=== PATIENT | female | born 1970 | race Caucasian/White ===

== ENCOUNTER 2017-03-02 17:28 | Inpatient (IN) | payer OTHER ==
[~2017-03-02] VITALS: Ht 167.6 cm; Wt 42.3 kg
--- NOTE | ~2017-03-02 | PR ---
[place], [place] PROGRESS NOTE NAME: NUBIA ROLLE UNIT #: [id number] ROOM: 507 DOCTOR: ELIZABETH MCDONALD MD BIRTHDATE: [birth year] DOS: 03/04/2017 SUBJECTIVE: The patient refused to use of the BiPAP after ____ yesterday morning, currently not using the BiPAP. The patient has been using oxygen supplementation ____ reduction of symptoms of shortness breath, cough. There was no wheezing. There were no symptoms of chest pain. OBJECTIVE: VITAL SIGNS: Normal temperature, respiratory rate 20, heart rate of 82, blood pressure 118/68. HEENT: Showed no new change. NECK: Supple. CARDIOVASCULAR: S1, S2 audible. LUNGS: The patient was noted without any wheezing or crackles at the present time. The breaths are noted generally diminished bilaterally with partial improvement in the air entry of the lungs. LABORATORY DATA: Cultures of the sputum preliminary showed normal roberto. Gram stain noted moderate white blood cells, few epithelial cells, few gram-positive cocci in pairs. Blood culture from the 15 of this month showed no bacterial growth. The BMP this morning, BUN of 8, creatinine was normal. Other electrolytes noted grossly normal except CO2 of 41. IMPRESSION: 1. The patient will be currently noted with acute exacerbation of chronic obstructive pulmonary disease with acute tracheobronchitis. 2. Kykrp-on-xemjhxt hypercapnic and hypoxic respiratory failure as well. 3. Metabolic alkalosis secondary to chronic hypercarbia. PLAN OF TREATMENT: Continuation of the patient nutrition support, bronchodilators, oxygen supplementation and other treatment as in progress. Further treatment changes will be done on the patient based on the progression of her illness. [place], [place] PROGRESS NOTE NAME: NUBIA ROLLE UNIT #: [id number] ROOM: 507 DOCTOR: ELIZABETH MCDONALD MD BIRTHDATE: [birth year] ELIZABETH VILLASEÑOR MD CM:PNTRANS [id number] ELIZABETH WEST MD 03/05/17 0110 interface
--- NOTE | ~2017-03-02 | PR ---
[place], [place] PROGRESS NOTE NAME: NUBIA ROLLE UNIT #: [id number] ROOM: 507 DOCTOR: CHARLEEN WEST MD,ELIZABETH BIRTHDATE: [birth year] DOS: 03/05/2017 PULMONARY FOLLOWUP SUBJECTIVE: She has been using oxygen supplementation 4 liters nasal cannula, shortness of breath, cough and other symptoms. The patient has been resolving progressively. There were no symptoms of chest pain. The patient refused to use the BiPAP for the past couple of days. OBJECTIVE: VITAL SIGNS: Normal temperature, respiratory rate 20, heart rate 74, blood pressure 150/87. Pulse oxygen saturation on 4 liters nasal cannula 98% saturation. HEENT: Examination shows no acute change. NECK: Supple. CARDIOVASCULAR: S1, S2 audible. LUNGS: The patient was noted without any wheezing or crackles at the present time. Breaths are noted mildly decreased bilaterally. ABDOMEN: Soft, nontender. IMPRESSION: 1. The patient who has been currently noted with resolving acute hypercapnic and hypoxic respiratory failure with improving acute exacerbation of chronic obstructive pulmonary disease, progressively. 2. History of nicotine dependence. PLAN OF TREATMENT: The patient could be discharged home on oral medication such as tapering prednisone and antibiotics and continue other medications. Tobacco cessation was encouraged. Other supportive plan and management as previously in progress. Outpatient followup suggested 2 weeks post-discharge. ELIZABETH VILLASEÑOR MD CM:TOMAS [phone] [id number] ELIZABETH WEST MD 03/05/17 221 interface
--- NOTE | ~2017-03-02 | CON ---
[place], [place] REPORT OF CONSULTATION NAME: NUBIA ROLLE UNIT #: [id number] ROOM: 507 DOCTOR: ELIZABETH MCDONALD MD BIRTHDATE: [birth year] DOS: 03/03/2017 PULMONARY CONSULTATION, EVALUATION AND MANAGEMENT CONSULTATION REQUESTED BY: Hospitalist services. REASON FOR CONSULTATION: Assess the patient for ongoing acute respiratory complaints. HISTORY OF PRESENT ILLNESS: This is a 46-year-old female with history of end-stage COPD and chronic hypercapnic hypoxic respiratory failure, known to me from the past. She presented to the Emergency Room on 03/02/2017. The patient reported symptoms of having increased shortness of breath, which has been occurring for the past 2 to 3 days. The symptoms were noted progressive. The symptoms started as the patient developed cough as well. The coughing has been noted with sputum expectoration, sometimes yellowish in color. The patient came to the hospital Emergency Room and also noticed severe oxygen desaturation. Upon arrival in the Emergency, oxygen in the 70s. The patient does complain of some wheezing and tightness in the chest as well. Denies symptoms of hemoptysis. Denies symptoms of chest trauma. She has been admitted to the hospital currently for further medical management of current acute on chronic hypercapnic hypoxic respiratory failure. This morning the patient has been noted with BiPAP, which has been ordered for the patient from last night. The BiPAP had been used for the patient for the past several hours. REVIEW OF SYSTEMS: CONSTITUTIONAL: Fatigue and tiredness noted without symptoms of fever or chills. EYES: Denies any burning, redness, or tenderness. EARS, NOSE, THROAT: No sore throat, hoarseness, otalgia, postnasal drainage or epistaxis. GASTROINTESTINAL: Denies dysphagia, nausea, vomiting, diarrhea, abdominal pain, hematemesis, melena, or hematochezia. GENITOURINARY: Denies dysuria, suprapubic pain, hematuria. MUSCULOSKELETAL: Denies any acute joint pain, redness, and history of chronic pain medication dependency known for this patient. SKIN: Denies lesions or rashes. CENTRAL NERVOUS SYSTEM: Denies dizziness, headache, diplopia, syncopal episodes. SKIN: No lesions or rashes. Remaining systems were reviewed with the patient, they were noted all negative. PAST MEDICAL HISTORY: 1. Centrilobular emphysema for this patient, which was noted end stage. 2. Chronic hypercapnic hypoxic respiratory failure, use of oxygen 4 liters per minute. 3. History of psoriasis. 4. History of illicit drug use as well. [place], [place] REPORT OF CONSULTATION NAME: NUBIA ROLLE UNIT #: [id number] ROOM: 507 DOCTOR: CHARLEEN WEST MD,ELIZABETH BIRTHDATE: [birth year] SOCIAL HISTORY: The patient is and lives at home. Denies any history of alcohol. Illicit drug use, tobacco use noted for this patient. Pack of cigarettes per day previously, currently stating she smoking 1-3 cigarettes a day. PAST SURGICAL HISTORY: Noted for cholecystectomy. FAMILY HISTORY: Unknown. MEDICATIONS: Current administered medications noted use of: 1. Thiamine. 2. Paxil. 3. Nicotine replacement patches. 4. Potassium chloride. 5. Lovenox. 6. Remeron. 7. Trazodone. 8. Neurontin. 9. Solu-Medrol 60 mEq q.8 hours. 10. DuoNeb. 11. Zithromax and IV Rocephin administration. 12. Use of Suboxone sublingual 4 mg b.i.d. DRUG ALLERGIES: No known drug allergies. PHYSICAL EXAMINATION: GENERAL: A 46-year-old female was noted currently awake and alert without any distress. Height of the patient noted 5 feet 6 inches, weight of 81 pounds, BMI 13. VITAL SIGNS: For the patient showed normal temperature, respiratory rate 18-24, heart rate of 64-94, blood pressure of 104/64, pO2 of 54. Pulse oxygen saturation on 4 L nasal cannula 90% saturation, currently with the BiPAP at 98% saturation. HEENT: Examination shows head was atraumatic. Eyes nonicterus. NECK: Supple. CARDIOVASCULAR: S1, S2 is audible. LUNGS: The patient was noted with general reduction in the breath sounds with expiratory wheezing, no crackles. ABDOMEN: Flat, soft, nontender. EXTREMITIES: Showed chronic loss of muscle mass. There are no deformities. SKIN: Showed no lesions or rashes. CENTRAL NERVOUS SYSTEM: Cranial nerves 2-12 intact. No focal deficits. LABORATORY DATA: Lactic acid yesterday 1.0, which was normal. PT/PTT yesterday normal. CMP yesterday: Glucose 177, CO2 of 42, chloride of 88, remaining CMP was normal. CBC yesterday: WBC count 26.8, hemoglobin 12.2, hematocrit 39.5, platelet count of 116,000. Arterial blood gas: pH of 7.32, pCO2 of 82.9, pO2 of 61 on nasal cannula oxygen. CK-MB, troponin yesterday and this morning all noted normal. Arterial blood gas this morning on 55% oxygen use of the BiPAP; pH of 7.27, pCO2 of 84, pO2 of 174 with a setting of BiPAP at 16/10. PT/PTT [place], [place] REPORT OF CONSULTATION NAME: NUBIA ROLLE UNIT #: [id number] ROOM: 507 DOCTOR: CHARLEEN WEST MD,ELIZABETH BIRTHDATE: [birth year] were noted as normal. CBC this morning: WBC count 17.8, ____ 35.6, platelet count was noted at 93,000. RADIOLOGY REVIEW: Chest x-ray of the patient that was done on 03/02/2017 showed severe emphysema changes noted without any acute pulmonary infiltration visible. CT scan of the chest, which was done yesterday without contrast. In the Emergency Room, the patient was also noted with severe diffuse centrilobular emphysema changes, noted basilar area of infiltration. IMPRESSION: 1. The patient has been currently admitted to the hospital noted with acute on chronic hypercapnic hypoxic respiratory failure as a result of acute bacterial pneumonia. The patient's lower lobe with consideration for community-acquired infection, gram-positive pneumonia would be considered. 2. History of illicit drug use in the past. This patient currently treated with Suboxone because of pain medication dependency. 3. The patient with low BMI as well. 4. Chronic nicotine dependence as well as ____. 5. Metabolic alkalosis of the patient secondary to chronic resting hypercarbia. 6. Thrombocytopenia, most likely related to the current infection process. PLAN OF TREATMENT: Continue the current steroids, bronchodilators, and antibiotics. Continue bronchodilators. Continue use of the BiPAP at current settings most of the time as tolerated. Continue to monitor arterial blood gases. Nutrition support for the patient to be optimized. Further treatment changes to be done for the patient based on progression of the illness. Usual medical management, other therapy, plan of care. DVT prophylaxis. Thank you for allowing me to participate in the care of this patient. ELIZABETH VILLASEÑOR MD CM:CONSTR:REPORT OF CONSULTATION [id number] 03/03/17 1419 interface
[~2017-03-02 17:28] MED LIST: ALBUTEROL0.09 MG/A2 INH; AMOXICILLIN500 MG PO; ANAPROX DS550 MG PO; ATARAX,VISTARIL50 MG PO; B-1100 M1 PO; CARBIDOPA/LEVOD1 TA1 PO; COMBIVENT1 AR2 IH; DUONEB 3 MG/3 ML3 M1 NEB; FLONASE 0.05% 121 EA NAS; FUROSEMIDE20 MG PO; HYDROCORTISONE30 G3 T; HYDROXYZINE PAM50 MG PO; KLOR-CON 1010 ME1 PO; LASIX40 MG PO; LEVAQUIN750 M1 PO; MOTRIN800 MG PO; MULTI VITAMINS1 TAB PO; NEURONTIN400 MG PO; NICODERM C14 MG/241 T; NICODERM C21 MG/242 TD; ONDANSETRON4 MG PO; PAXIL10 MG PO; SINEMET 25-100M1 TAB PO; SUBOXONE 8 MG-1 EACH SL; SYMBICORT1 AE1 INH; TRAZODONE50 MG PO; VENTOLIN H0.09 MG/AC INH; ZITHROMAX Z PA250 MG PO; ZITHROMAX250 MG PO; ZOFRAN 4 MG ED2 TAB PO; ZYRTEC10 MG PO
[2017-03-02 17:34] VITALS: BP 112/60
[2017-03-02] MEDS ORDERED: DULER200 INH (17:35)
[2017-03-02] MEDS ORDERED: MIRTAZAPINE15 M2 PO (17:35)
[2017-03-02 18:08] LABS: HEMATOCRIT 39.5 % (37.0-47.0); HEMOGLOBIN 12.3 g/dl (12.0-16.0); MEAN CELL VOLUME 102.3 fl (81.0-99.0); MEAN CORPUSCULAR HGB 31.9 pg (27.0-31.0); MEAN CORPUSCULAR HGB CONC 31.1 g/dl (33.0-37.0); MEAN PLATELET VOLUME 12.9 fl (9.6-12.3); PLATELET COUNT AUTOMATED 116 10*3/uL (130-400); RED BLOOD COUNT 3.86 10*6/uL (4.10-5.10); RED CELL DISTRI WIDTH 12.7 % (0-14.5); WHITE BLOOD COUNT 26.8 10*3/uL (4.8-10.8)
[2017-03-02 18:10] VITALS: BP 130/89
[2017-03-02 18:16] LABS: INTERNATIONAL NORM RATIO 1.1 (2.0-3.5); PROTHROMBIN TIME 11.5 SECONDS (9.0-12.4)
[2017-03-02 18:24] LABS: ALBUMIN 3.5 gm/dl (3.1-4.5); ALKALINE PHOSPHATASE 84 U/L (45-117); BILIRUBIN, TOTAL 0.3 mg/dl (0.2-1.0); BUN 6 mg/dl (7-24); CHLORIDE 88 mmol/L (98-107); EST GLOM FILT AFRICAN AMERICAN > 60 ml/min; GLUCOSE 177 mg/dL (65-99); MAGNESIUM 1.8 mg/dL (1.5-2.1); POTASSIUM 4.1 mmol/L (3.5-5.1); SGOT/AST 16 IU/L (3-35); SGPT/ALT 16 U/L (12-78); SODIUM 138 mmol/L (136-145); TOTAL PROTEIN 7.7 gm/dL (6.4-8.2)
[2017-03-02 18:30] LABS: CARBON DIOXIDE 42 mmol/L (21-32); TROPONIN I < 0.015 ng/ml (<0.045)
[2017-03-02 18:31] LABS: LYMPHOCYTE # 0.3 10*3/uL (1.3-4.4); MONOCYTE # 1.1 10*3/uL (0.1-1.0); NEUTROPHIL # 25.5 10*3/uL (2.3-7.9); NEUTROPHILS 95 % (47-73); PLATELET SUFFICIENCY LOW (NORMAL); STOMATOCYTE FEW; TOTAL CELLS COUNTED 100 #CELLS
[2017-03-02 19:09] LABS: BILIRUBIN NEGATIVE (NEGATIVE); BLOOD NEGATIVE (NEGATIVE); CLARITY CLEAR (CLEAR); COLOR YELLOW (YELLOW); GLUCOSE NEGATIVE (NEGATIVE); KETONE NEGATIVE (NEGATIVE); LEUKO ESTERASE NEGATIVE (NEGATIVE); NITRITE NEGATIVE (NEGATIVE); PROTEIN NEGATIVE (NEGATIVE); SPECIFIC GRAVITY <= 1.005 (1.005-1.030); UROBILINOGEN 0.2 E.U./dl (0.2-1.0)
[2017-03-02 19:20] LABS: BACTERIA TRACE; EPITHELIAL CELLS 0-2; URINE REFLEX COMMENT NO (NO); WBC 0-2 wbc/hpf (0-5)
[2017-03-02 20:14] VITALS: BP 106/83
[2017-03-02 20:46] LABS: ABG BASE EXCESS 13.1 mmol/L (-2.0-2.0); ABG CO2 CONTENT 44.6 mmol/L (23-27); ABG HCO3 42.1 mmol/l (22-26); ARTERIAL BLOOD GAS PH 7.328 (7.35-7.45)
[2017-03-02] MEDS ORDERED: REMERON15 M2 PO (20:49)
[2017-03-03] VITALS: BP 93/54
[2017-03-03 02:11] LABS: CKMB 2.1 ng/ml (0.5-3.6)
[2017-03-03 05:58] LABS: HEMATOCRIT 35.6 % (37.0-47.0); HEMOGLOBIN 10.5 g/dl (12.0-16.0); MEAN CELL VOLUME 104.1 fl (81.0-99.0); MEAN CORPUSCULAR HGB 30.7 pg (27.0-31.0); MEAN CORPUSCULAR HGB CONC 29.5 g/dl (33.0-37.0); MEAN PLATELET VOLUME 12.3 fl (9.6-12.3); PLATELET COUNT AUTOMATED 93 10*3/uL (130-400); RED BLOOD COUNT 3.42 10*6/uL (4.10-5.10); RED CELL DISTRI WIDTH 12.8 % (0-14.5); WHITE BLOOD COUNT 17.8 10*3/uL (4.8-10.8)
[2017-03-03 06:12] LABS: CKMB 1.9 ng/ml (0.5-3.6)
[2017-03-03 06:15] LABS: ABG BASE EXCESS 8.7 mmol/L (-2.0-2.0); ABG HCO3 38.3 mmol/l (22-26); ABG TEMPERATURE 96.9 F (98.0-99.0); ARTERIAL BLOOD GAS PH 7.273 (7.35-7.45)
[2017-03-03 06:29] LABS: HEMOGLOBIN A1c 5.2 % (4.8-5.6); PROTHROMBIN TIME 11.1 SECONDS (9.0-12.4)
[2017-03-03 06:31] LABS: BUN 8 mg/dl (7-24); CHLORIDE 96 mmol/L (98-107); CHOLESTEROL 116 mg/dL (<200); EST GLOM FILT AFRICAN AMERICAN > 60 ml/min; FREE T4 1.46 ng/dl (0.76-1.46); GLUCOSE 103 mg/dL (65-99); MAGNESIUM 1.8 mg/dL (1.5-2.1); PHOSPHOROUS 2.6 mg/dL (2.5-4.9); POTASSIUM 4.8 mmol/L (3.5-5.1); SODIUM 140 mmol/L (136-145); TRIGLYCERIDES 73 mg/dl (<150); VLDL CHOLESTEROL 15 mg/dL (6-40)
[2017-03-03 06:39] LABS: HDL CHOLESTEROL 44 mg/dl (40-60); LDL CHOLESTEROL 57 mg/dL (9-159); THYROID STIM HORMONE (HS) 0.244 uIU/ml (0.358-4.75)
[2017-03-03 06:44] LABS: CARBON DIOXIDE 41 mmol/L (21-32)
[2017-03-03 07:05] LABS: FOLIC ACID 14.41 ng/mL (>5.38); VITAMIN D, 25-HYDROXY 13.9 ng/mL (30-100)
[2017-03-03 07:18] LABS: LYMPHOCYTE # 0.2 10*3/uL (1.3-4.4); NEUTROPHIL # 17.6 10*3/uL (2.3-7.9); NEUTROPHILS 99 % (47-73); PLATELET SUFFICIENCY LOW (NORMAL); TOTAL CELLS COUNTED 100 #CELLS
[2017-03-03 08:00] VITALS: BP 104/64
[2017-03-03 12:00] VITALS: BP 121/58
[2017-03-03 16:00] VITALS: BP 96/50
[2017-03-03 20:00] VITALS: BP 103/48
[2017-03-04] VITALS: BP 92/52
[2017-03-04 04:00] VITALS: BP 94/52
[2017-03-04 07:20] LABS: HEMATOCRIT 34.5 % (37.0-47.0); HEMOGLOBIN 10.2 g/dl (12.0-16.0); MEAN CELL VOLUME 104.9 fl (81.0-99.0); MEAN CORPUSCULAR HGB CONC 29.6 g/dl (33.0-37.0); MEAN PLATELET VOLUME 12.6 fl (9.6-12.3); PLATELET COUNT AUTOMATED 111 10*3/uL (130-400); RED BLOOD COUNT 3.29 10*6/uL (4.10-5.10); RED CELL DISTRI WIDTH 12.9 % (0-14.5)
[2017-03-04 07:40] LABS: LYMPHOCYTE # 0.8 10*3/uL (1.3-4.4); MONOCYTE # 0.1 10*3/uL (0.1-1.0); NEUTROPHIL # 12.1 10*3/uL (2.3-7.9); NEUTROPHILS 93 % (47-73); PLATELET SUFFICIENCY LOW (NORMAL); STOMATOCYTE FEW; TOTAL CELLS COUNTED 100 #CELLS
[2017-03-04 07:48] LABS: BUN 8 mg/dl (7-24); CARBON DIOXIDE 39 mmol/L (21-32); CHLORIDE 100 mmol/L (98-107); EST GLOM FILT AFRICAN AMERICAN > 60 ml/min; GLUCOSE 120 mg/dL (65-99); POTASSIUM 4.6 mmol/L (3.5-5.1); SODIUM 142 mmol/L (136-145)
[2017-03-04 08:00] VITALS: BP 102/50; BP 88/52
[2017-03-04 12:00] VITALS: BP 110/68
[2017-03-04 16:00] VITALS: BP 101/53
[2017-03-04 20:00] VITALS: BP 112/61
[2017-03-05] VITALS: BP 98/55
[2017-03-05 06:13] LABS: HEMATOCRIT 36.9 % (37.0-47.0); HEMOGLOBIN 10.9 g/dl (12.0-16.0); LYMPH # 0.8 10*3/uL (1.3-4.4); LYMPH % 10.5 % (27.0-41.0); MEAN CELL VOLUME 103.9 fl (81.0-99.0); MEAN CORPUSCULAR HGB 30.7 pg (27.0-31.0); MEAN CORPUSCULAR HGB CONC 29.5 g/dl (33.0-37.0); MEAN PLATELET VOLUME 12.6 fl (9.6-12.3); MONO # 0.2 10*3/uL (0.1-1.0); MONO % 2.7 % (3.0-9.0); NEUT # 6.5 10*3/uL (2.3-7.9); NEUT % 86.3 % (47.0-73.0); PLATELET COUNT AUTOMATED 126 10*3/uL (130-400); RED BLOOD COUNT 3.55 10*6/uL (4.10-5.10); WHITE BLOOD COUNT 7.5 10*3/uL (4.8-10.8)
[2017-03-05 06:43] LABS: BUN 10 mg/dl (7-24); CHLORIDE 96 mmol/L (98-107); EST GLOM FILT AFRICAN AMERICAN > 60 ml/min; GLUCOSE 122 mg/dL (65-99); POTASSIUM 4.6 mmol/L (3.5-5.1); SODIUM 142 mmol/L (136-145)
[2017-03-05 06:46] LABS: CARBON DIOXIDE 42 mmol/L (21-32)
[2017-03-05 08:00] VITALS: BP 150/87
[2017-03-05] MEDS ORDERED: D-1000 185 MG-11 TAB PO (10:42)
[2017-03-05] MEDS ORDERED: SUPRAX400 M2 PO (10:44)
[2017-03-05] MEDS ORDERED: AVPAK AZITHROM250 MG PO (10:44)
[2017-03-05] MEDS ORDERED: PREDNISONE10 MG PO (10:54)
== END 2017-03-05 11:45 | disposition home or self-care (01) | DRG 871 ==
LOC: ED 17:28 → 5E 18:57
PROVIDERS: Hospitalist; Internal Medicine; Internal Medicine Critical Care Medicine; Physician Assistant
PROC: 5A09357 Assistance with Respiratory Ventilation, Less than 24 Consecutive Hours, Continuous Positive Airway Pressure (ICD-10-PCS; principal; 2017-03-03)
DX: A41.9 Sepsis, unspecified organism (principal); J96.22 Acute and chronic respiratory failure with hypercapnia; J96.21 Acute and chronic respiratory failure with hypoxia; J15.6 Pneumonia due to other Gram-negative bacteria; E43 Unspecified severe protein-calorie malnutrition; E87.2 Acidosis; D69.6 Thrombocytopenia, unspecified; J44.0 Chronic obstructive pulmonary disease with (acute) lower respiratory infection; J44.1 Chronic obstructive pulmonary disease with (acute) exacerbation; F19.20 Other psychoactive substance dependence, uncomplicated; Z68.1 Body mass index [BMI] 19.9 or less, adult; R65.20 Severe sepsis without septic shock; R73.9 Hyperglycemia, unspecified; F12.10 Cannabis abuse, uncomplicated; J20.9 Acute bronchitis, unspecified; F17.210 Nicotine dependence, cigarettes, uncomplicated; D75.89 Other specified diseases of blood and blood-forming organs; E55.9 Vitamin D deficiency, unspecified; I50.9 Heart failure, unspecified; Z90.49 Acquired absence of other specified parts of digestive tract; Z98.51 Tubal ligation status; Z82.3 Family history of stroke; Z82.5 Family history of asthma and other chronic lower respiratory diseases; Z99.81 Dependence on supplemental oxygen; Z80.8 Family history of malignant neoplasm of other organs or systems; Z79.51 Long term (current) use of inhaled steroids; Z79.899 Other long term (current) drug therapy

== ENCOUNTER 2017-03-31 22:10 | Emergency (ER) | payer OTHER ==
[~2017-03-31] VITALS: Ht 167.6 cm; Wt 38.1 kg
[~2017-03-31 22:10] MED LIST changes: +AVPAK AZITHROM250 MG PO; +D-1000 185 MG-11 TAB PO; +DULER200 INH; +MIRTAZAPINE15 M2 PO; +PREDNISONE10 MG PO; +REMERON15 M2 PO; +SUPRAX400 M2 PO
[2017-03-31 22:25] VITALS: BP 120/68
[2017-03-31] MEDS ORDERED: SYMBICORT1 AE1 INH (22:42)
[2017-03-31 23:10] LABS: BASO % 0.1 % (0.0-1.0); EOS % 0.3 % (1.0-4.0); HEMATOCRIT 37.6 % (37.0-47.0); HEMOGLOBIN 11.2 g/dl (12.0-16.0); LYMPH # 1.4 10*3/uL (1.3-4.4); LYMPH % 17.3 % (27.0-41.0); MEAN CORPUSCULAR HGB 31.3 pg (27.0-31.0); MEAN CORPUSCULAR HGB CONC 29.8 g/dl (33.0-37.0); MEAN PLATELET VOLUME 11.1 fl (9.6-12.3); MONO # 0.4 10*3/uL (0.1-1.0); MONO % 5.3 % (3.0-9.0); NEUT % 76.6 % (47.0-73.0); PLATELET COUNT AUTOMATED 122 10*3/uL (130-400); RED BLOOD COUNT 3.58 10*6/uL (4.10-5.10); RED CELL DISTRI WIDTH 12.8 % (0-14.5); WHITE BLOOD COUNT 7.9 10*3/uL (4.8-10.8)
[2017-03-31 23:24] LABS: ALBUMIN 3.7 gm/dl (3.1-4.5); ALKALINE PHOSPHATASE 47 U/L (45-117); BILIRUBIN, TOTAL 0.2 mg/dl (0.2-1.0); BUN 10 mg/dl (7-24); CHLORIDE 90 mmol/L (98-107); EST GLOM FILT AFRICAN AMERICAN > 60 ml/min; GLUCOSE 98 mg/dL (65-99); POTASSIUM 3.8 mmol/L (3.5-5.1); SGOT/AST 13 IU/L (3-35); SGPT/ALT 22 U/L (12-78); SODIUM 141 mmol/L (136-145); TOTAL PROTEIN 6.7 gm/dL (6.4-8.2)
[2017-03-31 23:54] LABS: CARBON DIOXIDE 51 mmol/L (21-32)
[2017-04-01] MEDS ORDERED: CIPRO500 MG PO (00:18)
== END 2017-04-01 00:25 | disposition home or self-care (01) ==
LOC: ED 22:10
PROVIDERS: Emergency Medicine
DX: J40 Bronchitis, not specified as acute or chronic (principal); F12.10 Cannabis abuse, uncomplicated; F17.200 Nicotine dependence, unspecified, uncomplicated; Z90.49 Acquired absence of other specified parts of digestive tract; I50.9 Heart failure, unspecified; J44.9 Chronic obstructive pulmonary disease, unspecified; Z99.81 Dependence on supplemental oxygen; Z79.899 Other long term (current) drug therapy

== ENCOUNTER 2017-04-05 10:45 | Inpatient (IN) | payer OTHER ==
[~2017-04-05] VITALS: Ht 167.6 cm; Wt 42.2 kg
--- NOTE | ~2017-04-05 | PR ---
[place], [place] PROGRESS NOTE NAME: NUBIA ROLLE UNIT #: [id number] ROOM: 502 DOCTOR: CHARLEEN WEST MD,ELIZABETH BIRTHDATE: [birth year] DOS: 04/07/2017 PULMONARY FOLLOWUP SUBJECTIVE: She has been noted reduction in symptoms of shortness of breath, has been noted mild to moderate cough. There was no sputum expectoration. Denies any chest pain. Shortness of breath of the patient has been improving. OBJECTIVE: VITAL SIGNS: For the patient which are recorded showed normal temperature, respiratory rate 20, heart rate 87, blood pressure 124/77, pulse oxygen saturation noted on 2 liters nasal cannula 97% saturation. HEENT: No acute change. NECK: Supple. CARDIOVASCULAR: S1, S2 audible. LUNGS: Noted without any wheeze or crackles at the present time. The breaths are noted generally diminished bilaterally. ABDOMEN: Soft, nontender. LABORATORY DATA: CBC today, platelet count 102,000, mild anemia, normal WBC count. BMP noted normal BUN and creatinine, CO2 was noted as 40. IMPRESSION: 1. Resolving acute on chronic hypercapnic hypoxic respiratory failure with acute exacerbation of chronic obstructive pulmonary disease, acute tracheobronchitis. 2. Metabolic alkalosis, resolving as well. PLAN OF TREATMENT: Continuation of the current bronchodilators and other medical management. Use Solu-Medrol 40 mg b.i.d. Possible discharge consideration in the next couple of days. Other supportive plan of management. Usual care. ELIZABETH VILLASEÑOR MD CM:PNTRANS [phone] ELIZABETH WEST MD 04/07/17 165 interface
[2017-04-05 10:45] VITALS: BP 137/95
[~2017-04-05 10:45] MED LIST changes: +CIPRO500 MG PO
[2017-04-05] MEDS ORDERED: TRAZODONE50 MG PO (11:10)
[2017-04-05 11:11] LABS: HEMATOCRIT 42.1 % (37.0-47.0); HEMOGLOBIN 12.1 g/dl (12.0-16.0); MEAN CELL VOLUME 108.8 fl (81.0-99.0); MEAN CORPUSCULAR HGB 31.3 pg (27.0-31.0); MEAN CORPUSCULAR HGB CONC 28.7 g/dl (33.0-37.0); MEAN PLATELET VOLUME 11.4 fl (9.6-12.3); PLATELET COUNT AUTOMATED 114 10*3/uL (130-400); RED BLOOD COUNT 3.87 10*6/uL (4.10-5.10); WHITE BLOOD COUNT 8.7 10*3/uL (4.8-10.8)
[2017-04-05] MEDS ORDERED: THIAMINE HCL100 MG PO (11:11)
[2017-04-05] MEDS ORDERED: Zofran4 MG PO (11:12)
[2017-04-05] MEDS ORDERED: LASIX20 MG PO (11:13)
[2017-04-05 11:27] LABS: ALBUMIN 3.4 gm/dl (3.1-4.5); ALKALINE PHOSPHATASE 51 U/L (45-117); BILIRUBIN, TOTAL 0.2 mg/dl (0.2-1.0); BUN 10 mg/dl (7-24); CHLORIDE 93 mmol/L (98-107); EST GLOM FILT AFRICAN AMERICAN > 60 ml/min; GLUCOSE 90 mg/dL (65-99); MAGNESIUM 2.2 mg/dL (1.5-2.1); POTASSIUM 4.2 mmol/L (3.5-5.1); SGOT/AST 18 IU/L (3-35); SGPT/ALT 20 U/L (12-78); SODIUM 142 mmol/L (136-145); TOTAL PROTEIN 6.8 gm/dL (6.4-8.2)
[2017-04-05 11:28] LABS: TROPONIN I 0.021 ng/ml (<0.045)
[2017-04-05 11:29] LABS: LYMPHOCYTE # 1.8 10*3/uL (1.3-4.4); MONOCYTE # 1.3 10*3/uL (0.1-1.0); NEUTROPHIL # 5.6 10*3/uL (2.3-7.9); NEUTROPHILS 64 % (47-73); STOMATOCYTE FEW; TOTAL CELLS COUNTED 100 #CELLS
[2017-04-05 11:30] LABS: PLATELET SUFFICIENCY LOW (NORMAL)
[2017-04-05 11:55] LABS: C-REACTIVE PROTEIN < 0.29 MG/DL (0-0.3)
[2017-04-05 11:56] LABS: CARBON DIOXIDE 48 mmol/L (21-32)
[2017-04-05 13:00] VITALS: BP 119/77
[2017-04-05] MEDS ORDERED: REMERON15 M2 PO (13:03)
[2017-04-05 16:00] VITALS: BP 113/44
[2017-04-05 20:00] VITALS: BP 104/49
[2017-04-06] VITALS: BP 95/50
[2017-04-06 06:54] LABS: HEMATOCRIT 35.4 % (37.0-47.0); HEMOGLOBIN 10.5 g/dl (12.0-16.0); LYMPH # 0.7 10*3/uL (1.3-4.4); LYMPH % 12.8 % (27.0-41.0); MEAN CORPUSCULAR HGB 31.2 pg (27.0-31.0); MEAN CORPUSCULAR HGB CONC 29.7 g/dl (33.0-37.0); MEAN PLATELET VOLUME 12.1 fl (9.6-12.3); MONO # 0.2 10*3/uL (0.1-1.0); NEUT # 4.4 10*3/uL (2.3-7.9); NEUT % 83.8 % (47.0-73.0); PLATELET COUNT AUTOMATED 107 10*3/uL (130-400); RED BLOOD COUNT 3.37 10*6/uL (4.10-5.10); WHITE BLOOD COUNT 5.3 10*3/uL (4.8-10.8)
[2017-04-06 07:13] LABS: BUN 9 mg/dl (7-24); CHLORIDE 94 mmol/L (98-107); EST GLOM FILT AFRICAN AMERICAN > 60 ml/min; GLUCOSE 121 mg/dL (65-99); MAGNESIUM 2.1 mg/dL (1.5-2.1); PHOSPHOROUS 3.9 mg/dL (2.5-4.9); POTASSIUM 4.5 mmol/L (3.5-5.1); SODIUM 141 mmol/L (136-145)
[2017-04-06 07:15] LABS: CARBON DIOXIDE 42 mmol/L (21-32)
[2017-04-06 07:21] LABS: PROTHROMBIN TIME 10.6 SECONDS (9.0-12.4)
[2017-04-06 08:00] VITALS: BP 88/50; BP 95/50
[2017-04-06 12:00] VITALS: BP 117/57
[2017-04-06 16:00] VITALS: BP 119/64
[2017-04-06 20:00] VITALS: BP 121/59
[2017-04-07] VITALS: BP 94/49
[2017-04-07 05:50] LABS: HEMATOCRIT 33.1 % (37.0-47.0); LYMPH # 0.9 10*3/uL (1.3-4.4); LYMPH % 14.7 % (27.0-41.0); MEAN CELL VOLUME 103.1 fl (81.0-99.0); MEAN CORPUSCULAR HGB 31.2 pg (27.0-31.0); MEAN CORPUSCULAR HGB CONC 30.2 g/dl (33.0-37.0); MEAN PLATELET VOLUME 12.5 fl (9.6-12.3); MONO # 0.2 10*3/uL (0.1-1.0); MONO % 3.6 % (3.0-9.0); NEUT # 4.7 10*3/uL (2.3-7.9); NEUT % 81.5 % (47.0-73.0); PLATELET COUNT AUTOMATED 102 10*3/uL (130-400); RED BLOOD COUNT 3.21 10*6/uL (4.10-5.10); RED CELL DISTRI WIDTH 13.3 % (0-14.5); WHITE BLOOD COUNT 5.8 10*3/uL (4.8-10.8)
[2017-04-07 05:51] LABS: ALKALINE PHOSPHATASE 37 U/L (45-117); BILIRUBIN, TOTAL 0.3 mg/dl (0.2-1.0); BUN 12 mg/dl (7-24); CARBON DIOXIDE 40 mmol/L (21-32); CHLORIDE 100 mmol/L (98-107); EST GLOM FILT AFRICAN AMERICAN > 60 ml/min; GLUCOSE 113 mg/dL (65-99); POTASSIUM 4.3 mmol/L (3.5-5.1); SGOT/AST 10 IU/L (3-35); SGPT/ALT 15 U/L (12-78); SODIUM 143 mmol/L (136-145); TOTAL PROTEIN 5.8 gm/dL (6.4-8.2)
[2017-04-07 05:52] LABS: PREALBUMIN 24 mg/dl (20-40)
[2017-04-07 08:00] VITALS: BP 124/77
[2017-04-07 12:00] VITALS: BP 102/61
[2017-04-07 16:00] VITALS: BP 112/61
[2017-04-07 20:00] VITALS: BP 120/59
[2017-04-08] VITALS: BP 100/47
[2017-04-08 06:46] LABS: EOS % 0.1 % (1.0-4.0); HEMATOCRIT 32.6 % (37.0-47.0); HEMOGLOBIN 9.7 g/dl (12.0-16.0); LYMPH # 1.7 10*3/uL (1.3-4.4); LYMPH % 23.7 % (27.0-41.0); MEAN CELL VOLUME 102.5 fl (81.0-99.0); MEAN CORPUSCULAR HGB 30.5 pg (27.0-31.0); MEAN CORPUSCULAR HGB CONC 29.8 g/dl (33.0-37.0); MEAN PLATELET VOLUME 12.9 fl (9.6-12.3); MONO # 0.5 10*3/uL (0.1-1.0); MONO % 6.2 % (3.0-9.0); NEUT # 5.1 10*3/uL (2.3-7.9); NEUT % 69.6 % (47.0-73.0); PLATELET COUNT AUTOMATED 100 10*3/uL (130-400); RED BLOOD COUNT 3.18 10*6/uL (4.10-5.10); RED CELL DISTRI WIDTH 13.7 % (0-14.5); WHITE BLOOD COUNT 7.3 10*3/uL (4.8-10.8)
[2017-04-08 07:39] LABS: CHLORIDE 96 mmol/L (98-107); POTASSIUM 3.6 mmol/L (3.5-5.1); SODIUM 141 mmol/L (136-145)
[2017-04-08 07:46] LABS: ALKALINE PHOSPHATASE 37 U/L (45-117); BILIRUBIN, TOTAL 0.3 mg/dl (0.2-1.0); BUN 11 mg/dl (7-24); CARBON DIOXIDE 40 mmol/L (21-32); EST GLOM FILT AFRICAN AMERICAN > 60 ml/min; GLUCOSE 114 mg/dL (65-99); SGOT/AST 11 IU/L (3-35); SGPT/ALT 17 U/L (12-78); TOTAL PROTEIN 5.8 gm/dL (6.4-8.2)
[2017-04-08 08:00] VITALS: BP 120/81
[2017-04-08 12:00] VITALS: BP 132/74
[2017-04-08] MEDS ORDERED: LEVAQUIN500 M2 PO (13:50)
[2017-04-08] MEDS ORDERED: PREDNISONE50 MG PO (13:50)
== END 2017-04-08 14:19 | disposition home or self-care (01) | DRG 871 ==
LOC: ED 10:45 → EDHOLD 12:28 → 5E 12:28
PROVIDERS: Hospitalist; Internal Medicine; Internal Medicine Critical Care Medicine; Internal Medicine Nephrology; Student in an Organized Health Care Education/Training Program
DX: A41.9 Sepsis, unspecified organism (principal); J18.9 Pneumonia, unspecified organism; J96.21 Acute and chronic respiratory failure with hypoxia; R64 Cachexia; E87.3 Alkalosis; D69.6 Thrombocytopenia, unspecified; E44.0 Moderate protein-calorie malnutrition; J44.0 Chronic obstructive pulmonary disease with (acute) lower respiratory infection; J96.22 Acute and chronic respiratory failure with hypercapnia; J44.1 Chronic obstructive pulmonary disease with (acute) exacerbation; Z68.1 Body mass index [BMI] 19.9 or less, adult; I50.9 Heart failure, unspecified; D72.821 Monocytosis (symptomatic); D75.89 Other specified diseases of blood and blood-forming organs; L40.9 Psoriasis, unspecified; E83.41 Hypermagnesemia; R65.20 Severe sepsis without septic shock; I49.3 Ventricular premature depolarization; F17.210 Nicotine dependence, cigarettes, uncomplicated; D53.9 Nutritional anemia, unspecified; Z99.81 Dependence on supplemental oxygen; Z71.6 Tobacco abuse counseling; Z98.51 Tubal ligation status; Z90.49 Acquired absence of other specified parts of digestive tract; Z82.3 Family history of stroke; Z83.6 Family history of other diseases of the respiratory system; Z79.899 Other long term (current) drug therapy; F12.10 Cannabis abuse, uncomplicated; E87.8 Other disorders of electrolyte and fluid balance, not elsewhere classified

== ENCOUNTER 2017-04-23 20:56 | Emergency (ER) | payer OTHER ==
[~2017-04-23] VITALS: Ht 167.6 cm; Wt 43.5 kg
[~2017-04-23 20:56] MED LIST changes: +LASIX20 MG PO; +LEVAQUIN500 M2 PO; +PREDNISONE50 MG PO; +THIAMINE HCL100 MG PO; +Zofran4 MG PO
[2017-04-23 21:03] VITALS: BP 118/65
[2017-04-23 21:49] LABS: BASO % 0.2 % (0.0-1.0); EOS # 0.1 10*3/uL (0.0-0.4); EOS % 1.6 % (1.0-4.0); HEMATOCRIT 38.6 % (37.0-47.0); HEMOGLOBIN 11.5 g/dl (12.0-16.0); LYMPH # 2.2 10*3/uL (1.3-4.4); LYMPH % 26.2 % (27.0-41.0); MEAN CELL VOLUME 103.5 fl (81.0-99.0); MEAN CORPUSCULAR HGB 30.8 pg (27.0-31.0); MEAN CORPUSCULAR HGB CONC 29.8 g/dl (33.0-37.0); MEAN PLATELET VOLUME 12.1 fl (9.6-12.3); MONO # 0.7 10*3/uL (0.1-1.0); MONO % 8.3 % (3.0-9.0); NEUT # 5.2 10*3/uL (2.3-7.9); NEUT % 63.5 % (47.0-73.0); PLATELET COUNT AUTOMATED 127 10*3/uL (130-400); RED BLOOD COUNT 3.73 10*6/uL (4.10-5.10); RED CELL DISTRI WIDTH 12.7 % (0-14.5); WHITE BLOOD COUNT 8.2 10*3/uL (4.8-10.8)
[2017-04-23 22:04] LABS: ALBUMIN 3.5 gm/dl (3.1-4.5); ALKALINE PHOSPHATASE 61 U/L (45-117); BILIRUBIN, TOTAL 0.2 mg/dl (0.2-1.0); BUN 9 mg/dl (7-24); CHLORIDE 95 mmol/L (98-107); EST GLOM FILT AFRICAN AMERICAN > 60 ml/min; GLUCOSE 96 mg/dL (65-99); POTASSIUM 4.1 mmol/L (3.5-5.1); SGOT/AST 13 IU/L (3-35); SGPT/ALT 19 U/L (12-78); SODIUM 141 mmol/L (136-145); TOTAL PROTEIN 7.1 gm/dL (6.4-8.2)
[2017-04-23 22:06] LABS: TROPONIN I 0.017 ng/ml (<0.045)
[2017-04-23 22:10] LABS: CARBON DIOXIDE 42 mmol/L (21-32)
[2017-04-23] MEDS ORDERED: PREDNISONE10 M1 PO (22:51)
[2017-04-23] MEDS ORDERED: AUGMENTIN 875875 MG PO (22:51)
== END 2017-04-23 23:22 | disposition home or self-care (01) ==
LOC: ED 20:56
PROVIDERS: Emergency Medicine
DX: J44.1 Chronic obstructive pulmonary disease with (acute) exacerbation (principal); I50.9 Heart failure, unspecified; F12.10 Cannabis abuse, uncomplicated; F17.200 Nicotine dependence, unspecified, uncomplicated; Z79.899 Other long term (current) drug therapy

== ENCOUNTER 2017-05-15 18:34 | Inpatient (IN) | payer OTHER ==
[~2017-05-15] VITALS: Ht 167.6 cm; Wt 41.3 kg
--- NOTE | ~2017-05-15 | CON ---
[place], [place] REPORT OF CONSULTATION NAME: NUBIA ROLLE [facility] #: [id number] UNIT #: [id number] ROOM: 415 DOCTOR: CHARLEEN WEST MDELIZABETH BIRTHDATE: [birth year] DOS: 05/16/2017 CONSULTATION REQUESTED BY: Hospitalist services. REASON FOR CONSULTATION: Assess the patient for ongoing COPD exacerbation. HISTORY OF PRESENT ILLNESS: A 46-year-old female with advanced centrilobular emphysema and history of chronic hypoxic and hypercapnic respiratory failure, who presented to the Emergency Room. The patient has been noted with increase in the respiratory symptoms that started the last few days. The symptoms have been noted progressively worse and not responding to the outpatient treatment. The patient does have symptoms of coughing, which has been noted essentially nonproductive. She was also noted symptoms of increased dyspnea, which are occurring with minimal exertion and rest as well. She denies any symptoms of chest pain or any abdominal pain. The patient has taken the Levaquin and tapering prednisone from office, but noted no improvement in the symptoms. She has been assessed in the Emergency Room. The patient was hospitalized for further medical management. She was denying any symptoms of hemoptysis. REVIEW OF SYSTEMS: CONSTITUTIONAL: Fatigue and tiredness noted without symptoms of fever or chills. EYES: Denies any burning, redness, or tenderness. EARS, NOSE, THROAT: No sore throat, hoarseness, otalgia, postnasal drainage or epistaxis. CARDIOVASCULAR: Denies anginal pain, noted mild edema of the lower extremities. Denies any symptoms of palpitations. GASTROINTESTINAL: Denies dysphagia, nausea, vomiting, diarrhea, abdominal pain, hematemesis, melena, hematochezia. SKIN: Denies lesions or rashes. MUSCULOSKELETAL: Denies symptoms of acute joint pain, redness, or tenderness, history of chronic pain with pain medications dependence. CENTRAL NERVOUS SYSTEM: No dizziness, headache, diplopia, syncopal episodes. The remaining systems were reviewed with the patient, they were noted all negative. PAST MEDICAL HISTORY: 1. Known with history of advanced COPD for this patient, known in the past. 2. History of chronic hypoxic respiratory failure. 3. Chronic hypercapnic respiratory failure. 4. History of psoriasis. 5. Past history of illicit drug use. SOCIAL HISTORY: The patient is and lives at home. Denies history of alcohol or illicit drug use. Tobacco use was known for this patient since teenager; about a pack of cigarettes per day, still smokes less than 1/4 pack of cigarettes per day as per patient. PAST SURGICAL HISTORY: Noted as cholecystectomy. [place], [place] REPORT OF CONSULTATION NAME: NUBIA ROLLE UNIT #: [id number] ROOM: 415 DOCTOR: CHARLEEN WEST MD,ELIZABETH BIRTHDATE: [birth year] FAMILY HISTORY: Not known. HOME MEDICATIONS: The patient, which were listed at time of admission as use of Remeron, thiamine, multivitamin, Paxil, gabapentin, Symbicort HFA inhaler, Spiriva and DuoNeb. She was also getting some other p.r.n. medications. In the hospital, the patient had been receiving broad spectrum intravenous antibiotics; that includes vancomycin, Levaquin and IV Zosyn. She is also getting Solu-Medrol 60 mg every 8 hours. ALLERGIES: The drug allergy history was noted as no known drug allergies. PHYSICAL EXAMINATION: GENERAL: This is a 46-year-old female, height of 5 feet 6 inches, weight of 91 pounds, BMI 14.7 without any distress at this time. VITAL SIGNS: For the patient which has been recorded shows temperature 99.5 degrees Fahrenheit, normal temperature, respiratory rate 18-22, heart rate 96-106, blood pressure 110/70-95/50. Pulse oxygen saturation of the patient recorded on 4 L nasal cannula for this patient 92%. HEENT: Examination shows head was atraumatic. Eyes: No icterus. Neck was supple. CARDIOVASCULAR: S1, S2 audible. LUNGS: Noted with general reduction in breath sounds bilaterally. EXTREMITIES: The patient noted without any edema, clubbing, cyanosis. CENTRAL NERVOUS SYSTEM: Loss of muscle mass in patient which cannot be generalized for this patient, but there were no finding of focal neurologic deficit. Cranial nerves 2-12 intact. MUSCULOSKELETAL: No gross deformity. SKIN: Does not show any acute lesions or rashes at this time. LABORATORY DATA: PT, PTT yesterday noted normal. CBC yesterday, WBC count 15.9, normal hemoglobin and hematocrit and platelet count mildly decreased at 116,000. CMP of the patient yesterday on admission noted normal BUN and creatinine. Carbon dioxide 41, chloride of 93 with normal rest of the LFTs. CMP repeated this morning for the patient shows normal BUN and creatinine, CO2 was 38. Total protein 6.8, albumin 2.8. CBC this morning, WBC count 13.6, hemoglobin 10.4, hematocrit 34.9 with platelet count of 89,000. The chest x-ray of the patient that was done for the patient on the for the patient, reviewed, shows no acute changes with severe advanced COPD changes. CT scan of the chest for the patient was also done for the patient was noted free of any acute pulmonary infiltration with small area of linear atelectasis noted in lower lungs. There were no area of consolidation or pleural fluid or finding of congestive heart failure. IMPRESSION: 1. The patient who has been currently admitted to the hospital, failed outpatient treatment, noted with acute exacerbation of chronic obstructive pulmonary disease, history of chronic hypercapnia and hypoxia. 2. Low BMI for the patient with chronic protein calorie malnutrition status. 3. Chronic hypercarbia for this patient also noted with metabolic alkalosis. [place], [place] REPORT OF CONSULTATION NAME: NUBIA ROLLE UNIT #: [id number] ROOM: [facility] DOCTOR: CHARLEEN WEST MD,ELIZABETH BIRTHDATE: [birth year] 4. Low-grade nicotine abuse was still noted. PLAN OF TREATMENT: The dose of Solu-Medrol will be decreased for the patient from 60 mg to lower dose because of the reduction in respiratory symptoms. She was noted to be very broad spectrum intravenous antibiotic, which will be discontinued and the patient will be started on Rocephin and Zithromax combination. Ordered sputum for Gram stain and culture. Obtain the prealbumin level in the morning. Maximize the nutritional status. Give nicotine replacement patches if necessary in case of any nicotine withdrawal, she has been attempted several times, arterial blood gas in the past admission and not noted successful in getting arterial blood gases. Thanks for allowing me to participate in the care of this patient. ELIZABETH VILLASEÑOR MD CM:CONSTR:REPORT OF CONSULTATION 0944 05/16/17 1540 interface
--- NOTE | ~2017-05-15 | PR ---
[place], [place] PROGRESS NOTE NAME: NUBIA ROLLE UNIT #: [id number] ROOM: 415 DOCTOR: ELIZABETH MCDONALD MD BIRTHDATE: [birth year] DOS: 05/17/2017 PULMONARY PROGRESS NOTE SUBJECTIVE: She has been noted with reduction in symptoms of shortness of breath. Denies symptoms of chest pain. There was mild cough noted without any sputum expectoration. Wheezing was also noted, somewhat decreased. OBJECTIVE: VITAL SIGNS: For the patient, which were recorded show normal temperature, respiration 16, heart rate of 68, blood pressure 102/56. Pulse oxygen saturation of the patient noted on 3 L nasal cannula 94% saturation. HEENT: No acute change. NECK: Supple. CARDIOVASCULAR: S1, S2 audible. LUNGS: Moderately reduced breath sounds with moderate expiratory wheezing. There were no crackles. ABDOMEN: Soft, nontender. EXTREMITIES: Shows no edema. LABORATORY DATA: CBC for the patient this morning, hemoglobin 9.9, hematocrit 32.6, WBC count normal, platelet count of 100,000. BMP this morning noted normal BUN and creatinine. CO2 of 40. IMPRESSION: 1. The patient who has been currently admitted to the hospital, was treated for acute exacerbation of chronic obstructive pulmonary disease, history of chronic hypoxic respiratory failure. 2. Thrombocytopenia, etiology unclear, currently resolving with medical management. 3. History of chronic protein-calorie malnutrition. PLAN OF MANAGEMENT: Continuation of the patient on current plan of therapy as in progress. Prealbumin level was noted at 14. In addition, nutritional supplement as tolerated. Monitoring of the metabolic alkalosis will be continued. Usual care, other supportive therapy, plan of management, care and treatment. [place], [place] PROGRESS NOTE NAME: NUBIA ROLLE UNIT #: [id number] ROOM: 415 DOCTOR: ELIZABETH MCDONALD MD BIRTHDATE: [birth year] ELIZABETH VILLASEÑOR MD CM:PNTRANS [phone] ELIZABETH WEST MD 05/17/17 1501 interface
--- NOTE | ~2017-05-15 | EKG ---
[place], [place] ELECTROCARDIOGRAM REPORT NAME: NUBIA ROLLE UNIT #: [id number] ROOM: [facility] DOCTOR: CHARLEEN WEST MD,ELIZABETH BIRTHDATE: [birth year] DOS: 05/15/2017 Procedure was done on 05/15/2017 at 1927. Normal sinus rhythm was noted with rate of 84 beats per minute. Remaining EKG was essentially noted as normal. ELIZABETH VILLASEÑOR MD CM:EKGRPT:ELECTROCARDIOGRAM REPORT [phone] ELIZABETH WEST MD
--- NOTE | ~2017-05-15 | PR ---
[place], [place] PROGRESS NOTE NAME: NUBIA ROLLE UNIT #: [id number] ROOM: 415 DOCTOR: CHARLEEN WEST MD,ELIZABETH BIRTHDATE: [birth year] DOS: 05/18/2017 SUBJECTIVE: The patient was seen and examined on 05/18/2017. She has been noted to be comfortable at this time with minimal cough with shortness of breath and wheezing was decreasing. There are no symptoms of chest pain or abdominal pain. OBJECTIVE: VITAL SIGNS: Temperature noted as normal, respiratory rate 18, heart rate 72, and blood pressure 120/77. HEENT: No acute change. NECK: Supple. CARDIOVASCULAR: S1, S2 audible. LUNGS: Noted free of any wheezing this morning. There were no crackles. ABDOMEN: Soft, nontender. LABORATORY DATA: CBC: Mild anemia. Platelet count was still noted mildly decreased at 103,000. BMP was noted as normal BUN and creatinine. CO2 was 42. IMPRESSION: 1. The patient who has been currently noted with acute exacerbation of chronic obstructive pulmonary disease, acute tracheobronchitis is responding to treatment. 2. Metabolic alkalosis of the patient was also noted. 3. History of chronic hypoxic and hypercapnic respiratory failure. 4. Anxiety disorder. 5. Nicotine abuse for the patient intermittently. PLAN OF MANAGEMENT: The patient could be discharged home today on tapering dose of prednisone. Diamox low dose; the patient will be started at 250 mg of Diamox daily. Other supportive plan of therapy and care. Usual medical management and other plan of care. ELIZABETH VILLASEÑOR MD CM:PNTRANS 1013 ELIZABETH WEST MD 05/19/17 003 interface
[~2017-05-15 18:34] MED LIST changes: +AUGMENTIN 875875 MG PO; +PREDNISONE10 M1 PO
[2017-05-15 18:38] VITALS: BP 110/74
--- NOTE | 2017-05-15 19:22 | NUR ---
REPORT RECEIVED FROM MARIELLE IBRAHIM RN. PATIENT IS ALERT AND ORIENTED X3, NON-LABORED BREATHING ON 4LNC. PATIENTS LUNGS HAVE POOR AIR EXCHANGE WITH CRACKLES NOTED IN BILATERAL BASES.
[2017-05-15 19:31] LABS: BASO % 0.2 % (0.0-1.0); EOS # 0.1 10*3/uL (0.0-0.4); EOS % 0.6 % (1.0-4.0); HEMATOCRIT 43.2 % (37.0-47.0); HEMOGLOBIN 12.9 g/dl (12.0-16.0); LYMPH # 1.5 10*3/uL (1.3-4.4); LYMPH % 9.3 % (27.0-41.0); MEAN CELL VOLUME 104.1 fl (81.0-99.0); MEAN CORPUSCULAR HGB 31.1 pg (27.0-31.0); MEAN CORPUSCULAR HGB CONC 29.9 g/dl (33.0-37.0); MEAN PLATELET VOLUME 12.9 fl (9.6-12.3); MONO # 0.9 10*3/uL (0.1-1.0); MONO % 5.9 % (3.0-9.0); NEUT # 13.3 10*3/uL (2.3-7.9); NEUT % 83.7 % (47.0-73.0); PLATELET COUNT AUTOMATED 116 10*3/uL (130-400); RED BLOOD COUNT 4.15 10*6/uL (4.10-5.10); RED CELL DISTRI WIDTH 12.5 % (0-14.5); WHITE BLOOD COUNT 15.9 10*3/uL (4.8-10.8)
[2017-05-15 19:40] LABS: ACT PARTIAL THROMBO TIME 27.5 SECONDS (20.8-31.5)
[2017-05-15 19:48] LABS: ALBUMIN 3.7 gm/dl (3.1-4.5); ALKALINE PHOSPHATASE 71 U/L (45-117); BUN 10 mg/dl (7-24); CHLORIDE 93 mmol/L (98-107); CREATININE 0.47 mg/dL (0.55-1.02); POTASSIUM 3.9 mmol/L (3.5-5.1); SGOT/AST 16 IU/L (3-35); SGPT/ALT 16 U/L (12-78); SODIUM 139 mmol/L (136-145)
[2017-05-15 19:54] LABS: TROPONIN I < 0.015 ng/ml (<0.045)
[2017-05-15 20:06] LABS: BILIRUBIN NEGATIVE (NEGATIVE); BLOOD NEGATIVE (NEGATIVE); CLARITY CLEAR (CLEAR); COLOR YELLOW (YELLOW); GLUCOSE NEGATIVE (NEGATIVE); KETONE NEGATIVE (NEGATIVE); LEUKO ESTERASE NEGATIVE (NEGATIVE); NITRITE NEGATIVE (NEGATIVE); SPECIFIC GRAVITY <= 1.005 (1.005-1.030); UROBILINOGEN 0.2 E.U./dl (0.2-1.0)
[2017-05-15 20:14] LABS: BACTERIA TRACE; EPITHELIAL CELLS 20-25
[2017-05-15 20:15] LABS: RBC 0-2 rbc/hpf (0-2); WBC 0-2 wbc/hpf (0-5)
[2017-05-15 21:45] VITALS: BP 124/74
[2017-05-15] MEDS ORDERED: NICODERM CQ1 EAC2 T (21:50)
--- NOTE | 2017-05-15 21:50 | NUR ---
A 46, admitted to , under the services of MARIA ISABEL Mosquera DO with a diagnosis of CELLULITIS, PNEUMONITIS, HYPOXIA, COPD. Chief complaint is SHORTNESS OF BREATH AND BLE EDEMA. Patient arrived via CART from ER. Monitor applied. Initial assessment completed. Vital signs taken and recorded. MARIA ISABEL MOSQUERA DO notified of admission to the unit. Orders received. See assessment for past medical history, medications and allergies. Patient and/or family oriented to unit. [facility] reviewed. Clothing/patient valuable form completed. JEMMA JOHNSON
[2017-05-15] MEDS ORDERED: PROVENTIL HFA6.7 GM INH (21:52)
[2017-05-15] MEDS ORDERED: OXYGEN NAS (21:54)
[2017-05-15] MEDS ORDERED: REMERON15 M2 PO (21:57)
[2017-05-15] MEDS ORDERED: DULERA 200 MCG8.8 GM INH (22:00)
--- NOTE | 2017-05-15 23:18 | NUR ---
PT. GIVEN RESTORIL ORDERED AT 2301.
[2017-05-16] VITALS: BP 95/50
--- NOTE | 2017-05-16 00:56 | NUR ---
PT. SLEEPING, RESTORIL EFFECTIVE.
[2017-05-16 06:19] LABS: MEAN CELL VOLUME 103.9 fl (81.0-99.0); MEAN CORPUSCULAR HGB CONC 29.8 g/dl (33.0-37.0); MEAN PLATELET VOLUME 13.5 fl (9.6-12.3); PLATELET COUNT AUTOMATED 89 10*3/uL (130-400); RED BLOOD COUNT 3.36 10*6/uL (4.10-5.10); RED CELL DISTRI WIDTH 12.5 % (0-14.5); WHITE BLOOD COUNT 13.6 10*3/uL (4.8-10.8)
[2017-05-16 06:25] LABS: ALBUMIN 2.8 gm/dl (3.1-4.5); BUN 9 mg/dl (7-24); CHLORIDE 101 mmol/L (98-107); CREATININE 0.31 mg/dL (0.55-1.02); MAGNESIUM 1.7 mg/dL (1.5-2.1); PHOSPHOROUS 3.4 mg/dL (2.5-4.9); POTASSIUM 4.4 mmol/L (3.5-5.1); SGOT/AST 20 IU/L (3-35); SGPT/ALT 17 U/L (12-78); SODIUM 141 mmol/L (136-145)
[2017-05-16 06:27] LABS: ALKALINE PHOSPHATASE 57 U/L (45-117)
[2017-05-16 06:29] LABS: HEMATOCRIT 34.9 % (37.0-47.0); HEMOGLOBIN 10.4 g/dl (12.0-16.0)
--- NOTE | 2017-05-16 06:31 | NUR ---
DR. VILLASEÑOR NOTIFIED OF CONSULT.
[2017-05-16 07:01] LABS: BASOPHILS 1 % (0-1); PLATELET SUFFICIENCY LOW (NORMAL); TOTAL CELLS COUNTED 100 #CELLS
[2017-05-16 08:00] VITALS: BP 110/72
--- NOTE | 2017-05-16 09:00 | NUR ---
Livestock Rancher in to talk to patient. Patient states lives at home with . There are few steps in the home. Physician: dulce Pharmacy: [facility] Home health services: none Patient's level of ADLs: MINIMAL ASSIST Patient has working utilities: all working DME: home oxygen, protable tanks and nebulizer from [facility], bedside commode Follow-up physician's appointment after d/c: will be made by hospitalist nurse director upon discharge Does patient want to access PORTAL?: no Discharge plan discussed with patient, present, patient states she gets around fine, no ambulation device, has home oxygen that she uses 24 hours a day, patient states that she will be going home upon discharge, she also stated that she would like to have a hospital bed, that she sleeps on the cough due to not being able to breath is she lies flat, will notify hospitalist nurse director for script for hosptial bed, also discussed with her VNA and she was receptive to this, stated she had used this in the past and would like [facility] to see her, will send an order to [facility] for when patient is medically stable for discharge. CONNIE HILTON
--- NOTE | 2017-05-16 10:58 | NUR ---
insurance demos submitted on line, reference number is [id number], corporate fax team will fax clinicals to [phone]
[2017-05-16 16:00] VITALS: BP 99/55
--- NOTE | 2017-05-16 19:52 | NUR ---
PT. RESTING IN BED. HEP LOCK IN RAN ASYMPT. LUNGS HAVE I&E WHEEZES BILAT. ABDOMEN SOFT, NONDISTENDED AND NORMO. NO PERIPHERAL EDEMA NOTED. PSORIASIS NOTED ON BILAT LOWER EXTREMITIES. PT. STATED SOB INCREASING WITH MINIMAL EXERTION. UP TO [facility] AD MIGUEL ANGEL. CURRENTLY ON 3L NC, PER AT HOME. JEMMA JOHNSON RN
[2017-05-16 20:00] VITALS: BP 101/55
--- NOTE | 2017-05-16 21:34 | NUR ---
PT. GIVEN REMERON ORDERED .
[2017-05-17] VITALS: BP 100/57
--- NOTE | 2017-05-17 02:20 | NUR ---
24 HOUR CHART CHECK DONE.
[2017-05-17 05:45] LABS: BUN 13 mg/dl (7-24); CHLORIDE 102 mmol/L (98-107); POTASSIUM 4.4 mmol/L (3.5-5.1); SODIUM 142 mmol/L (136-145)
[2017-05-17 05:49] LABS: PREALBUMIN 14 mg/dl (20-40)
[2017-05-17 06:15] LABS: BASO % 0.1 % (0.0-1.0); HEMATOCRIT 32.6 % (37.0-47.0); HEMOGLOBIN 9.9 g/dl (12.0-16.0); LYMPH # 1.1 10*3/uL (1.3-4.4); LYMPH % 12.1 % (27.0-41.0); MEAN CELL VOLUME 102.8 fl (81.0-99.0); MEAN CORPUSCULAR HGB 31.2 pg (27.0-31.0); MEAN CORPUSCULAR HGB CONC 30.4 g/dl (33.0-37.0); MEAN PLATELET VOLUME 13.7 fl (9.6-12.3); MONO # 0.4 10*3/uL (0.1-1.0); MONO % 4.7 % (3.0-9.0); NEUT # 7.5 10*3/uL (2.3-7.9); NEUT % 82.8 % (47.0-73.0); PLATELET COUNT AUTOMATED 100 10*3/uL (130-400); RED BLOOD COUNT 3.17 10*6/uL (4.10-5.10); RED CELL DISTRI WIDTH 12.8 % (0-14.5)
--- NOTE | 2017-05-17 06:31 | NUR ---
PATIENT SLEPT WELL THROUGHOUT NIGHT. NO COMPLAINTS OF PAIN OR DISCOMFORT VOICED. NO SIGNS OR SYMPTOMS OF DISTRESS NOTED. WILL CONTINUE TO MONITOR. CALL LIGHT IN REACH.
[2017-05-17 08:00] VITALS: BP 102/56
--- NOTE | 2017-05-17 09:12 | NUR ---
case management visits with patient, patient denies any home needs at this time
[2017-05-17 12:00] VITALS: BP 124/57
--- NOTE | 2017-05-17 12:41 | NUR ---
Nutritional Support Services Note: Discussing with pt current po intake. Dx of COPD and Cellulitis. Pt states when she has a hard time breathing her appetite declines. Ht.5'6 Wt.91# BMI 14. Weight on 01/14/16 weight was 75#. Pt has gained 16 pounds in the past year. She does drink the two Boost with meals and well as eating her regular diet. Appetite has been good recently. She drinks Boost at home as well. Discussed with her need for high calorie foods and smaller portions more freguently. Pt is receptive and continues to eat as well as she can. See no other nutrition recommendations at this time. Will continue to follow as needed. Aimee Jaeger
--- NOTE | 2017-05-17 14:20 | NUR ---
case management betty a script for a hospital bed, called [facility], script and patient's information sent to them, they will contact patient's to make arrangements to deliver patient's bed
[2017-05-17 16:00] VITALS: BP 117/65
[2017-05-17 20:00] VITALS: BP 122/52
[2017-05-18] VITALS: BP 95/51
[2017-05-18 05:47] LABS: HEMATOCRIT 33.6 % (37.0-47.0); HEMOGLOBIN 10.2 g/dl (12.0-16.0); LYMPH # 0.8 10*3/uL (1.3-4.4); LYMPH % 12.2 % (27.0-41.0); MEAN CELL VOLUME 102.4 fl (81.0-99.0); MEAN CORPUSCULAR HGB 31.1 pg (27.0-31.0); MEAN CORPUSCULAR HGB CONC 30.4 g/dl (33.0-37.0); MONO # 0.2 10*3/uL (0.1-1.0); MONO % 3.2 % (3.0-9.0); NEUT # 5.8 10*3/uL (2.3-7.9); NEUT % 84.2 % (47.0-73.0); PLATELET COUNT AUTOMATED 103 10*3/uL (130-400); RED BLOOD COUNT 3.28 10*6/uL (4.10-5.10); RED CELL DISTRI WIDTH 12.9 % (0-14.5); WHITE BLOOD COUNT 6.9 10*3/uL (4.8-10.8)
[2017-05-18 05:53] LABS: BUN 12 mg/dl (7-24); CHLORIDE 97 mmol/L (98-107); POTASSIUM 4.4 mmol/L (3.5-5.1); SODIUM 142 mmol/L (136-145)
[2017-05-18 08:00] VITALS: BP 120/77
--- NOTE | 2017-05-18 09:00 | NUR ---
case management visits with patient, present, stated that [facility] called him and will be delivering patient's hospital bed tomorrow. patient will also need a script for her boost supplements, informed hospitalist nurse director, no other needs at this time
[2017-05-18] MEDS ORDERED: HOSPBED DEVI (11:11)
[2017-05-18] MEDS ORDERED: ENSURE HIGH PR237 M1 PO (11:24)
--- NOTE | 2017-05-18 11:39 | NUR ---
MSDIS Discharge instructions reviewed with patient/family. Patient receptive and verbalizes understanding. Follow-up care arranged. Written instructions given to patient/family. CLEOPATRA SALINAS
[2017-05-18] MEDS ORDERED: DOXYCYCLINE100 MG PO (15:14)
[2017-05-18] MEDS ORDERED: PREDNISONE10 MG PO (15:14)
[2017-05-18] MEDS ORDERED: SUPRAX400 M2 PO (15:14)
== END 2017-05-18 11:39 | disposition home health service (06) | DRG 871 ==
LOC: ED 18:34 → EDHOLD 20:21 → 4E 20:21
PROVIDERS: Family Medicine; Internal Medicine Critical Care Medicine; Physician Assistant; Student in an Organized Health Care Education/Training Program; ADMIT Internal Medicine
DX: A41.9 Sepsis, unspecified organism (principal); J18.9 Pneumonia, unspecified organism; J96.21 Acute and chronic respiratory failure with hypoxia; E87.3 Alkalosis; E46 Unspecified protein-calorie malnutrition; D69.6 Thrombocytopenia, unspecified; I50.9 Heart failure, unspecified; J96.22 Acute and chronic respiratory failure with hypercapnia; J44.1 Chronic obstructive pulmonary disease with (acute) exacerbation; J44.0 Chronic obstructive pulmonary disease with (acute) lower respiratory infection; J98.11 Atelectasis; Z68.1 Body mass index [BMI] 19.9 or less, adult; J20.9 Acute bronchitis, unspecified; F12.10 Cannabis abuse, uncomplicated; L40.9 Psoriasis, unspecified; F41.9 Anxiety disorder, unspecified; F17.210 Nicotine dependence, cigarettes, uncomplicated; D53.9 Nutritional anemia, unspecified; Z99.81 Dependence on supplemental oxygen; Z98.51 Tubal ligation status; Z90.49 Acquired absence of other specified parts of digestive tract; Z82.3 Family history of stroke; Z83.6 Family history of other diseases of the respiratory system; Z80.8 Family history of malignant neoplasm of other organs or systems; Z79.899 Other long term (current) drug therapy

== ENCOUNTER → 2017-05-29 | Outpatient (CLI) | payer OTHER ==
[~2017-05-29] MED LIST changes: +DOXYCYCLINE100 MG PO; +DULERA 200 MCG8.8 GM INH; +ENSURE HIGH PR237 M1 PO; +HOSPBED DEVI; +NICODERM CQ1 EAC2 T; +OXYGEN NAS; +PROVENTIL HFA6.7 GM INH
[2017-05-30 09:07] LABS: ALPHA-1-ANTITRYPSIN, SERUM 145 mg/dL (90-200)
== END | disposition home or self-care (01) ==
LOC: LAB 01:47 → RESCLI 01:47
PROVIDERS: Student in an Organized Health Care Education/Training Program
DX: J44.9 Chronic obstructive pulmonary disease, unspecified (principal); D53.9 Nutritional anemia, unspecified

== ENCOUNTER 2017-06-05 23:19 | Inpatient (IN) | payer OTHER ==
[~2017-06-05] VITALS: Ht 167.6 cm; Wt 40.5 kg
--- NOTE | ~2017-06-05 | PR ---
[place], [place] PROGRESS NOTE NAME: NUBIA ROLLE UNIT #: [id number] ROOM: 505 DOCTOR: NICOLE CHO DO BIRTHDATE: [birth year] DOS: 06/08/2017 SUBJECTIVE: The patient was seen and examined this morning with Dr. Villaseñor. The patient denies any nausea, vomiting, lightheadedness, dizziness. Her shortness of breath has improved today and is feeling better. OBJECTIVE: VITAL SIGNS: Temperature 98.8, pulse 82, respiratory rate 22, blood pressure 124/72, pulse ox 97 on 4 liters nasal cannula. HEENT: Shows no changes. NECK: Supple. CARDIOVASCULAR: S1, S2 audible with expiration. LUNGS: Diminished at the bases. EXTREMITIES: Lower extremities show no edema. ABDOMEN: Soft, nontender. SKIN: No changes. LABORATORY DATA: White cell count 10.7, hemoglobin 11, platelet 118. Chemistry: BUN 9, creatinine 0.59. ASSESSMENT: 1. Advanced changes and emphysema secondary to hypercapnic hypoxic respiratory failure. 2. Low body mass. 3. Metabolic alkalosis secondary to hypercarbia. 4. Thrombocytopenia, unclear etiology. 5. History of psoriasis. 6. Solu-Medrol will be decreased to 40 b.i.d. 7. Continue to maintain oxygen above 92%. 8. Continue antibiotics, steroids, bronchodilators. 9. Continue to monitor thrombocytopenia, supportive care. NICOLE CHO DO [place], [place] PROGRESS NOTE NAME: NUBIA ROLLE UNIT #: [id number] ROOM: 505 DOCTOR: NICOLE CHO DO BIRTHDATE: [birth year] ELIZABETH VILLASEÑOR MD CM:PNTRANS [id number] NICOLE CHO DO 06/08/17 1247 interface
--- NOTE | ~2017-06-05 | CON ---
[place], [place] REPORT OF CONSULTATION NAME: NUBIA ROLLE UNIT #: [id number] ROOM: [place] [address] DOCTOR: NICOLE CHO DO BIRTHDATE: [birth year] DOS: 06/06/2017 REASON FOR CONSULTATION: COPD. CHIEF COMPLAINT: Shortness of breath. HISTORY OF PRESENT ILLNESS: This is a 46-year-old female who presents to [facility] on 06/06 with chief complaint of shortness of breath. She has history of COPD and sees Dr. Villaseñor for her COPD and respiratory failure. Her son notes that her oxygen levels dropped to 60% and she was feeling severely fatigued and tired and having hard time breathing and that is when he brought her to the ED. In the ER, she was started on BiPAP. She was noted to be lethargic. HPI is limited due to patient's current status. In the morning, the patient was evaluated by Dr. Villaseñor while she was in the room with BiPAP settings of 18/10 and the decision to transfer her to the ICU was made. PAST MEDICAL HISTORY: 1. CHF. 2. COPD. 3. Microcytic anemia. 4. Psoriasis. PAST SURGICAL HISTORY: 1. Tubal ligation. 2. Cholecystectomy. 3. History of tympanostomy tubes. SOCIAL HISTORY: The patient is and lives at home. The patient denies any history of alcohol or drug use. The patient uses tobacco since she was a teenager about a pack of cigarettes a day, still smokes less than 1/4 pack of cigarettes per day per patient. FAMILY HISTORY: Father with multiple strokes and cancer. Mother with COPD, malnutrition. ALLERGIES: No known allergies. HOME MEDICATIONS: Albuterol 1 puff inhaled q. 4, Suboxone 1 sublingual b.i.d., gabapentin 400 mg t.i.d., DuoNeb 3 mL nebulizer q. 6, lactulose , Remeron 15 mg p.o. at bedtime, Dulera 2 puffs inhaled b.i.d., multivitamin 1 tab p.o. daily, nicotine patch 21 each daily, Zofran 4 mg p.o. q. 8, oxygen 3 liters home oxygen, Paxil 10 mg p.o. every day, potassium chloride 10 mEq p.o. every day, prednisone taper, Thiamine 100 mg p.o. daily. REVIEW OF SYSTEMS: CONSTITUTIONAL: Fatigue and tiredness noted without symptoms of fevers or chills. EYES: Denies any burning, redness, tenderness. ENT: No sore throat, hoarseness, otalgia, postnasal drainage or epistaxis. CARDIOVASCULAR: Denies anginal pain. Mild edema in the lower extremity noted. [place], [place] REPORT OF CONSULTATION NAME: NUBIA ROLLE UNIT #: [id number] ROOM: [place] [address] DOCTOR: NICOLE CHO DO BIRTHDATE: [birth year] Denies any symptoms of palpitation. GASTROINTESTINAL: Denies dysphagia, nausea, vomiting, diarrhea, abdominal pain, hematemesis, melena, hematochezia. SKIN: Denies lesions or rashes. MUSCULOSKELETAL: Denies acute joint pain, redness, tenderness. History of chronic pain. CENTRAL NERVOUS SYSTEM: No dizziness, headache, diplopia, syncopal episodes. RESPIRATORY: Reports shortness of breath. Denies cough, hemoptysis, wheezing, dyspnea on exertion. PHYSICAL EXAMINATION: GENERAL: This is a 46-year-old female, height of 5 feet 6 inches, weight of 91 pounds, BMI of 14.4, noted to be mildly lethargic, on BiPAP. VITAL SIGNS: Temperature 97.6, pulse 67, respiratory rate 12, blood pressure 135/84. HEENT: Head was atraumatic. Eyes, no icterus. NECK: Supple. CARDIOVASCULAR: S1, S2 audible. LUNGS: Noted with general reduction in breath sounds bilaterally. EXTREMITIES: Noted with trace edema, no clubbing, no cyanosis. CENTRAL NERVOUS SYSTEM: Loss of muscle mass , which cannot be generalized for this patient, but there was no focal neurological deficit. The patient seems to be lethargic. MUSCULOSKELETAL: No gross deformity. SKIN: Does not show any changes. LABORATORY DATA: White cell count of 16.9, hemoglobin of 12.7, platelet count 129. Chemistry: Sodium 142, potassium 3.6, chloride 91, carbon dioxide 50, BUN 8, creatinine 0.54, glucose 131. Blood gas, pH of 7.229, pCO2 of 108, pO2 of 195, bicarbonate of 443.8. IMAGING: Chest x-ray done on 06/06/2017 showed no pneumonia. ASSESSMENT AND PLAN: 1. Please refer to Dr. Villaseñor's note for assessment and plan. 2. The patient will be transferred to ICU for further monitoring. 3. Possible intubation if patient fails BiPAP. 4. BiPAP settings 04/09. NICOLE CHO DO [place], [place] REPORT OF CONSULTATION NAME: NUBIA ROLLE UNIT #: [id number] ROOM: [place] [address] DOCTOR: NICOLE CHO DO BIRTHDATE: [birth year] ELIZABETH VILLASEÑOR MD CM:CONSTR:REPORT OF CONSULTATION 1218 06/06/17 1328 interface
--- NOTE | ~2017-06-05 | PR ---
[place], [place] PROGRESS NOTE [id number] UNIT #: [id number] ROOM: 505 DOCTOR: CHARLEEN WEST MD,ELIZABETH BIRTHDATE: [birth year] DOS: 06/07/2017 PULMONARY FOLLOWUP NOTE SUBJECTIVE: The patient was independently seen and examined with [id number] encounter. Physical examination was performed. All the labs were reviewed. Assessment and management of the patient was completed personally for today's visit. Any changes in treatment of the patient were personally made as well. The note done by the medical educator was approved as well. The patient has been continued to be treated in Intensive Care Unit. She has been noted with gradual improvement and wakefulness progressively using the BiPAP starting in the setting of 04/09. The requirement of oxygen is also decreased. She did not require intubation and mechanical ventilation. This morning, she was noted fully awake and alert. Reduction of symptom of shortness breath was noted. She was noted with significant anxiety yesterday, started on Xanax 0.25 mg q.6 hours p.r.n. for overcoming the anxiety. The patient does have a cough without any sputum expectoration or symptoms of chest pain. OBJECTIVE: VITAL SIGNS: Shows normal temperature, respiratory rate of 17 this morning, heart rate 87, blood pressure 111/63. Pulse oxygen saturation on 4 liters nasal cannula was 92% saturation, previously noted with BiPAP 50% is 98% saturation earlier. HEENT: Examination shows chronic changes. NECK: Supple. CARDIOVASCULAR: S1, S2 is audible. LUNGS: Generalized diminished breath sounds still noted in the lungs bilaterally with moderate expiratory wheezing, partially decreased from previous examinations. ABDOMEN: Soft, nontender. LABORATORY DATA: The arterial blood gases which were done yesterday, pH of 7.22, pCO2 of 108, pO2 of 155. The BMP was noted this morning shows glucose 153, BUN and creatinine were normal, carbon dioxide noted 41, chloride of 93. CBC this morning, hemoglobin 11, hematocrit 36.9, platelet count 118,000. IMPRESSION: 1. The patient with acute on chronic severe hypercapnic respiratory failure with chronic protein calorie malnutrition status and low BMI. 2. Metabolic alkalosis remains persistent. 3. Improvement of mental status with improvement in the hypercarbia. Arterial blood gas of the patient has been attempted again, but could not be done because of very difficult ____ inability to obtain the arterial blood gases most of the time with previous attempts. Transfer the patient from the intensive care unit to telemetry floor. Continue use of the BiPAP intermittently during the daytime, continuous use at nighttime. The noninvasive ventilator arrangement has been already being done ____ for outpatient use of noninvasive ventilator. Dose of steroids will be continued starting on Diamox at 250 mg p.o. b.i.d. for this patient as well. Other supportive therapy, plan [place], [place] PROGRESS NOTE NAME: NUBIA ROLLE UNIT #: [id number] ROOM: [facility] DOCTOR: CHARLEEN WEST MD,ELIZABETH BIRTHDATE: [birth year] of management continued as well as in progress. Reduction of the corticosteroid dose will be done slowly. Nutrition status to be improved with nutritional supplements. Continue DVT prophylaxis. Thrombocytopenia of this patient was still noted, etiology unclear, continue to be monitored closely. ELIZABETH VILLASEÑOR MD CM:PNTRANS [id number] ELIZABETH WEST MD 06/08/17 0500 interface
--- NOTE | ~2017-06-05 | PR ---
[place], [place] PROGRESS NOTE NAME: NUBIA ROLLE UNIT #: [id number] ROOM: 506 DOCTOR: NICOLE CHO DO BIRTHDATE: [birth year] DOS: 06/09/2017 SUBJECTIVE: The patient was seen and examined this morning with Dr. Villaseñor. The patient denies any nausea, vomiting, lightheadedness, dizziness. Her shortness of breath has improved today. The patient denies of any complaints. OBJECTIVE: VITAL SIGNS: Temperature normal, pulse 82, respiratory rate 18, blood pressure 124/72, pulse ox 97 on 3.5 liters of nasal cannula. HEENT: Shows no changes. NECK: Supple. CARDIOVASCULAR: S1, S2 audible. LUNGS: Diminished at the bases. No rales, rhonchi or wheezing. EXTREMITIES: Lower extremity did not show any edema. ABDOMEN: Soft, nontender. SKIN: No changes. LABORATORY DATA: White cell count 10.4, hemoglobin 10.7, platelet count 127. Sodium 142, potassium 3.7, BUN 14, creatinine 0.54. ASSESSMENT: 1. Advanced changes in emphysema secondary to hypercapnic hypoxic respiratory failure. 2. Low body mass. 3. Metabolic alkalosis secondary to hypercarbia. 4. Thrombocytopenia, unclear etiology. 5. History of psoriasis. PLAN: 1. Continue Solu-Medrol q. 12 hours. 2. Continue Rocephin and Zithromax. 3. Continue DuoNeb q. 4 hours. 4. Continue to maintain oxygen above 92%. 5. Continue to monitor thrombocytopenia. 6. Supportive care. NICOLE CHO DO [place], [place] PROGRESS NOTE NAME: NUBIA ROLLE UNIT #: [id number] ROOM: 506 DOCTOR: NICOLE CHO DO BIRTHDATE: [birth year] ELIZABETH VILLASEÑOR MD CM:PNTRANS [phone] NICOLE CHO DO 06/12/17 0647 interface
--- NOTE | ~2017-06-05 | PR ---
[place], [place] PROGRESS NOTE NAME: NUBIA ROLLE UNIT #: [id number] ROOM: [place] [address] DOCTOR: NICOLE CHO DO BIRTHDATE: [birth year] DOS: 06/07/2017 SUBJECTIVE: The patient was seen and examined this morning with Dr. Villaseñor. The patient states that her breathing has improved. The patient was on BIPAP all night and currently on 3-1/2 liters of nasal cannula. The patient denies any complaints at this time. OBJECTIVE: VITAL SIGNS: Temperature 98, pulse 87, respiratory rate 17, blood pressure 111/63, and 92% on 4 liters nasal cannula. HEENT: Shows no change. NECK: Supple. CARDIOVASCULAR: S1, S2 audible. LUNGS: Diminished breath sounds at the bases bilaterally. No wheezing or crackles noted. EXTREMITIES: Shows no edema, clubbing or cyanosis. LABORATORY DATA: White cell count 10.7, hemoglobin 11, platelet 118. Carbon dioxide of 41, chloride 93, glucose of 153, BUN 9, creatinine 0.57. IMAGING STUDIES: Chest x-ray done in the Emergency Room shows severe hyperinflation with changes of COPD without any gross visible pulmonary infiltration. IMPRESSION: 1. Advanced changes of emphysema secondary to hypercapnic hypoxic respiratory failure. 2. Low body mass index. 3. Metabolic alkalosis secondary to hypercarbia. 4. Thrombocytopenia, etiology unclear. 5. History of psoriasis. PLAN OF MANAGEMENT: 1. The patient can be transferred to telemetry, downgraded to telemetry unit. 2. Continue to maintain oxygen above 92%. Continue antibiotics, steroids and bronchodilator. 3. Continue to monitor the thrombocytopenia. 4. Supportive care. NICOLE CHO DO [place], [place] PROGRESS NOTE NAME: NUBIA ROLLE UNIT #: [id number] ROOM: [place] [address] DOCTOR: NICOLE CHO DO BIRTHDATE: [birth year] ELIZABETH VILLASEÑOR MD CM:PNTRANS [id number] NICOLE CHO DO 06/07/17 1147 interface
--- NOTE | ~2017-06-05 | PR ---
[place], [place] PROGRESS NOTE NAME: NUBIA ROLLE UNIT #: [id number] ROOM: 506 DOCTOR: CHARLEEN WEST MD,ELIZABETH BIRTHDATE: [birth year] DOS: 06/09/2017 SUBJECTIVE: The patient was independently seen and examined with [id number] encounter. History and physical examination personally confirmed. All the labs for the patient was reviewed. The assessment and management, which was done for the patient as well as the changes in the management were personally made for today's visit. The note done by the medical sonographer, was approved. The patient has shown progressive resolution and improvement in respiratory symptoms; noted without symptoms of acute shortness of breath for the patient at rest. Coughing has been noted minimal. There was no wheezing. PHYSICAL EXAMINATION: VITAL SIGNS: Remained stable. CHEST: Auscultation of chest noted without any wheezing or crackles. Moderate decreased breath sounds noted in the lungs bilaterally. ABDOMEN: Soft, nontender. LABORATORY DATA: BMP this morning was noted as, carbon dioxide was noted as 32, which was normal. CBC was noted with mild anemia, otherwise, platelet count still remains mildly decreased at 127, etiology unclear. PLAN OF TREATMENT: The patient will be discharged home today to be followed up in the office. She already has a Trilogy ventilator for the home use. The patient was brought the ventilator prior to going home. She understood the utilization of that. The ventilator would be used p.r.n. during the day for respiratory distress and continued use at nighttime was advised. Abstinence to tobacco use was advised. Resuming her previous home medication for the long-term management of chronic obstructive pulmonary disease will be continued without any changes. Tapering dose of prednisone and oral antibiotics for the patient will be given prior to discharge. ELIZABETH VILLASEÑOR MD CM:PNTRANS [phone] ELIZABETH WEST MD 06/09/171906 interface
--- NOTE | ~2017-06-05 | EKG ---
[place], [place] ELECTROCARDIOGRAM REPORT NAME: NUBIA ROLLE UNIT #: [id number] ROOM: [place] [address] DOCTOR: CHARLEEN WEST MD,ELIZABETH BIRTHDATE: [birth year] DOS: 06/06/2017 Normal sinus rhythm was noted with heart rate of 88 beats per minute. There were no acute ischemic changes noted. ELIZABETH VILLASEÑOR MD CM:EKGRPT:ELECTROCARDIOGRAM REPORT [id number] ELIZABETH WEST MD
--- NOTE | ~2017-06-05 | PR ---
[place], [place] PROGRESS NOTE NAME: NUBIA ROLLE UNIT #: [id number] ROOM: 505 DOCTOR: CHARLEEN WEST MD,ELIZABETH BIRTHDATE: [birth year] DOS: 06/08/2017 PULMONARY FOLLOWUP SUBJECTIVE: The patient has been noted awake and alert at this time. Transfer to telemetry floor yesterday from the intensive care unit. The patient did use the BiPAP as ordered. The patient has been noted with reduction in shortness of breath. Mild cough was noted. There was no wheezing described. OBJECTIVE: VITAL SIGNS: Normal temperature, respiratory rate 22, heart rate 85, blood pressure was normal. The pulse oxygen saturation on 4 liters nasal cannula 100% saturation. HEENT: No new change. CARDIOVASCULAR: S1, S2 audible. LUNGS: Noted without any wheeze or crackles. ABDOMEN: Soft and nontender. IMPRESSION: The patient with resolving acute on chronic severe hypoxic and hypercapnic hypoxic respiratory failure, exacerbation of chronic obstructive pulmonary disease, advanced emphysema and metabolic alkalosis secondary to chronic hypercarbia. PLAN OF TREATMENT: Obtained BMP for this patient in the morning for this patient to reassess the CO2 level. Continuation of current other treatment, the patient previously. Potential discharge for the patient would be considered for the morning. ELIZABETH VILLASEÑOR MD CM:PNTRANS [phone] ELIZABETH WEST MD 06/08/171927 interface
--- NOTE | ~2017-06-05 | CON ---
[place], [place] REPORT OF CONSULTATION NAME: NUBIA ROLLE UNIT #: [id number] ROOM: [place] [address] DOCTOR: CHARLEEN WEST MD,ELIZABETH BIRTHDATE: [birth year] DOS: 06/06/2017 PULMONARY CONSULTATION, EVALUATION AND MANAGEMENT CONSULTATION REQUESTED BY: Hospitalist services. REASON FOR CONSULTATION: Assessment of COPD exacerbation, change in mental status. The patient was seen today with [id number] encounter. The physical examination and history was confirmed. All the labs were reviewed. Assessment and management changes were personally made for today's visit as well. The note done by the medical assistant was approved as well. HISTORY OF PRESENT ILLNESS: This is a 46-year-old white female who has been admitted to the hospital this morning as the patient has reported increased symptoms of shortness of breath, which has been occurring for the past 24 hours. The symptoms have been noted gradually worsened with decreased consciousness as well. The patient has not been noted symptoms of chest pain. The patient has been noted to have some cough without sputum expectoration described by the . The patient was admitted to the hospital. She has been started on the BiPAP after the arterial blood showed hypercapnic respiratory failure with hypoxia. The review of systems could not be completed since the patient already noted with change in mental status with difficulty to arouse with the BiPAP, which has been given to the patient with settings of /. Oxygen supplementation given to the patient at this time was 65%. PAST MEDICAL HISTORY: 1. Advanced centrilobular emphysema. 2. Chronic hypercapnic respiratory failure. 3. Chronic hypoxic respiratory failure, use of oxygen supplementation 4 liters nasal cannula. 4. History of psoriasis. 5. Chronic low BMI patient. 6. History of past illicit drug use. SOCIAL HISTORY: The patient is and lives at home. Denies history of alcohol use or illicit drug use. Tobacco use noted since teenager. The patient smokes a pack of cigarettes per day, currently still smoking intermittently few cigarettes a day. PAST SURGICAL HISTORY: Noted as cholecystectomy. FAMILY HISTORY: Unknown. MEDICATIONS: Current administered medications were noted as use of IV Solu-Medrol 60 mg t.i.d., Lovenox for DVT prophylaxis, IV Rocephin and Zithromax, lorazepam p.r.n. use and another p.r.n. medication DuoNeb is every 4 hours. DRUG ALLERGIES: Noted as no known drug allergies. [place], [place] REPORT OF CONSULTATION NAME: NUBIA ROLLE UNIT #: [id number] ROOM: [place] [address] DOCTOR: CHARLEEN WEST MD,ELIZABETH BIRTHDATE: [birth year] PHYSICAL EXAMINATION: GENERAL: This is a 46-year-old female noted not arousable by the vocal commands. The patient has been currently using the BiPAP. Height was noted 5 feet 6 inches, weight of 89 kg, BMI 14.4. VITAL SIGNS: For the patient which has been recorded shows the temperature has been noted normal since admission. The respiratory rate recorded as 18-20, heart rate of 108-72, blood pressure 135/84-113/74. The pulse oxygen saturation recorded on 4 liters nasal cannula 93%, currently with the BiPAP at 65% oxygen saturation noted 98-100% saturation. HEENT: Examination shows limited exam; however head was atraumatic. Eyes nonicterus. No obvious facial injuries. NECK: Supple. CARDIOVASCULAR: S1, S2 audible. LUNGS: Shows severe diminished breath sounds noted in the lungs bilaterally with expiratory wheezing without any crackles. ABDOMEN: Flat, soft, nontender. Bowel sounds present. EXTREMITIES: Show no edema, clubbing, cyanosis. CENTRAL NERVOUS SYSTEM: Noted with this decreased consciousness of the patient. Inability to do further assessment because of lack of cooperation and unresponsiveness. SKIN: No lesions or rashes. MUSCULOSKELETAL: Does not show any gross deformities. LABORATORY DATA: CBC this morning on admission, WBC count 16.9, hemoglobin and hematocrit normal. Platelet count 129,000, mildly decreased. BMP on 06/06/2017, BUN normal, creatinine normal, glucose minimally elevated at 131. pCO2 was noted 50, chloride of 91. The PT/PTT was noted as PT/PTT normal. CBC repeated again. WBC count essentially noted as same CBC except platelet count further decreased to 119,000. CMP that was repeated again shows BUN and creatinine was normal, carbon dioxide noted at 42, calcium was 8.3. Arterial blood gas, pH of 7.20, pCO2 of 110, pO2 of 171 on 65% oxygen. The chest x-ray 1 view, which was done in the Emergency Room shows severe hyperinflation with changes of COPD without any acute gross visible pulmonary infiltration. IMPRESSION: 1. Advanced changes of emphysema, which has been known previously with hypercapnic hypoxic respiratory failure in the past, currently admitted to the hospital, noted with acute exacerbation of chronic obstructive pulmonary disease with acute hypercapnic and hypoxic respiratory failure. 2. History of chronic low BMI. 3. Severe metabolic alkalosis secondary to chronic hypercarbia. 4. History of psoriasis was also known. 5. Thrombocytopenia, etiology was unclear at this time. PLAN OF MANAGEMENT: The patient was initially transferred to Intensive Care Unit. She was started on the BiPAP settings changed to 18/12 to help improve the ventilatory status and hypoxemia. Continue current dose of high dose steroids. Continue bronchodilators every 4 hours with repeat arterial blood [place], [place] REPORT OF CONSULTATION NAME: NUBIA ROLLE UNIT #: [id number] ROOM: [place] [address] DOCTOR: CHARLEEN WEST MD,ELIZABETH BIRTHDATE: [birth year] gases on the BiPAP, new settings, which I personally made for the patient at the bedside to reassess improvement in the ventilatory status. DVT prophylaxis to be continued. Thrombocytopenia need to be monitored. If further worsening occurred for this patient, consider discontinuation of Lovenox and alternative means for DVT prophylaxis will be given. The patient has been already noted in the process of assessment for the qualification to be started on home noninvasive ventilator unit. Nutrition support to be optimized. The patient's respiratory status worsened. The patient needs to be intubated and started on mechanical ventilation, current conservative treatment with the BiPAP. The assessment, management and the potential of intubation has been discussed with the patient's . The patient's code status was noted full code and he was completely understanding about ongoing current problems. Thanks for allowing me to participate in the care of this patient. ELIZABETH VILLASEÑOR MD CM:CONSTR:REPORT OF CONSULTATION 1454 06/07/17 0659 interface
[2017-06-05 23:32] VITALS: BP 118/73
--- NOTE | 2017-06-06 00:03 | NUR ---
PATIENT MOVED TO ROOM 2007
[2017-06-06 00:40] LABS: BASO % 0.2 % (0.0-1.0); EOS # 0.2 10*3/uL (0.0-0.4); EOS % 1.1 % (1.0-4.0); HEMATOCRIT 43.6 % (37.0-47.0); HEMOGLOBIN 12.7 g/dl (12.0-16.0); LYMPH # 2.1 10*3/uL (1.3-4.4); LYMPH % 12.6 % (27.0-41.0); MEAN CELL VOLUME 106.1 fl (81.0-99.0); MEAN CORPUSCULAR HGB 30.9 pg (27.0-31.0); MEAN CORPUSCULAR HGB CONC 29.1 g/dl (33.0-37.0); MEAN PLATELET VOLUME 12.4 fl (9.6-12.3); MONO # 0.9 10*3/uL (0.1-1.0); MONO % 5.5 % (3.0-9.0); NEUT # 13.5 10*3/uL (2.3-7.9); NEUT % 80.2 % (47.0-73.0); PLATELET COUNT AUTOMATED 129 10*3/uL (130-400); RED BLOOD COUNT 4.11 10*6/uL (4.10-5.10); RED CELL DISTRI WIDTH 12.8 % (0-14.5); WHITE BLOOD COUNT 16.9 10*3/uL (4.8-10.8)
[2017-06-06 00:52] LABS: BUN 8 mg/dl (7-24); CHLORIDE 91 mmol/L (98-107); CREATININE 0.54 mg/dL (0.55-1.02); POTASSIUM 3.6 mmol/L (3.5-5.1); SODIUM 142 mmol/L (136-145)
[2017-06-06 02:50] VITALS: BP 113/74; BP 133/74
--- NOTE | 2017-06-06 02:50 | NUR ---
A 46, admitted to , under the services of PÉREZ Murray DO with a diagnosis of ACUTE & CHRONIC RESP FAILURE WITH HYPOXIA. Chief complaint is SHORTNESS OF BREATH. Patient arrived via bed from ER. Monitor applied. Initial assessment completed. Vital signs taken and recorded. PÉREZ MURRAY DO notified of admission to the unit. Orders received. See assessment for past medical history, medications and allergies. Patient and/or family oriented to unit. [facility]U visitation policy reviewed. Clothing/patient valuable form completed. KIMBERLY MONTES
--- NOTE | 2017-06-06 03:30 | NUR ---
PATIENT IS VERY LETHAGIC AND ONLY RESPONDING TO TACTILE AND VERBAL STIMULI. DR SANTACRUZ NOTIFIED. ORDERS TO CONTINUE BIPAP RECEIVED.
--- NOTE | 2017-06-06 03:41 | NUR ---
PT PLACED ON BIPAP POST TX
--- NOTE | 2017-06-06 04:52 | NUR ---
PATIENT SLEEPING. BIPAP ON, FLUIDS MAINTAINED PER ORDER. CALL LIGHT IS IN REACH
--- NOTE | 2017-06-06 06:06 | NUR ---
PHYSICIAN WAS NOTIFIED OF DR. VILLASEÑOR CONSULT. RESPONSE OF NOTIFICATION WAS THAT HE WAS AWARE. KIMBERLY MONTES
[2017-06-06 06:22] LABS: HEMOGLOBIN 10.9 g/dl (12.0-16.0); MEAN CELL VOLUME 107.2 fl (81.0-99.0); MEAN CORPUSCULAR HGB 31.3 pg (27.0-31.0); MEAN CORPUSCULAR HGB CONC 29.2 g/dl (33.0-37.0); MEAN PLATELET VOLUME 12.8 fl (9.6-12.3); PLATELET COUNT AUTOMATED 119 10*3/uL (130-400); RED BLOOD COUNT 3.48 10*6/uL (4.10-5.10); RED CELL DISTRI WIDTH 12.9 % (0-14.5); WHITE BLOOD COUNT 16.4 10*3/uL (4.8-10.8)
[2017-06-06 06:31] LABS: HEMATOCRIT 37.3 % (37.0-47.0)
--- NOTE | 2017-06-06 06:36 | NUR ---
PATIENT REMAINS LETHARGIC BUT RESPONDS TO TACTILE AND VERBAL STIMULI. FLUIDS MAINTAINED PER ORDER. NO DISTRESS NOTED AT THIS TIME. BIPAP IN USE. CALL LIGHT IN REACH.
[2017-06-06 06:45] LABS: ACT PARTIAL THROMBO TIME 27.9 SECONDS (20.8-31.5)
[2017-06-06 06:46] LABS: ALBUMIN 3.2 gm/dl (3.1-4.5); BUN 9 mg/dl (7-24); CHLORIDE 97 mmol/L (98-107); CREATININE 0.41 mg/dL (0.55-1.02); PHOSPHOROUS 3.6 mg/dL (2.5-4.9); SGOT/AST 16 IU/L (3-35); SGPT/ALT 18 U/L (12-78); SODIUM 140 mmol/L (136-145); TOTAL PROTEIN 6.5 gm/dL (6.4-8.2)
[2017-06-06 06:50] LABS: BASOPHILS 1 % (0-1); PLATELET SUFFICIENCY LOW (NORMAL); STOMATOCYTE FEW; TOTAL CELLS COUNTED 100 #CELLS
[2017-06-06 06:53] LABS: ALKALINE PHOSPHATASE 62 U/L (45-117); FREE T4 1.33 ng/dl (0.76-1.46); THYROID STIM HORMONE (HS) 0.619 uIU/ml (0.358-4.75)
[2017-06-06 07:10] LABS: POTASSIUM 4.6 mmol/L (3.5-5.1)
[2017-06-06 07:31] LABS: VITAMIN D, 25-HYDROXY 18.4 ng/mL (30-100)
[2017-06-06 08:00] VITALS: BP 128/64
[2017-06-06 08:42] LABS: ABG BASE EXCESS 10.9 mmol/L (-2.0-2.0); ABG HCO3 42.6 mmol/l (22-26); ABG O2 SATURATION 98.9 % (95-97); ARTERIAL BLOOD GAS PH 7.206 (7.35-7.45)
--- NOTE | 2017-06-06 09:00 | NUR ---
[facility] Consultant in to talk to patient. Patient states lives at home with . There are no steps in the home. Physician: nan [facility]: [facility]: [facility] Patient's level of ADLs: MODERATE ASSIST Patient has working utilities: all working DME: home oxygen, portable tanks, nebulizer hcs, bedside commode Follow-up physician's appointment after d/c: will be made by hospitalist nurse director upon discharge Does patient want to access PORTAL?: no Discharge plan patient was on bipap and not feeling well, she lives at home with her , will talk with patient and more at a later time. CONNIE HILTON
--- NOTE | 2017-06-06 10:10 | NUR ---
TRANSF[facility] TO [facility]ER OBSERVATION. REPORT GIVEN TO JOSHUA ZUÑIGA RN.
--- NOTE | 2017-06-06 10:11 | NUR ---
PT ARRIVED IN ICCU. AWAKE, ALERT AND ORIENTED. CONNECTED HER TO THE BIPAP 18/12, BACK UP RATE OF 8, AND FIO2 OF 65%. DR VILLASEÑOR HAD SAID TO LEAVE ON FOR TWO HOURS AND DO REPEAT ABG'S. HEP LOCK INTACT. AT BEDSIDE.
[2017-06-06 10:15] VITALS: BP 135/84
--- NOTE | 2017-06-06 11:26 | NUR ---
Shift chart check completed.24 HR chart check completed.
--- NOTE | 2017-06-06 11:43 | NUR ---
RESPIRATORY HERE AND DID ABG'S. PT DID NOT LIKE THE NEEDLE STICK.
[2017-06-06 11:51] LABS: ABG BASE EXCESS 12.6 mmol/L (-2.0-2.0); ABG HCO3 43.8 mmol/l (22-26); ABG O2 SATURATION 99.1 % (95-97); ARTERIAL BLOOD GAS PH 7.229 (7.35-7.45)
--- NOTE | 2017-06-06 12:21 | NUR ---
PT HAS BEEN UP TO BSC TO VOID. ORAL CARE AND A DRINK OF WATER.
--- NOTE | 2017-06-06 13:04 | NUR ---
DR VILLASEÑOR HAS BEEN NOTIFIED OF REPEAT ABG RESULTS. FAMILY UPDATED ON PLAN FOR BIPAP CONTINUALLY EXCEPT FOR MEALS AND MEDS. DR ALEJANDRO HAS BEEN NOTIFIED THAT PT NEEDS SOMETHING FOR ANXIETY DUE TO THE MASK.
--- NOTE | 2017-06-06 14:23 | NUR ---
ATIVAN 0.5MG IV PRIOR TO BIPAP. SHE ATE ALL OF HER LUNCH.
--- NOTE | 2017-06-06 14:48 | NUR ---
EARLIER ATIVAN EFFECTIVE, WEARING BIPAP AND DOZING AT THIS TIME.
[2017-06-06 16:00] VITALS: BP 115/70
--- NOTE | 2017-06-06 19:37 | NUR ---
PT OFF THE BIPAP LONG ENOUGH TO EAT. PULSE OX 93% ON NC 3L.
[2017-06-06 20:03] VITALS: BP 104/70
[2017-06-06] MEDS ORDERED: BUPRENORPHINE HY8 MG SL (21:35)
--- NOTE | 2017-06-06 22:13 | NUR ---
PT HAD VISITORS FOR SEVERAL HOURS. HS MEDS WERE GIVEN AND PT ASKED WHERE HER SUBOXONE WAS. I INFORMED HER IT WASN'T ORDERED. SHE BECAME VERY ANXIOUS, TACHYPNEIC, SAYING "I WILL GO THROUGH [facility] IF I DON'T HAVE IT." DR SANTACRUZ WAS NOTIFIED. PT WAS GIVEN A XANAX 0.25MG AND OFFERED A NORCO BUT PT SAYS "I'LL LOSE MY SUBOXONE IF I TAKE THAT". PT VERY UPSET "I'VE HAD IT HERE BEFORE". DR SANTACRUZ CALLED AGAIN AND NOTIFIED.
[2017-06-06] MEDS ORDERED: SUBOXONE 8 MG-1 EACH SL (22:23)
--- NOTE | 2017-06-06 23:15 | NUR ---
PT GIVEN SUBOXONE PER ORDER.
[2017-06-06 23:52] VITALS: BP 115/65
--- NOTE | 2017-06-07 00:28 | NUR ---
EARLIER SUBOXONE EFFECTIVE. RESTING IN BED WITH EYES CLOSED. APPEARS TO BE SLEEPING. BIPAP INTACT WITH 50% 02, PULSE OX 98%, HEP LOCK INTACT. NO C/O'S VOICED AT PRESENT. HOB ELEVATED. SIDE RAILS UP X'S 2. CALL LIGHT IN REACH.
[2017-06-07 04:00] VITALS: BP 96/54
--- NOTE | 2017-06-07 04:13 | NUR ---
REMAINS SLEEPING WIHTOUT DISTRESS.
--- NOTE | 2017-06-07 06:09 | NUR ---
0500 BIPAP REMOVED PER REQUEST. 0600 RESTING IN BED WITH HOB ELEVATED. 02 INTACT VIA NC. PULSE OX 94%. NO DISTRESS NOTED. CONDITION GUARDED.
--- NOTE | 2017-06-07 07:33 | NUR ---
24 HR chart check completed.
[2017-06-07 08:00] VITALS: BP 111/63
[2017-06-07 08:20] LABS: HEMATOCRIT 36.9 % (37.0-47.0); MEAN CORPUSCULAR HGB 30.9 pg (27.0-31.0); MEAN CORPUSCULAR HGB CONC 29.8 g/dl (33.0-37.0); MEAN PLATELET VOLUME 13.3 fl (9.6-12.3); PLATELET COUNT AUTOMATED 118 10*3/uL (130-400); RED BLOOD COUNT 3.56 10*6/uL (4.10-5.10); RED CELL DISTRI WIDTH 12.6 % (0-14.5); WHITE BLOOD COUNT 10.7 10*3/uL (4.8-10.8)
[2017-06-07 08:21] LABS: MEAN CELL VOLUME 103.7 fl (81.0-99.0)
[2017-06-07 08:22] LABS: BUN 9 mg/dl (7-24); CHLORIDE 93 mmol/L (98-107); CREATININE 0.59 mg/dL (0.55-1.02); POTASSIUM 4.4 mmol/L (3.5-5.1); SODIUM 140 mmol/L (136-145)
[2017-06-07 08:31] LABS: TOTAL CELLS COUNTED 100 #CELLS
[2017-06-07 08:32] LABS: PLATELET SUFFICIENCY LOW (NORMAL)
--- NOTE | 2017-06-07 09:02 | NUR ---
PT REMAINS VERY SOB WITH ANY ACTIVITY INCLUDING EATING. DESATED TO 76% WHILE GETTING UP TO BEDSIDE COMMODE AND TOOK AWHILE TO RECOVER. SHE IS CURRENTLY EATING BREAKFAST WITH SATS GOING BETWEEN 86% TO 92% ON 4L NC.
--- NOTE | 2017-06-07 12:50 | NUR ---
RECEIVED ON . CONDITION STABLE. O2 IN USE.
--- NOTE | 2017-06-07 12:54 | NUR ---
TRANSFERRED TO [facility] VIA BED WITH ALL BELONGINGS AND FAMILY AT SIDE.
[2017-06-07 16:00] VITALS: BP 114/57
--- NOTE | 2017-06-07 16:11 | NUR ---
PATIENT RESTING. O2 IN USE.
[2017-06-07 20:00] VITALS: BP 105/66
--- NOTE | 2017-06-07 22:06 | NUR ---
Medicated with Xanax po prn for anxiety and help with sleep. Will monitor effectiveness. Call light within reach.
[2017-06-08] VITALS: BP 104/60; BP 140/82
--- NOTE | 2017-06-08 01:14 | NUR ---
24 HR chart check completed.
[2017-06-08 08:00] VITALS: BP 124/72
--- NOTE | 2017-06-08 08:40 | NUR ---
PATIENT RESTING QUIETLY IN BED. NO DISTRESS NOTED. RESPIRATIONS EASY, REGULAR AT REST. 02 IN USE VIA 4LNC. PT DENIES ANY SOB AT REST. WILL CONTINUE TO MONITOR. CALL LIGHT WITHIN REACH.
--- NOTE | 2017-06-08 10:25 | NUR ---
PT GIVEN PO XANAX PER PRN ORDER FOR C/O ANXIETY. WILL MONITOR EFFECTIVENESS. CALL LIGHT WITHIN REACH.
--- NOTE | 2017-06-08 11:23 | NUR ---
XANAX EFFECTIVE PER PT.
[2017-06-08 12:00] VITALS: BP 113/68
[2017-06-08 16:00] VITALS: BP 106/64
[2017-06-08 20:00] VITALS: BP 113/75
--- NOTE | 2017-06-08 20:00 | NUR ---
SITTING UP IN BED WATCHING TV. RESPIRATIONS EASY. LUNGS DIMINISHED. PULSE OX 98% 4L. INFREQUENT COUGH NOTED, PATIENT CLAIMS OCCASIONALLY PRODUCTIVE FOR WHITE. OFFERED AND EDUCATED REGARDING TEDS, DECLINED STATING HER LEGS ARE TOO ITCHY. CALL LIGHT WITHIN REACH. NO VOICED COMPLAINTS
--- NOTE | 2017-06-08 22:21 | NUR ---
REQUESTED AND RECEIVED XANAX PER PRN ORDER TO ASSIST WITH SLEEP. CALL LIGHT WITHIN REACH. WILL MONITOR
[2017-06-09] VITALS: BP 105/57
--- NOTE | 2017-06-09 | NUR ---
EARLIER XANAX EFFECTIVE. SLEEPING. RESPIRATIONS EASY. BI-PAP IN USE, PULSE OX 98%. VSS. CALL LIGHT WITHIN REACH
[2017-06-09] MEDS ORDERED: THERA-M TABLET1 EACH PO (03:27)
--- NOTE | 2017-06-09 06:20 | NUR ---
SLEPT THROUGHOUT NIGHT WITH NO DISTRESS NOTED. RESPIRATIONS EASY. BI-PAP REMOVED AT THIS TIME PER PATIENT REQUEST, O2 APPLIED. CALL LIGHT WITHIN REACH. NO VOICED COMPLAINTS THIS SHIFT
[2017-06-09 06:27] LABS: BASO % 0.1 % (0.0-1.0); EOS % 0.1 % (1.0-4.0); HEMATOCRIT 35.7 % (37.0-47.0); HEMOGLOBIN 10.7 g/dl (12.0-16.0); LYMPH # 1.9 10*3/uL (1.3-4.4); LYMPH % 18.5 % (27.0-41.0); MEAN CELL VOLUME 101.4 fl (81.0-99.0); MEAN CORPUSCULAR HGB 30.4 pg (27.0-31.0); MEAN PLATELET VOLUME 13.3 fl (9.6-12.3); MONO # 0.7 10*3/uL (0.1-1.0); MONO % 6.8 % (3.0-9.0); NEUT # 7.7 10*3/uL (2.3-7.9); NEUT % 74.2 % (47.0-73.0); PLATELET COUNT AUTOMATED 127 10*3/uL (130-400); RED BLOOD COUNT 3.52 10*6/uL (4.10-5.10); RED CELL DISTRI WIDTH 13.2 % (0-14.5); WHITE BLOOD COUNT 10.4 10*3/uL (4.8-10.8)
[2017-06-09 06:48] LABS: ALBUMIN 3.1 gm/dl (3.1-4.5); ALKALINE PHOSPHATASE 49 U/L (45-117); BUN 14 mg/dl (7-24); CHLORIDE 106 mmol/L (98-107); CREATININE 0.54 mg/dL (0.55-1.02); POTASSIUM 3.7 mmol/L (3.5-5.1); SGOT/AST 10 IU/L (3-35); SGPT/ALT 15 U/L (12-78); SODIUM 142 mmol/L (136-145); TOTAL PROTEIN 6.3 gm/dL (6.4-8.2)
[2017-06-09 08:00] VITALS: BP 113/77
--- NOTE | 2017-06-09 11:02 | NUR ---
Discharge instructions reviewed with patient/family. Patient receptive and verbalizes understanding. Follow-up care arranged. Written instructions given to patient/family. SARAH MILLER
== END 2017-06-09 11:02 | disposition home or self-care (01) | DRG 871 ==
LOC: ED 23:19 → ICCU 06-06 01:37 → EDHOLD 06-06 01:37 → 5E 06-06 01:51 → ICCU 06-06 10:03 → 5E 06-07 12:44 → 4E 06-08 22:10 → 5E 06-08 22:18
PROVIDERS: Emergency Medicine Emergency Medical Services; Hospitalist; Internal Medicine; Internal Medicine Critical Care Medicine; ADMIT Internal Medicine
PROC: 5A09457 Assistance with Respiratory Ventilation, 24-96 Consecutive Hours, Continuous Positive Airway Pressure (ICD-10-PCS; principal; 2017-06-06)
DX: A41.9 Sepsis, unspecified organism (principal); J96.21 Acute and chronic respiratory failure with hypoxia; E43 Unspecified severe protein-calorie malnutrition; E87.3 Alkalosis; D69.6 Thrombocytopenia, unspecified; J18.9 Pneumonia, unspecified organism; J96.22 Acute and chronic respiratory failure with hypercapnia; J44.1 Chronic obstructive pulmonary disease with (acute) exacerbation; N39.0 Urinary tract infection, site not specified; Z68.1 Body mass index [BMI] 19.9 or less, adult; I50.9 Heart failure, unspecified; F12.10 Cannabis abuse, uncomplicated; L40.9 Psoriasis, unspecified; Z99.81 Dependence on supplemental oxygen; Z72.0 Tobacco use; Z79.899 Other long term (current) drug therapy; Z98.51 Tubal ligation status; Z90.49 Acquired absence of other specified parts of digestive tract; Z82.3 Family history of stroke; Z83.6 Family history of other diseases of the respiratory system; Z84.89 Family history of other specified conditions; Z80.8 Family history of malignant neoplasm of other organs or systems

== ENCOUNTER → 2017-06-19 | Outpatient (CLI) | payer OTHER ==
[~2017-06-19] MED LIST changes: +BUPRENORPHINE HY8 MG SL; +THERA-M TABLET1 EACH PO
== END | disposition home or self-care (01) ==
LOC: RESCLI 03:21
DX: F33.9 Major depressive disorder, recurrent, unspecified (principal); D53.9 Nutritional anemia, unspecified; J43.9 Emphysema, unspecified; L40.0 Psoriasis vulgaris; F12.20 Cannabis dependence, uncomplicated; E43 Unspecified severe protein-calorie malnutrition; F41.9 Anxiety disorder, unspecified; Z79.52 Long term (current) use of systemic steroids; Z99.81 Dependence on supplemental oxygen; Z91.89 Other specified personal risk factors, not elsewhere classified

== ENCOUNTER 2017-07-17 17:16 | Emergency (ER) | payer OTHER ==
[~2017-07-17] VITALS: Ht 167.6 cm; Wt 43.1 kg
[2017-07-17 17:34] VITALS: BP 125/66
[2017-07-17 18:08] LABS: BASO % 0.3 % (0.0-1.0); EOS # 0.1 10*3/uL (0.0-0.4); EOS % 0.9 % (1.0-4.0); HEMATOCRIT 40.9 % (37.0-47.0); HEMOGLOBIN 12.3 g/dl (12.0-16.0); LYMPH # 1.7 10*3/uL (1.3-4.4); LYMPH % 14.1 % (27.0-41.0); MEAN CELL VOLUME 100.5 fl (81.0-99.0); MEAN CORPUSCULAR HGB 30.2 pg (27.0-31.0); MEAN CORPUSCULAR HGB CONC 30.1 g/dl (33.0-37.0); MEAN PLATELET VOLUME 11.7 fl (9.6-12.3); MONO # 0.6 10*3/uL (0.1-1.0); MONO % 5.4 % (3.0-9.0); NEUT # 9.4 10*3/uL (2.3-7.9); PLATELET COUNT AUTOMATED 119 10*3/uL (130-400); RED BLOOD COUNT 4.07 10*6/uL (4.10-5.10); RED CELL DISTRI WIDTH 12.9 % (0-14.5); WHITE BLOOD COUNT 11.9 10*3/uL (4.8-10.8)
[2017-07-17 18:22] LABS: ALBUMIN 3.8 gm/dl (3.1-4.5); ALKALINE PHOSPHATASE 75 U/L (45-117); BUN 9 mg/dl (7-24); CHLORIDE 95 mmol/L (98-107); CREATININE 0.55 mg/dL (0.55-1.02); POTASSIUM 4.2 mmol/L (3.5-5.1); SGOT/AST 11 IU/L (3-35); SGPT/ALT 13 U/L (12-78); SODIUM 141 mmol/L (136-145); TOTAL PROTEIN 7.8 gm/dL (6.4-8.2)
[2017-07-17] MEDS ORDERED: DELTASONE20 M1 PO (19:37)
[2017-07-17] MEDS ORDERED: VIBRAMYCIN100 MG PO (19:37)
== END 2017-07-17 19:44 | disposition home or self-care (01) ==
LOC: ED 17:16
PROVIDERS: Physician Assistant
DX: J44.1 Chronic obstructive pulmonary disease with (acute) exacerbation (principal); Z79.899 Other long term (current) drug therapy; Z90.49 Acquired absence of other specified parts of digestive tract; Z98.51 Tubal ligation status

== ENCOUNTER 2017-08-21 22:12 | Inpatient (IN) | payer OTHER ==
[~2017-08-21] VITALS: Ht 167.6 cm; Wt 42.2 kg
--- NOTE | ~2017-08-21 | PR ---
[place], [place] PROGRESS NOTE NAME: NUBIA ROLLE UNIT #: [id number] ROOM: 515 DOCTOR: CHARLEEN WEST MD,ELIZABETH BIRTHDATE: [birth year] DOS: 08/25/2017 SUBJECTIVE: She has been comfortably resting on the bed at this time. She has not reported any symptoms of chest pain. Shortness of breath has been gradually subsiding. The cough has been decreasing. The wheezing was also resolving. There were symptoms of chest pain. Oxygen supplementation. Continue nasal cannula. OBJECTIVE: VITAL SIGNS: Normal temperature, respiratory rate 18, heart rate of 109 this morning to 70 previously. Blood pressure 135/81. Pulse oxygen saturation on 3 liters nasal cannula of 94% saturation. HEENT: Examination shows no acute change. NECK: Supple. CARDIOVASCULAR: S1, S2 audible. LUNGS: The patient was noted without any wheezing or crackles at the present time. Breaths are noted mildly decreased bilaterally. ABDOMEN: Soft, nontender. LABORATORY DATA: CBC today, mild anemia, otherwise normal CBC. CMP was noted grossly normal except CO2 of 36. IMPRESSION: The patient had resolving metabolic alkalosis, improving due to chronic hypercapnic and hypoxic respiratory failure progressively with the tracheobronchitis. Culture of the sputum was noted light growth of yeast. PLAN OF TREATMENT: Continue current plan of therapy for the next 24 hours. Continue other supportive plan of therapy previously. Usual care. All other supportive plan of management. Potential discharge in the morning would be considered. The patient would be advised about ambulation with the oxygen today in the hallways. ELIZABETH VILLASEÑOR MD CM:PNTRANS [phone] ELIZABETH WEST MD 08/25/17 1632 interface
--- NOTE | ~2017-08-21 | PR ---
[place], [place] PROGRESS NOTE NAME: NUBIA ROLLE UNIT #: [id number] ROOM: 515 DOCTOR: CHARLEEN WEST MD,ELIZBAETH BIRTHDATE: [birth year] DOS: 08/26/2017 SUBJECTIVE: She has been noted comfortable at this time, shows progressive reduction in the respiratory symptoms at this time. Denies symptoms of chest pain or any abdominal pain. OBJECTIVE: VITAL SIGNS: The patient showed normal temperature, respiratory rate 17, heart rate 74, blood pressure 105/68. Pulse oxygen saturation 3 liters nasal cannula 97% saturation. HEENT: No acute change. NECK: Supple. CARDIOVASCULAR: S1, S2 audible. LUNGS: The patient was noted without any wheeze or crackles at this time. Breaths are noted mildly decreased bilaterally. ABDOMEN: Soft, nontender. EXTREMITIES: Without any edema. IMPRESSION: 1. Progressive resolution with severe acute hypercapnic and hypoxic respiratory failure ____ metabolic alkalosis. 2. Chronic protein calorie malnutrition status as well. PLAN OF MANAGEMENT: The patient does receive baseline oxygen requirement at this time and not noted with significant further oxygen desaturation, improvement in the respiratory symptom could be considered for home discharge. FOLLOWUP APPOINTMENT: The patient to be kept in the office, the patient has previously. Tapering dose of prednisone outpatient would be prescribed with antibiotics. ELIZABETH VILLASEÑOR MD CM:PNTRANS [id number] ELIZABETH WEST MD 08/26/17 1436 interface
--- NOTE | ~2017-08-21 | CON ---
[place], [place] REPORT OF CONSULTATION NAME: NUBIA ROLLE UNIT #: [id number] ROOM: 515 DOCTOR: ELIZABETH MCDONALD MD BIRTHDATE: [birth year] DOS: 08/22/2017 CONSULTATION REQUESTED BY: Hospitalist service. REASON FOR CONSULTATION: Assess the patient for current acute hypoxic respiratory failure and shortness of breath. HISTORY OF PRESENT ILLNESS: A [id number] white female known to me from the past with history of advanced COPD and chronic hypoxic respiratory failure requiring oxygen supplementation about 5 liters nasal cannula. The patient came into the hospital as she has been noted with symptoms of increasing shortness of breath that has been occurring for the past couple of days. Symptoms have been noted progressive worsening. The patient reported symptoms of some chest congestion, but there was no cough. Denies any wheezing. Denies any pain in the chest, but reports some symptoms of tightness in the chest. She presented now to the Emergency Room. She has been assessed and currently admitted to the hospital. She has been using oxygen supplementation, high flow nasal cannula, 10-12 liters to maintain a normal oxygen saturation. REVIEW OF SYSTEMS: CONSTITUTIONAL: Fatigue and tiredness noted without any symptoms of fever or chills. EYES: Denies any burning, redness, tenderness. NECK, EAR, NOSE, THROAT SYMPTOMS: Sore throat, hoarseness, otalgia, postnasal drainage. CARDIOVASCULAR: Denies angina pain, edema, pain of the lower extremity. GASTROINTESTINAL: Denies dysphagia, nausea, vomiting, diarrhea, abdominal pain, hematemesis, melena or hematochezia. SKIN: No lesions or rashes. CENTRAL NERVOUS SYSTEM: No dizziness, headache, diplopia, syncopal episodes or seizures. Remaining systems were reviewed. They were noted all negative. PAST MEDICAL HISTORY: 1. Previous hospitalization in 05/2017 for the medical management of acute exacerbation of COPD with acute respiratory failure. 2. Advanced centrilobular emphysema. 3. Chronic hypercapnic respiratory failure. 4. Chronic hypoxic respiratory failure, use of oxygen supplementation 4 liters nasal cannula. 5. History of psoriasis. 6. Chronic low BMI. 7. History of illicit drug use. 8. Failure to respond to the treatment with noninvasive ventilator at home, which has been discontinued after trial for few weeks, but noted ineffective. SOCIAL HISTORY: The patient is and lives at home. Denies history of alcohol use, illicit drug use. Tobacco use noted teenager, a pack of cigarettes per day, still smoking few cigarettes a day. Denies any occupation related pulmonary exposure. [place], [place] REPORT OF CONSULTATION NAME: NUBIA ROLLE UNIT #: [id number] ROOM: [facility] DOCTOR: CHARLEEN WEST MD,ELIZABETH BIRTHDATE: [birth year] FAMILY HISTORY: Unknown. PAST SURGICAL HISTORY: Reported as cholecystectomy. PHYSICAL EXAMINATION: GENERAL: This is a 47-year-old female who has been currently noted to be awake and alert. Height of 5 feet 6 inches, weight of 97 pounds. The patient's BMI 15.6. The previous weight was noted as 89 pounds. BMI was noted 14 at that time. VITAL SIGNS: Normal temperature, respiratory rate 16-24, heart rate 75-109, blood pressure 111/72-99/53. The pulse oxygen saturation on 4 liters nasal cannula 93% saturation, previous 15 liters, oxygen supplementation nonrebreather mask was 97% saturation. HEENT: Loss of muscle mastication. NECK: Supple. Head was atraumatic. CARDIOVASCULAR SYSTEM: S1, S2 audible. LUNGS: Diffuse reduction in breath sounds bilaterally. There were no crackles. Scattered expiratory wheezing. ABDOMEN: Soft, nontender and flat. EXTREMITIES: Showed loss of muscle mass. CENTRAL NERVOUS SYSTEM: Nonfocal. No focal deficit. Cranial nerves 2-12 intact. SKIN: Visible, no lesions or rashes. MUSCULOSKELETAL: No deformities. LABORATORY DATA: CBC for the patient of 08/21 on admission, WBC count 24.5, hemoglobin 11.6, hematocrit 39.2, platelet count of 99,000. The CMP of 08/21, BUN normal, creatinine was normal, glucose 102, CO2 of 46, chloride of 90. Lactic acid 1.0 yesterday. BMP this morning, BUN 9, creatinine was normal, CO2 41. Total protein 6.2, albumin 2.7. Troponin normal. CBC this morning, WBC count 18,000; hemoglobin 10.2, hematocrit 34.4, platelet count was 91,000. The chest x-ray that was done yesterday, one view was reviewed, shows evidence of moderate sized patchy infiltration in the right lower lobe as a new finding with changes of COPD. IMPRESSION: 1. The patient who has been currently admitted to the hospital with acute on chronic severe hypoxic respiratory failure, presumed hypercapnic respiratory failure. Several attempts of arterial blood gases were done and they could not be obtained for this patient at all. Further attempts of the arterial blood gases was canceled. 2. Metabolic alkalosis secondary to chronic resting hypercarbia. 3. Severe protein-calorie malnutrition, noted partial improvement in the weight loss from previously. 4. Acute pneumonia, right lower lobe, considered for Gram positive infection streptococcal pneumonia for this patient as a community-acquired infection. 5. History of nicotine abuse, ____ still noted as well. PLAN OF MANAGEMENT: The patient will be continued on the oxygen supplementation [place], [place] REPORT OF CONSULTATION NAME: NUBIA ROLLE UNIT #: [id number] ROOM: [facility] DOCTOR: CHARLEEN WEST MD,ELIZABETH BIRTHDATE: [birth year] at this time. BiPAP could be used in case of severe respiratory distress. Titrate oxygen supplementation, maintain saturation 92% or greater. Addition of Diamox if the patient metabolic alkalosis persisted. Sputum for Gram stain and culture. Continuation of bronchodilators administration. Reduce the antibiotic spectrum as soon as cultures were noted negative. Continue Solu-Medrol 60 mg q.8 hours. Other supportive therapy, plan of management and care. Usual treatment. Additional treatment changes done based on progression of the illness. Order a chest x-ray in the next couple of days, PA lateral view to assess the progression of the acute pneumonia. Thank you for allowing me to participate in the care of this patient. ELIZABETH VILLASEÑOR MD CM:CONSTR:REPORT OF CONSULTATION 1303 08/22/17 1413 interface
--- NOTE | ~2017-08-21 | PR ---
[place], [place] PROGRESS NOTE NAME: NUBIA ROLLE [facility] #: [id number] UNIT #: [id number] ROOM: 515 DOCTOR: CHARLEEN WEST MD,ELIZABETH BIRTHDATE: [birth year] DOS: 08/23/2017 SUBJECTIVE: She has been noted comfortable at this time. Coughing has been noted. The patient without any sputum expectoration. Denies symptoms of acute chest pain. Denies symptoms of hemoptysis. The patient was still noted with nocturnal oxygen desaturation, which are noticed where patient during ladle puller, the patient most likely during the REM sleep is very likely. The sputum expectoration has been noted none. Moderate cough was described. OBJECTIVE: VITAL SIGNS: The patient showed normal temperature, respiratory rate 18, heart rate 68, blood pressure is 105/60-141/64. Pulse oxygen saturation of the patient were recorded on 5 liters nasal cannula 93-98% saturation. HEENT: No acute change. NECK: Supple. CARDIOVASCULAR: S1, S2 audible. LUNGS: The patient has general reduction in breath sounds, expiratory wheezing without any crackles. ABDOMEN: Flat, soft, nontender. EXTREMITIES: Without edema. LABORATORY DATA: CBC: Hemoglobin 9.9, hematocrit 33.3, platelet count 99,000. The WBC count remains normal. The CMP for the patient that was done this morning, BUN normal, creatinine was normal, glucose 138, calcium was 8.4. Total protein of 6.2 with albumin as 2.7. The remaining LFTs were normal. IMPRESSION: 1. The patient was being currently noted with severe acute hypercapnic and hypoxic respiratory failure as a result of acute exacerbation of chronic obstructive pulmonary disease and acute bronchitis. 2. History of metabolic alkalosis, which are noted, worsened on admission, currently improving. 3. Leukocytosis was also resolving. 4. Thrombocytopenia remains persistent for this patient from yesterday, etiology was unclear may be related to underlying infection could be considered. PLAN OF MANAGEMENT: Continuation of the oxygen supplementation, maintain saturation 90% or greater. Bronchodilators to be ____ the corticosteroids for the patient as well, but the dose will be decreased to 40 mg of Solu-Medrol every 8 hours from 60 mg. Monitor respiratory status including metabolic alkalosis. The patient would not require any Diamox at this time. Antibiotic spectrum will be changed for this patient to short spectrum because lack of evidence of any pneumonia and no new acute bronchitis was noted. Monitor results of the sputum culture for the patient as well. [place], [place] PROGRESS NOTE NAME: NUBIA ROLLE UNIT #: [id number] ROOM: [facility] DOCTOR: ELIZABETH MCDONALD MD BIRTHDATE: [birth year] ELIZABETH VILLASEÑOR MD CM:PNTRANS [id number] ELIZABETH WEST MD 08/23/17 1259 interface
--- NOTE | ~2017-08-21 | EKG ---
[place], [place] ELECTROCARDIOGRAM REPORT NAME: NUBIA ROLLE UNIT #: [id number] ROOM: [facility] DOCTOR: CHARLEEN WEST MD,ELIZABETH BIRTHDATE: [birth year] DOS: 08/22/2017 ELECTROCARDIOGRAM Electrocardiogram was done on 08/21/2017 at 11:14 p.m. The electrocardiogram was done for assessment symptoms of shortness of breath. Normal sinus rhythm noted with heart rate of 92 beats per minute. Otherwise, the electrocardiogram was noted normal. ELIZABETH VILLASEÑOR MD CM:EKGRPT:ELECTROCARDIOGRAM REPORT [id number] ELIZABETH WEST MD
--- NOTE | ~2017-08-21 | PR ---
[place], [place] PROGRESS NOTE NAME: NUBIA ROLLE [facility] #: [id number] UNIT #: [id number] ROOM: 515 DOCTOR: CHARLEEN WEST MD,ELIZABETH BIRTHDATE: [birth year] DOS: 08/24/2017 SUBJECTIVE: She has been noted with reduction of the oxygen requirement and symptoms of shortness of breath as well as a cough, but there were symptoms of chest pain. She was continued, bronchodilators, oxygen supplementation and corticosteroids. OBJECTIVE: VITAL SIGNS: For the patient which were recorded. The patient showed the temperature noted as normal, respiratory rate 18, heart rate 84, blood pressure 103/64. The pulse oxygen saturation on 4 liters 94% saturation. HEENT: Examination shows head was atraumatic. Eyes nonicterus. NECK: Supple. CARDIOVASCULAR: S1, S2 is audible. LUNGS: The patient was noted without any wheezing or crackles at the present time. Breaths are noted, moderate to severely decreased with improvement in the air entry noted from yesterday. ABDOMEN: Soft, nontender. EXTREMITIES: Without any edema. Chronic loss of muscle mass. LABORATORY DATA: There were no clubbing. Sputum culture for the patient, which was done yesterday for gram stain, many white blood cells, moderate gram-positive cocci in pairs normal roberto preliminary noted. CBC today that is consistent 9.1, hemoglobin 10.9, hematocrit 36.7, platelet count 135,000. CMP of the patient today, normal BUN and creatinine. CO2 of 44. The albumin of 2.9. IMPRESSION: The patient's ____ that was completed. PA and lateral view of the patient this morning, for the patient as ordered shows no acute pulmonary infiltration. Chronic interstitial lung disease. The patient was reported as previously on the chest x-ray without any acute changes. IMPRESSION: 1. The patient with resolving acute on chronic severe hypercapnia and hypoxic respiratory failure, slowly. 2. Metabolic alkalosis secondary to chronic hypercarbia. 3. Acute tracheobronchitis. There was no evidence of acute pneumonia. 4. Protein calorie malnutritional status. 5. History of chronic nicotine abuse as well. PLAN OF MANAGEMENT: Start the patient on Diamox the patient for the medical management of progressive metabolic alkalosis management. The patient will be continued for the patient other supportive therapy, plan of management and care plan. Total of 9 doses of Diamox the patient will be given Any additional treatment changes need to be done for the patient based on the progression of the illness. Continue to titrate the oxygen supplementation, maintain saturation 90% greater. Monitor results. Sputum culture prior to consideration of any other changes in antibiotics. Gradual reduction of the corticosteroids the patient as IV Solu-Medrol use as well. All other supportive plan of management and care. [place], [place] PROGRESS NOTE NAME: NUBIA ROLLE UNIT #: [id number] ROOM: [facility] DOCTOR: ELIZABETH MCDONALD MD BIRTHDATE: [birth year] ELIZABETH VILLASEÑOR MD CM:PNTRANS [phone] ELIZABETH WEST MD 08/24/171855 interface
[~2017-08-21 22:12] MED LIST changes: +DELTASONE20 M1 PO; +VIBRAMYCIN100 MG PO
[2017-08-21 22:23] VITALS: BP 111/72
[2017-08-21 23:16] LABS: HEMATOCRIT 39.2 % (37.0-47.0); HEMOGLOBIN 11.6 g/dl (12.0-16.0); MEAN CELL VOLUME 99.5 fl (81.0-99.0); MEAN CORPUSCULAR HGB 29.4 pg (27.0-31.0); MEAN CORPUSCULAR HGB CONC 29.6 g/dl (33.0-37.0); MEAN PLATELET VOLUME 12.4 fl (9.6-12.3); PLATELET COUNT AUTOMATED 99 10*3/uL (130-400); RED BLOOD COUNT 3.94 10*6/uL (4.10-5.10); RED CELL DISTRI WIDTH 12.9 % (0-14.5); WHITE BLOOD COUNT 24.5 10*3/uL (4.8-10.8)
[2017-08-21 23:18] VITALS: BP 118/78
[2017-08-21 23:21] VITALS: BP 171/88
[2017-08-21 23:31] LABS: ALBUMIN 3.2 gm/dl (3.1-4.5); ALKALINE PHOSPHATASE 69 U/L (45-117); BUN 11 mg/dl (7-24); CHLORIDE 90 mmol/L (98-107); CREATININE 0.47 mg/dL (0.55-1.02); POTASSIUM 4.1 mmol/L (3.5-5.1); SGOT/AST 10 IU/L (3-35); SGPT/ALT 13 U/L (12-78); SODIUM 136 mmol/L (136-145); TOTAL PROTEIN 7.4 gm/dL (6.4-8.2)
[2017-08-21 23:33] LABS: TOTAL CELLS COUNTED 100 #CELLS
[2017-08-21 23:34] LABS: STOMATOCYTE MODERATE
[2017-08-21 23:35] LABS: PLATELET SUFFICIENCY LOW (NORMAL)
[2017-08-21 23:45] LABS: TROPONIN I < 0.015 ng/ml (<0.045)
--- NOTE | 2017-08-21 23:49 | NUR ---
ATTEMPTED TO OBTAIN ARTERIAL BLOOD GAS IN LEFT RADIAL. UNABLE TO OBTAIN. [id number] ATTEMPTING
--- NOTE | 2017-08-21 23:59 | NUR ---
PT REFUSED ANY MORE ATTEMPTS FOR ABG DRAW
[2017-08-22] VITALS (8 sets, daily range): BP systolic 99–166; BP diastolic 51–75
--- NOTE | 2017-08-22 00:46 | NUR ---
REPORT GIVEN TO BELLA YOUNGER
--- NOTE | 2017-08-22 01:15 | NUR ---
A 47, admitted to 5E, under the services of AGNIESZKA Dykes DO with a diagnosis of ACUTE EXACERBATION OF COPD, ACUTE AND CHRONIC RESPIRATORY FAILURE WITH HYPOXIA. Chief complaint is SOB. Patient arrived via stretcher from ER. Monitor applied. Initial assessment completed. Vital signs taken and recorded. AGNIESZKA DYKES DO notified of admission to the unit. Orders received. See assessment for past medical history, medications and allergies. Patient and/or family oriented to unit. [facility] visitation policy reviewed. Clothing/patient valuable form completed. BELLA CONTRERAS
--- NOTE | 2017-08-22 01:32 | NUR ---
PATIENT REFUSING TO HAVE ABGs DRAWN AFTER 3 UNSUCCESSFUL TRIES IN ER. UNABLE TO COLLECT STAT ABGs ORDERED.
--- NOTE | 2017-08-22 01:43 | NUR ---
PATIENT'S POX LOW 77% ON 4L NC AFTER GETTING UP TO USE RESTROOM. TURNED O2 UP TO 5L, PATIENT ENCOURAGED TO TAKE DEEP BREATHS. POX CAME UP TO HIGH 87%, BUT WILL NOT GO ANY HIGHER. PATIENT STATES "70S-80S IS NORMAL FOR ME." RESPIRATORY CALLED AT THIS TIME. NON-REBREATHER PLACED. POX UP TO 96% ON NON-REBREATHER. WILL MONITOR.
--- NOTE | 2017-08-22 01:49 | NUR ---
IN TO SEE PATIENT AT THIS TIME.
--- NOTE | 2017-08-22 02:05 | NUR ---
PATIENT 99% ON NON-REBREATHER AT THIS TIME. CHANGED BACK TO NASAL CANNULA AT 4L/M. POX 97% AND HOLDING. WILL CONTINUE TO MONITOR. CALL LIGHT LEFT IN REACH.
--- NOTE | 2017-08-22 04:21 | NUR ---
MED REC UPDATED PER PATIENT RECALL TO THE BEST OF HER ABILITY. PATIENT UNSURE OF SOME DOSAGES/FREQUENCIES. MED REC WILL NEED TO BE VERIFIED WITH [facility] IN [place] IN AM.
[2017-08-22 06:05] LABS: HEMATOCRIT 34.4 % (37.0-47.0); HEMOGLOBIN 10.2 g/dl (12.0-16.0); MEAN CELL VOLUME 101.2 fl (81.0-99.0); MEAN CORPUSCULAR HGB CONC 29.7 g/dl (33.0-37.0); MEAN PLATELET VOLUME 12.9 fl (9.6-12.3); PLATELET COUNT AUTOMATED 91 10*3/uL (130-400); RED CELL DISTRI WIDTH 12.9 % (0-14.5)
[2017-08-22 06:12] LABS: ALBUMIN 2.7 gm/dl (3.1-4.5); ALKALINE PHOSPHATASE 77 U/L (45-117); BUN 9 mg/dl (7-24); CHLORIDE 98 mmol/L (98-107); CHOLESTEROL 136 mg/dL (<200); CREATININE 0.46 mg/dL (0.55-1.02); HDL CHOLESTEROL 64 mg/dl (40-60); LDL CHOLESTEROL 64 mg/dL (9-159); POTASSIUM 4.4 mmol/L (3.5-5.1); SGOT/AST 12 IU/L (3-35); SGPT/ALT 14 U/L (12-78); SODIUM 139 mmol/L (136-145); TOTAL PROTEIN 6.2 gm/dL (6.4-8.2); TRIGLYCERIDES 41 mg/dl (<150); VLDL CHOLESTEROL 8 mg/dL (6-40)
[2017-08-22 06:20] LABS: TROPONIN I < 0.015 ng/ml (<0.045)
[2017-08-22 06:30] LABS: ACT PARTIAL THROMBO TIME 32.5 SECONDS (20.8-31.5); INTERNATIONAL NORM RATIO 1.1 (2.0-3.5)
--- NOTE | 2017-08-22 07:12 | NUR ---
NOTIFIED OF CONSULT. NO NEW ORDERS RECEIVED.
[2017-08-22 07:22] LABS: VITAMIN D, 25-HYDROXY 18.6 ng/mL (30-100)
[2017-08-22 07:31] LABS: PLATELET SUFFICIENCY LOW (NORMAL); TOTAL CELLS COUNTED 100 #CELLS
--- NOTE | 2017-08-22 09:00 | NUR ---
Filter Changing Technician in to talk to patient. Patient states lives at home with . There are few steps in the home. Physician: darlin [facility]acy: [facility] Home health services: none Patient's level of ADLs: MINIMAL ASSIST Patient has working utilities: all working DME: home oxygen, portable tanks, nebulizer, hospital bed, bedside commode Follow-up physician's appointment after d/c: will be made by hospitalist nurse director upon discharge Does patient want to access PORTAL?: no Discharge plan discussed with patient, patient lives at home with her , she is slow to get around, has all of the equipment she needs at home, discussed with her VNA and she was receptive to this, patient stated she didn't have a preference of companies as long as they accepted her insurance, office workforce planner will contact agencies and talk with patient. CONNIE HILTON
--- NOTE | 2017-08-22 10:59 | NUR ---
PATIENTS HOME PHARMACY CONTACTED TO VERIFY MEDICATIONS. PHARMACIST TO FAX MED LIST BECAUSE ITS SO LENGTHY.
[2017-08-22] MEDS ORDERED: VITAMIN B150 MG PO (11:52)
[2017-08-22] MEDS ORDERED: PREDNISONE10 M1 PO (11:54)
[2017-08-22] MEDS ORDERED: CALCIUM 600 +1 EA11 PO (11:57)
[2017-08-23 00:08] VITALS: BP 141/64
--- NOTE | 2017-08-23 00:53 | NUR ---
24 HR chart check completed.
[2017-08-23 07:00] LABS: HEMATOCRIT 33.3 % (37.0-47.0); HEMOGLOBIN 9.9 g/dl (12.0-16.0); MEAN CELL VOLUME 100.3 fl (81.0-99.0); MEAN CORPUSCULAR HGB 29.8 pg (27.0-31.0); MEAN CORPUSCULAR HGB CONC 29.7 g/dl (33.0-37.0); MEAN PLATELET VOLUME 12.9 fl (9.6-12.3); PLATELET COUNT AUTOMATED 99 10*3/uL (130-400); RED BLOOD COUNT 3.32 10*6/uL (4.10-5.10); WHITE BLOOD COUNT 10.8 10*3/uL (4.8-10.8)
[2017-08-23 07:17] LABS: ALBUMIN 2.7 gm/dl (3.1-4.5); BUN 8 mg/dl (7-24); CHLORIDE 99 mmol/L (98-107); POTASSIUM 4.2 mmol/L (3.5-5.1); SGOT/AST 22 IU/L (3-35); SGPT/ALT 18 U/L (12-78); SODIUM 140 mmol/L (136-145)
[2017-08-23 07:18] LABS: ALKALINE PHOSPHATASE 93 U/L (45-117); TOTAL PROTEIN 6.2 gm/dL (6.4-8.2)
[2017-08-23 07:44] LABS: PLATELET SUFFICIENCY LOW (NORMAL); TOTAL CELLS COUNTED 100 #CELLS
[2017-08-23 08:00] VITALS: BP 105/60
--- NOTE | 2017-08-23 09:48 | NUR ---
case management visits with patient, patient would like home health when dishcarged, environmental emergencies planner working on this, no other needs at this time
[2017-08-23 12:00] VITALS: BP 121/66
--- NOTE | 2017-08-23 14:27 | NUR ---
Patient requested visiting nurse upon discharge, any company that will take her insurance, [employer], except OV. Contacted [facility] who do accept insurance. Faxed clincals for review.
[2017-08-23 16:00] VITALS: BP 103/56
[2017-08-23 20:00] VITALS: BP 139/78
[2017-08-24] VITALS: BP 118/64
--- NOTE | 2017-08-24 00:48 | NUR ---
24 HR chart check completed.
[2017-08-24 07:26] LABS: BASO % 0.1 % (0.0-1.0); EOS % 0.1 % (1.0-4.0); HEMATOCRIT 36.7 % (37.0-47.0); HEMOGLOBIN 10.9 g/dl (12.0-16.0); LYMPH # 0.8 10*3/uL (1.3-4.4); LYMPH % 8.8 % (27.0-41.0); MEAN CORPUSCULAR HGB 29.7 pg (27.0-31.0); MEAN CORPUSCULAR HGB CONC 29.7 g/dl (33.0-37.0); MEAN PLATELET VOLUME 13.2 fl (9.6-12.3); MONO # 0.3 10*3/uL (0.1-1.0); MONO % 3.4 % (3.0-9.0); NEUT # 7.9 10*3/uL (2.3-7.9); NEUT % 87.2 % (47.0-73.0); RED BLOOD COUNT 3.67 10*6/uL (4.10-5.10); RED CELL DISTRI WIDTH 13.2 % (0-14.5); WHITE BLOOD COUNT 9.1 10*3/uL (4.8-10.8)
[2017-08-24 07:37] LABS: PLATELET COUNT AUTOMATED 135 10*3/uL (130-400)
[2017-08-24 07:49] LABS: ALBUMIN 2.9 gm/dl (3.1-4.5); ALKALINE PHOSPHATASE 83 U/L (45-117); BUN 10 mg/dl (7-24); CHLORIDE 95 mmol/L (98-107); CREATININE 0.48 mg/dL (0.55-1.02); POTASSIUM 4.3 mmol/L (3.5-5.1); SGOT/AST 17 IU/L (3-35); SGPT/ALT 19 U/L (12-78); SODIUM 140 mmol/L (136-145); TOTAL PROTEIN 6.2 gm/dL (6.4-8.2)
[2017-08-24 08:00] VITALS: BP 103/64
--- NOTE | 2017-08-24 09:00 | NUR ---
case management visits with patient, patient will be going home when able and Jazmin AZEVEDO will see her, no other needs at this time
[2017-08-24 12:00] VITALS: BP 123/60
--- NOTE | 2017-08-24 13:01 | NUR ---
PRN VISTARIL ONE TIME DOSR GIVEN FOR PT REPORT ANXIETY.
[2017-08-24 14:00] VITALS: BP 123/60
--- NOTE | 2017-08-24 14:01 | NUR ---
PRN VISTARIL EFFECTIVE, PT REPORTS ANXIETY HAS LESSENED.
[2017-08-24 16:00] VITALS: BP 119/70
[2017-08-24 20:00] VITALS: BP 115/73
[2017-08-25] VITALS: BP 105/57
[2017-08-25 06:42] LABS: EOS % 0.1 % (1.0-4.0); HEMATOCRIT 37.7 % (37.0-47.0); LYMPH # 1.1 10*3/uL (1.3-4.4); LYMPH % 16.9 % (27.0-41.0); MEAN CELL VOLUME 98.7 fl (81.0-99.0); MEAN CORPUSCULAR HGB 28.8 pg (27.0-31.0); MEAN CORPUSCULAR HGB CONC 29.2 g/dl (33.0-37.0); MEAN PLATELET VOLUME 12.7 fl (9.6-12.3); MONO # 0.3 10*3/uL (0.1-1.0); MONO % 4.9 % (3.0-9.0); NEUT # 5.2 10*3/uL (2.3-7.9); NEUT % 77.7 % (47.0-73.0); PLATELET COUNT AUTOMATED 143 10*3/uL (130-400); RED BLOOD COUNT 3.82 10*6/uL (4.10-5.10); RED CELL DISTRI WIDTH 13.2 % (0-14.5); WHITE BLOOD COUNT 6.7 10*3/uL (4.8-10.8)
[2017-08-25 06:51] LABS: ALBUMIN 2.9 gm/dl (3.1-4.5); ALKALINE PHOSPHATASE 71 U/L (45-117); BUN 13 mg/dl (7-24); CHLORIDE 101 mmol/L (98-107); CREATININE 0.56 mg/dL (0.55-1.02); PHOSPHOROUS 3.8 mg/dL (2.5-4.9); POTASSIUM 3.9 mmol/L (3.5-5.1); SGOT/AST 10 IU/L (3-35); SGPT/ALT 19 U/L (12-78); SODIUM 140 mmol/L (136-145); TOTAL PROTEIN 6.4 gm/dL (6.4-8.2)
[2017-08-25 08:00] VITALS: BP 135/81
[2017-08-25 12:00] VITALS: BP 86/42
--- NOTE | 2017-08-25 14:47 | NUR ---
PRN ATIVAN GIVEN FOR PT REPORT ANXIETY.
--- NOTE | 2017-08-25 15:45 | NUR ---
PRN ATIVAN EFFECTIVE, PT REPORTS ANXIETY HAS LESSENED.
[2017-08-25 16:00] VITALS: BP 105/56
--- NOTE | 2017-08-25 19:46 | NUR ---
PATIENT IS RESTING COMFORTABLY IN BED. PATIENT DENIES ANY PAIN OR DISCOMFORT UPON ASSESSMENT, BUT DOES VERBALIZE THAT THEY ARE FEELING SLIGHTLY ANXIOUS. PATIENT LISTENS TO MUSIC AND WATCHES TELEVISION TO REDUCE ANXIETY. PATIENT DENIES ANY DIZZINESS UPON STANDING AND IS ABLE TO AMBULATE WITHOUT ASSIST. PATIENT IS A&OX3 AND DENIES SOB WHILE RECEIVING 4LPM VIA MA. PATIENT HAS NO FURTHER REQUESTS AT THIS TIME. CALL LIGHT IS WITHIN REACH. SEE ASSESSMENT.
[2017-08-25 20:00] VITALS: BP 119/75
[2017-08-26] VITALS: BP 111/65
--- NOTE | 2017-08-26 02:33 | NUR ---
PATIENT IS RESTING IN BED. PATIENT VERBALIZES HAVING OCCASIONAL ANXIETY, BUT DENIED ANY UPON ASSESSMENT. PATIENT DENIES ANY PAIN, DISCOMFORT, OR SOB. PATIENT IS RECEIVING 3LPM VIA RI. PATIENT IS A&OX3 AND AMBULATORY. CALL LIGHT IS WITHIN REACH. SEE ASSESSMENT.
--- NOTE | 2017-08-26 07:53 | NUR ---
Shift chart check completed.
[2017-08-26 08:00] VITALS: BP 105/60
[2017-08-26] MEDS ORDERED: DOXYCYCLINE100 M3 PO (12:33)
[2017-08-26] MEDS ORDERED: PREDNISONE10 MG PO (12:33)
[2017-08-26] MEDS ORDERED: VITAMIN D-32000 UNIT PO (12:33)
[2017-08-26] MEDS ORDERED: EUCERIN, DERMA120 GM T (12:33)
--- NOTE | 2017-08-26 13:23 | NUR ---
Discharge instructions reviewed with patient/family. Patient receptive and verbalizes understanding. Follow-up care understood. Written instructions given to patient/family. here with wheelchair and patients home oxygen to transport home. iv removed left arm, dressing applied. OSMANY ARDON
--- NOTE | 2017-08-28 07:36 | NUR ---
Notified Jazmin SINGER of patient being discharged on 08/26/17 faxed order and discharge information.
== END 2017-08-26 13:23 | disposition home health service (06) | DRG 871 ==
LOC: ED 22:12 → 5E 08-22 00:16 → EDHOLD 08-22 00:16 → 5E 08-22 00:25
PROVIDERS: Emergency Medicine Emergency Medical Services; Hospitalist; Internal Medicine; Internal Medicine Nephrology; ADMIT Student in an Organized Health Care Education/Training Program
DX: A41.9 Sepsis, unspecified organism (principal); J96.21 Acute and chronic respiratory failure with hypoxia; E43 Unspecified severe protein-calorie malnutrition; J18.1 Lobar pneumonia, unspecified organism; E87.3 Alkalosis; D69.6 Thrombocytopenia, unspecified; J96.22 Acute and chronic respiratory failure with hypercapnia; J44.1 Chronic obstructive pulmonary disease with (acute) exacerbation; J44.0 Chronic obstructive pulmonary disease with (acute) lower respiratory infection; Z68.1 Body mass index [BMI] 19.9 or less, adult; R65.20 Severe sepsis without septic shock; F12.10 Cannabis abuse, uncomplicated; D64.9 Anemia, unspecified; F32.9 Major depressive disorder, single episode, unspecified; L40.0 Psoriasis vulgaris; R73.9 Hyperglycemia, unspecified; J20.9 Acute bronchitis, unspecified; F41.9 Anxiety disorder, unspecified; Z99.81 Dependence on supplemental oxygen; Z90.49 Acquired absence of other specified parts of digestive tract; Z79.52 Long term (current) use of systemic steroids; Z98.51 Tubal ligation status; Z87.891 Personal history of nicotine dependence; Z82.3 Family history of stroke; Z83.6 Family history of other diseases of the respiratory system; Z83.49 Family history of other endocrine, nutritional and metabolic diseases; Z79.899 Other long term (current) drug therapy

== ENCOUNTER 2017-09-14 16:42 | Inpatient (IN) | payer OTHER ==
[~2017-09-14] VITALS: Ht 167.6 cm; Wt 40.4 kg
--- NOTE | ~2017-09-14 | CON ---
[place], [place] REPORT OF CONSULTATION NAME: NUBIA ROLLE [facility] #: [id number] UNIT #: [id number] ROOM: 515 DOCTOR: ELIZABETH MCDONALD MD BIRTHDATE: [birth year] DOS: 09/15/2017 CONSULTATION REQUESTED BY: Hospitalist services. REASON FOR CONSULTATION: I was asked to assess the patient for acute respiratory failure. HISTORY OF PRESENT ILLNESS: This is a 47-year-old white female known to me with history of end-stage COPD. The patient with emphysema and chronic hypercapnic hypoxic respiratory failure. The patient uses oxygen supplementation up to 3-4 liter nasal cannula for the patient's continuous use. The patient presented to the hospital. The patient was noted with getting progressively ill for the patient in the last 3 days. The patient started having symptoms of increased chest congestion, coughing with small amount of sputum expectoration. Shortness breath was also noted with gradual increase. The patient was also described as wheezing. The patient was noted with increased sleepiness for this patient and getting more lethargic. The patient per of this patient. She was brought to the hospital. She has been admitted to the hospital for further medical management. The arterial blood gases were done for this patient that shows hypercapnia for the patient with decreased pH. Currently, this morning, the patient was noted to be more awake, has used the BiPAP for a few hours since last night of hospitalization. Coughing remains the same for this patient's chest congestion and only small amount of sputum expectoration. REVIEW OF SYSTEMS: CONSTITUTIONAL: Fatigue and tiredness reported without symptoms, fever, chills, night. EYES: Denies any burning, redness, tenderness. EARS. No sore throat, hoarseness, otalgia, postnasal drainage. CARDIOVASCULAR: Denies anginal pain, edema, pain of the lower extremity. GASTROINTESTINAL: Dysphagia, nausea, vomiting, diarrhea, abdominal pain, hematemesis, melena, or hematochezia. SKIN: Denies lesions or rashes. MUSCULOSKELETAL: No acute joint pain, redness, tenderness reported. CENTRAL NERVOUS SYSTEM: No dizziness, headache, diplopia, syncopal episodes. Remaining systems were reviewed. They were noted all negative. PAST MEDICAL HISTORY: 1. Recent hospitalization reviewed. The patient has been admitted to the hospital. The patient and treated from 08/22/2017 until 08/26/2017. The patient was treated for xaxja-md-osohnwa hypercapnic hypoxic respiratory failure and exacerbation of COPD and bronchitis, treated for all improved prior to the discharge. 2. History of end-stage centrilobular emphysema/COPD and acute chronic hypercapnic respiratory failure. 3. Chronic hypoxic respiratory failure, use of oxygen supplementation 3-4 liter nasal cannula continuous use. 4. History of psoriasis. 5. Chronic low BMI. [place], [place] REPORT OF CONSULTATION NAME: NUBIA ROLLE UNIT #: [id number] ROOM: [facility] DOCTOR: CHARLEEN WEST MD,ELIZABETH BIRTHDATE: [birth year] 6. History of illicit drug use. 7. Recurrent hospitalization and failure to respond to noninvasive positive pressure went ventilator use. SOCIAL HISTORY: The patient is and lives at home. Denies history of tobacco use or any illicit drug use at this time, has used the drugs in the past. She started smoking as a teenager, smoked about a pack of cigarettes per day, but currently denying any tobacco use, but has been exposed to second-hand smoke from the . Denies any history of occupation related pulmonary exposure. FAMILY HISTORY: Unknown. SURGICAL HISTORY: Noted as cholecystectomy. CURRENT MEDICATIONS: Listed is use of Paxil, Lovenox for DVT prophylaxis, Dulera, Remeron, gabapentin, DuoNeb, IV Solu-Medrol 60 mg b.i.d., Mucinex 1200 mg p.o. b.i.d., p.r.n. medications and Levaquin. DRUG ALLERGIES: No known drug allergies. PHYSICAL EXAMINATION: GENERAL: The patient is a 47-year-old female who has been noted currently awake and alert without distress. Height of 5 feet 6 inches, weight of 89 pounds. The patient's BMI 14.3. VITAL SIGNS: For the patient which has been recorded showed the temperature noted normal, respiratory rate 16-20 and 64-108, blood pressure 112/54 and 99/52. Pulse oxygen saturation 3 liters nasal cannula 94% saturation. HEENT: Head was atraumatic. Eyes nonicterus. NECK: Supple. CARDIOVASCULAR: S1, S2 is audible. LUNGS: Noted general reduction in the breath sounds bilaterally. There were no crackles noted. Diffuse expiratory wheezing was present bilaterally. ABDOMEN: Flat, soft, nontender. EXTREMITIES: Loss of muscle mass without edema, clubbing, cyanosis visible. SKIN: No lesions or rashes. MUSCULOSKELETAL: No deformities. LABORATORY DATA: Arterial blood gas that was done yesterday on admission pH of 7.27, pCO2 of 98, pO2 of 73.6. The arterial blood gas done this morning for the patient 3 liters nasal cannula, pH of 7.30, pCO2 of 81.9 rather pO2 of 71.7. CBC of patient of 09/14/2017, was noted as normal. The CMP is 09/14/2017, BUN and creatinine was normal, CO2 4.4, chloride of 92. The troponin 3 sets of the patient in the last 24 hours were normal. BMP this morning, BUN 8, creatinine was normal. The CO2 was 41. The influenza A, B and nasal washing antigens were negative. The chest x-ray PA and lateral view for this patient that was done 09/14/2017, the patient shows a severe emphysematous changes in the lungs bilaterally. IMPRESSION: [place], [place] REPORT OF CONSULTATION NAME: NUBIA ROLLE UNIT #: [id number] ROOM: [facility] DOCTOR: ELIZABETH MCDONALD MD BIRTHDATE: [birth year] 1. The patient with recurrent [id number]-qt-[id number] hypercapnic and hypoxic respiratory failure as a result of acute exacerbation of chronic obstructive pulmonary disease with acute bronchitis. 2. Metabolic alkalosis secondary to chronic hypercarbia. Acute low BMI, which has been known in the past and remains about the same. PLAN OF TREATMENT: The patient has been continued on the corticosteroids at the same dose as ordered with bronchodilators every 4 hours and use of the BiPAP. Monitor respiratory status closely. Continue other supportive plan of management and care. Usual treatment. Additional treatment changes need to be made on the patient based on progression of the illness. ELIZABETH VILLASEÑOR MD CM:CONSTR:REPORT OF CONSULTATION 1030 09/15/17 1247 interface
--- NOTE | ~2017-09-14 | PR ---
[place], [place] PROGRESS NOTE NAME: NUBIA ROLLE UNIT #: [id number] ROOM: 524 DOCTOR: CHARLEEN WEST MD,ELIZABETH BIRTHDATE: [birth year] DOS: 09/19/2017 SUBJECTIVE: She has been noted comfortable with continued reduction and improvement in the respiratory symptoms have been noted. Denies symptoms of chest pain or abdominal pain. OBJECTIVE: VITAL SIGNS: Normal temperature, respiratory rate 16, heart rate 73, blood pressure 160/53. Pulse oxygen saturation 3 liters nasal cannula was 95% saturation at rest. HEENT: No acute change. NECK: Supple. CARDIOVASCULAR: S1, S2 audible. LUNGS: Noted clear of any wheezing or crackles. ABDOMEN: Soft, nontender. EXTREMITIES: Without any acute edema. LABORATORY DATA: Culture of the sputum. The patient has normal roberto noted. The BMP this morning, normal BUN and creatinine, CO2 36. IMPRESSION: The patient with progressive resolution of hozns-fn-sewqqrj hypercapnic hypoxic respiratory failure, resolving metabolic alkalosis exacerbation of chronic obstructive pulmonary disease and bronchitis. PLAN OF MANAGEMENT: The patient could be considered for home discharge on tapering dose of prednisone, antibiotics, and oxygen supplementation. Abstinence from tobacco use noted primarily by herself and secondhand tobacco use as well. ELIZABETH VILLASEÑOR MD CM:PNTRANS [id number] ELIZABETH WEST MD 09/19/17 1506 interface
--- NOTE | ~2017-09-14 | PR ---
[place], [place] PROGRESS NOTE NAME: NUBIA ROLLE UNIT #: [id number] ROOM: 524 DOCTOR: ELIZABETH MCDONALD MD BIRTHDATE: [birth year] DOS: 09/17/2017 SUBJECTIVE: She continues to show gradual reduction and improvement in respiratory symptoms with improvement in cough, shortness of breath, wheezing was noted. She has been using the BiPAP as advised. OBJECTIVE: VITAL SIGNS: Normal temperature this morning, respiratory rate of 18, heart rate of 95, blood pressure 122/86. Pulse oxygen saturation on 4 liters nasal cannula is 92% saturation. GENERAL: Noted fully awake, alert, oriented. HEENT: No acute change. NECK: Supple. CARDIOVASCULAR: S1, S2 audible. LUNGS: Moderate decreased breath sounds with dlcs-od-ykkqpadd expiratory wheezing. ABDOMEN: Soft, flat, nontender. EXTREMITIES: Without any edema. SKIN: The visible skin showed no lesions or rashes. ___ without any acute deformities. CENTRAL NERVOUS SYSTEM: Intact. LABORATORY DATA: CBC was noted, mild anemia, otherwise normal. BMP was noted as CO2 of 42. Rest of the BMP was normal. The culture of the sputum was pending for the gram stain today. Many white blood cells, moderate epithelial cells, moderate gram-positive cocci in pairs and chains. FINAL IMPRESSION: 1. The patient with acute on chronic severe hypercapnic hypoxic respiratory failure. 2. Worsening of the metabolic alkalosis was noted with history of chronic hypercarbia. 3. Recurrent hospitalization. 4. Advanced emphysema. PLAN OF MANAGEMENT: Monitor culture results. Start the patient on oral Diamox 250 mg b.i.d. for the medical management of metabolic alkalosis. Other supportive therapy, plan of management. Continue use the BiPAP intermittent during the daytime and continuous at nighttime. Supportive care, other plan of management. Usual care with additional treatment changes to be done based on the progression of the illness. Dose of Solu-Medrol will be gradually reduced as well. Solu-Medrol was decreased from 60 mg b.i.d. today to 40 mg b.i.d. [place], [place] PROGRESS NOTE NAME: NUBIA ROLLE UNIT #: [id number] ROOM: 524 DOCTOR: ELIZABETH MCDONALD MD BIRTHDATE: [birth year] ELIZABETH VILLASEÑOR MD CM:TOMAS [phone] ELIZABETH WEST MD 09/18/17 0626 interface
--- NOTE | ~2017-09-14 | PR ---
[place], [place] PROGRESS NOTE NAME: NUBIA ROLLE UNIT #: [id number] ROOM: 524 DOCTOR: ELIZABETH MCDONALD MD BIRTHDATE: [birth year] DOS: 09/18/2017 SUBJECTIVE: The patient has been noted comfortable this morning. Continues to show reduction and improvement in the respiratory symptom. Denies symptoms of chest pain. There were symptoms of hemoptysis. OBJECTIVE: VITAL SIGNS: For the patient which were recorded shows the temperature noted as normal, respiratory rate 20, heart rate 99, blood pressure 133/81. The pulse oxygen saturation was noted on 4 L nasal cannula as 96% saturation. HEENT: No acute change. NECK: Supple. CARDIOVASCULAR: S1, S2 audible. LUNGS: Noted with moderate reduction of the breath sounds bilaterally with generally reduced air entry. Scattered expiratory wheezing. ABDOMEN: Flat, soft, nontender. EXTREMITIES: Without any acute edema. LABORATORY DATA: BMP done today shows sodium of 143, potassium normal, CO2 of 37. BUN and creatinine were normal. Culture sputum, preliminary showing normal roberto, final culture results are still pending, taken on 09/16/2017. Grams stain was noted with many white blood cells, moderate epithelial cells, moderate gram-positive cocci in pairs and chains. IMPRESSION: 1. The patient with severe acute hypercapnic and hypoxic respiratory failure with acute exacerbation of chronic obstructive pulmonary disease and acute bacterial bronchitis. 2. Severe metabolic alkalosis. PLAN OF MANAGEMENT: All the symptoms have been resolving. Continue antibiotics, bronchodilators, oxygen supplementation, reduction of corticosteroids. Potential discharge home tomorrow depends on further improvement in respiratory symptoms. Ambulation was encouraged as be done with the oxygen supplementation. [place], [place] PROGRESS NOTE NAME: NUBIA ROLLE UNIT #: [id number] ROOM: 524 DOCTOR: ELIZABETH MCDONALD MD BIRTHDATE: [birth year] ELIZABETH VILLASEÑOR MD CM:PNTRANS [id number] ELIZABETH WEST MD 09/25/17 1157 interface
--- NOTE | ~2017-09-14 | PR ---
[place], [place] PROGRESS NOTE NAME: NUBIA ROLLE [facility] #: [id number] UNIT #: [id number] ROOM: 515 DOCTOR: CHARLEEN WEST MDELIZABETH BIRTHDATE: [birth year] DOS: 09/16/2017 SUBJECTIVE: She has been continued on the BiPAP use for the patient intermittent use of oxygen. She has reported partial reduction in respiratory symptom yesterday, still noted moderate cough without any sputum expectoration, shortness breath was still described with minimal exertion. Denies symptoms of chest pain, chest tightness was reported. Wheezing was also noted intermittently. She has been continued on intravenous corticosteroids. Also continued on bronchodilators and oxygen supplementation. OBJECTIVE: VITAL SIGNS: Normal temperature, respiratory rate 18, heart rate 84, blood pressure 110/54 91/53. The pulse oxygen saturation of the patient recorded as 97% with 40% with BiPAP use, 5 liter nasal cannula oxygen supplement noted 93% saturation. NECK: Noted without any acute changes. Neck is supple. CARDIOVASCULAR: S1, S2 audible. LUNGS: Still noted diffuse severe reduction of breath sounds, moderate expiratory wheezing only partial improvement noted. ABDOMEN: Soft, nontender. EXTREMITIES: The patient noted without edema, clubbing, cyanosis. SKIN: No lesions or rashes. MUSCULOSKELETAL: No deformities. CENTRAL NERVOUS SYSTEM: No focal deficit. LABORATORY DATA: BMP this morning, BUN 11, creatinine was normal. Carbon dioxide 38. CBC this morning, hemoglobin 11.3, hematocrit 39.5, platelet count normal. WBC count were normal. IMPRESSION: 1. The patient with severe acute hypercapnic and hypoxic respiratory combination, result of acute exacerbation of chronic obstructive pulmonary disease. 2. Metabolic alkalosis which will be stable at this time. 3. Debility, acute chronic protein calorie malnutrition as well. 4. ____ debility as well. 5. Advanced emphysema. 6. History of current exposure secondhand tobacco use at home as well. 7. Recurrent hospitalization. PLAN OF TREATMENT: The patient will be continued the BiPAP for the patient, most of the time and intermittent use of oxygen and other time. Bronchodilators will be continued as previously ordered every 4 hours. Continue the nutrition support, DVT prophylaxis. All other supportive plan of management and care. Usual treatment, other therapies and plan of management. Additional treatment changes, continue based on progression of the illness. No changes steroids need to be done at the patient's condition. No noted only minimal improvement at the present time. [place], [place] PROGRESS NOTE NAME: NUBIA ROLLE UNIT #: [id number] ROOM: [facility] DOCTOR: ELIZABETH MCDONALD MD BIRTHDATE: [birth year] ELIZABETH VILLASEÑOR MD CM:PNLALO 1434 1603 ELIZABETH WEST MD 09/16/17 1602 interface
--- NOTE | ~2017-09-14 | EKG ---
[place], [place] ELECTROCARDIOGRAM REPORT NAME: NUBIA ROLLE UNIT #: [id number] ROOM: [facility] DOCTOR: CHARLEEN WEST MD,ELIZABETH BIRTHDATE: [birth year] DOS: 09/14/2017 The electrocardiogram done on 09/14/2017 at 5:25 p.m. Normal sinus rhythm was noted with a heart rate 90 beats per minute. Prolonged QT interval was also noted. ELIZABETH VILLASEÑOR MD CM:EKGRPT:ELECTROCARDIOGRAM REPORT 1430 1445 ELIZABETH WEST MD
[~2017-09-14 16:42] MED LIST changes: +CALCIUM 600 +1 EA11 PO; +DOXYCYCLINE100 M3 PO; +EUCERIN, DERMA120 GM T; +VITAMIN B150 MG PO; +VITAMIN D-32000 UNIT PO
[2017-09-14 16:47] VITALS: BP 126/93
[2017-09-14 18:00] LABS: BASO % 0.1 % (0.0-1.0); EOS % 0.4 % (1.0-4.0); HEMATOCRIT 41.1 % (37.0-47.0); HEMOGLOBIN 12.2 g/dl (12.0-16.0); LYMPH % 14.3 % (27.0-41.0); MEAN CELL VOLUME 99.3 fl (81.0-99.0); MEAN CORPUSCULAR HGB 29.5 pg (27.0-31.0); MEAN CORPUSCULAR HGB CONC 29.7 g/dl (33.0-37.0); MEAN PLATELET VOLUME 12.4 fl (9.6-12.3); MONO # 0.3 10*3/uL (0.1-1.0); MONO % 4.3 % (3.0-9.0); NEUT # 5.9 10*3/uL (2.3-7.9); NEUT % 80.8 % (47.0-73.0); PLATELET COUNT AUTOMATED 131 10*3/uL (130-400); RED BLOOD COUNT 4.14 10*6/uL (4.10-5.10); RED CELL DISTRI WIDTH 13.1 % (0-14.5); WHITE BLOOD COUNT 7.3 10*3/uL (4.8-10.8)
[2017-09-14 18:13] LABS: ALBUMIN 3.7 gm/dl (3.1-4.5); ALKALINE PHOSPHATASE 65 U/L (45-117); BUN 11 mg/dl (7-24); CHLORIDE 92 mmol/L (98-107); CREATININE 0.51 mg/dL (0.55-1.02); POTASSIUM 4.4 mmol/L (3.5-5.1); SGOT/AST 18 IU/L (3-35); SGPT/ALT 19 U/L (12-78); SODIUM 137 mmol/L (136-145); TOTAL PROTEIN 7.8 gm/dL (6.4-8.2)
[2017-09-14 19:22] VITALS: BP 120/72
[2017-09-14 19:45] VITALS: BP 130/91
[2017-09-14 20:36] LABS: ABG BASE EXCESS 14.2 mmol/L (-2.0-2.0); ABG HCO3 44.5 mmol/l (22-26); ABG O2 SATURATION 94.1 % (95-97); ARTERIAL BLOOD GAS PH 7.277 (7.35-7.45); ARTERIAL BLOOD GAS PO2 73.6 mmHg (80-90)
[2017-09-14 20:39] LABS: ARTERIAL BLOOD GAS PCO2 98.5 mmHg (35-45)
[2017-09-14] MEDS ORDERED: PREDNISONE10 MG PO (21:14)
[2017-09-15] VITALS: BP 112/54
[2017-09-15 06:34] LABS: HEMATOCRIT 35.7 % (37.0-47.0); HEMOGLOBIN 10.5 g/dl (12.0-16.0); LYMPH # 0.6 10*3/uL (1.3-4.4); LYMPH % 18.1 % (27.0-41.0); MEAN CELL VOLUME 99.7 fl (81.0-99.0); MEAN CORPUSCULAR HGB 29.3 pg (27.0-31.0); MEAN CORPUSCULAR HGB CONC 29.4 g/dl (33.0-37.0); MONO # 0.1 10*3/uL (0.1-1.0); MONO % 2.4 % (3.0-9.0); NEUT # 2.6 10*3/uL (2.3-7.9); NEUT % 79.2 % (47.0-73.0); PLATELET COUNT AUTOMATED 116 10*3/uL (130-400); RED BLOOD COUNT 3.58 10*6/uL (4.10-5.10); RED CELL DISTRI WIDTH 12.9 % (0-14.5); WHITE BLOOD COUNT 3.3 10*3/uL (4.8-10.8)
[2017-09-15 07:00] LABS: BUN 8 mg/dl (7-24); CHLORIDE 98 mmol/L (98-107); CHOLESTEROL 163 mg/dL (<200); CREATININE 0.43 mg/dL (0.55-1.02); HDL CHOLESTEROL 68 mg/dl (40-60); LDL CHOLESTEROL 85 mg/dL (9-159); PHOSPHOROUS 2.7 mg/dL (2.5-4.9); POTASSIUM 4.5 mmol/L (3.5-5.1); SODIUM 140 mmol/L (136-145); TRIGLYCERIDES 49 mg/dl (<150); VLDL CHOLESTEROL 10 mg/dL (6-40)
[2017-09-15 07:06] LABS: THYROID STIM HORMONE (HS) 0.237 uIU/ml (0.358-4.75)
[2017-09-15 07:10] LABS: ACT PARTIAL THROMBO TIME 25.8 SECONDS (20.8-31.5)
[2017-09-15 07:26] LABS: VITAMIN D, 25-HYDROXY 43.4 ng/mL (30-100)
[2017-09-15 08:00] VITALS: BP 99/52
[2017-09-15 08:48] LABS: ABG BASE EXCESS 10.6 mmol/L (-2.0-2.0); ABG HCO3 39.2 mmol/l (22-26); ABG O2 SATURATION 94.1 % (95-97); ARTERIAL BLOOD GAS PH 7.3 (7.35-7.45); ARTERIAL BLOOD GAS PO2 71.8 mmHg (80-90)
[2017-09-15 08:53] LABS: ARTERIAL BLOOD GAS PCO2 81.9 mmHg (35-45)
[2017-09-15 12:00] VITALS: BP 95/73
[2017-09-15 16:00] VITALS: BP 111/65
[2017-09-15 20:00] VITALS: BP 105/58
[2017-09-16] VITALS: BP 111/54
[2017-09-16 06:19] LABS: BASO % 0.1 % (0.0-1.0); EOS % 0.1 % (1.0-4.0); HEMATOCRIT 39.5 % (37.0-47.0); HEMOGLOBIN 11.3 g/dl (12.0-16.0); LYMPH # 1.3 10*3/uL (1.3-4.4); LYMPH % 18.2 % (27.0-41.0); MEAN CELL VOLUME 102.6 fl (81.0-99.0); MEAN CORPUSCULAR HGB 29.4 pg (27.0-31.0); MEAN CORPUSCULAR HGB CONC 28.6 g/dl (33.0-37.0); MONO # 0.4 10*3/uL (0.1-1.0); MONO % 5.2 % (3.0-9.0); NEUT # 5.3 10*3/uL (2.3-7.9); PLATELET COUNT AUTOMATED 141 10*3/uL (130-400); RED BLOOD COUNT 3.85 10*6/uL (4.10-5.10); RED CELL DISTRI WIDTH 13.3 % (0-14.5)
[2017-09-16 06:26] LABS: BUN 11 mg/dl (7-24); CHLORIDE 98 mmol/L (98-107); SODIUM 141 mmol/L (136-145)
[2017-09-16 06:31] LABS: CREATININE 0.64 mg/dL (0.55-1.02); FREE T4 1.14 ng/dl (0.76-1.46); PHOSPHOROUS 2.8 mg/dL (2.5-4.9)
[2017-09-16 08:00] VITALS: BP 91/53
[2017-09-16 12:00] VITALS: BP 110/54
[2017-09-16 16:00] VITALS: BP 131/74
[2017-09-16 20:00] VITALS: BP 121/81
[2017-09-17] VITALS: BP 100/66
[2017-09-17 08:00] VITALS: BP 122/86
[2017-09-17 10:26] LABS: BASO % 0.1 % (0.0-1.0); EOS % 0.1 % (1.0-4.0); HEMATOCRIT 38.9 % (37.0-47.0); HEMOGLOBIN 11.2 g/dl (12.0-16.0); LYMPH # 1.9 10*3/uL (1.3-4.4); LYMPH % 26.6 % (27.0-41.0); MEAN CORPUSCULAR HGB 29.1 pg (27.0-31.0); MEAN CORPUSCULAR HGB CONC 28.8 g/dl (33.0-37.0); MEAN PLATELET VOLUME 11.5 fl (9.6-12.3); MONO # 0.4 10*3/uL (0.1-1.0); MONO % 5.4 % (3.0-9.0); NEUT # 4.9 10*3/uL (2.3-7.9); NEUT % 67.4 % (47.0-73.0); PLATELET COUNT AUTOMATED 128 10*3/uL (130-400); RED BLOOD COUNT 3.85 10*6/uL (4.10-5.10); RED CELL DISTRI WIDTH 13.6 % (0-14.5); WHITE BLOOD COUNT 7.3 10*3/uL (4.8-10.8)
[2017-09-17 10:38] LABS: BUN 9 mg/dl (7-24); CHLORIDE 98 mmol/L (98-107); CREATININE 0.52 mg/dL (0.55-1.02); POTASSIUM 3.7 mmol/L (3.5-5.1); SODIUM 143 mmol/L (136-145)
[2017-09-17 12:00] VITALS: BP 122/67
[2017-09-17 16:00] VITALS: BP 106/83
[2017-09-17 20:00] VITALS: BP 141/87
[2017-09-18] VITALS: BP 120/76; BP 94/62
[2017-09-18 06:32] LABS: BUN 11 mg/dl (7-24); CHLORIDE 103 mmol/L (98-107); CREATININE 0.53 mg/dL (0.55-1.02); SODIUM 143 mmol/L (136-145)
[2017-09-18 08:00] VITALS: BP 133/81
[2017-09-18 12:00] VITALS: BP 116/65
[2017-09-18 16:00] VITALS: BP 115/69
[2017-09-18 20:00] VITALS: BP 126/68
[2017-09-18 22:38] VITALS: BP 126/68
[2017-09-19] VITALS: BP 115/62
[2017-09-19 07:30] LABS: BUN 12 mg/dl (7-24); CHLORIDE 106 mmol/L (98-107); CREATININE 0.51 mg/dL (0.55-1.02); SODIUM 144 mmol/L (136-145)
[2017-09-19 08:00] VITALS: BP 106/53
[2017-09-19] MEDS ORDERED: LEVAQUIN750 M1 PO (10:39)
[2017-09-19] MEDS ORDERED: ACETAZOLAMIDE250 MG PO (10:39)
[2017-09-19] MEDS ORDERED: PREDNISONE10 MG PO (10:40)
[2017-09-19] MEDS ORDERED: XANAX0.25 MG PO (12:36)
== END 2017-09-19 12:45 | disposition home or self-care (01) | DRG 871 ==
LOC: ED 16:42 → EDHOLD 18:38 → 5E 18:38
PROVIDERS: Internal Medicine; Internal Medicine Nephrology; Physician Assistant; Student in an Organized Health Care Education/Training Program
PROC: 5A09357 Assistance with Respiratory Ventilation, Less than 24 Consecutive Hours, Continuous Positive Airway Pressure (ICD-10-PCS; principal; 2017-09-15)
PROC: 5A09357 Assistance with Respiratory Ventilation, Less than 24 Consecutive Hours, Continuous Positive Airway Pressure (ICD-10-PCS; 2017-09-16)
DX: A41.9 Sepsis, unspecified organism (principal); J18.9 Pneumonia, unspecified organism; J96.21 Acute and chronic respiratory failure with hypoxia; D61.818 Other pancytopenia; E87.3 Alkalosis; D69.6 Thrombocytopenia, unspecified; E44.0 Moderate protein-calorie malnutrition; E87.8 Other disorders of electrolyte and fluid balance, not elsewhere classified; J96.22 Acute and chronic respiratory failure with hypercapnia; J44.0 Chronic obstructive pulmonary disease with (acute) lower respiratory infection; J44.1 Chronic obstructive pulmonary disease with (acute) exacerbation; Z68.1 Body mass index [BMI] 19.9 or less, adult; R65.20 Severe sepsis without septic shock; Z99.81 Dependence on supplemental oxygen; L40.0 Psoriasis vulgaris; F17.210 Nicotine dependence, cigarettes, uncomplicated; F32.9 Major depressive disorder, single episode, unspecified; J20.9 Acute bronchitis, unspecified; R73.9 Hyperglycemia, unspecified; Z79.899 Other long term (current) drug therapy; Z90.49 Acquired absence of other specified parts of digestive tract; Z98.51 Tubal ligation status; Z82.3 Family history of stroke; Z83.6 Family history of other diseases of the respiratory system; Z84.89 Family history of other specified conditions; Z80.8 Family history of malignant neoplasm of other organs or systems

== ENCOUNTER 2017-09-27 20:45 | Inpatient (IN) | payer OTHER ==
[~2017-09-27] VITALS: Ht 170.1 cm; Wt 45.1 kg
--- NOTE | ~2017-09-27 | EKG ---
[place], [place] ELECTROCARDIOGRAM REPORT NAME: NUBIA ROLLE UNIT #: [id number] ROOM: 403 DOCTOR: CHARLEEN WEST MD,ELIZABETH BIRTHDATE: [birth year] DOS: 09/27/2017 The electrocardiogram done on 09/27/2017 at 09:45 p.m. Normal sinus rhythm noted with a heart rate 94 beats per minute. Nonspecific ST-T changes were noted. ELIZABETH VILLASEÑOR MD CM:EKGRPT:ELECTROCARDIOGRAM REPORT 1031 1057 ELIZABETH WEST MD
--- NOTE | ~2017-09-27 | PR ---
[place], [place] PROGRESS NOTE NAME: NUBIA ROLLE UNIT #: [id number] ROOM: 403 DOCTOR: CHARLEEN WEST MD,ELIZABETH BIRTHDATE: [birth year] DOS: 09/29/2017 PULMONARY ADDENDUM NOTE SUBJECTIVE: The patient was independently seen and examined with [id number] encounter. History was confirmed from the patient. Physical examination performed. All the available labs were reviewed. Assessment management of the patient for today's visit was personally made for this patient. Note done by the coroner/medical examiner was approved. The patient has been noted with gradual reduction in symptoms of shortness of breath, coughing and shortness of breath. She has used BiPAP limited time, taken off the BiPAP and did not use it after 1:00 a.m. Oxygen supplementation was continued. OBJECTIVE: VITAL SIGNS: The patient showed normal temperature, respiratory rate 18, heart rate 75, blood pressure 104/54, pulse oxygen saturation on 3 liters nasal cannula 95% saturation recorded. HEENT: Noted without any acute changes. LUNGS: Noted decreased breath sounds in the lungs bilaterally. LABORATORY DATA: BMP of the patient noted with CO2 40. CBC of the patient with mild anemia, otherwise normal. IMPRESSION: 1. Resolving acute on chronic hypercapnic hypoxic respiratory failure slowly with current medical management. 2. Chronic protein-calorie malnutrition status as well. PLAN OF TREATMENT: The patient will be continued on current medical management, oxygen supplementation 3 liters nasal cannula, BiPAP as tolerated. Collect information with overnight pulse ox will be done tonight since the data from last night was noted limited. ELIZABETH VILLASEÑOR MD CM:PNTRANS 1621 [id number] ELIZABETH WEST MD 09/30/17 0046 interface
--- NOTE | ~2017-09-27 | PR ---
[place], [place] PROGRESS NOTE NAME: NUBIA ROLLE UNIT #: [id number] ROOM: 403 DOCTOR: CHARLEEN WEST MD,ELIZABETH BIRTHDATE: [birth year] DOS: 09/28/2017 SUBJECTIVE: The patient was seen today with [id number] encounter. The patient history was confirmed. Physical exam was performed. All the necessary labs were reviewed. The assessment and medical manage of the patient recommendation for today's visit were personally made. The patient has been using the BiPAP, using the BiPAP last night as ordered with the changes in the BiPAP setting, which was made yesterday settings of 05/07. The patient reported reduction in symptoms shortness of breath and wheezing. Coughing was noted mild at this time. PHYSICAL EXAMINATION: VITAL SIGNS: The patient was essentially noted within normal limits. The pulse oxygen saturation on BiPAP and 4 liters nasal cannula was noted 96% saturation. LUNGS: Noted with severe reduced breath sounds with mild to moderate expiratory wheezing, no crackles were heard. ABDOMEN: Soft, nontender. LABORATORY DATA: CBC: Mild anemia today, which would otherwise noted normal. BMP of the patient noted as CO2 of 39. IMPRESSION: The patient has been noted with acute on chronic severe hypercapnic respiratory failure with hypoxia with exacerbation of COPD. Metabolic alkalosis all slowly resolving. She has been ordered the overnight pulse oximetry recording. The patient with the BiPAP initially as well as the next day to be done without the BiPAP with use of 4 liters home oxygen. The patient overnight recording to qualify the patient for the BiPAP for the home setting since the patient has been noted with ineffective noninvasive ventilator previously, which was discontinued. No changes in the other medical treatment will be continued. Continue steroids, bronchodilators with gradual reduction of steroids will be started from tomorrow. ELIZABETH VILLASEÑOR MD CM:PNLALO [id number] ELIZABETH WEST MD 09/28/17 1636 interface
--- NOTE | ~2017-09-27 | CON ---
[place], [place] REPORT OF CONSULTATION NAME: NUBIA ROLLE UNIT #: [id number] ROOM: 403 DOCTOR: DYANA MO DO BIRTHDATE: [birth year] DOS: 09/28/2017 CHIEF COMPLAINT: Shortness of breath. HISTORY OF PRESENT ILLNESS: This is a 47-year-old female well known to our service, who comes in with acute exacerbation of her chronic end-stage COPD. The patient reports that these symptoms started about 2 weeks ago where they have been worsening with productive cough and shortness of breath. The patient reports that she did stop smoking about one month ago. She is oxygen dependent at home with 3 liters nasal cannula continuous. History from ER indicates the mentioned that the patient has been more fatigued and lethargy over the last few weeks as well and he has also noted that her oxygen levels have been dipping down into the 70s at times at home. The patient reports that she does feel mildly improved this morning from overnight. She continues to deny chest pain, nausea, vomiting, diarrhea, fever, chills, abdominal pain, back pain, blood in the stool, bloody urine and blood in the sputum. REVIEW OF SYSTEMS: GENERAL: The patient complains of tiredness, fatigue; however, denies fever, chills, nausea and vomiting. EYES: The patient denies any discharge or itchiness or tenderness. HENT: The patient reports sputum production; however, denies sore throat. CARDIOVASCULAR: Denies chest pain, worsening edema. RESPIRATORY: The patient complains of shortness of breath. GASTROINTESTINAL: The patient denies abdominal pain, change in bowel habits. SKIN: The patient denies rashes. MUSCULOSKELETAL: The patient denies joint pain, redness, tenderness. NEUROLOGIC: The patient denies any headache, dizziness, vertigo, double vision or episodes of passing out. PAST MEDICAL HISTORY: 1. Multiple hospitalizations for end-stage COPD with chronic respiratory failure with hypoxia and hypercarbia. 2. Oxygen dependent, 3-4 liters nasal cannula continuous. 3. History of psoriasis. 4. Malnutrition. 5. History of illicit drug use. 6. Anorexia 7. Anxiety. 8. Depression. PAST SURGICAL HISTORY: History of tubal ligation, cholecystectomy and tympanostomy tubes. SOCIAL HISTORY: The patient denies alcohol abuse. Former smoker, quit 1 month ago, but has 20+ years of smoking more than 2 packs per day, history of heroin use, history of marijuana use. FAMILY HISTORY: Father had history of multiple strokes. He is at unknown age due to cancer of the neck. Mother had a history of COPD, emphysema, [place], [place] REPORT OF CONSULTATION NAME: NUBIA ROLLE UNIT #: [id number] ROOM: 403 DOCTOR: DYANA MO DO BIRTHDATE: [birth year] malnutrition, also at an unknown age. ALLERGIES: No known drug allergies. HOME MEDICATIONS: The patient is on acetazolamide, Suboxone, calcium supplementation, vitamin D supplementation, gabapentin, DuoNeb, Ensure, Remeron, Dulera, multivitamin, Zofran, oxygen dependent, Paxil, Klor-Con, prednisone and thiamine. PHYSICAL EXAMINATION: GENERAL APPEARANCE: A 47-year-old female who is underweight, lethargic, in mild to moderate respiratory distress. VITAL SIGNS: Temperature is 98.3, pulse is 74, respirations 18, blood pressure 103/52, pulse ox is 96% on 3 liters nasal cannula. HEENT: Eyes are clear. No injection. No drainage. Nares are patent. Mucous membranes are moist. NECK: Supple, nontender. LUNGS: Have diminished breath sounds in all lung andrew with moderate expiratory wheezing. No rales are appreciated. CARDIOVASCULAR: S1, S2 appreciated. Regular rate and rhythm. No murmurs, gallops or rubs. ABDOMEN: Soft, nontender with positive bowel sounds. EXTREMITIES: No edema of upper or lower extremities. NEUROLOGIC: No focal deficits. Cranial nerves are grossly intact. SKIN: No rashes. No erythema. No clubbing. No cyanosis. IMPRESSION: 1. Recurrent acute on chronic hypercapnic and hypoxic respiratory failure with exacerbation of chronic obstructive pulmonary disease. 2. Oxygen dependent. 3. Anorexia and underweight. TREATMENT PLAN: Continue with azithromycin, Rocephin and steroids ____ q. 8 hours, DuoNeb. We will continue to follow the patient's status. Thank you for this consult. DYANA MO DO [place], [place] REPORT OF CONSULTATION NAME: NUBIA ROLLE UNIT #: [id number] ROOM: 403 DOCTOR: DYANA MO DO BIRTHDATE: [birth year] ELIZABETH VILLASEÑOR MD CM:CONSTR:REPORT OF CONSULTATION 1106 09/28/172025 interface
--- NOTE | ~2017-09-27 | PR ---
[place], [place] PROGRESS NOTE NAME: NUBIA ROLLE UNIT #: [id number] ROOM: 403 DOCTOR: CHARLEEN WEST MD,ELIZABETH BIRTHDATE: [birth year] DOS: 10/01/2017 SUBJECTIVE: The patient has been noted comfortable at this time without any acute distress. The patient was using oxygen supplement nasal cannula, nocturnal oxygen sats were noted, significant nocturnal hypoxia. She denies symptoms of chest pain, abdominal pain. There was no cough or wheezing. OBJECTIVE: VITAL SIGNS: For the patient which has been recorded shows the temperature of the patient noted as normal. The respiratory rate of the patient recorded as 20, heart rate 77, blood pressure 137/82. The pulse oxygen saturation for the patient recorded on 2 liters nasal cannula 90% saturation. HEENT: Examination shows no acute change. NECK: Supple. CARDIOVASCULAR: S1, S2 audible. LUNGS: The patient noted without any wheeze or crackles. ABDOMEN: Soft, nontender. EXTREMITIES: Without any edema. IMPRESSION: 1. The patient with resolving acute on chronic hypoxic respiratory failure. 2. Improving acute exacerbation of chronic obstructive pulmonary disease as well. 3. Hypercarbia. PLAN OF TREATMENT: The patient will benefit from the BiPAP, which will be ordered from the [facility] based on current criteria. Other supportive therapy, plan and management. Discharge the patient home on tapering prednisone 10 mg daily for the next 30 days. Other supportive plan of therapy and care. ELIZABETH VILLASEÑOR MD CM:PNTRANS 1517 40 ELIZABETH WEST MD 10/01/171840 interface
--- NOTE | ~2017-09-27 | PR ---
[place], [place] PROGRESS NOTE NAME: NUBIA ROLLE UNIT #: [id number] ROOM: 403 DOCTOR: DYANA MO DO BIRTHDATE: [birth year] DOS: 09/29/2017 SUBJECTIVE: The patient was seen and examined at bedside. The patient was sitting upright in no acute distress. Family member was present at the time of interview. The patient reports that she is feeling better. However, she had some difficulty last night with the BiPAP machine as they did not have a mask that fitted her properly. The patient reports that otherwise she feels improved, but still needs some time before she will be ready to return home to continue her care. No new complaints at this time this morning. OBJECTIVE: VITAL SIGNS: Temperature 97.6, pulse 72, respirations 18, blood pressure 104/54, pulse ox 98% on 4 liters nasal cannula. GENERAL: The patient is alert, awake and oriented x 3, in no acute distress. HEENT: Eyes are clear. No injection. Nares are patent. Oral mucosa is moist. NECK: Supple, nontender. HEART: Regular rate and rhythm. S1, S2 noted. LUNGS: Expiratory wheezes, no rales or rhonchi. ABDOMEN: Soft, nontender with positive bowel sounds. EXTREMITIES: No edema, cyanosis or clubbing. LABORATORY DATA: Blood cultures remain negative. Labs were reviewed this morning, no change in her labs from yesterday. IMPRESSION AND PLAN: The patient was admitted with chronic severe hypercapnic respiratory failure with hypoxia and exacerbation of COPD secondary to metabolic alkalosis, status improving. The patient had difficulty with the BiPAP machine overnight. We will continue with current care. Respiratory is working on finding a mask that will fit the patient properly. In the meantime, continue with vasodilators, steroids and antibiotics. We will continue to follow the patient. We will reassess in the morning. DYANA MO DO [place], [place] PROGRESS NOTE NAME: NUBIA ROLLE UNIT #: [id number] ROOM: 403 DOCTOR: DYANA MO DO BIRTHDATE: [birth year] ELIZABETH VILLASEÑOR MD CM:TOMAS 1245 [id number] DYANA MO DO 09/30/17 0426 interface
--- NOTE | ~2017-09-27 | PR ---
[place], [place] PROGRESS NOTE NAME: NUBIA ROLLE UNIT #: [id number] ROOM: 403 DOCTOR: CHARLEEN WEST MD,ELIZABETH BIRTHDATE: [birth year] DOS: 09/30/2017 SUBJECTIVE: The patient was noted comfortable at this time. Oxygen supplement, continue to nasal cannula. The patient was noted oxygen desaturation on room 2 liters nasal cannula was noted, good oxygen saturation maintained. Shortness of breath other symptoms. The patient has been resolving. There were no symptoms of abdominal pain. OBJECTIVE: VITAL SIGNS: Normal temperature, respiratory rate 18, heart rate 80, blood pressure 129/81. The pulse oxygen saturation 3 liters nasal cannula and 95% saturation. HEENT: No acute change. NECK: Supple. CARDIOVASCULAR: S1, S2 audible. LUNGS: The patient was noted without any crackle, rhonchi or wheezing. Breaths are noted mildly decreased bilaterally. ABDOMEN: Soft, nontender. IMPRESSION: The patient with a slowly resolving acute on chronic severe hypercapnic hypoxic respiratory failure with resolving metabolic alkalosis and other problem progressively. PLAN OF TREATMENT: No changes in the plan of management except gradual reduction of corticosteroids will be continued. Continue bronchodilators and Diamox. The dose of Solu-Medrol will be decreased to 40 mg b.i.d. at this time. The patient overnight pulse oximetry will be repeated again tonight to assess for nocturnal hypoxia. ELIZABETH VILLASEÑOR MD CM:PNTRANS 1747 ELIZABETH WEST MD 10/01/174 interface
[~2017-09-27 20:45] MED LIST changes: +ACETAZOLAMIDE250 MG PO; +XANAX0.25 MG PO
[2017-09-27 20:56] VITALS: BP 130/85
[2017-09-27 21:44] LABS: BASO % 0.1 % (0.0-1.0); EOS % 0.1 % (1.0-4.0); HEMATOCRIT 43.6 % (37.0-47.0); HEMOGLOBIN 12.7 g/dl (12.0-16.0); LYMPH # 1.2 10*3/uL (1.3-4.4); LYMPH % 12.5 % (27.0-41.0); MEAN CELL VOLUME 100.7 fl (81.0-99.0); MEAN CORPUSCULAR HGB 29.3 pg (27.0-31.0); MEAN CORPUSCULAR HGB CONC 29.1 g/dl (33.0-37.0); MEAN PLATELET VOLUME 11.5 fl (9.6-12.3); MONO # 0.7 10*3/uL (0.1-1.0); MONO % 6.9 % (3.0-9.0); NEUT # 7.6 10*3/uL (2.3-7.9); NEUT % 80.1 % (47.0-73.0); PLATELET COUNT AUTOMATED 162 10*3/uL (130-400); RED BLOOD COUNT 4.33 10*6/uL (4.10-5.10); RED CELL DISTRI WIDTH 13.2 % (0-14.5); WHITE BLOOD COUNT 9.5 10*3/uL (4.8-10.8)
[2017-09-27 22:00] LABS: ABG BASE EXCESS 12.4 mmol/L (-2.0-2.0); ABG HCO3 42.4 mmol/l (22-26); ABG O2 SATURATION 95.1 % (95-97); ARTERIAL BLOOD GAS PH 7.286 (7.35-7.45); ARTERIAL BLOOD GAS PO2 73.3 mmHg (80-90)
[2017-09-27 22:02] LABS: ARTERIAL BLOOD GAS PCO2 91.7 mmHg (35-45)
[2017-09-27 22:03] LABS: ALBUMIN 3.7 gm/dl (3.1-4.5); ALKALINE PHOSPHATASE 59 U/L (45-117); BUN 15 mg/dl (7-24); CHLORIDE 94 mmol/L (98-107); CREATININE 0.74 mg/dL (0.55-1.02); POTASSIUM 3.8 mmol/L (3.5-5.1); SGOT/AST 18 IU/L (3-35); SGPT/ALT 20 U/L (12-78); SODIUM 140 mmol/L (136-145); TOTAL PROTEIN 7.6 gm/dL (6.4-8.2)
[2017-09-27 22:04] LABS: TROPONIN I 0.016 ng/ml (<0.045)
[2017-09-27 22:08] VITALS: BP 132/83
[2017-09-27 22:10] LABS: THYROID STIM HORMONE (HS) 0.974 uIU/ml (0.358-4.75)
[2017-09-27 22:48] VITALS: BP 114/78
[2017-09-28] VITALS: BP 90/64
[2017-09-28 07:00] LABS: BASO % 0.2 % (0.0-1.0); EOS # 0.1 10*3/uL (0.0-0.4); EOS % 0.9 % (1.0-4.0); HEMATOCRIT 35.4 % (37.0-47.0); HEMOGLOBIN 10.4 g/dl (12.0-16.0); LYMPH # 2.2 10*3/uL (1.3-4.4); LYMPH % 25.7 % (27.0-41.0); MEAN CORPUSCULAR HGB 29.4 pg (27.0-31.0); MEAN CORPUSCULAR HGB CONC 29.4 g/dl (33.0-37.0); MEAN PLATELET VOLUME 12.3 fl (9.6-12.3); MONO # 0.6 10*3/uL (0.1-1.0); NEUT # 5.7 10*3/uL (2.3-7.9); NEUT % 65.9 % (47.0-73.0); PLATELET COUNT AUTOMATED 127 10*3/uL (130-400); RED BLOOD COUNT 3.54 10*6/uL (4.10-5.10); RED CELL DISTRI WIDTH 13.3 % (0-14.5); WHITE BLOOD COUNT 8.7 10*3/uL (4.8-10.8)
[2017-09-28 07:38] LABS: ALBUMIN 3.3 gm/dl (3.1-4.5); BUN 13 mg/dl (7-24); CHLORIDE 100 mmol/L (98-107); CREATININE 0.58 mg/dL (0.55-1.02); PHOSPHOROUS 3.1 mg/dL (2.5-4.9); POTASSIUM 3.4 mmol/L (3.5-5.1); SGOT/AST 13 IU/L (3-35); SGPT/ALT 16 U/L (12-78); SODIUM 143 mmol/L (136-145); TOTAL PROTEIN 6.1 gm/dL (6.4-8.2)
[2017-09-28 07:39] LABS: ALKALINE PHOSPHATASE 42 U/L (45-117)
[2017-09-28 08:00] VITALS: BP 103/52
[2017-09-28 12:00] VITALS: BP 105/51
[2017-09-28 16:00] VITALS: BP 113/57
[2017-09-28 20:00] VITALS: BP 122/76
[2017-09-29] VITALS: BP 102/54
[2017-09-29 06:08] LABS: HEMATOCRIT 36.8 % (37.0-47.0); MEAN CELL VOLUME 99.7 fl (81.0-99.0); MEAN CORPUSCULAR HGB 29.8 pg (27.0-31.0); MEAN CORPUSCULAR HGB CONC 29.9 g/dl (33.0-37.0); MEAN PLATELET VOLUME 12.1 fl (9.6-12.3); PLATELET COUNT AUTOMATED 135 10*3/uL (130-400); RED BLOOD COUNT 3.69 10*6/uL (4.10-5.10); RED CELL DISTRI WIDTH 13.4 % (0-14.5); WHITE BLOOD COUNT 9.6 10*3/uL (4.8-10.8)
[2017-09-29 06:39] LABS: BUN 15 mg/dl (7-24); CHLORIDE 96 mmol/L (98-107); CREATININE 0.66 mg/dL (0.55-1.02); PLATELET SUFFICIENCY NORMAL (NORMAL); POTASSIUM 4.1 mmol/L (3.5-5.1); SODIUM 140 mmol/L (136-145); TOTAL CELLS COUNTED 100 #CELLS
[2017-09-29 08:00] VITALS: BP 104/54
[2017-09-29 12:00] VITALS: BP 110/60
[2017-09-29 16:00] VITALS: BP 110/79
[2017-09-29 20:00] VITALS: BP 142/97
[2017-09-30] VITALS: BP 113/72
[2017-09-30 08:00] VITALS: BP 102/59
[2017-09-30 12:00] VITALS: BP 110/48
[2017-09-30 16:52] VITALS: BP 129/81
[2017-09-30 20:00] VITALS: BP 148/77
[2017-10-01] VITALS: BP 102/51
[2017-10-01 06:07] LABS: HEMATOCRIT 36.4 % (37.0-47.0); HEMOGLOBIN 11.1 g/dl (12.0-16.0); LYMPH # 0.9 10*3/uL (1.3-4.4); MEAN CELL VOLUME 95.3 fl (81.0-99.0); MEAN CORPUSCULAR HGB 29.1 pg (27.0-31.0); MEAN CORPUSCULAR HGB CONC 30.5 g/dl (33.0-37.0); MEAN PLATELET VOLUME 12.7 fl (9.6-12.3); MONO # 0.4 10*3/uL (0.1-1.0); MONO % 4.8 % (3.0-9.0); NEUT # 7.6 10*3/uL (2.3-7.9); NEUT % 84.8 % (47.0-73.0); PLATELET COUNT AUTOMATED 147 10*3/uL (130-400); RED BLOOD COUNT 3.82 10*6/uL (4.10-5.10); RED CELL DISTRI WIDTH 13.9 % (0-14.5); WHITE BLOOD COUNT 8.9 10*3/uL (4.8-10.8)
[2017-10-01 06:29] LABS: ALBUMIN 3.1 gm/dl (3.1-4.5); ALKALINE PHOSPHATASE 45 U/L (45-117); BUN 16 mg/dl (7-24); CHLORIDE 103 mmol/L (98-107); CREATININE 0.57 mg/dL (0.55-1.02); POTASSIUM 3.6 mmol/L (3.5-5.1); SGOT/AST 11 IU/L (3-35); SGPT/ALT 15 U/L (12-78); SODIUM 142 mmol/L (136-145)
[2017-10-01 08:00] VITALS: BP 121/78
[2017-10-01 12:00] VITALS: BP 137/82
[2017-10-01] MEDS ORDERED: PREDNISONE10 M1 PO (13:21)
[2017-10-01] MEDS ORDERED: BUSPAR5 MG PO (13:21)
== END 2017-10-01 14:56 | disposition home or self-care (01) | DRG 189 ==
LOC: ED 20:45 → 4E 22:24 → EDHOLD 22:24 → 4E 22:37
PROVIDERS: Emergency Medicine; Hospitalist; Internal Medicine; Student in an Organized Health Care Education/Training Program
PROC: 5A09357 Assistance with Respiratory Ventilation, Less than 24 Consecutive Hours, Continuous Positive Airway Pressure (ICD-10-PCS; principal; 2017-09-28)
DX: J96.21 Acute and chronic respiratory failure with hypoxia (principal); E87.3 Alkalosis; E87.8 Other disorders of electrolyte and fluid balance, not elsewhere classified; E44.1 Mild protein-calorie malnutrition; J44.1 Chronic obstructive pulmonary disease with (acute) exacerbation; Z68.1 Body mass index [BMI] 19.9 or less, adult; J96.22 Acute and chronic respiratory failure with hypercapnia; F32.9 Major depressive disorder, single episode, unspecified; F12.10 Cannabis abuse, uncomplicated; L40.0 Psoriasis vulgaris; F41.9 Anxiety disorder, unspecified; Z96.22 Myringotomy tube(s) status; K08.409 Partial loss of teeth, unspecified cause, unspecified class; R00.0 Tachycardia, unspecified; D75.89 Other specified diseases of blood and blood-forming organs; Z99.81 Dependence on supplemental oxygen; Z90.49 Acquired absence of other specified parts of digestive tract; Z98.51 Tubal ligation status; Z87.891 Personal history of nicotine dependence; Z82.3 Family history of stroke; Z80.8 Family history of malignant neoplasm of other organs or systems; Z83.6 Family history of other diseases of the respiratory system; Z84.89 Family history of other specified conditions; Z79.899 Other long term (current) drug therapy

== ENCOUNTER 2017-10-04 00:30 | Inpatient (IN) | payer OTHER ==
[~2017-10-04] VITALS: Ht 154.9 cm; Wt 43.3 kg
[2017-10-04] VITALS (13 sets, daily range): BP systolic 91–175; BP diastolic 55–87
--- NOTE | ~2017-10-04 | PR ---
[place], [place] PROGRESS NOTE NAME: NUBIA ROLLE UNIT #: [id number] ROOM: [facility] DOCTOR: DYANA MO DO BIRTHDATE: [birth year] DOS: 10/12/2017 SUBJECTIVE: The patient is seen and examined at bedside, sitting upright. The patient is in moderate respiratory distress; however, she has been tolerating her extubation well, continues to be short of breath with wheezing and cough. Oxygenation was 85% on 5 liters nasal cannula during the time of interview. The patient and agreed to [facility] transfer once precertification has been obtained. No new complaints at this time. OBJECTIVE: VITAL SIGNS: Temperature 97.1, pulse is 99, respirations 20, blood pressure 105/72, pulse ox is 96% on BiPAP. GENERAL APPEARANCE: The patient is alert, awake and oriented times 3, in moderate respiratory distress. HEENT: Eyes are clear. No discharge, mild injection of the right eye was appreciated. Nares are patent. Mucous membranes are moist. NECK: Supple, nontender. RESPIRATORY: Wheezing in all lung andrew. No rales, no rhonchi. CARDIOVASCULAR: Regular rate and rhythm. No murmurs, gallops or rubs. ABDOMEN: Soft, nontender with positive bowel sounds. EXTREMITIES: No edema, erythema, clubbing or cyanosis noted in extremities. NEUROLOGIC: Negative for focal deficits. BMP and CBC were reviewed. No gross acute change from prior labs. Blood cultures, bronch cultures remain negative. IMPRESSION: 1. Severe acute hypercapnic and hypoxic respiratory failure, status improvement. 2. Acute exacerbation of chronic obstructive pulmonary disease. 3. Tracheobronchitis. 4. Metabolic alkalosis. PLAN OF CARE: Continue with the current bronchodilators, antibiotics and steroids. The patient is medically stable for transfer to [facility] once precertification is obtained. No change in the current plan at this time, continue with oxygen supplementation. We will continue to follow. DYANA MO DO [place], [place] PROGRESS NOTE NAME: NUBIA ROLLE UNIT #: [id number] ROOM: [facility] DOCTOR: DYANA MO DODATE: [birth year] ELIZABETH VILLASEÑOR MD CM:TOMAS 1030 18 DYANA MO DO 10/12/17 1119 interface
--- NOTE | ~2017-10-04 | PR ---
[place], [place] PROGRESS NOTE NAME: NUBIA ROLLE UNIT #: [id number] ROOM: [place] [address] DOCTOR: DYANA MO DO BIRTHDATE: [birth year] DOS: 10/11/2017 SUBJECTIVE: The patient was seen and examined at bedside. The patient was sitting upright with family present. The patient was on a nonrebreather in no acute distress; however, did appear mildly short of breath. The patient has no new complaints today. They discussed LTAC with Dr. Villaseñor and patient mentioned that they would prefer to go to an LTAC where Dr. Villaseñor does see his own patients which would be [facility] down in [place]. The patient and spouse, who was at bedside, agreed to talk to case management about possible placement today if a bed is available. OBJECTIVE: VITAL SIGNS: Temperature 99.1, pulse is 109, respirations 18, blood pressure 140/80, pulse ox is 90 on a Venturi mask. LABORATORY DATA: CBC and BMP were reviewed. No noteworthy changes on the labs from yesterday to today. The patient remains stable. Micro, blood cultures, bronch cultures and MRSA surveillance all remain negative. ASSESSMENT: 1. Acute on chronic hypercapnic and hypoxic respiratory failure with severe debility and bilateral basilar area infiltration, acute pneumonia. 2. Protein calorie malnutrition. 3. Generalized anxiety disorder. PLAN: At this time is to get the patient to an LTAC preferably [facility] where patient can continue under the care of Dr. Villaseñor for her ongoing severe chronic respiratory failure, which is improving from her acute exacerbation. No change in the current treatment at this time. We will continue to follow this. DYANA MO DO [place], [place] PROGRESS NOTE NAME: NUBIA ROLLE UNIT #: [id number] ROOM: [place] [address] DOCTOR: DYANA MO DO BIRTHDATE: [birth year] ELIZABETH VILLASEÑOR MD CM:PNTRANS [phone] DYANA MO DO 10/11/17 1123 interface
--- NOTE | ~2017-10-04 | PR ---
[place], [place] PROGRESS NOTE NAME: NUBIA ROLLE UNIT #: [id number] ROOM: [facility] DOCTOR: CHARLEEN WEST MD,ELIZABETH BIRTHDATE: [birth year] DOS: 10/12/2017 SUBJECTIVE: The patient was independently seen and examined with [id number] encounter. History was confirmed, physical examination performed. Labs were reviewed. The assessment and management for the patient today's note were personally completed. Note done by the medical scheduler was approved. She has been resting comfortably at this time in the Intensive Care Unit, using oxygen supplementation nasal cannula. She has not been noted symptoms of chest pain. Cough has been noted with some chest congestion. No sputum expectoration. Denies abdominal pain. OBJECTIVE: VITAL SIGNS: Normal temperature, respiratory rate 20, heart rate of 99-108, blood pressure 146/71-136/86. The pulse oxygen saturation on 6 liters nasal cannula 86% saturation with 40% Venturi mask 96% saturation. HEENT: No new change. NECK: Supple. CARDIOVASCULAR: S1, S2 audible. LUNGS: Diffuse reduction in breath sounds, moderate expiratory wheezing. No crackles. ABDOMEN: Soft, nontender. EXTREMITIES: Without any edema. GENITOURINARY: For the patient was noted without any focal neurologic deficit. VISIBLE SKIN: No lesions or rashes. Loss of chronic muscle mass. LABORATORY DATA: In the BMP labs today, BUN 13, creatinine was normal. CO2 39. CBC of the patient: Hemoglobin 11.6, hematocrit was normal, platelet count normal, WBC count was normal. Arterial blood gas that was done yesterday: pH of 7.37, pCO2 68, pO2 71.7 with 40% use of BiPAP. IMPRESSION: 1. The patient continues to remain in severe acute hypercapnic hypoxic respiratory failure, status post liberation from mechanical ventilation. 2. Severe acute exacerbation of chronic obstructive pulmonary disease, still noted persistent wheezing and nonproductive cough. 3. Acute pneumonia in the lower lungs, which is treated with antibiotics. 4. Metabolic alkalosis, resolving. 5. Chronic protein-calorie malnutrition with tachycardia as well as secondary to exacerbation of chronic obstructive pulmonary disease. PLAN OF MANAGEMENT: Awaiting for the patient for authorization from the insurance for the long-term acute care facility management for the current severe respiratory failure. In the meantime, continue the current dose of corticosteroids, bronchodilator. No change in antibiotic will be needed. Transfer the patient to long-term acute care facility after authorization obtained from the nursing facility. In the meantime, all other supportive therapy, plan of management, other care, usual treatment. Continue the nutrition support. Use of the BiPAP most of the time as tolerated. [place], [place] PROGRESS NOTE NAME: NUBIA ROLLE UNIT #: [id number] ROOM: [facility] DOCTOR: ELIZABETH MCDONALD MD BIRTHDATE: [birth year] ELIZABETH VILLASEÑOR MD CM:TOMAS 1521 9 ELIZABETH WEST MD 10/13/170 interface
--- NOTE | ~2017-10-04 | PR ---
[place], [place] PROGRESS NOTE [id number] UNIT #: [id number] ROOM: [place] [address] DOCTOR: CHARLEEN WEST MD,ELIZABETH BIRTHDATE: [birth year] DOS: 10/05/2017 PULMONARY CRITICAL CARE MANAGEMENT NOTE SUBJECTIVE: The patient seen and examined on 05/05/2018. She has been noted sedated at this time. The mental status noted appropriate with reduction of with sedation vacation. She has not been noted any hemodynamic instability. Plan for bronchoscopy to be done. Thick purulent secretion was suctioned out for the patient intermittently from the endotracheal tube by the respiratory therapist. Endotracheal tube was adjusted yesterday to the appropriate level. The patient has not been noted any symptoms of acute hemodynamic instability. Feeding was continued, which was tolerated, but it was placed on hold for patient for the bronchoscopy. Planned to be done for the patient intensive care unit today. Low-grade fever was also noted. Intravenous corticosteroids was continued for the patient including the broad spectrum intravenous antibiotics as well. OBJECTIVE: VITAL SIGNS: For the patient which has been recorded showed the temperature noted 100 degrees Fahrenheit for the patient to normal temperature in the last 24 hours. The respiratory rate range between 12-31, sinus tachycardia noted with heart rate 122 beats per minute for the patient to a normal heart rate of 77. Blood pressure 113/60-142/70. Intake for the patient recorded at 2.956 liters, output 2300 mL. Pulse oxygen saturation with 50% oxygen 60% was noted 97% with a PEEP of 10.0. HEENT: Head atraumatic. The patient orally intubated. NECK: Supple. Eyes nonicterus. CARDIOVASCULAR: S1, S2 is audible. LUNGS: The patient was noted with general reduction of the breath sounds with expiratory wheezing was noted with decreased air exchange bilaterally. ABDOMEN: Soft, nontender and flat. EXTREMITIES: The patient without any acute edema. Loss of muscle mass, which is chronic. CENTRAL NERVOUS SYSTEM: Cranial nerves of cannot be rather examined by the mental status was noted normal. MUSCULOSKELETAL: No deformities. LABORATORY DATA: Echocardiogram 117,080 was reviewed for the patient, which was dictated by Dr. Agosto that shows left ventricular ejection fraction between 40%-50% for this patient. There were no significant valvular abnormality noted. PT and PTT patient yesterday was noted as normal. Arterial blood gas that was done yesterday. The patient, pH of 7.34, pCO2 of 64, pO2 of 105 with a tidal volume of 550 mL, 50% oxygen, PEEP of 10.0. The chest x-ray done this morning for the patient shows the endotracheal tube was noted 5.4 cm above the a[place]andria level. Bilateral pleural fluid noted without any gross visible large area of consolidation or infiltration. IMPRESSION: 1. The patient who has been currently noted with persistent acute severe hypercapnic and hypoxic respiratory failure, chronic hypercapnia and hypoxia. [place], [place] PROGRESS NOTE NAME: NUBIA ROLLE UNIT #: [id number] ROOM: [place] [address] DOCTOR: CHARLEEN WEST MD,ELIZABETH BIRTHDATE: [birth year] 2. Acute pneumonia in the lower lungs. Rule out and/or chronic infections as well for this patient. 3. The patient with severe chronic protein-calorie malnutrition. 4. Mild cardiomyopathy. The patient relief reduced left ventricular ejection fraction. 5. Tachycardia, intermittent, related to current exacerbation of chronic obstructive pulmonary disease was considered. 6. Past history of marijuana use as well. Part of the withdrawal for this patient may be related to the pain medication or the illicit drug use of the patient as resulting in tachycardia cannot be ruled out. PLAN OF MANAGEMENT: Fiberoptic bronchoscopy planned to be done this morning. Bronchodilator will be continued. Prealbumin level of the patient will be obtained tomorrow morning. Continuation ventilator bundle management. Other supportive therapy, plan of management and care as well. Usual treatment. Resuming her pain medication from home should be continued. Continue Diamox for the DVT prophylaxis. At this time, no change in antibiotic will be necessary. Continue sedation, a combination of use of Versed and the propofol. Maximize the nutritional status. Continue DVT prophylaxis. Additional treatment changes to be done for the patient based on the progression of her illness. TIME SPENT: Total time pulmonary critical evaluation and management was 38 minutes. ELIZABETH VILLASEÑOR MD CM:PNTRANS [id number] ELIZABETH WEST MD 10/05/17 2340 interface
--- NOTE | ~2017-10-04 | EKG ---
[place], [place] ELECTROCARDIOGRAM REPORT NAME: NUBIA ROLLE UNIT #: [id number] ROOM: [place] [address] DOCTOR: CHARLEEN WEST MD,ELIZABETH BIRTHDATE: [birth year] DOS: 10/04/2017 TIME: Done at 12:51 a.m. Sinus tachycardia noted with heart rate 114 beats per minute. Biatrial enlargement was noted. ELIZABETH VILLASEÑOR MD CM:EKGRPT:ELECTROCARDIOGRAM REPORT [id number] ELIZABETH WEST MD
--- NOTE | ~2017-10-04 | PR ---
[place], [place] PROGRESS NOTE NAME: NUBIA ROLLE UNIT #: [id number] ROOM: [facility] DOCTOR: DYANA MO DO BIRTHDATE: [birth year] DOS: 10/13/2017 SUBJECTIVE: The patient is seen and examined at bedside. The patient is sitting upright in 90 degrees in bed in no acute distress. The patient reports that her oxygenation has been better overnight and that she only desats occasionally, but has been able to maintain her oxygen over 90 for most of the night. The patient continues to have some shortness of breath and cough, nonproductive. The patient reports that she feels like she is improving daily and that she feels like she is ready to go to the LTAC once the pre-cert is available. OBJECTIVE: VITAL SIGNS: Temperature 97.7, pulse is 87, respirations 16, blood pressure 97/49, pulse ox 93% on 5 liters nasal cannula, GENERAL APPEARANCE: The patient is awake and alert and oriented times 3, no acute distress. HEENT: Eyes are clear. No injection. Nares are patent. Mucous membranes are moist. Nasal cannula in place. NECK: Supple, nontender. CARDIOVASCULAR: Regular rate and rhythm, S1 and S2 appreciated. PULMONARY: Diminished breath sounds with expiratory wheezing. No rales, no rhonchi. ABDOMEN: Soft, nontender, positive bowel sounds. EXTREMITIES: Clear of peripheral edema, erythema, clubbing and cyanosis. LABORATORY DATA: Blood cultures and bronch washings remain negative. IMPRESSION: 1. Severe acute hypercapnic and hypoxic respiratory failure. 2. Acute exacerbation of chronic obstructive pulmonary disease. 3. Tracheobronchitis. 4. Metabolic alkalosis. PLAN: Continue with current bronchodilators, antibiotics and steroids. The patient is medically stable from a pulmonary standpoint to be transferred to [facility] for further care, pre-cert is pending. No change in current treatment plan. Continue with oxygen supplementation, maintain oxygenation greater than 90%. DYANA MO DO [place], [place] PROGRESS NOTE NAME: NUBIA ROLLE UNIT #: [id number] ROOM: [facility] DOCTOR: DYANA MO DO BIRTHDATE: [birth year] ELIZABETH VILLASEÑOR MD CM:TOMAS [id number] DYANA MO DO 10/13/17 1215 interface
--- NOTE | ~2017-10-04 | PR ---
[place], [place] PROGRESS NOTE NAME[id number] UNIT #: [id number] ROOM: [place] [address] DOCTOR: CHARLEEN WEST MD,ELIZABETH BIRTHDATE: [birth year] DOS: 10/06/2017 SUBJECTIVE: The patient remains on mechanical ventilator at this time. Continue mechanical ventilation at the present time. She has not been noted any major changes in the hemodynamics. Feeding was continued, which was tolerated. Endotracheal tube was readjusted as well. She has not been noted any hemodynamic instability at this time. The arterial blood gas this morning noted worsening of the hypercarbia with increased CO2 retention. She was noted as 60% oxygen supplementation. The patient's oxygen supplementation was decreased to 40% after the arterial blood gases and later, the patient noted increased hypoxia with pulse ox saturation only 89% noted. She was noted adequately sedated at the present time. The bronchoscopy was done a couple of days ago. The patient has been not noted ready at this time for liberation from mechanical ventilator assessment because of current ongoing respiratory failure and other medical issues. OBJECTIVE: VITAL SIGNS: Low grade fever still noted as 99.5 degrees Fahrenheit. Respiratory rate recorded as 12-22, heart rate 78-100, blood pressure 98/56-103/51. Pulse oxygen saturation 97%. HEENT: Examination shows head was atraumatic. Eyes nonicterus. The patient remained orally intubated. Orogastric tube in place. NECK: Supple. CARDIOVASCULAR: S1, S2 is audible. LUNGS: The patient was noted with general reduction in breath sounds with expiratory wheezing without any crackles. ABDOMEN: Soft, flat, nontender. Bowel sounds present. EXTREMITIES: The patient was noted without any edema. MUSCULOSKELETAL: Without any acute deformities. Chronic muscle mass loss was known. CENTRAL NERVOUS SYSTEM: The patient was noted with improvement in mental status with reduction of sedation. LABORATORY DATA: Arterial blood gas that was done this morning 7:35 a.m. pH of 7.29, pCO2 71.3, ____ 60% oxygen, PEEP of 10.0. Chest x-ray was done at 6:30 a.m. The patient's endotracheal tube was noted relatively high riding. The chest x-ray repeated after adjustment of the endotracheal tube, which was advanced noted with appropriate position about 4 cm above the alexandria level. The culture of the bronchial washing preliminary shows as normal roberto. Gram stain of yesterday, many white blood cells with few gram-positive cocci in pairs, chains and clusters. Blood culture from 17 of this month, both sets not noted with any bacterial growth, preliminary final culture results were pending. IMPRESSION: 1. The patient was currently noted with severe acute hypercapnia hypercarbia respiratory failure, chronic hypoxia and hypercapnia. 2. Acute severe exacerbation of chronic obstructive pulmonary disease as well. 3. Protein calorie malnutrition was also noted with a prealbumin level of 13. CMP this morning was noted with glucose mildly elevated at 153, carbon dioxide 34, prealbumin of 13. [place], [place] PROGRESS NOTE NAME: NUBIA ROLLE UNIT #: [id number] ROOM: [place] [address] DOCTOR: CHARLEEN WEST MD,[facility] BIRTHDATE: [birth year] 4. Anemia of chronic disease with mild thrombocytopenia. The anemia was noted hemoglobin 9.4, hematocrit 31.5 and platelet count 119,000. 5. The patient with history of chronic narcotic use medications as well and dependence previously. 6. History of chronic marijuana use. PLAN OF MANAGEMENT: I have personally adjusted the patient's mechanical ventilator setting to improve the ventilatory relation of this patient with increase the oxygen to 60%. The oxygen saturation did improve to 97-98% in about 10 minutes. The peak flow was increased to peak flow of 80 liters per minute. This had resulted in improvement in I:E ratio for the patient 1 x 5 which was noted previously by I:E ratio of 1 x 2. Respiratory rate was decreased to 10. The tidal volume decreased to 500 mL with a good many minute ventilation was noted. Continue maximal nutritional status. Gradual reduction of the oxygen based on improvement in the oxygen saturations. Other supportive therapy, plan of management and care plan. Usual treatment with other plan of management to be continued. Maximize the nutritional status, protein calorie malnutrition, correct electrolyte imbalance as well. Additional treatment changes to be done for the patient based on the progression of the illness. Supportive care, plan of management, monitor chest x-ray. Additional treatment changes will be done based on progression of the illness. Final culture results of the bronchial washing monitored prior to making any further changes in the respiratory status. Total time pulmonary critical care, evaluation and management of the patient was 40 minutes. ELIZABETH VILLASEÑOR MD CM:PNTRANS [id number] ELIZABETH WEST MD 10/07/17 0041 interface
--- NOTE | ~2017-10-04 | PR ---
[place], [place] PROGRESS NOTE NAME: NUBIA ROLLE UNIT #: [id number] ROOM: [place] [address] DOCTOR: CHARLEEN WEST MD,ELIZABETH BIRTHDATE: [birth year] DOS: 10/07/2017 SUBJECTIVE: The patient remained in the Intensive Care Unit at this time, still require significant amount of oxygen supplementation because of the hypoxia. She has been sedated with intermittent Diprivan, but still noted arousable at times. She was pointing to her tube for possible extubation for the patient, liberation from mechanical ventilator. She has not been noted any major hemodynamic instability. Oxygen supplementation was continued for the patient with the adjustment of the mechanical ventilator done yesterday. The current oxygen supplementation the patient was noted as 50% oxygen supplementation on the mechanical ventilator decreased from 60% previously. The feeding was continued from the orogastric tube for the patient and well tolerated. OBJECTIVE: VITAL SIGNS: For the patient shows normal temperature, respiratory rate of 10-12, heart rate of 64-68, blood pressure 96/55-91/48. The pulse oxygen saturation on 50% oxygen, 97% saturation. HEENT: Examination shows the patient remains intubated. Orogastric tube is in place. NECK: Supple. CARDIOVASCULAR: S1, S2 audible. LUNGS: Generally reduced breath sounds in the lungs were noted bilaterally. ABDOMEN: Soft, flat, nontender without any tenderness. EXTREMITIES: Without any edema. MUSCULOSKELETAL: No deformities. GENITOURINARY: Fairly intact. The patient is able to move upper and lower extremities and could follow directions as well with the current even use of Diprivan. LABORATORY DATA: Arterial blood gas, the pH of 7.32, pCO2 of 67, pO2 129. CBC of patient of 10/15/2017, hemoglobin 9.3, hematocrit 31.0, platelet count 118,000. Culture of the bronchial washing shows as normal roberto, final results. BMP this morning, BUN 13, creatinine normal. Sodium 147, CO2 of 36. The chest x-ray of the patient 1 view that was done today was noted with an endotracheal tube was noted 5 cm ____ above the alexand[place] level. There was no acute pulmonary infiltration noted, basilar area of infiltration still remains. Changes of COPD and hyperinflation was still persistent. IMPRESSION: 1. The patient with persistent acute severe hypercapnic and hypoxic respiratory failure with improving hypoxia gradually. 2. Severe protein-calorie malnutrition and overall frail status. The patient with chronic loss of muscle mass with cachexia as well. 3. Acute bilateral lower lobe pneumonia with the current cultures were noted negative for any abnormal bacterial growths. 4. The patient with protein-calorie malnutrition as well. 5. Resolving metabolic alkalosis. PLAN OF MANAGEMENT: Adjustment in the antibiotic for the patient will be done with discontinuation of the Zosyn and the vancomycin and continuation of only [place], [place] PROGRESS NOTE NAME: NUBIA ROLLE UNIT #: [id number] ROOM: [place] [address] DOCTOR: CHARLEEN WEST MD,ELIZABETH BIRTHDATE: [birth year] the Levaquin the primary antibiotic based on the current culture results. The Solu-Medrol will be continued for the patient at this time with the same dose. Attempt the patient tomorrow morning for a trial of CPAP pressure support of 10 with further stability in the respiratory status achieved for the patient for possibility of liberation from mechanical ventilator. However, the patient to be liberated from mechanical ventilator would be somewhat difficult scenario. The patient has been noted with extremely advanced lung disease and emphysema. All other supportive therapy, plan of management and care plan. Usual care. DVT prophylaxis. Ventilator bundle management to be continued. Additional treatment changes will be done based on progression of the illness. Maximize the nutrition support as well. Continue current sedation for the patient as well. Total time for pulmonary and critical evaluation and management for this patient as 34 minutes. ELIZABETH VILLASEÑOR MD CM:PNTRANS [id number] ELIZABETH WEST MD 10/07/172235 interface
--- NOTE | ~2017-10-04 | PROC NOTE ---
[place], [place] PROCEDURE NOTE NAME: NUBIA ROLLE UNIT #: [id number] ROOM: [place] [address] DOCTOR: CHARLEEN WEST MD,ELIZABETH BIRTHDATE: [birth year] DOS: 10/05/2017 PREOPERATIVE DIAGNOSES: Bilateral pulmonary infiltration with fever and acute respiratory failure. POSTOPERATIVE DIAGNOSES: Severe friability of the mucosa was noted in the lower endobronchial tree with suspected pneumonia in the left lower lung as well. No endobronchial obstructive lesions. COMPLICATIONS: None. PROCEDURE DESCRIPTION: Informed consent obtained from the patient's . The patient was continued on mechanical ventilation. Oxygen supplementation was increased to 100% for the procedure. After that, the procedure was started. The procedure was done in the negative pressure room. The patient continued in supine position. The video Fiberoptic bronchoscope was advanced to the endotracheal tube lower part of the trachea. Lower part of trachea of the patient was noted at this time. It shows a small amount of secretions, suctioned out the macey level. Macey noted sharp. Left upper, lingular lower lobe bronchi were noted for this patient. Severe inflammatory changes of the left endobronchial tree was noted with moderate amount of bilious secretion. Bronchial washing taken from that level. Small amount of secretion in the right upper, middle and the right lower lobe, also noted significant friability of the mucosa. All secretions suctioned out clear with normal saline wash, sent for appropriate culture. Procedure was well tolerated by the patient without any difficulty. Postoperative findings were discussed with the patient's in detail. Bronchial washing sent for all the culture including acid fast smear and culture. ELIZABETH VILLASEÑOR MD CM:PROCNOTE:PROCEDURE NOTE [id number] ELIZABETH WEST MD
--- NOTE | ~2017-10-04 | PR ---
[place], [place] PROGRESS NOTE NAME: NUBIA ROLLE UNIT #: [id number] ROOM: [place] [address] DOCTOR: CHARLEEN WEST MD,ELIZABETH BIRTHDATE: [birth year] DOS: 10/08/2017 PULMONARY CRITICAL CARE EVALUATION AND MANAGEMENT SUBJECTIVE: The patient remains in the Intensive Care Unit. Requires high amount of sedation, still noted awake, pointing continuously the patient about the extubation. She has not been noted any hemodynamic instability. Low grade fever, the patient was noted this afternoon. She has not been noted evidence of tachycardia, mild hypotension occurred for the patient related to depression, which has been noted in normal range for the patient this morning. The patient has not been noted excessive secretion production. Feeding was continued. The patient has well tolerated. OBJECTIVE: VITAL SIGNS: The vital signs of the patient, which have been recorded shows the temperature 100 degrees Fahrenheit to 99.1 degrees Fahrenheit, normal temperature in the last 24-hour, respiratory rate 10-12, heart rate of 59-70, and blood pressure 118/73-85/44. Intake 1596 mL/1750 mL. Pulse ox saturation on 35% oxygen, the patient's oxygen requirement has been decreased noted 93%-94% saturation. HEENT: The patient remained orally intubated. NECK: Supple. Head was atraumatic. Orogastric tube is in place. CARDIOVASCULAR: S1, S2 is audible. LUNGS: Generally reduced breath sounds. The patient with occasional wheezing. No crackles. ABDOMEN: Flat, soft, and nontender. Bowel sounds present. EXTREMITIES: The patient has loss of muscle mass, which is a chronic finding. CENTRAL NERVOUS SYSTEM: The patient is nonfocal at the present time. The patient is able to move extremities and follows vocal commands. VISIBLE SKIN: No lesions or rashes. MUSCULOSKELETAL: Without any acute deformities. LABORATORY DATA: The arterial blood gas of the patient, pH of 7.32, pCO2 of 72.5, pO2 100 on 40%-50% oxygen earlier arterial blood gas. The patient was started on initial CPAP 5, pressure support of 10, 30 minutes later, the patient was assessed and noted a pH of 7.32, pCO2 of 71, pO2 79.4 on 35% oxygen supplementation. CBC, WBC count 5.7, hemoglobin 9.4, hematocrit 31.4, and platelet count 119,000. The BMP of patient this morning, glucose 161, BUN normal, creatinine normal, sodium 147, and CO2 of 34. The chest x-ray of the patient that was done this morning for the patient, endotracheal noted in place. Reduction of previous noted pulmonary infiltration as previously. IMPRESSION: 1. The patient with advanced end-stage centrilobular emphysema with acute exacerbation of chronic obstructive pulmonary disease. 2. Severe hypercarbia with metabolic alkalosis. 3. Bilateral basilar pneumonia for this patient. Treat her with antibiotics. Rule out chronic infections as well. 4. Chronic protein-calorie malnutrition as well. 5. History of dependence on the narcotic for the patient and other use of [place], [place] PROGRESS NOTE NAME: NUBIA ROLLE UNIT #: [id number] ROOM: [place] [address] DOCTOR: CHARLEEN WEST MD,[facility] BIRTHDATE: [birth year] marijuana as well. 6. Protein-calorie malnutrition. 7. Mild hypotension related to sedation for the patient as well. 8. General anxiety disorder as well. PLAN OF TREATMENT: The patient had been reserved personally with the CPAP 5, pressure support of 10, tidal volume noted about 450 mL-500 mL. The patient with a respiratory rate about 18-20. Arterial blood gases has been assessed for the patient and she will be started on high pressure support. The patient improved the ventilatory status for this patient. The mechanical ventilation continued for about 3 hours. The patient is on the safer side for the reassessment of arterial blood gases. If the arterial blood gas noted with pH 7.30; certainly, she may be considered for liberation of mechanical ventilation with immediate use of the BiPAP for the patient after the liberation of mechanical ventilation. However, the patient will remain at high risk for reintubation because of advanced pulmonary disease. The patient does get reintubated. Tracheostomy would be recommended with long-term management in the long-term acute care facility. In the meantime, continue nutritional support as tolerated. Management of any pain for this patient and other support. Continue with ventilator bundle management. Usual care, other supportive therapy, plan of management, and care plan. Additional treatment changes to be done for the patient based on progression of the illness. Usual care. Supportive plan of management and care. Assessment and management has been discussed with the patient's in detail. TIME SPENT: Total time in pulmonary critical care evaluation and management was 39 minutes. ELIZABETH VILLASEÑOR MD CM:PNTRANS [id number] ELIZABETH WEST MD 10/08/17 2254 interface
--- NOTE | ~2017-10-04 | PR ---
[place], [place] PROGRESS NOTE NAME: NUBIA ROLLE UNIT #: [id number] ROOM: [place] [address] DOCTOR: CHARLEEN WEST MD,ELIZABETH BIRTHDATE: [birth year] DOS: 10/10/2017 PULMONARY PROGRESS NOTE SUBJECTIVE: The patient was noted comfortable at this time, but still noted with hypoxia with oxygen supplementation with the nasal cannula. BiPAP had been used most of the time. The cough has been noted mild intermittently. There was no sputum expectoration. Denies symptoms of chest pain. The patient is noted with quite a bit of anxiety that has been known as a chronic issue. Oral intake for the patient noted appropriate and sufficient. OBJECTIVE: VITAL SIGNS: Shows a temperature noted as normal this morning. In the last 24 hours, respiratory rate 14-18, heart rate 93-63, blood pressure 159/88-103/57. Intake 1360, output 3800, with a negative fluid balance of 2.4 liters. Pulse ox saturation 94% saturation noted on the BiPAP, with the nasal cannula noted as 88-86% oxygen saturation at rest. HEENT: Head was atraumatic. Eyes nonicterus. NECK: Supple. CARDIOVASCULAR: S1, S2 audible. LUNGS: The patient was noted without any wheezing or crackles at the present time. ABDOMEN: Soft, nontender. EXTREMITIES: Without any acute edema. SKIN: Visible skin was noted without lesions or rashes. CENTRAL NERVOUS SYSTEM: Intact. MUSCULOSKELETAL: Without any acute deformities. IMPRESSION: 1. The patient with severe acute on chronic hypercapnic and hypoxic respiratory failure with debility and bilateral basilar areas of infiltration with acute pneumonia, treated with the antibiotics. 2. The patient with overall general debility with protein-calorie malnutrition. 3. General anxiety disorder. PLAN OF MANAGEMENT: Continuation of the bronchodilators, oxygen supplementation, and corticosteroids at the same dose. Continue Diamox for severe metabolic alkalosis. Continue the use of the BiPAP most of the time as well. Physical therapy. Consider either transfer to long-term acute care facility or nursing home facility upon discharge. Overall, prognosis of the patient remains guarded. Continuation of the DVT prophylaxis. Supportive plan of management and care. The patient's broad spectrum intravenous antibiotics have been discontinued and the patient will be started on just Zithromax based on the culture results of the bronchial washings. Continue nutrition support as tolerated. Repeat another prealbumin level in the morning. Keep the patient in Intensive Care Unit in the next 24 hours prior to most likely transfer to nursing home facility hopefully by tomorrow. [place], [place] PROGRESS NOTE NAME: NUBIA ROLLE UNIT #: [id number] ROOM: [place] [address] DOCTOR: ELIZABETH MCDONALD MD BIRTHDATE: [birth year] ELIZABETH VILLASEÑOR MD CM:PNTRANS [phone] ELIZABETH WEST MD 10/11/17 0325 interface
--- NOTE | ~2017-10-04 | PR ---
[place], [place] PROGRESS NOTE NAME: NUBIA ROLLE UNIT #: [id number] ROOM: [place] [address] DOCTOR: PÉREZ APODACA DO BIRTHDATE: [birth year] DOS: ADDENDUM. I agree with the above dictation. The patient was successfully intubated. Zero blood loss, no complications. The patient tolerated the procedure well. PÉREZ APODACA DO CM:PNTRANS [id number] PÉREZ APODACA DO 10/07/17 1123 interface
--- NOTE | ~2017-10-04 | EKG ---
[place], [place] ELECTROCARDIOGRAM REPORT NAME: NUBIA ROLLE UNIT #: [id number] ROOM: [place] [address] DOCTOR: CHARLEEN WEST MD,ELIZABETH BIRTHDATE: [birth year] DOS: 10/04/2017 The electrocardiogram was done on 10/04/2017 at 7:30 p.m. Normal sinus rhythm was noted with heart rate 73 beats per minute with nonspecific ST-T changes. ELIZABETH VILLASEÑOR MD CM:EKGRPT:ELECTROCARDIOGRAM REPORT [id number] ELIZABETH WEST MD
--- NOTE | ~2017-10-04 | CON ---
[place], [place] REPORT OF CONSULTATION NAME: NUBIA ROLLE UNIT #: [id number] ROOM: [place] [address] DOCTOR: ELIZABETH MCDONALD MD BIRTHDATE: [birth year] DOS: 10/04/2017 PULMONARY CONSULTATION, EVALUATION AND MANAGEMENT The patient was seen and examined on 10/04/2017. CONSULTATION REQUESTED BY: Hospitalist service for assessment of acute respiratory failure. HISTORY OF PRESENT ILLNESS: This is a 47-year-old elderly female with end-stage COPD, chronic severe hypercarbic respiratory failure and history of chronic hypoxic respiratory failure, just treated in this hospital for acute on chronic hypercapnic hypoxic respiratory failure and discharged home on 10/01/2017. The patient has been ordered the BiPAP to be obtained from the [employer] which I believe is still pending authorization from the insurance. The patient has been admitted to the hospital under the care of the hospitalist services this morning. She has been brought to the hospital. The patient has been reported symptoms of having increased shortness of breath. The patient was noted with symptoms of shortness of breath and noted changes in mental status. The patient has been seen in the Emergency Room noted with agitation, BiPAP is ordered, but the patient was fighting the BiPAP. She has been administered Ativan, later noted worsening of the respiratory failure. The patient with severe hypercarbia and reduced pH. The arterial blood gases were done for this patient shows a pH of 7.05, pCO2 of 151, pO2 of 142. Because of the progressive change in mental status, the patient with ineffective BiPAP, she has been ordered to be intubated as I was called for the consultation this morning she has successfully intubated and started on mechanical ventilation. Currently receiving mechanical ventilation this morning and the patient was assessed. She has been sedated with intravenous Diprivan. She has not been noted any acute hemodynamic instability. The patient has not been reported symptoms of coughing, chest pain, hemoptysis, fever or chills. REVIEW OF SYSTEMS: Certainly cannot be completed since the patient is currently intubated on mechanical ventilation. PAST MEDICAL HISTORY: 1. The patient was known with history of end-stage chronic obstructive pulmonary disease. 2. Chronic severe hypercarbia and metabolic alkalosis as well. 3. Chronic hypoxic respiratory failure. 4. Chronic protein calorie malnutrition and cachexia for the patient related to advanced chronic obstructive pulmonary disease as well. 5. History of use of marijuana as well. 6. Recurrent hospitalization for the respiratory failure management, hypercarbia. 7. History of psoriasis and acute protein calorie malnutrition. 8. History of illicit drug use. Pain medications dependency. 9. History of anorexia. 10. General anxiety and depression. [place], [place] REPORT OF CONSULTATION NAME: NUBIA ROLLE UNIT #: [id number] ROOM: [place] [address] DOCTOR: CHARLEEN WEST MD,ELIZABETH BIRTHDATE: [birth year] PAST SURGICAL HISTORY: 1. Tubal ligation. 2. Cholecystectomy. 3. Intubation mechanical ventilation. 4. Ear tube insertion. 5. Therapeutic bronchoscopy. SOCIAL HISTORY: The patient has been noted history of tobacco use. The patient smoked up to 2 packs of cigarettes a day from the age of 22+ years old, history of heroin use and past use of heroin was also known. FAMILY HISTORY: The patient was noted with father from complication related to the stroke. The mother of the patient has been known with history of COPD and emphysema. MEDICATIONS: The current administered medication for the patient was noted as use of Lovenox for DVT prophylaxis, IV Protonix, IV Solu-Medrol 40 mg q.8h., DuoNeb q.4 hours, Levaquin, IV vancomycin and Zosyn. DRUG ALLERGIES: The patient was noted, no known allergies. PHYSICAL EXAMINATION: GENERAL: A 47-year-old female, currently intubated on mechanical ventilation. Height of 5 feet 1 inch, weight of 43 kg, BMI 18. VITAL SIGNS: The vital signs of the patient which have been recorded shows temperature 100 degrees Fahrenheit to normal temperature since admission, respiratory rate 22-18, heart rate of severe tachycardia of the patient 123, but has been in sinus tachycardia, rate of 98. The blood pressure of 108/60-97/58. Pulse oxygen saturation of the patient was noted the BiPAP as 98%-100% saturation. The oxygen saturation on 6 liters nasal cannula in the Emergency Room was 83%. HEENT: Examination shows head was atraumatic. Eyes nonicterus, loss of muscles of mastication. NECK: Supple. CARDIOVASCULAR SYSTEM: S1, S2 audible. LUNGS: The patient was noted without any crackles in the lungs. Bilateral decreased breath sounds noted. The patient with expiratory wheezing. ABDOMEN: Flat, soft, nontender. EXTREMITIES: No cardiomegaly. CENTRAL NERVOUS SYSTEM: Chronic loss of muscle mass. At this time, the patient is sedated, but not reported any focal neurologic deficit earlier. SKIN: Visible skin, no lesions or rashes. MUSCULOSKELETAL: Loss of muscle mass. LABORATORY DATA: CBC of the patient this morning, WBC count 12.9, hemoglobin 10.3, hematocrit 34.8, platelet count of 109,000. CMP of the patient on 10/04/2017, glucose 153, BUN and creatinine were normal, carbon dioxide 38. Total protein 5.9, albumin 2.8. The ESR today was noted at 25. CBC earlier of the patient in the Emergency Room, WBC count of 25.8, remaining CBC was normal at that time. CMP of the patient in the Emergency Room early this morning, [place], [place] REPORT OF CONSULTATION NAME: NUBIA ROLLE UNIT #: [id number] ROOM: [place] [address] DOCTOR: CHARLEEN WEST MD,[facility] BIRTHDATE: [birth year] glucose 138, BUN and creatinine were normal at that time. Potassium 3.4, sodium 135. PT and PTT today were noted normal. Lactic acid was noted to be normal on admission. Chest x-ray, hyperinflation changes and COPD. The patient intubated, endotracheal tube appeared to be 5.5 cm above the [place] level. The CT of the chest of the patient was done showed diffuse emphysematous changes noted in the lungs with basilar area appeared to show scattered tree-in-bud appearance and nodular densities noted in the bilateral lower lobes. IMPRESSION: 1. The patient will be currently admitted to the hospital noted with possibly superimposed acute bacterial infection would be very likely resulting in recurrent exacerbation of chronic obstructive pulmonary disease after recent hospitalization. 2. Tree-in-bud appearance is also considered possibility of acute pneumonia with spilling in the endobronchial tree resulting in several focussed infection. The other differential diagnosis would be considered possibility of chronic Mycobacterium avium-intracellulare infection as well. 3. Metabolic alkalosis of the patient which are noted seemed to be stable at this time with the current use of Diamox used by the patient from the home. 4. Possibly noncompliant, still cannot be completely excluded for home setting. 5. Severe cachexia for the patient with protein-calorie malnutrition, which was noted chronic as well. 6. Etiology of the current infection. The patient would be considered in addition to the atypical infection such as Mycobacterium avium-intracellulare as gram-positive, gram-negative organism with current recent hospitalization. 7. Chronic severe hypercarbia. The patient was also known with acute on chronic hypercapnic and hypoxic respiratory failure. PLAN OF MANAGEMENT: Agree with the use of current antibiotic. The patient until infection probably excluded, significant amount of secretion production has been suctioned out by the nursing staff, respiratory therapy, which has already been sent for culture. The endotracheal tube will be further adjusted by the advancement 2 cm at least with the repeat chest x-ray. Therapeutic bronchoscopy of the patient will be done tomorrow morning if we also have to get more accurate culture of the patient especially with Mycobacterium avium-intracellulare. Nutrition support will be started gradually increase for the patient as tolerated. Continue sedation with IV Diprivan and Versed combination. Additional treatment continue to be made for the patient based on the progression of the illness. Other supportive therapy, plan of management as in going. Palliative care. PROGNOSIS: The patient remains guarded and the patient remains critical. Total time for the patient pulmonary critical evaluation and management was 37 minutes. [place], [place] REPORT OF CONSULTATION NAME: NUBIA ROLLE UNIT #: [id number] ROOM: [place] [address] DOCTOR: ELIZABETH MCDONALD MD BIRTHDATE: [birth year] ELIZABETH VILLASEÑOR MD CM:CONSTR:REPORT OF CONSULTATION 1745 10/05/17 0237 interface
--- NOTE | ~2017-10-04 | PR ---
[place], [place] PROGRESS NOTE NAME: NUBIA ROLLE UNIT #: [id number] ROOM: [place] [address] DOCTOR: CHARLEEN WEST MD,ELIZABETH BIRTHDATE: [birth year] DOS: 10/09/2017 SUBJECTIVE: She was successfully liberated from mechanical ventilation yesterday and was started on the BiPAP, which seemed to be tolerated by the patient at the present time. She has not been noted with any hemodynamic instability. She remains anxious as previously known. The patient was started on the oral food intake and has tolerated it without difficulty. There has not been any aspiration issues of dysphagia. Denies any headache, nausea, vomiting, diarrhea, abdominal pain, edema or pain of the lower extremities. OBJECTIVE: VITAL SIGNS: For the patient which has been recorded showed the temperature noted normal, respiratory rate of 14-19, heart rate 92, blood pressure 140/73-126/78. The pulse oxygen saturation on 5 liters canula 90% with 50% BiPAP 92% saturation. HEENT: Loss of muscle mass. The patient has noted muscle mastication. The patient currently extubated. Orogastric tube was also removed. NECK: Supple. CARDIOVASCULAR: S1, S2 is audible. LUNGS: The patient was noted with general reduction in the breath sounds, scattered wheezing, no crackles. ABDOMEN: Soft, nontender. Bowel sounds present. EXTREMITIES: The patient was noted without any acute edema. Visible skin with scattered bruising medication related. GENITOURINARY: Intact and nonfocal. The patient noted awake, alert, oriented. MUSCULOSKELETAL: No deformities. SKIN: No lesions or rashes. LABORATORY DATA: BMP of the patient that was done today shows BUN 15, creatinine was normal with CO2 of 38. Arterial blood gas yesterday prior to liberation from mechanical ventilation 35% oxygen, pH of 7.36, pCO2 of 63, pO2 is 61. The blood culture of the patient no bacterial growths. IMPRESSION: 1. The patient who has been currently noted with resolving acute on chronic severe hypercapnic and hypoxic respiratory failure gradually. Partial improvement with increasing the oxygen requirement noted post-extubation, but the patient was tolerating the BiPAP as well, the patient used most of the time except meals. 2. Resolving metabolic alkalosis. 3. Severe protein-calorie malnutrition with orientation support, the patient was continued. 4. Generalized anxiety disorder. PLAN OF MANAGEMENT: Continuation of the BiPAP for the patient, most of the time for the next 24 hours, keep the patient on and monitoring of the respiratory status, bronchodilators, oxygen supplementation. DVT prophylaxis and other lab monitoring. [place], [place] PROGRESS NOTE NAME: NUBIA ROLLE UNIT #: [id number] ROOM: [place] [address] DOCTOR: CHARLEEN WEST MD,ELIZABETH BIRTHDATE: [birth year] ELIZABETH VILLASEÑOR MD CM:PNLALO 2 ELIZABETH WEST MD 10/10/17211 interface
--- NOTE | ~2017-10-04 | PR ---
[place], [place] PROGRESS NOTE NAME: NUBIA ROLLE UNIT #: [id number] ROOM: [facility] DOCTOR: CHARLEEN WEST MD,ELIZABETH BIRTHDATE: [birth year] DOS: 10/13/2017 The patient was independently seen and examined in [id number] encounter. History was confirmed. Physical examination was performed. Labs reviewed. Assessment and management for today's note was personally completed. SUBJECTIVE: The patient has been continuing on oxygen supplementation Venturi mask to high flow nasal cannula and BiPAP. She has not been noted with symptoms of chest pain. Anxiety level remains unchanged. Oral nutrition of the patient was noted to be adequate. Denies symptoms of abdominal pain or hemoptysis. Denies edema or pain of the lower extremities. PHYSICAL EXAMINATION: VITAL SIGNS: Reviewed, normal, respiratory rate was noted as 18. The pulse oxygen saturation of the patient noted variable ranging from 90-93% saturation on 5 liters nasal cannula with 40%, use of BiPAP. HEENT: Head was atraumatic. Eyes nonicterus. CARDIOVASCULAR: S1, S2 audible. LUNGS: Pras-ox-[id number] decreased breath sounds, mild expiratory wheezing, partially decreased from previous examination. ABDOMEN: Soft, nontender. IMPRESSION: Stable respiratory status of the patient with bilateral lower lobe pneumonia with acute on chronic severe hypercapnic and hypoxic respiratory failure, resolving metabolic alkalosis, and chronic protein-calorie malnutrition. PLAN OF MANAGEMENT: No changes in plan of therapy of the patient at this time. Continue the patient's current therapy, plan and management as previously without any changes. Usual care. Supportive plan of management and care. ELIZABETH VILLASEÑOR MD CM:PNTRANS [phone] ELIZABETH WEST MD 10/14/17 0145 interface
--- NOTE | ~2017-10-04 | PROC NOTE ---
[place], [place] PROCEDURE NOTE NAME: NUBIA ROLLE UNIT #: [id number] ROOM: [place] [address] DOCTOR: DYANA MO DO BIRTHDATE: [birth year] DOS: 10/04/2017 PROCEDURE: Intubation. INDICATION: Respiratory distress, hypercarbia, respiratory acidosis, hypoxia. A timeout was completed, verifying correct patient, procedure, site, positioning, and special equipment as applicable. The patient was placed in a flat position, sedation was given with 5 of etomidate and 50 of succinylcholine. The patient was ventilated using the Ambu bag off of the BiPAP up into the point of the procedure. The MAC 3 blade was introduced into the oropharynx and visualized directly with ____ one-view of the vocal cords. A 6.5 Ghanaian endotracheal tube was inserted and visualized going through the vocal cords, stylet was removed. Colorimetric changes visualized on the CO2 meter. Breath sounds were heard in both lung andrew equally. The patient was sedated throughout the entire procedure. Dr. Johnathon Del Castillo was present during the entire procedure. Chest x-ray was ordered to assess for pneumothorax and ET tube placement, which is pending. Estimated blood loss is zero. The patient tolerated the procedure well and there were no complications. I agree with the above dictation. The patient was successfully intubated. Zero blood loss, no complications. The patient tolerated the procedure well. DYANA MO DO PÉREZ APODACA DO CM:PROCNOTE:PROCEDURE NOTE [id number] DYANA MO DO
--- NOTE | ~2017-10-04 | PR ---
[place], [place] PROGRESS NOTE NAME: NUBIA ROLLE UNIT #: [id number] ROOM: [facility] DOCTOR: CHARLEEN WEST MD,ELIZABETH BIRTHDATE: [birth year] DOS: 10/11/2017 PULMONARY PROGRESS NOTE SUBJECTIVE: The patient was independently seen and examined with [id number]-[id number] encounter, history was confirmed, and labs were reviewed. Assessment and management for today's note were personally completed as well. The patient remains in Intensive Care Unit. The patient noted some stability of respiratory status and reduction in symptoms of shortness of breath. The patient has been still noted significant shortness breath, requiring oxygen supplementation, Venturi mask, and using the BiPAP as ordered. Nutrition support was noted adequate for the patient. She has not been noted symptoms of headache. Denies symptoms of abdominal pain, edema of the lower extremity, or any abnormal skin rashes. OBJECTIVE: VITAL SIGNS: Vital signs reviewed with the patient was noted as normal temperature to 99.7 degree Fahrenheit, respiratory rate 18, heart rate of 109-76, blood pressure 140/80, and pulse oxygen saturation of the patient with 50% Venturi mask was 92% with the BiPAP was 96% saturation. HEENT: Examination shows loss of muscle mastication. NECK: Supple. CARDIOVASCULAR: S1, S2 is audible. LUNGS: The patient noted severe diminished breath sounds still noted in the lungs bilaterally, diffusely reduced without any wheezing or crackles. ABDOMEN: Soft, nontender. LABORATORY DATA: Arterial blood gas for the patient this morning, pH of 7.37, pCO2 of 68-71 with BiPAP. The CBC of the patient, hemoglobin 10.7, hematocrit 35.7, and platelet count were normal. BMP of the patient noted as normal BUN and creatinine. CO2 42. IMPRESSION: 1. The patient with severe acute hypercapnic hypoxic respiratory failure. The patient had partial improvement. 2. ____ acute exacerbation of chronic obstructive pulmonary disease. 3. Acute tracheobronchitis. 4. Metabolic alkalosis secondary to chronic severe hypercarbia as well. Overall, poor nutrition status of he patient and debility. PLAN OF TREATMENT: Long-term acute care facility consultation remains in progress. Continue maximum nutrition status. The patient will be transferred to telemetry floor. All other supportive plan of therapy of the patient is in progress, will be continued without any changes. No change in antibiotic will be necessary. Low grade fever of the patient was noted, which will be monitored at this time, but no changes in the antibiotic will be necessary as . The Solu-Medrol dose remains the same for this patient for the next 24 hours, the dose could be reduced tomorrow to 40 mg Solu-Medrol b.i.d. Note done by the manager of medical was approved as well. [place], [place] PROGRESS NOTE [id number] UNIT #: [id number] ROOM: [facility] DOCTOR: ELIZABETH MCDONALD MD BIRTHDATE: [birth year] ELIZABETH VILLASEÑOR MD CM:PNTRANS [phone] ELIZABETH WEST MD 10/12/17200 interface
[~2017-10-04 00:30] MED LIST changes: +BUSPAR5 MG PO
[2017-10-04 00:49] LABS: HEMATOCRIT 42.5 % (37.0-47.0); HEMOGLOBIN 12.7 g/dl (12.0-16.0); MEAN CELL VOLUME 97.5 fl (81.0-99.0); MEAN CORPUSCULAR HGB 29.1 pg (27.0-31.0); MEAN CORPUSCULAR HGB CONC 29.9 g/dl (33.0-37.0); MEAN PLATELET VOLUME 12.2 fl (9.6-12.3); PLATELET COUNT AUTOMATED 158 10*3/uL (130-400); RED BLOOD COUNT 4.36 10*6/uL (4.10-5.10); RED CELL DISTRI WIDTH 13.4 % (0-14.5); WHITE BLOOD COUNT 25.8 10*3/uL (4.8-10.8)
[2017-10-04 01:10] LABS: ALBUMIN 3.5 gm/dl (3.1-4.5); ALKALINE PHOSPHATASE 67 U/L (45-117); BUN 12 mg/dl (7-24); CHLORIDE 91 mmol/L (98-107); CREATININE 0.49 mg/dL (0.55-1.02); POTASSIUM 3.4 mmol/L (3.5-5.1); SGOT/AST 21 IU/L (3-35); SGPT/ALT 20 U/L (12-78); SODIUM 135 mmol/L (136-145); TOTAL PROTEIN 7.6 gm/dL (6.4-8.2); TROPONIN I < 0.015 ng/ml (<0.045)
[2017-10-04 01:13] LABS: PLATELET SUFFICIENCY NORMAL (NORMAL); TOTAL CELLS COUNTED 100 #CELLS
[2017-10-04 01:15] LABS: ACT PARTIAL THROMBO TIME 30.5 SECONDS (20.8-31.5); INTERNATIONAL NORM RATIO 1.1 (2.0-3.5)
[2017-10-04 04:29] LABS: ABG BASE EXCESS 5.1 mmol/L (-2.0-2.0); ABG HCO3 40.5 mmol/l (22-26); ABG O2 SATURATION 98.1 % (95-97)
[2017-10-04 04:30] LABS: ARTERIAL BLOOD GAS PH 7.059 (7.35-7.45)
[2017-10-04 07:20] LABS: ABG BASE EXCESS 5.6 mmol/L (-2.0-2.0); ABG HCO3 34.9 mmol/l (22-26); ARTERIAL BLOOD GAS PH 7.229 (7.35-7.45); ARTERIAL BLOOD GAS PO2 78.9 mmHg (80-90)
[2017-10-04 08:06] LABS: MEAN CELL VOLUME 98.6 fl (81.0-99.0); MEAN CORPUSCULAR HGB 29.2 pg (27.0-31.0); MEAN CORPUSCULAR HGB CONC 29.6 g/dl (33.0-37.0); RED BLOOD COUNT 3.53 10*6/uL (4.10-5.10); RED CELL DISTRI WIDTH 13.5 % (0-14.5); WHITE BLOOD COUNT 12.9 10*3/uL (4.8-10.8)
[2017-10-04 08:09] LABS: HEMATOCRIT 34.8 % (37.0-47.0); HEMOGLOBIN 10.3 g/dl (12.0-16.0); PLATELET COUNT AUTOMATED 109 10*3/uL (130-400)
[2017-10-04 08:24] LABS: TOTAL CELLS COUNTED 100 #CELLS
[2017-10-04 08:25] LABS: PLATELET SUFFICIENCY LOW (NORMAL)
[2017-10-04 08:49] LABS: ALBUMIN 2.8 gm/dl (3.1-4.5); BUN 12 mg/dl (7-24); CHLORIDE 98 mmol/L (98-107); CREATININE 0.61 mg/dL (0.55-1.02); SGOT/AST 20 IU/L (3-35); SGPT/ALT 19 U/L (12-78); SODIUM 138 mmol/L (136-145)
[2017-10-04 08:51] LABS: ALKALINE PHOSPHATASE 56 U/L (45-117); TOTAL PROTEIN 5.9 gm/dL (6.4-8.2)
[2017-10-04 08:53] LABS: POTASSIUM 4.4 mmol/L (3.5-5.1)
[2017-10-04 18:08] LABS: ABG BASE EXCESS 7.3 mmol/L (-2.0-2.0); ABG HCO3 35.8 mmol/l (22-26); ABG O2 SATURATION 98.4 % (95-97); ARTERIAL BLOOD GAS PH 7.28 (7.35-7.45)
[2017-10-04 18:09] LABS: ARTERIAL BLOOD GAS PCO2 78.1 mmHg (35-45)
[2017-10-05] VITALS (7 sets, daily range): BP systolic 97–103; BP diastolic 50–67
[2017-10-05 06:12] LABS: HEMATOCRIT 29.6 % (37.0-47.0); HEMOGLOBIN 9.1 g/dl (12.0-16.0); MEAN CELL VOLUME 96.1 fl (81.0-99.0); MEAN CORPUSCULAR HGB 29.5 pg (27.0-31.0); MEAN CORPUSCULAR HGB CONC 30.7 g/dl (33.0-37.0); MEAN PLATELET VOLUME 12.6 fl (9.6-12.3); PLATELET COUNT AUTOMATED 103 10*3/uL (130-400); RED BLOOD COUNT 3.08 10*6/uL (4.10-5.10); RED CELL DISTRI WIDTH 13.5 % (0-14.5); WHITE BLOOD COUNT 6.3 10*3/uL (4.8-10.8)
[2017-10-05 06:31] LABS: ALBUMIN 2.3 gm/dl (3.1-4.5); ALKALINE PHOSPHATASE 63 U/L (45-117); BUN 13 mg/dl (7-24); CHLORIDE 105 mmol/L (98-107); CREATININE 0.47 mg/dL (0.55-1.02); PHOSPHOROUS 1.8 mg/dL (2.5-4.9); POTASSIUM 3.7 mmol/L (3.5-5.1); SGOT/AST 16 IU/L (3-35); SGPT/ALT 15 U/L (12-78); SODIUM 144 mmol/L (136-145); TOTAL PROTEIN 5.2 gm/dL (6.4-8.2)
[2017-10-05 07:13] LABS: PLATELET SUFFICIENCY LOW (NORMAL); TOTAL CELLS COUNTED 100 #CELLS
[2017-10-05 07:43] LABS: ABG HCO3 33.5 mmol/l (22-26); ABG O2 SATURATION 97.7 % (95-97); ARTERIAL BLOOD GAS PH 7.342 (7.35-7.45)
[2017-10-06 03:51] VITALS: BP 93/51
[2017-10-06 05:46] LABS: HEMATOCRIT 31.5 % (37.0-47.0); HEMOGLOBIN 9.4 g/dl (12.0-16.0); MEAN CELL VOLUME 97.2 fl (81.0-99.0); MEAN CORPUSCULAR HGB CONC 29.8 g/dl (33.0-37.0); MEAN PLATELET VOLUME 12.8 fl (9.6-12.3); PLATELET COUNT AUTOMATED 119 10*3/uL (130-400); RED BLOOD COUNT 3.24 10*6/uL (4.10-5.10); RED CELL DISTRI WIDTH 14.2 % (0-14.5); WHITE BLOOD COUNT 7.5 10*3/uL (4.8-10.8)
[2017-10-06 05:59] LABS: ALBUMIN 2.3 gm/dl (3.1-4.5); ALKALINE PHOSPHATASE 54 U/L (45-117); BUN 13 mg/dl (7-24); CHLORIDE 107 mmol/L (98-107); CREATININE 0.45 mg/dL (0.55-1.02); PHOSPHOROUS 2.8 mg/dL (2.5-4.9); POTASSIUM 3.7 mmol/L (3.5-5.1); SGOT/AST 17 IU/L (3-35); SGPT/ALT 16 U/L (12-78); SODIUM 145 mmol/L (136-145); TOTAL PROTEIN 5.4 gm/dL (6.4-8.2)
[2017-10-06 06:02] LABS: PREALBUMIN 13 mg/dl (20-40)
[2017-10-06 06:30] LABS: PLATELET SUFFICIENCY LOW (NORMAL); POLYCHROMASIA SLIGHT; TOTAL CELLS COUNTED 100 #CELLS
[2017-10-06 07:44] LABS: ABG BASE EXCESS 5.6 mmol/L (-2.0-2.0); ABG HCO3 32.9 mmol/l (22-26); ABG O2 SATURATION 98.2 % (95-97); ARTERIAL BLOOD GAS PH 7.292 (7.35-7.45)
[2017-10-06 07:46] LABS: ARTERIAL BLOOD GAS PCO2 71.3 mmHg (35-45)
[2017-10-06 08:00] VITALS: BP 100/61
[2017-10-06 11:09] LABS: ABG BASE EXCESS 6.5 mmol/L (-2.0-2.0); ABG HCO3 33.3 mmol/l (22-26); ABG O2 SATURATION 98.9 % (95-97); ARTERIAL BLOOD GAS PCO2 66.2 mmHg (35-45); ARTERIAL BLOOD GAS PH 7.326 (7.35-7.45)
[2017-10-06 12:00] VITALS: BP 94/49
[2017-10-06 14:06] LABS: ACID FAST SMEAR Negative (.); ACID FAST SPEC PROCESSING Concentration (.)
[2017-10-06 16:00] VITALS: BP 90/47
[2017-10-06 20:00] VITALS: BP 100/59
[2017-10-07] VITALS (12 sets, daily range): BP systolic 85–102; BP diastolic 44–56
[2017-10-07 05:41] LABS: HEMOGLOBIN 9.3 g/dl (12.0-16.0); MEAN CELL VOLUME 96.9 fl (81.0-99.0); MEAN CORPUSCULAR HGB 29.1 pg (27.0-31.0); MEAN PLATELET VOLUME 12.9 fl (9.6-12.3); PLATELET COUNT AUTOMATED 118 10*3/uL (130-400); RED CELL DISTRI WIDTH 14.6 % (0-14.5); WHITE BLOOD COUNT 4.9 10*3/uL (4.8-10.8)
[2017-10-07 05:43] LABS: BUN 13 mg/dl (7-24); CHLORIDE 107 mmol/L (98-107); CREATININE 0.36 mg/dL (0.55-1.02); POTASSIUM 3.6 mmol/L (3.5-5.1); SODIUM 147 mmol/L (136-145); TRIGLYCERIDES 118 mg/dl (<150)
[2017-10-07 06:49] LABS: ATYPICAL LYMPHS 1 % (0-0); PLASMA CELL 1 % (0-0); PLATELET SUFFICIENCY LOW (NORMAL); TOTAL CELLS COUNTED 100 #CELLS
[2017-10-07 06:59] LABS: ABG O2 SATURATION 98.6 % (95-97); ARTERIAL BLOOD GAS PCO2 67.3 mmHg (35-45); ARTERIAL BLOOD GAS PH 7.324 (7.35-7.45)
[2017-10-08] VITALS (10 sets, daily range): BP systolic 94–139; BP diastolic 53–74
[2017-10-08 06:14] LABS: HEMATOCRIT 31.4 % (37.0-47.0); HEMOGLOBIN 9.4 g/dl (12.0-16.0); MEAN CELL VOLUME 96.3 fl (81.0-99.0); MEAN CORPUSCULAR HGB 28.8 pg (27.0-31.0); MEAN CORPUSCULAR HGB CONC 29.9 g/dl (33.0-37.0); PLATELET COUNT AUTOMATED 119 10*3/uL (130-400); RED BLOOD COUNT 3.26 10*6/uL (4.10-5.10); RED CELL DISTRI WIDTH 14.7 % (0-14.5); WHITE BLOOD COUNT 5.7 10*3/uL (4.8-10.8)
[2017-10-08 06:21] LABS: CHLORIDE 106 mmol/L (98-107); CREATININE 0.35 mg/dL (0.55-1.02); POTASSIUM 3.9 mmol/L (3.5-5.1); SODIUM 147 mmol/L (136-145)
[2017-10-08 06:22] LABS: BUN 14 mg/dl (7-24)
[2017-10-08 07:12] LABS: ATYPICAL LYMPHS 3 % (0-0); PLATELET SUFFICIENCY LOW (NORMAL); TOTAL CELLS COUNTED 100 #CELLS
[2017-10-08 08:01] LABS: ABG HCO3 36.4 mmol/l (22-26); ABG O2 SATURATION 98.9 % (95-97); ARTERIAL BLOOD GAS PH 7.324 (7.35-7.45)
[2017-10-08 08:05] LABS: ARTERIAL BLOOD GAS PCO2 72.5 mmHg (35-45)
[2017-10-08 13:59] LABS: ABG BASE EXCESS 8.8 mmol/L (-2.0-2.0); ABG HCO3 36.1 mmol/l (22-26); ABG O2 SATURATION 94.6 % (95-97); ARTERIAL BLOOD GAS PH 7.329 (7.35-7.45); ARTERIAL BLOOD GAS PO2 79.4 mmHg (80-90)
[2017-10-08 16:33] LABS: ABG BASE EXCESS 8.6 mmol/L (-2.0-2.0); ABG HCO3 35.2 mmol/l (22-26); ARTERIAL BLOOD GAS PH 7.365 (7.35-7.45)
[2017-10-09] VITALS: BP 106/52
[2017-10-09 04:00] VITALS: BP 96/57
[2017-10-09 06:05] LABS: BUN 15 mg/dl (7-24); CHLORIDE 105 mmol/L (98-107); POTASSIUM 3.7 mmol/L (3.5-5.1); SODIUM 147 mmol/L (136-145)
[2017-10-09 08:00] VITALS: BP 126/78
[2017-10-09 12:00] VITALS: BP 142/73
[2017-10-09 16:00] VITALS: BP 142/73
[2017-10-09 20:00] VITALS: BP 142/73
[2017-10-10] VITALS: BP 103/57
[2017-10-10 04:00] VITALS: BP 98/60
[2017-10-10 06:05] LABS: BUN 12 mg/dl (7-24); CHLORIDE 100 mmol/L (98-107); CREATININE 0.47 mg/dL (0.55-1.02); POTASSIUM 3.7 mmol/L (3.5-5.1); SODIUM 143 mmol/L (136-145)
[2017-10-10 06:26] LABS: BASO % 0.1 % (0.0-1.0); EOS % 0.1 % (1.0-4.0); HEMOGLOBIN 10.6 g/dl (12.0-16.0); LYMPH # 1.1 10*3/uL (1.3-4.4); LYMPH % 13.3 % (27.0-41.0); MEAN CELL VOLUME 96.4 fl (81.0-99.0); MEAN CORPUSCULAR HGB 29.2 pg (27.0-31.0); MEAN CORPUSCULAR HGB CONC 30.3 g/dl (33.0-37.0); MEAN PLATELET VOLUME 12.7 fl (9.6-12.3); MONO # 0.3 10*3/uL (0.1-1.0); MONO % 3.3 % (3.0-9.0); NEUT # 6.6 10*3/uL (2.3-7.9); NEUT % 82.6 % (47.0-73.0); RED BLOOD COUNT 3.63 10*6/uL (4.10-5.10)
[2017-10-10 06:27] LABS: PLATELET COUNT AUTOMATED 171 10*3/uL (130-400)
[2017-10-10 08:00] VITALS: BP 159/88
[2017-10-10 12:00] VITALS: BP 135/88
[2017-10-10 16:00] VITALS: BP 128/80
[2017-10-10 20:00] VITALS: BP 104/67
[2017-10-11] VITALS: BP 99/62
[2017-10-11 04:00] VITALS: BP 103/71
[2017-10-11 05:40] LABS: BUN 15 mg/dl (7-24); CHLORIDE 103 mmol/L (98-107); SODIUM 146 mmol/L (136-145)
[2017-10-11 05:44] LABS: PREALBUMIN 22 mg/dl (20-40)
[2017-10-11 06:01] LABS: BASO % 0.1 % (0.0-1.0); HEMATOCRIT 35.7 % (37.0-47.0); HEMOGLOBIN 10.7 g/dl (12.0-16.0); LYMPH # 1.1 10*3/uL (1.3-4.4); MEAN CORPUSCULAR HGB 29.1 pg (27.0-31.0); MEAN PLATELET VOLUME 12.4 fl (9.6-12.3); MONO # 0.3 10*3/uL (0.1-1.0); MONO % 3.2 % (3.0-9.0); NEUT # 7.6 10*3/uL (2.3-7.9); NEUT % 84.4 % (47.0-73.0); PLATELET COUNT AUTOMATED 198 10*3/uL (130-400); RED BLOOD COUNT 3.68 10*6/uL (4.10-5.10)
[2017-10-11 07:13] LABS: ABG BASE EXCESS 11.9 mmol/L (-2.0-2.0); ABG HCO3 39.4 mmol/l (22-26); ABG O2 SATURATION 94.7 % (95-97); ARTERIAL BLOOD GAS PCO2 68.5 mmHg (35-45); ARTERIAL BLOOD GAS PH 7.375 (7.35-7.45); ARTERIAL BLOOD GAS PO2 71.7 mmHg (80-90)
[2017-10-11 08:00] VITALS: BP 140/80
[2017-10-11 12:00] VITALS: BP 158/80
[2017-10-11 16:00] VITALS: BP 151/82
[2017-10-11 20:00] VITALS: BP 136/86
[2017-10-12] VITALS: BP 126/72
[2017-10-12 04:00] VITALS: BP 105/72
[2017-10-12 06:11] LABS: HEMATOCRIT 37.6 % (37.0-47.0); HEMOGLOBIN 11.6 g/dl (12.0-16.0); LYMPH # 1.3 10*3/uL (1.3-4.4); LYMPH % 15.4 % (27.0-41.0); MEAN CELL VOLUME 94.9 fl (81.0-99.0); MEAN CORPUSCULAR HGB 29.3 pg (27.0-31.0); MEAN CORPUSCULAR HGB CONC 30.9 g/dl (33.0-37.0); MEAN PLATELET VOLUME 12.3 fl (9.6-12.3); MONO # 0.3 10*3/uL (0.1-1.0); MONO % 4.1 % (3.0-9.0); NEUT # 6.6 10*3/uL (2.3-7.9); PLATELET COUNT AUTOMATED 209 10*3/uL (130-400); RED BLOOD COUNT 3.96 10*6/uL (4.10-5.10); RED CELL DISTRI WIDTH 13.7 % (0-14.5); WHITE BLOOD COUNT 8.3 10*3/uL (4.8-10.8)
[2017-10-12 06:29] LABS: BUN 13 mg/dl (7-24); CHLORIDE 97 mmol/L (98-107); CREATININE 0.51 mg/dL (0.55-1.02); POTASSIUM 3.9 mmol/L (3.5-5.1); SODIUM 140 mmol/L (136-145)
[2017-10-12 08:00] VITALS: BP 124/76
[2017-10-12 12:00] VITALS: BP 146/71
[2017-10-12 16:00] VITALS: BP 120/69
[2017-10-12 20:00] VITALS: BP 99/65
[2017-10-13] VITALS: BP 91/58
[2017-10-13 04:00] VITALS: BP 97/49
[2017-10-13 08:00] VITALS: BP 114/61
[2017-10-13 16:00] VITALS: BP 99/76
[2017-10-13] MEDS ORDERED: SOLU-MEDRO40 MG/1 ML IV (17:47)
[2017-10-13] MEDS ORDERED: ENOXAPARIN40 MG/0.2 SC (17:47)
[2017-10-13] MEDS ORDERED: DUONEB 3 MG/3 ML3 M1 NEB (17:47)
[2017-10-13] MEDS ORDERED: ZITHROMAX500 MG IV (17:51)
[2017-10-13 20:00] VITALS: BP 108/72; BP 199/98
== END 2017-10-13 20:26 | DRG 871 ==
LOC: ED 00:30 → EDHOLD 03:25 → ICCU 03:25
PROVIDERS: Family Medicine; Internal Medicine; Internal Medicine Critical Care Medicine; Internal Medicine Hospice and Palliative Medicine; Student in an Organized Health Care Education/Training Program
PROC: 5A1945Z Respiratory Ventilation, 24-96 Consecutive Hours (ICD-10-PCS; principal; 2017-10-04)
PROC: 0BH17EZ Insertion of Endotracheal Airway into Trachea, Via Natural or Artificial Opening (ICD-10-PCS; 2017-10-04)
PROC: 0BC98ZZ Extirpation of Matter from Lingula Bronchus, Via Natural or Artificial Opening Endoscopic (ICD-10-PCS; 2017-10-05)
PROC: 0BC48ZZ Extirpation of Matter from Right Upper Lobe Bronchus, Via Natural or Artificial Opening Endoscopic (ICD-10-PCS; 2017-10-05)
PROC: 0BC88ZZ Extirpation of Matter from Left Upper Lobe Bronchus, Via Natural or Artificial Opening Endoscopic (ICD-10-PCS; 2017-10-05)
PROC: 0BC58ZZ Extirpation of Matter from Right Middle Lobe Bronchus, Via Natural or Artificial Opening Endoscopic (ICD-10-PCS; 2017-10-05)
PROC: 0BC68ZZ Extirpation of Matter from Right Lower Lobe Bronchus, Via Natural or Artificial Opening Endoscopic (ICD-10-PCS; 2017-10-05)
PROC: 0BCB8ZZ Extirpation of Matter from Left Lower Lobe Bronchus, Via Natural or Artificial Opening Endoscopic (ICD-10-PCS; 2017-10-05)
PROC: 5A09357 Assistance with Respiratory Ventilation, Less than 24 Consecutive Hours, Continuous Positive Airway Pressure (ICD-10-PCS; 2017-10-08)
PROC: 5A09457 Assistance with Respiratory Ventilation, 24-96 Consecutive Hours, Continuous Positive Airway Pressure (ICD-10-PCS; 2017-10-10)
PROC: 5A09357 Assistance with Respiratory Ventilation, Less than 24 Consecutive Hours, Continuous Positive Airway Pressure (ICD-10-PCS; 2017-10-12)
DX: A41.9 Sepsis, unspecified organism (principal); J96.21 Acute and chronic respiratory failure with hypoxia; J15.6 Pneumonia due to other Gram-negative bacteria; E87.3 Alkalosis; T17.590A Other foreign object in bronchus causing asphyxiation, initial encounter; D69.6 Thrombocytopenia, unspecified; E44.0 Moderate protein-calorie malnutrition; E83.39 Other disorders of phosphorus metabolism; J96.22 Acute and chronic respiratory failure with hypercapnia; J44.0 Chronic obstructive pulmonary disease with (acute) lower respiratory infection; E87.1 Hypo-osmolality and hyponatremia; J44.1 Chronic obstructive pulmonary disease with (acute) exacerbation; I42.9 Cardiomyopathy, unspecified; I50.22 Chronic systolic (congestive) heart failure; R65.20 Severe sepsis without septic shock; I95.9 Hypotension, unspecified; R87.2 Abnormal level of other drugs, medicaments and biological substances in specimens from female genital organs; F32.9 Major depressive disorder, single episode, unspecified; J20.9 Acute bronchitis, unspecified; F41.1 Generalized anxiety disorder; F12.90 Cannabis use, unspecified, uncomplicated; D63.8 Anemia in other chronic diseases classified elsewhere; E87.6 Hypokalemia; E87.8 Other disorders of electrolyte and fluid balance, not elsewhere classified; J84.10 Pulmonary fibrosis, unspecified; X58.XXXA Exposure to other specified factors, initial encounter; Y93.89 Activity, other specified; Z98.51 Tubal ligation status; Z90.49 Acquired absence of other specified parts of digestive tract; Z82.3 Family history of stroke; Z87.891 Personal history of nicotine dependence; Z82.5 Family history of asthma and other chronic lower respiratory diseases; Z79.899 Other long term (current) drug therapy; Z99.81 Dependence on supplemental oxygen; Y92.89 Other specified places as the place of occurrence of the external cause; Y99.8 Other external cause status

== ENCOUNTER 2017-11-09 13:32 | Inpatient (IN) | payer OTHER ==
[~2017-11-09] VITALS: Ht 167.6 cm; Wt 43.5 kg
--- NOTE | ~2017-11-09 | PR ---
[place], [place] PROGRESS NOTE NAME: NUBIA ROLLE UNIT #: [id number] ROOM: 426 DOCTOR: CHARLEEN WEST MD,ELIZABETH BIRTHDATE: [birth year] DOS: 11/11/2017 SUBJECTIVE: She has been noted comfortable at this time, resting in the bed, used the BiPAP as advised. Denies symptoms of nausea, vomiting or coughing. Shortness of breath has been improving. OBJECTIVE: VITAL SIGNS: For the patient which has been recorded shows normal temperature, respiratory rate 18, heart rate 95, blood pressure 106/55. The pulse oxygen saturation of the patient recorded as 94 percent saturation on 3 liters cannula. HEENT: No acute change. NECK: Supple. CARDIOVASCULAR: S1, S2 audible. LUNGS: Decreased breath sounds noted in the lungs bilaterally with the improvement in the wheezing was continued as well as the air entry. ABDOMEN: Flat, soft, nontender. EXTREMITIES: Without any edema. LABORATORY DATA: CBC today for the patient, hemoglobin 10.3, remaining CBC normal. CMP today, normal BUN and creatinine, glucose mildly elevated at 147 and carbon dioxide level was noted as 37. IMPRESSION: 1. The patient with progressive resolution of acute on chronic hypoxic respiratory failure and exacerbation of chronic obstructive pulmonary disease. 2. Improving metabolic alkalosis and mental status changes. PLAN OF THERAPY: No changes from the pulmonary standpoint except for the reduction of Solu-Medrol for the patient. Possible discharge to home in the morning. Continue the BiPAP and other treatments. ELIZABETH VILLASEÑOR MD CM:PNTRANS [id number] ELIZABETH WEST MD 11/12/17 0624 interface
--- NOTE | ~2017-11-09 | PR ---
[place], [place] PROGRESS NOTE NAME: NUBIA ROLLE UNIT #: [id number] ROOM: 426 DOCTOR: CHARLEEN WEST MD,ELIZABETH BIRTHDATE: [birth year] DOS: 11/12/2017 PULMONARY PROGRESS NOTE SUBJECTIVE: She has been noted comfortably resting, noted baseline on oxygen supplementation of 4 liters nasal cannula, has not been noted symptoms of chest pain. The patient denies any acute cough at this time. OBJECTIVE: VITAL SIGNS: Normal temperature, respiratory rate 18, heart rate 52, blood pressure 108/79. The pulse oxygen saturation of the patient on 4 liters nasal cannula recorded at 95% saturation. HEENT: Showed head was atraumatic, eyes nonicterus. NECK: Supple. CARDIOVASCULAR: S1, S2 is audible. LUNGS: The patient was noted without any wheezing or crackle. Breaths are noted [id number] decreased bilaterally, improvement in air entry. ABDOMEN: Soft, nontender. EXTREMITIES: Without any acute edema. IMPRESSION: The patient has been noted continued improvement in the resolution of the acute on chronic severe hypoxic and hypercapnic respiratory failure with exacerbation of chronic obstructive pulmonary disease. PLAN OF MANAGEMENT: No changes in therapy for the patient at this time will be necessary. All other previous treatment and plan of care of the patient as previously will be continued. Usual care. Other supportive plan of therapies and management. ELIZABETH VILLASEÑOR MD CM:PNTRANS [id number] ELIZABETH WEST MD 11/13/17 0112 interface
--- NOTE | ~2017-11-09 | CON ---
[place], [place] REPORT OF CONSULTATION NAME: NUBIA ROLLE UNIT #: [id number] ROOM: 426 DOCTOR: ELIZABETH MCDONALD MD BIRTHDATE: [birth year] DOS: 11/10/2017 PULMONARY CONSULTATION, EVALUATION, AND MANAGEMENT REASON FOR CONSULTATION: The patient with increased respiratory symptom. HISTORY OF PRESENT ILLNESS: This is a 47-year-old white female known to me with history of end-stage COPD and emphysema with chronic severe hypercapnic and hypoxic respiratory failure and others. The patient has been currently using the BiPAP, which has started since last discharge from long-term acute care [facility] [place]. She has been using the BiPAP in the home setting. Presented to the Emergency as the patient noted with increased lethargy and symptoms of shortness of breath by the . The patient has been assessed in the Emergency Room, noted with arterial blood gases showing worsening of the hypercarbia. She has been started on the BiPAP with setting of 18/12 as usual settings from the home. It has resulted in reduction of the hypercarbia partially. She was still noted with hypoxia with increased oxygen requirement than the usual this morning as she was seen in Intensive Care Unit. She denies symptoms of chest pain. Denies symptoms of hemoptysis. Denies symptoms of nausea or vomiting. The patient does have [id number] cough new that has not been resolved. REVIEW OF SYSTEMS: CONSTITUTIONAL: Fatigue and tiredness reported. Denies symptoms of fever or chills. EYES: Denies any burning, redness, or tenderness. EAR, NOSE AND THROAT: Denies any sore throat, hoarseness, otalgia, postnasal drainage or epistaxis. CARDIOVASCULAR: Denies anginal pain, edema or pain of the lower extremity. GASTROINTESTINAL: Denies dysphagia, nausea, vomiting, diarrhea, abdominal pain, hematemesis, melena, or hematochezia. GENITOURINARY: Denies any symptoms of dysuria, suprapubic pain or hematuria. MUSCULOSKELETAL: Denies acute joint pain, redness, or tenderness. SKIN: Denies lesions or rashes. CENTRAL NERVOUS SYSTEM: Without any focal neurologic deficit for the patient. The remaining systems are reviewed with the patient, they were noted all negative. PAST MEDICAL HISTORY: 1. The patient noted with hospitalization in 09/2017 in this hospital discharge for the patient to the long-term acute care facility later on and discharged for the patient beginning of 10/2017 to the home. 2. Advanced COPD for this patient was noted with FEV1 less than 20%. 3. Chronic hypercarbia. 4. Chronic metabolic alkalosis secondary to hypercarbia. 5. Chronic hypoxic respiratory failure, use of oxygen 4 liters nasal cannula and acute chronic protein calorie malnutrition and advanced cachexia. 6. History of recreational marijuana use. 7. Past recurrent hospitalizations. 8. History of psoriasis of the skin. 9. History of anorexia. [place], [place] REPORT OF CONSULTATION NAME: NUBIA ROLLE UNIT #: [id number] ROOM: 426 DOCTOR: ELIZABETH MCDONALD MD BIRTHDATE: [birth year] 10. Generalized anxiety disorder and depression. 11. Past history of a narcotic medication dependency as well. 12. The patient was assessed with alpha-1 antitrypsin deficiency and was noted with normal alpha-1 antitrypsin level. PAST SURGICAL HISTORY: 1. Tubal ligation. 2. Cholecystectomy. 3. Intubation and mechanical ventilation. 4. Therapeutic bronchoscopy. 5. Myringotomy tube insertion. SOCIAL HISTORY: The patient is and lives at home. Denies history of alcohol use, illicit drug use. Tobacco use noted from age of [age] years old, still probably smoking few cigarettes a day suspected. The patient has been known with past history of heroin use as well as the recreational marijuana use. FAMILY HISTORY: The patient's father with complication of stroke. Mother with complication of emphysema and COPD. MEDICATIONS: The current administered medication, which has been given in the intensive care unit noted use of thiamine, potassium chloride, Paxil, Lovenox for DVT prophylaxis, Diamox 250 mg b.i.d., Remeron 50 mg at bedtime, gabapentin 400 mg q.8h., Dulera 200/5 two puffs b.i.d., DuoNeb q.4h., prednisone 5 mg daily, Suboxone 8 mg/2 mg 1 p.o. b.i.d., BuSpar 5 mg p.o. b.i.d. and other p.r.n. medications administration. DRUG ALLERGY HISTORY: The patient was noted as no known drug allergies. PHYSICAL EXAMINATION: GENERAL: This is a 47-year-old female noted currently awake and alert without any distress, oxygen supplementation nasal cannula, pulse oxygen saturation as the patient was eating, but noted 86% on high flow nasal cannula. Height of 5 feet 6 inches, weight of 96 pounds. The BMI of 16.1. VITAL SIGNS: For the patient was recorded as a normal temperature. The patient's respiratory rate 18-20, heart rate 84-77, blood pressure 107/62-136/90. HEENT: Examination shows head was atraumatic. Eyes nonicterus. NECK: Supple. Oral mucosa was moist. CARDIOVASCULAR: S1, S2 is audible. LUNGS: Noted diffuse reduction in breath sounds with poor air exchange. ABDOMEN: Flat, soft, nontender without any tenderness. EXTREMITIES: The patient noted without any edema, clubbing, or cyanosis. SKIN: Visible skin. No lesions or rashes. MUSCULOSKELETAL: Without any acute deformities. CENTRAL NERVOUS SYSTEM: The patient was noted awake, alert, oriented at the present time. No gross focal neurologic deficit. Cranial nerves 2-12 intact. LABORATORY DATA: CBC yesterday on admission, WBC count normal, hemoglobin and hematocrit normal, platelet count normal. The CMP of the patient that was done [place], [place] REPORT OF CONSULTATION NAME: NUBIA ROLLE UNIT #: [id number] ROOM: 426 DOCTOR: CHARLEEN WEST MD,[facility] BIRTHDATE: [birth year] yesterday; BUN of 6, creatinine normal, glucose 158, carbon dioxide 41. Chloride of 96. CMP of this morning noted normal BUN and creatinine. CO2 41. The CBC of the patient this morning, hemoglobin 10.8, hematocrit 36.6, platelet count were normal. The arterial blood gas of the patient that was done 4 liters, pH of 7.23, pCO2 of 98.9, pO2 71.1. Arterial blood gas repeated again for the patient with 40% oxygen BiPAP, pH 7.27, pCO2 89.9, pO2 78.6. One-view chest x-ray of the patient that was noted chronic changes without any pulmonary infiltration. IMPRESSION: 1. The patient who has been currently admitted to the hospital noted with acute on chronic severe hypercarbic and hypoxic respiratory failure, result of acute severe exacerbation of chronic obstructive pulmonary disease. 2. Advanced emphysema was noted with negative for alpha-1 antitrypsin deficiency. 3. Metabolic alkalosis secondary to longstanding hypercarbia that was still noted persistent. 4. Resolution previously noted acute pneumonia in the lower lungs. There were no symptoms or findings noted with acute bacterial or viral infection. 5. Previous history of noncompliance with the medication use at home cannot be completely excluded. 6. Chronic low BMI for this patient protein calorie malnutrition. 7. General anxiety disorder. 8. History of past dependence on the narcotics, currently taking Suboxone. PLAN OF MANAGEMENT: The patient will be continued on the BiPAP setting of 04/09 to maintain oxygen saturation 92% greater. The patient will be started on the prednisone rather Solu-Medrol to 40 mg q.8h. Repeat another arterial blood gas for the patient to reassess the patient's improvement in the hypercarbia and respiratory failure. Continue the BiPAP most of the time. Other supportive therapy, plan of management as in progress. The patient would not require any antibiotic usage at this time. Continue aggressive administration of the bronchodilators as well. Close monitoring of the patient will be continued at this time. Continue to be monitored and would not require any intubation or mechanical ventilation. All other supportive plan of therapy and care plan. Usual treatment. If the patient does develop signs or symptoms consistent with acute pulmonary infection such as bronchitis or pneumonia, antibiotic will be started accordingly. Continue to improve the nutritional status. The Diamox, the patient will continue with similar dose. Monitoring of the carbon dioxide level in the blood. Other supportive plan of therapy and management, plan of care. Usual treatment. All other plan of therapy and care. Thanks for allowing me to participate in the care of this patient. [place], [place] REPORT OF CONSULTATION NAME: NUBIA ROLLE UNIT #: [id number] ROOM: 426 DOCTOR: ELIZABETH MCDONALD MD BIRTHDATE: [birth year] ELIZABETH VILLASEÑOR MD CM:CONSTR:REPORT OF CONSULTATION 1217 11/11/17 0325 interface
[~2017-11-09 13:32] MED LIST changes: +ENOXAPARIN40 MG/0.2 SC; +SOLU-MEDRO40 MG/1 ML IV; +ZITHROMAX500 MG IV
[2017-11-09 13:47] VITALS: BP 135/79
[2017-11-09 14:28] LABS: BASO % 0.3 % (0.0-1.0); EOS % 0.4 % (1.0-4.0); HEMOGLOBIN 12.3 g/dl (12.0-16.0); LYMPH # 0.9 10*3/uL (1.3-4.4); LYMPH % 8.4 % (27.0-41.0); MEAN CELL VOLUME 99.3 fl (81.0-99.0); MEAN CORPUSCULAR HGB 29.1 pg (27.0-31.0); MEAN CORPUSCULAR HGB CONC 29.3 g/dl (33.0-37.0); MEAN PLATELET VOLUME 11.2 fl (9.6-12.3); MONO # 0.2 10*3/uL (0.1-1.0); NEUT % 88.6 % (47.0-73.0); PLATELET COUNT AUTOMATED 171 10*3/uL (130-400); RED BLOOD COUNT 4.23 10*6/uL (4.10-5.10); RED CELL DISTRI WIDTH 14.1 % (0-14.5); WHITE BLOOD COUNT 10.2 10*3/uL (4.8-10.8)
[2017-11-09 14:30] VITALS: BP 135/79
[2017-11-09 14:42] LABS: ALBUMIN 3.8 gm/dl (3.1-4.5); ALKALINE PHOSPHATASE 68 U/L (45-117); BUN 6 mg/dl (7-24); CHLORIDE 96 mmol/L (98-107); CREATININE 0.63 mg/dL (0.55-1.02); POTASSIUM 4.2 mmol/L (3.5-5.1); SGOT/AST 18 IU/L (3-35); SGPT/ALT 23 U/L (12-78); SODIUM 140 mmol/L (136-145); TOTAL PROTEIN 8.2 gm/dL (6.4-8.2)
[2017-11-09 14:59] LABS: ABG BASE EXCESS 9.3 mmol/L (-2.0-2.0); ARTERIAL BLOOD GAS PH 7.231 (7.35-7.45); ARTERIAL BLOOD GAS PO2 71.1 mmHg (80-90)
[2017-11-09 15:01] LABS: ARTERIAL BLOOD GAS PCO2 98.9 mmHg (35-45)
[2017-11-09 15:15] VITALS: BP 136/90
[2017-11-09 16:04] VITALS: BP 113/63
[2017-11-09 16:30] VITALS: BP 129/84
[2017-11-09] MEDS ORDERED: PREDNISONE5 MG PO (17:04)
[2017-11-09 20:00] VITALS: BP 103/65
[2017-11-09 20:49] LABS: ABG BASE EXCESS 10.8 mmol/L (-2.0-2.0); ABG HCO3 40.7 mmol/l (22-26); ABG O2 SATURATION 95.2 % (95-97); ARTERIAL BLOOD GAS PH 7.276 (7.35-7.45); ARTERIAL BLOOD GAS PO2 78.6 mmHg (80-90)
[2017-11-09 20:51] LABS: ARTERIAL BLOOD GAS PCO2 89.9 mmHg (35-45)
[2017-11-10] VITALS: BP 98/61
[2017-11-10 04:00] VITALS: BP 102/67
[2017-11-10 05:25] LABS: ALBUMIN 3.3 gm/dl (3.1-4.5); ALKALINE PHOSPHATASE 58 U/L (45-117); BUN 11 mg/dl (7-24); CHLORIDE 99 mmol/L (98-107); CREATININE 0.52 mg/dL (0.55-1.02); PHOSPHOROUS 3.2 mg/dL (2.5-4.9); POTASSIUM 3.6 mmol/L (3.5-5.1); SGOT/AST 15 IU/L (3-35); SGPT/ALT 21 U/L (12-78); SODIUM 143 mmol/L (136-145); TOTAL PROTEIN 6.7 gm/dL (6.4-8.2)
[2017-11-10 05:51] LABS: BASO % 0.3 % (0.0-1.0); EOS # 0.1 10*3/uL (0.0-0.4); EOS % 0.8 % (1.0-4.0); HEMATOCRIT 36.6 % (37.0-47.0); HEMOGLOBIN 10.8 g/dl (12.0-16.0); LYMPH # 2.4 10*3/uL (1.3-4.4); LYMPH % 30.4 % (27.0-41.0); MEAN CORPUSCULAR HGB 29.5 pg (27.0-31.0); MEAN CORPUSCULAR HGB CONC 29.5 g/dl (33.0-37.0); MEAN PLATELET VOLUME 12.5 fl (9.6-12.3); MONO # 0.5 10*3/uL (0.1-1.0); MONO % 6.8 % (3.0-9.0); NEUT # 4.9 10*3/uL (2.3-7.9); NEUT % 61.4 % (47.0-73.0); PLATELET COUNT AUTOMATED 157 10*3/uL (130-400); RED BLOOD COUNT 3.66 10*6/uL (4.10-5.10); RED CELL DISTRI WIDTH 14.2 % (0-14.5); WHITE BLOOD COUNT 7.9 10*3/uL (4.8-10.8)
[2017-11-10 07:37] VITALS: BP 107/62
[2017-11-10 12:00] VITALS: BP 107/51
[2017-11-10 12:45] LABS: ABG BASE EXCESS 11.4 mmol/L (-2.0-2.0); ABG HCO3 39.2 mmol/l (22-26); ABG O2 SATURATION 85.2 % (95-97); ARTERIAL BLOOD GAS PH 7.338 (7.35-7.45); ARTERIAL BLOOD GAS PO2 50.5 mmHg (80-90)
[2017-11-10 12:49] LABS: ARTERIAL BLOOD GAS PCO2 74.9 mmHg (35-45)
[2017-11-10 16:00] VITALS: BP 94/55
[2017-11-10 20:00] VITALS: BP 107/68
[2017-11-11] VITALS: BP 108/62
[2017-11-11 06:27] LABS: BASO % 0.1 % (0.0-1.0); HEMATOCRIT 33.7 % (37.0-47.0); HEMOGLOBIN 10.3 g/dl (12.0-16.0); LYMPH % 11.3 % (27.0-41.0); MEAN CORPUSCULAR HGB 29.6 pg (27.0-31.0); MEAN CORPUSCULAR HGB CONC 30.6 g/dl (33.0-37.0); MEAN PLATELET VOLUME 12.6 fl (9.6-12.3); MONO # 0.3 10*3/uL (0.1-1.0); MONO % 3.6 % (3.0-9.0); NEUT # 7.1 10*3/uL (2.3-7.9); NEUT % 84.6 % (47.0-73.0); PLATELET COUNT AUTOMATED 155 10*3/uL (130-400); RED BLOOD COUNT 3.48 10*6/uL (4.10-5.10); RED CELL DISTRI WIDTH 13.7 % (0-14.5); WHITE BLOOD COUNT 8.4 10*3/uL (4.8-10.8)
[2017-11-11 06:28] LABS: MEAN CELL VOLUME 96.8 fl (81.0-99.0)
[2017-11-11 06:31] LABS: ALBUMIN 3.3 gm/dl (3.1-4.5); ALKALINE PHOSPHATASE 56 U/L (45-117); BUN 17 mg/dl (7-24); CHLORIDE 99 mmol/L (98-107); CREATININE 0.71 mg/dL (0.55-1.02); POTASSIUM 4.4 mmol/L (3.5-5.1); SGOT/AST 13 IU/L (3-35); SGPT/ALT 20 U/L (12-78); SODIUM 140 mmol/L (136-145); TOTAL PROTEIN 6.8 gm/dL (6.4-8.2)
[2017-11-11 08:32] VITALS: BP 116/74
[2017-11-11 12:08] VITALS: BP 106/55
[2017-11-11 16:00] VITALS: BP 106/62
[2017-11-11 20:00] VITALS: BP 117/74
[2017-11-12] VITALS: BP 109/68
[2017-11-12 08:00] VITALS: BP 110/70
[2017-11-12 12:00] VITALS: BP 108/79
== END 2017-11-12 13:18 | disposition home or self-care (01) | DRG 189 ==
LOC: ED 13:32 → EDHOLD 15:23 → ICCU 15:23 → 4E 11-10 14:11
PROVIDERS: Emergency Medicine; Internal Medicine; Internal Medicine Critical Care Medicine
PROC: 5A09357 Assistance with Respiratory Ventilation, Less than 24 Consecutive Hours, Continuous Positive Airway Pressure (ICD-10-PCS; principal; 2017-11-09)
PROC: 5A09357 Assistance with Respiratory Ventilation, Less than 24 Consecutive Hours, Continuous Positive Airway Pressure (ICD-10-PCS; 2017-11-11)
PROC: 5A09357 Assistance with Respiratory Ventilation, Less than 24 Consecutive Hours, Continuous Positive Airway Pressure (ICD-10-PCS; 2017-11-12)
DX: J96.21 Acute and chronic respiratory failure with hypoxia (principal); E87.4 Mixed disorder of acid-base balance; E46 Unspecified protein-calorie malnutrition; E87.8 Other disorders of electrolyte and fluid balance, not elsewhere classified; I50.22 Chronic systolic (congestive) heart failure; J44.1 Chronic obstructive pulmonary disease with (acute) exacerbation; Z68.1 Body mass index [BMI] 19.9 or less, adult; J84.10 Pulmonary fibrosis, unspecified; Z99.81 Dependence on supplemental oxygen; J96.22 Acute and chronic respiratory failure with hypercapnia; F41.1 Generalized anxiety disorder; R73.9 Hyperglycemia, unspecified; D72.810 Lymphocytopenia; F32.9 Major depressive disorder, single episode, unspecified; Z87.01 Personal history of pneumonia (recurrent); Z87.891 Personal history of nicotine dependence; Z98.51 Tubal ligation status; Z82.3 Family history of stroke; Z90.49 Acquired absence of other specified parts of digestive tract; Z80.8 Family history of malignant neoplasm of other organs or systems; Z82.5 Family history of asthma and other chronic lower respiratory diseases

== ENCOUNTER → 2017-11-15 | Outpatient (CLI) | payer OTHER ==
[~2017-11-15] MED LIST changes: +PREDNISONE5 MG PO
== END | disposition home or self-care (01) ==
LOC: RESCLI 02:22
DX: Z09 Encounter for follow-up examination after completed treatment for conditions other than malignant neoplasm (principal); J44.9 Chronic obstructive pulmonary disease, unspecified; E87.6 Hypokalemia; E51.9 Thiamine deficiency, unspecified; R11.0 Nausea; F41.8 Other specified anxiety disorders; L40.0 Psoriasis vulgaris; M79.2 Neuralgia and neuritis, unspecified; E55.9 Vitamin D deficiency, unspecified; H61.22 Impacted cerumen, left ear; R63.6 Underweight; R00.0 Tachycardia, unspecified; E87.3 Alkalosis; D64.9 Anemia, unspecified; Z87.898 Personal history of other specified conditions; Z99.81 Dependence on supplemental oxygen; Z90.49 Acquired absence of other specified parts of digestive tract

== ENCOUNTER 2017-11-23 10:18 | Inpatient (IN) | payer OTHER ==
[2017-11-23] VITALS (7 sets, daily range): BP systolic 97–134; BP diastolic 63–88
[~2017-11-23] VITALS: Ht 165.1 cm; Wt 43.5 kg
--- NOTE | ~2017-11-23 | EKG ---
[place], [place] ELECTROCARDIOGRAM REPORT NAME: NUBIA ROLLE UNIT #: [id number] ROOM: 425 DOCTOR: CHARLEEN WEST MD,ELIZABETH BIRTHDATE: [birth year] DOS: 11/26/2017 ELECTROCARDIOGRAM REPORT TIME: Done at 12:33 p.m. FINDINGS: Normal sinus rhythm noted with heart rate 86 beats per minute. Possibility of LVH could be considered by the voltage criteria. There were no cardiac arrhythmias or other abnormalities. ELIZABETH VILLASEÑOR MD CM:EKGRPT:ELECTROCARDIOGRAM REPORT [id number] ELIZABETH WEST MD
--- NOTE | ~2017-11-23 | PR ---
[place], [place] PROGRESS NOTE NAME: NUBIA ROLLE UNIT #: [id number] ROOM: 425 DOCTOR: CHARLEEN WEST MD,ELIZABETH BIRTHDATE: [birth year] DOS: 11/28/2017 SUBJECTIVE: She has been noted well after bronchoscopy, which was completed yesterday. Denies symptoms of chest pain. Coughing has been subsiding for the patient with improvement in chest congestion, wheezing was also improving. There was no chest pain. OBJECTIVE: VITAL SIGNS: Normal temperature, respiratory rate 18, heart rate of 82, blood pressure 153/82-100/61, pulse oxygen saturation on 4 liters nasal cannula 95% saturation. BiPAP 95% saturation. HEENT: Examination shows head was atraumatic. Eyes nonicterus. NECK: Supple. CARDIOVASCULAR: S1, S2 is audible. LUNGS: Noted without any wheeze or crackle at the present time. ABDOMEN: Soft, nontender. Bowel sounds present. EXTREMITIES: Without any acute edema. IMPRESSION: Stable respiratory status was noted at this time. ASSESSMENT: Bronchoscopy, removal of significant mucous plug. The patient resolving exacerbation of chronic obstructive pulmonary disease, improving. Cough and other symptoms. The patient with acute on chronic severe hypercapnic hypoxic respiratory failure, resolving. PLAN OF TREATMENT: Ambulation was encouraged, use of the oxygen. Continue current dose of corticosteroids. Bronchial washing cultures, noted no bacterial growth. Final culture results were pending. They will be monitored. Possible discharge in the morning for patient depends on further clinical improvement in the final culture results will be considered. ELIZABETH VILLASEÑOR MD CM:PNTRANS [id number] ELIZABETH WEST MD 11/28/17 1838 interface
--- NOTE | ~2017-11-23 | PR ---
[place], [place] PROGRESS NOTE NAME: NUBIA ROLLE [facility] #: [id number] UNIT #: [id number] ROOM: 425 DOCTOR: ELIZABETH MCDONALD MD BIRTHDATE: [birth year] DOS: 11/27/2017 SUBJECTIVE: The patient seen and examined 11/27/2017. She has been noted excessive chest congestion, coughing for the patient, which has been noted to have frequent for the patient without any sputum expectoration, shortness of breath worsened with that, but at rest, the patient's shortness of breath has been improving. Denies symptoms of chest pain. Denies symptoms of headache or diplopia. Denies any symptoms of visual changes. The patient denies symptoms of nausea, vomiting, diarrhea, abdominal pain, hematemesis, melena, hematochezia. Skin, denies any rashes. Remaining systems were reviewed. They were noted all negative. The patient is currently noted n.p.o. past midnight for him now for bronchoscopy to be done today. OBJECTIVE: VITAL SIGNS: For the patient which has been recorded showed the temperature noted normal, respiratory rate of 20, heart rate of 100, blood pressure 134/90. Pulse oxygen saturation for the patient on 35% oxygen BiPAP was 95% saturation with 4 liters nasal cannula 94% saturation. HEENT: Head was atraumatic. Eyes nonicterus. NECK: Supple. CARDIOVASCULAR: S1, S2 audible. LUNGS: The patient was noted without any crackles. Decreased breath sounds are noted in the lungs bilaterally. ABDOMEN: Flat, soft, nontender. EXTREMITIES: The patient was noted without any edema, clubbing or cyanosis. MUSCULOSKELETAL: Chronic loss of muscle mass without any skeletal deformities. SKIN: Noted with scattered bruising, the patient's medication related. GENITOURINARY: Cranial nerves 2-12 intact. No focal deficit. LABORATORY DATA: CBC this morning, hemoglobin 10.3, hematocrit normal, platelet count normal, WBC count normal. BMP of patient of 11/27/2017, glucose 128, BUN and creatinine was normal. IMPRESSION: 1. The patient was currently noted with persistent acute hypercapnic hypoxic respiratory failure, severe nonproductive cough, suspected mucus impaction major airways. Advance pulmonary disease were noted with emphysema, chronic protein calorie malnutrition. 2. History of dependent patient's narcotic medication taking Suboxone. PLAN OF TREATMENT: Proceed with bronchoscopy as planned for this patient to be done today. No changes in the medical therapy otherwise will be necessary. The bronchoscopy will be completed and if any modification treatment changes will be necessary done accordingly. In the meantime, corticosteroids, bronchodilators, antibiotics, Diamox and BiPAP will be continued. [place], [place] PROGRESS NOTE [id number] UNIT #: [id number] ROOM: 425 DOCTOR: ELIZABETH MCDONALD MD BIRTHDATE: [birth year] ELIZABETH VILLASEÑOR MD CM:PNLALO [id number] ELIZABETH WEST MD 11/29/17 1441 interface
--- NOTE | ~2017-11-23 | PR ---
[place], [place] PROGRESS NOTE NAME: NUBIA ROLLE UNIT #: [id number] ROOM: 425 DOCTOR: CHARLEEN WEST MD,ELIZABETH BIRTHDATE: [birth year] DOS: 11/29/2017 SUBJECTIVE: She continued to do well. The patient ambulates. The patient yesterday on 4 liters nasal cannula, shortness breath is improving. Cough has improved markedly. Wheezing was also noted markedly improved. OBJECTIVE: VITAL SIGNS: This morning, normal temperature, respiratory rate 18, heart rate 89, blood pressure 140/62. Pulse oxygen saturation of the patient noted as 99% saturation on 4 liters nasal cannula. HEENT: No acute change. NECK: Supple. CARDIOVASCULAR: S1, S2 audible. LUNGS: The patient was noted without any wheeze or crackles. ABDOMEN: Soft and nontender. EXTREMITIES: The patient noted without any acute edema. IMPRESSION: The patient was being currently noted stable at the present time with significant improvement noted. The patient's respiratory status could be discharged home for the patient on a tapering dose of prednisone and the antibiotics. ELIZABETH VILLASEÑOR MD CM:PNTRANS [id number] ELIZABETH WEST MD 11/29/17 1617 interface
--- NOTE | ~2017-11-23 | CON ---
[place], [place] REPORT OF CONSULTATION NAME: NUBIA ROLLE UNIT #: [id number] ROOM: 425 DOCTOR: CHARLEEN WEST MD,ELIZABETH BIRTHDATE: [birth year] DOS: 11/24/2017 REASON FOR CONSULTATION: Assess the patient for current change in mental status with acute on chronic hypercapnic hypoxic respiratory failure, exacerbation of chronic obstructive pulmonary disease. HISTORY OF PRESENT ILLNESS: A 47-year-old white female known to me with past history of advanced COPD with chronic severe hypercapnia with respiratory failure and hypoxic respiratory failure, came into the Emergency Room, the patient has been reported with symptoms of increased lethargy. The patient with shortness of breath reported by the family members. The patient brought to the hospital by the ambulance. She has been assessed in the Emergency Room yesterday by Dr. Griffiths. He has contacted me about the patient abnormal arterial blood gases. The patient was ordered BiPAP with setting of 20/12 from yesterday. The patient was continued most of the time on BiPAP since hospitalization except meals. Mental status has been noted with improvement in the mental status. The patient noted more awake, alert, oriented this morning. She does have a cough with chest congestion and not noted with any sputum expectoration. Denies symptoms of hemoptysis. The patient does report symptoms of tightness in the chest and wheezing. This morning as the patient was seen in Intensive Care Unit, she has been noted awake and alert, using oxygen supplementation with high flow nasal cannula and eating her breakfast. REVIEW OF SYSTEMS: CONSTITUTIONAL SYMPTOMS: She does complain of fatigue and tiredness, not reported subjective fever or chills. EYES: Denies any burning, redness, or tenderness. EARS, NOSE, THROAT SYMPTOMS: Denies sore throat, hoarseness, otalgia, postnasal drainage, or epistaxis. CARDIOVASCULAR: Denies angina pain, edema or pain of the lower extremities. GASTROINTESTINAL: No dysphagia, nausea, vomiting, diarrhea, abdominal pain, hematemesis, melena, or hematochezia. SKIN: Denies abnormal lesions or rashes. MUSCULOSKELETAL: Without any acute deformities. CENTRAL NERVOUS SYSTEM: Denies dizziness, headache, diplopia, syncopal episodes. Remaining systems were reviewed. They were noted all negative. PAST MEDICAL HISTORY: 1. Hospitalization in 10/2017, discharge home on 11/12, for the medical management of acute exacerbation of chronic obstructive pulmonary disease, [id number]-ft-[id number] hypoxic and hypercapnic respiratory failure with bronchitis. 2. Past history of advanced COPD. FEV1 less than 20%, acute on chronic, severe hypercapnic respiratory failure. 3. Chronic hypoxic respiratory failure. 4. Metabolic alkalosis as well secondary to hypercarbia. 5. History of recreational marijuana use. 6. History of recurrent hospitalization. 7. History of psoriasis of the skin. [place], [place] REPORT OF CONSULTATION NAME: NUBIA ROLLE UNIT #: [id number] ROOM: 425 DOCTOR: CHARLEEN WEST MD,[facility] BIRTHDATE: [birth year] 8. Chronic anorexia. 9. Chronic protein calorie malnutrition status. 10. History of past narcotic dependence. 11. General anxiety disorder as well. PAST SURGICAL HISTORY: 1. Tubal ligation. 2. Cholecystectomy. 3. Intubation and mechanical ventilation. 4. Therapeutic bronchoscopy. 5. Myringotomy, tubes in the ears. SOCIAL HISTORY: The patient is and lives at home. Tobacco use noted at age of [age] years old and stated nontobacco user at the present time. Denies any alcohol use. History of recreational marijuana use noted previously. FAMILY HISTORY: The patient's father of complication related to stroke. Mother of complication related to COPD and emphysema as well. MEDICATIONS: Current administered medication noted use of thiamine, Paxil, potassium chloride, Lovenox, Cepacol spray, Remeron, gabapentin, Mucinex, Diamox, Dulera, IV Solu-Medrol 60 mg q.8 hours, Zithromax, Rocephin, Suboxone, and BuSpar. DRUG ALLERGIES HISTORY: NOTED WITH ALLERGY TO THE LEVAQUIN. PHYSICAL EXAMINATION: GENERAL: This is a 47-year-old female who has been noted with chronic cachexia, comfortably sitting on the bed. The patient without any acute distress at this time of assessment. VITAL SIGNS: Her height was noted as 5 feet 5 inches, weight of 96 pounds, BMI 15.9. The temperature noted rectally 101.2 degree Fahrenheit, otherwise normal temperature, and respiratory rate ranging between 14-18. The heart rate was noted as 103-87, blood pressure is 104/65-110/66. The pulse oxygen saturation noted on 4 liter nasal cannula was 98% with the BiPAP on 45% oxygen is 96% saturation. HEENT: Examination shows head was atraumatic. Eyes was nonicterus. NECK: Supple. Oral mucosa was moist. CARDIOVASCULAR: S1, S2 is audible. LUNGS: The patient was noted without any crackles. Lfkyksia-wq-alookn expiratory wheezing noted in the lungs bilaterally. Air exchange was noted moderately decreased. ABDOMEN: Flat, soft, nontender. EXTREMITIES: The patient was noted without any edema, clubbing, or cyanosis. Chronic loss of muscle mass. VISIBLE SKIN: No lesions or rashes. CENTRAL NERVOUS SYSTEM: Cranial nerves 2-12 intact. MUSCULOSKELETAL: Without any acute deformities. LABORATORY DATA: CMP of the patient that was done on 11/22/2017, normal BUN and creatinine, CO2 35. CBC that was done as an outpatient, hemoglobin 11.5, [place], [place] REPORT OF CONSULTATION NAME: NUBIA ROLLE UNIT #: [id number] ROOM: 425 DOCTOR: CHARLEEN WEST MD,[facility] BIRTHDATE: [birth year] hematocrit were normal, platelet count was normal. Lactic acid yesterday in the Emergency normal. CMP yesterday in the Emergency Room, glucose 126, CO2 of 38, remaining CMP normal. Arterial blood gas 4 liters, pH of 7.22, pCO2 of 96, pO2 of 65.3 prior to initiation of BiPAP and during this hospitalization. Troponin normal. Influenza A and B, nasal washing. Antigens was negative. Arterial blood gas on 45% oxygen on BiPAP last evening, pH of 7.22, pCO2 of 94, pO2 of 87.7. CBC this morning, the patient's hemoglobin 11.2, otherwise normal. PT/PTT normal this morning. BMP of the patient was noted as CO2 35. Arterial blood gas this morning 45% on the BiPAP, pH of 7.26, pCO2 of 82, pO2 of 85.8. The chest x-ray just 1 view, which was done in the Emergency Room shows hyperinflated changes with increased interstitial marking, which were noted previously. IMPRESSION: 1. The patient who has been currently admitted to the hospital noted with change in mental status with recurrence of acute exacerbation of COPD. Currently noted with wheezing as well as acute on chronic hypercapnic respiratory failure. 2. Chronic hypoxic respiratory failure as well. 3. Metabolic alkalosis secondary to chronic hypercarbia. 4. Acute bronchitis as well. 5. History of frequent hospitalizations. 6. The patient with chronic protein calorie malnutrition status as well. 7. History of marijuana use previously, not sure if the patient currently is using tobacco products or not. PLAN OF MANAGEMENT: The patient will be continued on the bronchodilator at the present time. Use of Solu-Medrol to be continued 60 mg q.8h, bronchodilators, and the current antibiotics. Use of the BiPAP at setting of 20/12 will be continued for this patient, most of the time except meals. Titrate oxygen other time to maintain saturation 92% or greater. DVT prophylaxis. Nutritional support as tolerated. Monitoring of the metabolic alkalosis. No changes to be done. Continue the use of Diamox as previously. Other supportive plan of therapy and care. The patient could be transferred from the intensive care unit to medical floor for continue current medical treatment. Usual treatment, other supportive plan of management. Thanks for allowing me to participate in the care of this patient. [place], [place] REPORT OF CONSULTATION NAME: NUBIA ROLLE UNIT #: [id number] ROOM: 425 DOCTOR: ELIZABETH MCDONALD MD BIRTHDATE: [birth year] ELIZABETH VILLASEÑOR MD CM:CONSTR:REPORT OF CONSULTATION 1348 11/25/17 0352 interface
--- NOTE | ~2017-11-23 | EKG ---
[place], [place] ELECTROCARDIOGRAM REPORT NAME: NUBIA ROLLE UNIT #: [id number] ROOM: 425 DOCTOR: CHARLEEN WEST MD,ELIZABETH BIRTHDATE: [birth year] DOS: 11/29/2017 ELECTROCARDIOGRAM REPORT TIME: 11:27 a.m. Sinus tachycardia noted with heart rate 101 beats per minute. PVC was also noted and possibility of LVH by voltage criteria. Nonspecific ST-T changes noted. ELIZABETH VILLASEÑOR MD CM:EKGRPT:ELECTROCARDIOGRAM REPORT [id number] ELIZABETH WEST MD
--- NOTE | ~2017-11-23 | PR ---
[place], [place] PROGRESS NOTE NAME: NUBIA ROLLE [facility] #: [id number] UNIT #: [id number] ROOM: 425 DOCTOR: CHARLEEN WEST MD,ELIZABETH BIRTHDATE: [birth year] DOS: 11/25/2017 PULMONARY PROGRESS NOTE SUBJECTIVE: The patient is noted comfortable at this time, transferred from intensive care unit to the telemetry floor. The patient had been using the BiPAP this morning. The patient was taken off the BiPAP. She has now been placed on oxygen supplementation. The saturation recorded by the nursing staff is 63%. She was started on 6 liter high flow nasal cannula resulting in improvement in the oxygen saturation. She was still noted with significant coughing and chest congestion, unable to expectorate sputum. Denies symptoms of abdominal pain. No nausea or vomiting. Denies any headache. Fever for the patient, the temperature was noted a normal temperature curve in the last 24 hours. Remaining systems were reviewed, they were noted all negative. OBJECTIVE: VITAL SIGNS: Temperature 99.7 degree, normal temperature, respiratory rate 20, heart rate 100-117, intermittent sinus tachycardia, blood pressure 116/79 to 108/66. Pulse oxygen saturation of the patient recorded at 4 liters is 91 to 93% saturation. HEENT: Shows head was atraumatic, eyes nonicterus. NECK: Supple. CARDIOVASCULAR: S1, S2 audible. LUNGS: Noted with decreased reduction in the breath sounds with expiratory wheezing for the patient remains unchanged. There were no crackles. ABDOMEN: Soft, nontender. EXTREMITIES: Without any acute edema. LABORATORY DATA: CBC today was noted WBC count of 7.4, hemoglobin 9.8, hematocrit 32.4, platelet count was normal. Blood culture from 11/23/2017 was noted with no bacterial growth. BMP today, glucose 132, CO2 35. IMPRESSION: 1. The patient with persistent severe acute hypercapnic and hypoxic respiratory failure with slow improvement, chest congestion, inability to expectorate sputum. 2. Overall debility is also noted. 3. Chronic protein-calorie malnutrition. PLAN OF THERAPY: Continuation of the current dose of corticosteroids, bronchodilators, oxygen supplementation, intermittent with the use of the BiPAP. Continue to improve the nutritional status. The patient has been assessed for therapeutic bronchoscopy to be done on Monday morning. In the meantime, continuation of other supportive therapy, plan of management and care. Usual treatment. Addition of treatment changes to be done for the patient based on the progression of the illness. [place], [place] PROGRESS NOTE NAME: NUBIA ROLLE UNIT #: [id number] ROOM: [facility] DOCTOR: ELIZABETH MCDONALD MD BIRTHDATE: [birth year] ELIZABETH VILLASEÑOR MD CM:PNTRANS [id number] ELIZABETH WEST MD 11/25/17 1008 interface
--- NOTE | ~2017-11-23 | PROC NOTE ---
[place], [place] PROCEDURE NOTE NAME: NUBIA ROLLE UNIT #: [id number] ROOM: 425 DOCTOR: CHARLEEN WEST MD,ELIZABETH BIRTHDATE: [birth year] DOS: 11/27/2017 PREOPERATIVE DIAGNOSES: Severe nonresolving cough for the patient episodic with suspected mucous impaction with ongoing exacerbation of COPD with maximum medical therapy. POSTOPERATIVE DIAGNOSES: Removal of moderate to large thick mucus plugs. The patient endobronchial tree bilaterally without any difficulty. There were no endobronchial obstructive lesions. COMPLICATIONS: None. PROCEDURE DESCRIPTION: Informed consent obtained for the patient. The patient brought to the OR and placed in supine position. Conscious sedation administered by the Anesthesia Department. After achieving appropriate sedation, airway introduced into the mouth. Bronchoscope was advanced into the laryngeal area. The epiglottis and vocal cord were seen. Vocal cords were moving symmetrically with movements. Bronchoscope was advanced to the vocal cord and tracheal lumen. Tracheal lumen noted moderate amount of very thick mucus secretion. The patient with some purulent secretion mixture, suctioned out to the macey level. Macey noted sharp. Right upper, right lower, left upper, lingular lower lobe bronchi were all examined. All secretions suctioned out with the help of normal saline wash. The mucus plugs were cleared from the endobronchial tube. The patient without difficulty. Postoperative finding for the patient were discussed with the patient's in detail. No complications noted during or after the procedure. Bronchial washing sent for cultures. Postoperative findings were discussed with the patient's in detail. After bronchoscopy, the patient's dose of corticosteroids will be decreased from 60 mg every 8 hours to 40 mg every 8 hours. ELIZABETH VILLASEÑOR MD CM:PROCNOTE:PROCEDURE NOTE [id number] ELIZABETH WEST MD
--- NOTE | ~2017-11-23 | PR ---
[place], [place] PROGRESS NOTE NAME: NUBIA ROLLE UNIT #: [id number] ROOM: 425 DOCTOR: CHARLEEN WEST MD,ELIZABETH BIRTHDATE: [birth year] DOS: 11/26/2017 SUBJECTIVE: The patient continued to have similar symptoms. The patient has chest congestion. The patient denies any symptoms of hemoptysis or wheezing. The patient continued cough algpvztg-dz-xzdgjr without any sputum expectoration, noted more awake and alert. Denies any headache. Denies any pain in the lower extremity. Denies symptoms of nausea, vomiting, diarrhea, abdominal pain. Her appetite remains very good. Remaining systems were reviewed. They were noted all negative. OBJECTIVE: VITAL SIGNS: Normal temperature, respiratory rate 20, heart rate 100-78, blood pressure 138/78-105/58. Pulse oxygen saturation of the patient recorded as 92% saturation on 4 L nasal cannula. HEENT: The patient noted without any acute changes. Oral mucosa moist. Head was atraumatic. Eyes nonicterus. CARDIOVASCULAR: S1, S2 is audible. LUNGS: The patient was noted without any crackles. Moderate expiratory wheezing. Remains persistent. Decreased breath sounds still noted. ABDOMEN: Flat, soft, and nontender. Bowel sounds present. EXTREMITIES: Without any acute edema. Loss of muscle mass which is chronic as well. VISIBLE SKIN: No lesions or rashes. MUSCULOSKELETAL: Without any acute deformities. LABORATORY DATA: Today PT/PTT and platelet function was ordered that was noted normal. BMP this morning, normal BUN and creatinine, glucose 149. CBC: WBC count normal and platelet count was normal. Hemoglobin 10 and hematocrit of 32.9. IMPRESSION: 1. The patient noted with ongoing severe chronic obstructive pulmonary disease exacerbation, still noted with significant wheezing as well with nonproductive cough; gear for bronchoscopy tomorrow. 2. Resolving acute on chronic hypercapnic and hypoxic respiratory failure. PLAN OF THERAPY: Continuation of the current medical management, bronchodilators, oxygen supplementation, use of the BiPAP for this patient and other treatment. Proceed with bronchoscopy tomorrow morning which is a therapeutic bronchoscopy. All other supportive plan of management continued as well. Usual treatment. Supportive plan of management and care. [place], [place] PROGRESS NOTE NAME: NUBIA ROLLE UNIT #: [id number] ROOM: 425 DOCTOR: ELIZABETH MCDONALD MD BIRTHDATE: [birth year] ELIZABETH VILLASEÑOR MD CM:PNTRANS [id number] ELIZABETH WEST MD 11/26/17 1438 interface
[2017-11-23 11:15] LABS: BASO % 0.3 % (0.0-1.0); EOS # 0.1 10*3/uL (0.0-0.4); EOS % 0.9 % (1.0-4.0); HEMATOCRIT 39.7 % (37.0-47.0); HEMOGLOBIN 11.7 g/dl (12.0-16.0); LYMPH # 1.2 10*3/uL (1.3-4.4); MEAN CELL VOLUME 98.3 fl (81.0-99.0); MEAN CORPUSCULAR HGB CONC 29.5 g/dl (33.0-37.0); MONO # 0.6 10*3/uL (0.1-1.0); MONO % 6.1 % (3.0-9.0); NEUT # 7.8 10*3/uL (2.3-7.9); NEUT % 80.4 % (47.0-73.0); PLATELET COUNT AUTOMATED 162 10*3/uL (130-400); RED BLOOD COUNT 4.04 10*6/uL (4.10-5.10); WHITE BLOOD COUNT 9.7 10*3/uL (4.8-10.8)
[2017-11-23 11:29] LABS: ALBUMIN 3.5 gm/dl (3.1-4.5); ALKALINE PHOSPHATASE 61 U/L (45-117); BUN 7 mg/dl (7-24); CHLORIDE 98 mmol/L (98-107); CREATININE 0.56 mg/dL (0.55-1.02); POTASSIUM 3.7 mmol/L (3.5-5.1); SGOT/AST 20 IU/L (3-35); SGPT/ALT 19 U/L (12-78); SODIUM 138 mmol/L (136-145); TOTAL PROTEIN 7.4 gm/dL (6.4-8.2)
[2017-11-23 11:48] LABS: ABG BASE EXCESS 8.4 mmol/L (-2.0-2.0); ABG HCO3 38.8 mmol/l (22-26); ABG O2 SATURATION 90.1 % (95-97); ARTERIAL BLOOD GAS PH 7.229 (7.35-7.45); ARTERIAL BLOOD GAS PO2 65.3 mmHg (80-90)
[2017-11-23 11:52] LABS: ARTERIAL BLOOD GAS PCO2 96.3 mmHg (35-45)
[2017-11-23 13:29] LABS: BILIRUBIN NEGATIVE (NEGATIVE); BLOOD NEGATIVE (NEGATIVE); CLARITY CLEAR (CLEAR); COLOR YELLOW (YELLOW); GLUCOSE NEGATIVE (NEGATIVE); KETONE NEGATIVE (NEGATIVE); LEUKO ESTERASE NEGATIVE (NEGATIVE); NITRITE NEGATIVE (NEGATIVE); PH 6.5 (5.0-9.0); UROBILINOGEN 0.2 E.U./dl (0.2-1.0)
[2017-11-23] MEDS ORDERED: PREDNISONE10 M1 PO (13:35)
[2017-11-23] MEDS ORDERED: DOXYCYCLINE100 M3 PO (13:36)
[2017-11-23 13:39] LABS: BACTERIA 2+; EPITHELIAL CELLS 0-2; RBC 0-2 rbc/hpf (0-2)
[2017-11-23 20:58] LABS: ABG BASE EXCESS 7.5 mmol/L (-2.0-2.0); ABG O2 SATURATION 95.8 % (95-97); ARTERIAL BLOOD GAS PH 7.227 (7.35-7.45); ARTERIAL BLOOD GAS PO2 87.7 mmHg (80-90)
[2017-11-23 21:01] LABS: ARTERIAL BLOOD GAS PCO2 94.1 mmHg (35-45)
[2017-11-24] VITALS: BP 108/66; BP 111/70
[2017-11-24 04:00] VITALS: BP 104/65
[2017-11-24 04:59] LABS: BASO % 0.5 % (0.0-1.0); HEMATOCRIT 37.6 % (37.0-47.0); HEMOGLOBIN 11.2 g/dl (12.0-16.0); LYMPH # 0.5 10*3/uL (1.3-4.4); MEAN CELL VOLUME 98.4 fl (81.0-99.0); MEAN CORPUSCULAR HGB 29.3 pg (27.0-31.0); MEAN CORPUSCULAR HGB CONC 29.8 g/dl (33.0-37.0); MEAN PLATELET VOLUME 11.7 fl (9.6-12.3); MONO # 0.1 10*3/uL (0.1-1.0); MONO % 1.8 % (3.0-9.0); NEUT # 5.3 10*3/uL (2.3-7.9); NEUT % 88.5 % (47.0-73.0); PLATELET COUNT AUTOMATED 137 10*3/uL (130-400); RED BLOOD COUNT 3.82 10*6/uL (4.10-5.10); RED CELL DISTRI WIDTH 13.8 % (0-14.5)
[2017-11-24 05:09] LABS: ACT PARTIAL THROMBO TIME 27.8 SECONDS (20.8-31.5)
[2017-11-24 05:13] LABS: BUN 15 mg/dl (7-24); CHLORIDE 95 mmol/L (98-107); CREATININE 0.68 mg/dL (0.55-1.02); PHOSPHOROUS 3.9 mg/dL (2.5-4.9); POTASSIUM 4.4 mmol/L (3.5-5.1); SODIUM 139 mmol/L (136-145)
[2017-11-24 07:38] LABS: ABG BASE EXCESS 7.4 mmol/L (-2.0-2.0); ABG HCO3 36.4 mmol/l (22-26); ABG O2 SATURATION 96.1 % (95-97); ARTERIAL BLOOD GAS PH 7.268 (7.35-7.45); ARTERIAL BLOOD GAS PO2 85.8 mmHg (80-90)
[2017-11-24 07:46] LABS: ARTERIAL BLOOD GAS PCO2 82.5 mmHg (35-45)
[2017-11-24 08:00] VITALS: BP 110/66
[2017-11-24 12:00] VITALS: BP 115/63
[2017-11-24 16:00] VITALS: BP 113/62
[2017-11-24 20:00] VITALS: BP 103/68
[2017-11-25] VITALS: BP 108/66
[2017-11-25 06:48] LABS: BUN 12 mg/dl (7-24); CHLORIDE 99 mmol/L (98-107); CREATININE 0.55 mg/dL (0.55-1.02); PHOSPHOROUS 2.3 mg/dL (2.5-4.9); POTASSIUM 3.9 mmol/L (3.5-5.1); SODIUM 141 mmol/L (136-145)
[2017-11-25 06:49] LABS: HEMATOCRIT 32.4 % (37.0-47.0); HEMOGLOBIN 9.8 g/dl (12.0-16.0); MEAN CELL VOLUME 96.4 fl (81.0-99.0); MEAN CORPUSCULAR HGB 29.2 pg (27.0-31.0); MEAN CORPUSCULAR HGB CONC 30.2 g/dl (33.0-37.0); MEAN PLATELET VOLUME 13.1 fl (9.6-12.3); PLATELET COUNT AUTOMATED 140 10*3/uL (130-400); RED BLOOD COUNT 3.36 10*6/uL (4.10-5.10); RED CELL DISTRI WIDTH 13.8 % (0-14.5); WHITE BLOOD COUNT 7.4 10*3/uL (4.8-10.8)
[2017-11-25 07:42] LABS: ATYPICAL LYMPHS 4 % (0-0); PLATELET SUFFICIENCY NORMAL (NORMAL); TOTAL CELLS COUNTED 100 #CELLS
[2017-11-25 08:00] VITALS: BP 116/79
[2017-11-25 12:00] VITALS: BP 136/66
[2017-11-25 16:00] VITALS: BP 118/61
[2017-11-25 20:00] VITALS: BP 109/58
[2017-11-26] VITALS: BP 142/69
[2017-11-26 06:03] LABS: HEMATOCRIT 32.9 % (37.0-47.0); MEAN CELL VOLUME 97.3 fl (81.0-99.0); MEAN CORPUSCULAR HGB 29.6 pg (27.0-31.0); MEAN CORPUSCULAR HGB CONC 30.4 g/dl (33.0-37.0); MEAN PLATELET VOLUME 12.9 fl (9.6-12.3); PLATELET COUNT AUTOMATED 147 10*3/uL (130-400); RED BLOOD COUNT 3.38 10*6/uL (4.10-5.10); RED CELL DISTRI WIDTH 14.1 % (0-14.5); WHITE BLOOD COUNT 7.8 10*3/uL (4.8-10.8)
[2017-11-26 06:30] LABS: BUN 14 mg/dl (7-24); CHLORIDE 103 mmol/L (98-107); POTASSIUM 3.9 mmol/L (3.5-5.1); SODIUM 141 mmol/L (136-145)
[2017-11-26 07:00] LABS: ATYPICAL LYMPHS 3 % (0-0); PLATELET SUFFICIENCY NORMAL (NORMAL); TOTAL CELLS COUNTED 100 #CELLS
[2017-11-26 08:00] VITALS: BP 105/68
[2017-11-26 11:48] LABS: ACT PARTIAL THROMBO TIME 21.8 SECONDS (20.8-31.5); INTERNATIONAL NORM RATIO 0.9 (2.0-3.5)
[2017-11-26 12:00] VITALS: BP 138/78
[2017-11-26 16:00] VITALS: BP 112/74
[2017-11-26 20:00] VITALS: BP 137/77
[2017-11-27] VITALS (8 sets, daily range): BP systolic 116–142; BP diastolic 63–96
[2017-11-27 06:50] LABS: HEMATOCRIT 33.7 % (37.0-47.0); HEMOGLOBIN 10.3 g/dl (12.0-16.0); MEAN CELL VOLUME 96.6 fl (81.0-99.0); MEAN CORPUSCULAR HGB 29.5 pg (27.0-31.0); MEAN CORPUSCULAR HGB CONC 30.6 g/dl (33.0-37.0); MEAN PLATELET VOLUME 12.5 fl (9.6-12.3); PLATELET COUNT AUTOMATED 146 10*3/uL (130-400); RED BLOOD COUNT 3.49 10*6/uL (4.10-5.10); RED CELL DISTRI WIDTH 14.3 % (0-14.5); WHITE BLOOD COUNT 8.7 10*3/uL (4.8-10.8)
[2017-11-27 07:03] LABS: BUN 15 mg/dl (7-24); CHLORIDE 106 mmol/L (98-107); CREATININE 0.54 mg/dL (0.55-1.02); POTASSIUM 4.3 mmol/L (3.5-5.1); SODIUM 143 mmol/L (136-145)
[2017-11-27 07:15] LABS: PLATELET SUFFICIENCY NORMAL (NORMAL); TOTAL CELLS COUNTED 100 #CELLS
[2017-11-28] VITALS: BP 102/61
[2017-11-28 06:50] LABS: BASO % 0.1 % (0.0-1.0); HEMATOCRIT 34.5 % (37.0-47.0); HEMOGLOBIN 10.1 g/dl (12.0-16.0); LYMPH # 1.5 10*3/uL (1.3-4.4); LYMPH % 15.8 % (27.0-41.0); MEAN CELL VOLUME 96.9 fl (81.0-99.0); MEAN CORPUSCULAR HGB 28.4 pg (27.0-31.0); MEAN CORPUSCULAR HGB CONC 29.3 g/dl (33.0-37.0); MEAN PLATELET VOLUME 12.1 fl (9.6-12.3); MONO # 0.5 10*3/uL (0.1-1.0); NEUT # 7.5 10*3/uL (2.3-7.9); NEUT % 76.8 % (47.0-73.0); PLATELET COUNT AUTOMATED 161 10*3/uL (130-400); RED BLOOD COUNT 3.56 10*6/uL (4.10-5.10); RED CELL DISTRI WIDTH 14.5 % (0-14.5); WHITE BLOOD COUNT 9.8 10*3/uL (4.8-10.8)
[2017-11-28 07:02] LABS: BUN 17 mg/dl (7-24); CHLORIDE 104 mmol/L (98-107); PHOSPHOROUS 2.7 mg/dL (2.5-4.9); POTASSIUM 4.6 mmol/L (3.5-5.1); SODIUM 144 mmol/L (136-145)
[2017-11-28 08:00] VITALS: BP 153/82
[2017-11-28 12:00] VITALS: BP 150/80
[2017-11-28 15:04] LABS: ACID FAST SPEC PROCESSING Concentration (.)
[2017-11-28 16:00] VITALS: BP 127/73
[2017-11-28 20:00] VITALS: BP 124/86
[2017-11-29] VITALS: BP 127/73
[2017-11-29 08:00] VITALS: BP 104/62; BP 96/48
[2017-11-29] MEDS ORDERED: NICOTROL10 MG INH (09:44)
[2017-11-29] MEDS ORDERED: PREDNISONE10 MG PO (09:44)
[2017-11-29] MEDS ORDERED: LEVAQUIN500 M2 PO (09:44)
== END 2017-11-29 11:00 | disposition home or self-care (01) | DRG 871 ==
LOC: ED 10:18 → 4E 12:15 → EDHOLD 12:15 → ICCU 12:45 → 4E 11-24 15:18
PROVIDERS: Emergency Medicine; Internal Medicine; Internal Medicine Critical Care Medicine; Internal Medicine Nephrology
PROC: 5A09357 Assistance with Respiratory Ventilation, Less than 24 Consecutive Hours, Continuous Positive Airway Pressure (ICD-10-PCS; principal; 2017-11-23)
PROC: 5A09357 Assistance with Respiratory Ventilation, Less than 24 Consecutive Hours, Continuous Positive Airway Pressure (ICD-10-PCS; 2017-11-24)
PROC: 5A09357 Assistance with Respiratory Ventilation, Less than 24 Consecutive Hours, Continuous Positive Airway Pressure (ICD-10-PCS; 2017-11-27)
PROC: 5A09357 Assistance with Respiratory Ventilation, Less than 24 Consecutive Hours, Continuous Positive Airway Pressure (ICD-10-PCS; 2017-11-28)
PROC: 0BC98ZZ Extirpation of Matter from Lingula Bronchus, Via Natural or Artificial Opening Endoscopic (ICD-10-PCS; 2017-11-28)
PROC: 0BC48ZZ Extirpation of Matter from Right Upper Lobe Bronchus, Via Natural or Artificial Opening Endoscopic (ICD-10-PCS; 2017-11-28)
PROC: 0BC88ZZ Extirpation of Matter from Left Upper Lobe Bronchus, Via Natural or Artificial Opening Endoscopic (ICD-10-PCS; 2017-11-28)
PROC: 0BC58ZZ Extirpation of Matter from Right Middle Lobe Bronchus, Via Natural or Artificial Opening Endoscopic (ICD-10-PCS; 2017-11-28)
PROC: 0BC38ZZ Extirpation of Matter from Right Main Bronchus, Via Natural or Artificial Opening Endoscopic (ICD-10-PCS; 2017-11-28)
PROC: 0BC78ZZ Extirpation of Matter from Left Main Bronchus, Via Natural or Artificial Opening Endoscopic (ICD-10-PCS; 2017-11-28)
PROC: 0BC68ZZ Extirpation of Matter from Right Lower Lobe Bronchus, Via Natural or Artificial Opening Endoscopic (ICD-10-PCS; 2017-11-28)
PROC: 0BCB8ZZ Extirpation of Matter from Left Lower Lobe Bronchus, Via Natural or Artificial Opening Endoscopic (ICD-10-PCS; 2017-11-28)
PROC: 0BC18ZZ Extirpation of Matter from Trachea, Via Natural or Artificial Opening Endoscopic (ICD-10-PCS; 2017-11-28)
DX: A41.9 Sepsis, unspecified organism (principal); J18.9 Pneumonia, unspecified organism; J96.21 Acute and chronic respiratory failure with hypoxia; E46 Unspecified protein-calorie malnutrition; E87.3 Alkalosis; E87.2 Acidosis; T17.490A Other foreign object in trachea causing asphyxiation, initial encounter; T17.590A Other foreign object in bronchus causing asphyxiation, initial encounter; J96.22 Acute and chronic respiratory failure with hypercapnia; I50.22 Chronic systolic (congestive) heart failure; J44.1 Chronic obstructive pulmonary disease with (acute) exacerbation; J44.0 Chronic obstructive pulmonary disease with (acute) lower respiratory infection; R65.20 Severe sepsis without septic shock; F32.9 Major depressive disorder, single episode, unspecified; J20.9 Acute bronchitis, unspecified; F17.210 Nicotine dependence, cigarettes, uncomplicated; D72.9 Disorder of white blood cells, unspecified; D72.810 Lymphocytopenia; D72.818 Other decreased white blood cell count; D64.9 Anemia, unspecified; X58.XXXA Exposure to other specified factors, initial encounter; R62.7 Adult failure to thrive; F41.1 Generalized anxiety disorder; R73.9 Hyperglycemia, unspecified; Z99.81 Dependence on supplemental oxygen; Z98.51 Tubal ligation status; Z90.49 Acquired absence of other specified parts of digestive tract; Z82.3 Family history of stroke; Z83.6 Family history of other diseases of the respiratory system; Y93.89 Activity, other specified; Y92.89 Other specified places as the place of occurrence of the external cause; Y99.8 Other external cause status

== ENCOUNTER 2017-12-18 14:21 | Inpatient (IN) | payer OTHER ==
[~2017-12-18] VITALS: Ht 167.6 cm; Wt 46.5 kg
[2017-12-18] VITALS (8 sets, daily range): BP systolic 85–121; BP diastolic 47–68
--- NOTE | ~2017-12-18 | PROC NOTE ---
[place], [place] PROCEDURE NOTE NAME: NUBIA ROLLE UNIT #: [id number] ROOM: 404 DOCTOR: CHARLEEN WEST MD,ELIZABETH BIRTHDATE: [birth year] DOS: 12/22/2017 BRONCHOSCOPY NOTE PREOPERATIVE DIAGNOSES: Persistent cough and wheezing. POSTOPERATIVE DIAGNOSES: Moderate to large thick mucus impaction, mainly in the lower endobronchial tree. PROCEDURE DESCRIPTION: Informed consent obtained with the patient. The patient brought to the OR and placed in supine position. Conscious sedation administered by the Anesthesia Department. After achieving proper sedation, airway introduced into the mouth. Bronchoscope advanced to airway into laryngeal area. Epiglottis and vocal cords were seen. Bronchoscope and vocal cords into the tracheal lumen. The tracheal lumen noted, there is small to moderate amount of thick mucus secretion with minimal purulent secretion suctioned out [place] level. The right upper, right middle, right lower, left upper, lingular lower bronchi were all examined. Moderate amount of thick plugs of mucus present mainly in the lower endobronchial tree bilaterally suctioned with half normal saline wash and sent for culture. There were no endobronchial obstructive lesions noted. Procedure well tolerated by the patient without any complication. Postoperative findings were discussed with the patient's and the patient after completion of procedure. ELIZABETH VILLASEÑOR MD CM:PROCNOTE:PROCEDURE NOTE [id number] ELIZABETH WEST MD
--- NOTE | ~2017-12-18 | PR ---
[place], [place] PROGRESS NOTE [id number] UN[facility] #: [id number] ROOM: 406 DOCTOR: CHRIS DERAS DO BIRTHDATE: [birth year] DOS: 12/22/2017 SUBJECTIVE: The patient seen and examined today while sitting up in bed. She states her breathing is about the same today, but she is not having any dyspnea at rest. She does note that she is less dyspneic with exertion as well. She notes her cough is about the same and is still not very productive. She denies any chest pain, fever, chills, nausea, vomiting, lightheadedness or dizziness. OBJECTIVE: VITAL SIGNS: At the time of exam, temperature 97.8, pulse 88, respirations 20, blood pressure 113/21, and bedside pulse ox 98% on 4 liters via nasal cannula. GENERAL: Alert and oriented, in no acute distress, responsive and cooperative. HEAD: Normocephalic, atraumatic. EYES: No lesions, no ulceration, no drainage, nonicteric. ENT: No masses, no lesions, no scars. Nares patent. Oropharynx clear. Oral mucosa moist. NECK: Supple, nontender. Trachea is midline. HEART: Regular rate and rhythm. No gallop, no murmur, no lower extremity edema. LUNGS: Diminished breath sounds throughout, but with good inspiratory effort. Mild expiratory wheeze noted in all lung andrew. No rales or rhonchi appreciated. ABDOMEN: Soft, nontender, nondistended, positive bowel sounds, no organomegaly. EXTREMITIES: No clubbing, no cyanosis, no erythema, no edema. SKIN: Warm and dry, no rashes, no lesions, no ulcerations, no nodules or tightening. LABORATORY AND DIAGNOSTIC DATA: Sputum culture shows normal roberto. IMPRESSION: 1. Acute exacerbation of chronic obstructive pulmonary disease. 2. Acute on chronic hypercapnic and hypoxic respiratory failure. 3. Suspected mucus plugging with acute bronchitis. 4. Metabolic alkalosis secondary to chronic hypercarbia, stable. PLAN OF TREATMENT: We will proceed with bronchoscopy today. Continue IV antibiotics of Rocephin and azithromycin, any antibiotic regimen alteration will be dependent on results of bronchial washing cultures. Continue Solu-Medrol and DuoNeb breathing treatments. Continue to encourage use of incentive spirometer and flutter valve. CHRIS DERAS DO [place], [place] PROGRESS NOTE NAME: NUBIA ROLLE UNIT #: [id number] ROOM: [facility] DOCTOR: CHRIS DERAS DO BIRTHDATE: [birth year] ELIZABETH VILLASEÑOR MD CM:PNTRANS 1455 1658 CHRIS DERAS DO 12/22/17 1657 interface
--- NOTE | ~2017-12-18 | PR ---
[place], [place] PROGRESS NOTE NAME: NUBIA ROLLE UNIT #: [id number] ROOM: 406 DOCTOR: CHRIS DERAS DO BIRTHDATE: [birth year] DOS: 12/20/2017 SUBJECTIVE: The patient is noted comfortable at this time doing very well, she has had improvement of her respiratory symptoms. She states she is nearly back to baseline and that the breathing treatments and steroid medications have been helping. She denies any chest pain, nausea, vomiting, diarrhea, constipation, but does note that she is still having a cough productive of scant sputum. OBJECTIVE: VITAL SIGNS: At the time of exam, temperature 98.1, pulse 77, respiratory rate 18, blood pressure 110/71, pulse ox 98% on 4 liters via nasal cannula. HEENT: Normocephalic, atraumatic. EYES: Nonicteric. No lesions, no scars, no masses. Nares patent. Oropharynx clear. Oral mucosa moist. No pharyngeal exudate. No pharyngeal erythema. NECK: Supple, nontender, trachea midline. HEART: Regular rate and rhythm. No gallop, no murmur, no lower extremity edema. LUNGS: Mildly diminished with good inspiratory effort. No wheezes, rales or rhonchi noted at this time. No stridor. No pleural rub. CARDIOVASCULAR: Regular rate and rhythm. ABDOMEN: Soft, nontender, nondistended, positive bowel sounds. No organomegaly noted. EXTREMITIES: No clubbing, cyanosis, erythema or edema noted. LABORATORY AND DIAGNOSTIC DATA: CBC from this morning, WBC is 8.2, hemoglobin 9.7, hematocrit 33, platelet count 142. BMP: Sodium 138, potassium 3.9, chloride 101, bicarbonate 32, BUN 13, creatinine 0.6, glucose 170, calcium 8.1. IMPRESSION: 1. Acute on chronic hypercapnic and hypoxic respiratory failure related to acute exacerbation of chronic obstructive pulmonary disease and likely acute bronchitis/pneumonitis. 2. Metabolic alkalosis. PLAN OF TREATMENT: Continue Solu-Medrol 60 mg q.12h. IV. Continue antibiotics with Rocephin and azithromycin daily IV. Continue DuoNeb breathing treatments q.4h. Continue Mucinex and Dulera and continue Diamox 250 mg b.i.d. Continue the use of BiPAP intermittently, but especially at night. Sputum culture is as of yet uncollected, we will add incentive spirometer and flutter valve to the patient's regimen. Other treatment per primary team. CHRIS DERAS DO [place], [place] PROGRESS NOTE NAME: NUBIA ROLLE UNIT #: [id number] ROOM: 406 DOCTOR: CHRIS DERAS DO BIRTHDATE: [birth year] ELIZABETH VILLASEÑOR MD CM:PNTRANS 1314 [id number] CHRIS DERAS DO 12/20/17 1354 interface
--- NOTE | ~2017-12-18 | PR ---
[place], [place] PROGRESS NOTE NAME: NUBIA ROLLE UNIT #: [id number] ROOM: 404 DOCTOR: CHARLEEN WEST MD,ELIZABETH BIRTHDATE: [birth year] DOS: 12/23/2017 SUBJECTIVE: She has bronchoscopy done yesterday with mucus impaction airways, which was removed. Denies symptoms of chest pain, shortness breath. The patient has been improving. There were symptoms of wheezing. OBJECTIVE: VITAL SIGNS: Normal temperature this morning, respiratory rate 20, heart rate 86, blood pressure 129/63. Pulse oxygen saturation on 2 liters nasal cannula 94% saturation. HEENT: Examination shows head was atraumatic. Eyes nonicterus. NECK: Supple. CARDIOVASCULAR: S1, S2 is audible. LUNGS: Noted with occasional wheezing, no crackles. ABDOMEN: Soft, nontender. It was flat. EXTREMITIES: Without any acute edema. LABORATORY DATA: Culture of the bronchial washing shows as normal roberto. IMPRESSION: The patient with resolving acute exacerbation of chronic obstructive pulmonary disease, acute and chronic hypercapnia, hypoxic respiratory failure and bronchitis, status post bronchoscopy. PLAN OF MANAGEMENT: The patient rather could be considered for home discharge on oral medications including tapering prednisone, Mucinex and the antibiotics. Outpatient followup in the office. The patient was asked to schedule a followup appointment. Abstinence tobacco use and use of BiPAP at home was also advised. ELIZABETH VILLASEÑOR MD CM:PNTRANS [id number] ELIZABETH WEST MD 12/23/17 1553 interface
--- NOTE | ~2017-12-18 | PR ---
[place], [place] PROGRESS NOTE NAME: [facility] [id number] UNIT #: [id number] ROOM: 406 DOCTOR: CHARLEEN WEST MD,ELIZABETH BIRTHDATE: [birth year] DOS: 12/21/2017 The patient was independently seen and examined in wilc-fn-[id number] encounter. History was confirmed. Physical examination was performed. All the labs were reviewed. Assessment and management of the patient's today's note was personally completed as well. SUBJECTIVE: She has been still noted with moderate cough without any sputum expectoration. Shortness breath is improving. Wheezing was noted intermittently. She was continued on corticosteroids. Denies symptoms of nausea, vomiting, headache. Denies any abdominal pain or edema of the lower extremity. Denies symptoms of hemoptysis. The remaining systems were reviewed and they were noted to be all negative. OBJECTIVE: VITAL SIGNS: For the patient, reviewed as normal temperature, respiratory rate of 20, heart rate 76, blood pressure 109/70-103/57. Pulse oxygen saturation of the patient noted on 4 liters nasal cannula 99% saturation of oxygen and with BiPAP 99% saturation of oxygen. HEENT: No acute change. Head was atraumatic. Eyes nonicterus. Oral mucosa is moist. NECK: Supple. CARDIOVASCULAR: S1, S2 audible. LUNGS: Noted with generally reduced breath sounds, moderate expiratory wheezing. No crackles. ABDOMEN: Flat, soft, nontender. EXTREMITIES: Loss of muscle mass, which is chronic. MUSCULOSKELETAL: Without acute deformity. SKIN: Chronic changes. CENTRAL NERVOUS SYSTEM: Cranial nerves 2-12 intact. LABORATORY DATA: CBC today, WBC count normal, hemoglobin 10.1, hematocrit 34.7, platelet count of 140,000. BMP this morning, sodium was normal. Potassium was normal, glucose mildly elevated at 153, normal BUN and creatinine. Gram stain of the sputum from this morning, moderate white blood cell, few epithelial cells, rare gram-positive cocci in clusters and rare budding yeast. IMPRESSION: 1. The patient with acute exacerbation of chronic obstructive pulmonary disease, xyupl-zr-[id number] hypercapnic hypoxic respiratory failure, general weakness, fatigue, still noted coughing, which was noted mostly nonproductive. 2. Stable metabolic alkalosis. PLAN OF THERAPY: The patient was assessed for fiberoptic bronchoscopy planned to be done tomorrow morning. In the meantime, all other previous treatment of the patient as previously will be continued without any changes. Continue other supportive plan of therapy and management plan. Continue the steroid, use of the BiPAP, and other treatments. N.p.o. past midnight for tonight. [place], [place] PROGRESS NOTE NAME: NUBIA ROLLE UNIT #: [id number] ROOM: [facility] DOCTOR: ELIZABETH MCDONALD MD BIRTHDATE: [birth year] ELIZABETH VILLASEÑOR MD CM:TOMAS [id number] ELIZABETH WEST MD 12/22/17 0149 interface
--- NOTE | ~2017-12-18 | CON ---
[place], [place] REPORT OF CONSULTATION NAME: [facility]LE [facility] [id number] UNIT #: [id number] ROOM: 406 DOCTOR: CHARLEEN WEST MDELIZABETH BIRTHDATE: [birth year] DOS: 12/19/2017 PULMONARY CONSULTATION, EVALUATION AND MANAGEMENT CONSULTATION REQUESTED BY: Hospitalist service. REASON FOR CONSULTATION: Assess the patient's current acute on chronic respiratory failure. HISTORY OF PRESENT ILLNESS: The patient is a 47-year-old white female noted usual state of health. As per she was brought to the hospital Emergency Room yesterday. The patient has been noted progressive increased sleepiness. The patient had fatigue and tiredness in the past couple of days. The symptoms have been noted with progression and worsening. She has not been noted any symptoms of chest pain. She does have symptoms of recent cough for the patient's chest congestion, not expectorating much sputum. She does complain of shortness of breath only with exertion, not at rest. Denies symptoms of wheezing or chest pain. She has been assessed in the Emergency Room and hospitalized for further medical management. Arterial blood gases were done, which shows evidence of hypercapnia with a decreased pH on admission. She has been ordered the BiPAP, which has been used by the patient for the last several hours until this morning. She has been using oxygen supplementation with the nasal cannula. REVIEW OF SYSTEMS: CONSTITUTIONAL: She still reported symptoms of fatigue and tiredness without symptoms of fever or chills. EYES: Denies any burning, redness, or tenderness. EARS, NOSE, THROAT SYMPTOMS: Denies sore throat, hoarseness, otalgia, postnasal drainage or epistaxis. CARDIOVASCULAR: Denies angina pain, edema or pain of the lower extremity. GASTROINTESTINAL: Dysphagia, nausea, vomiting, diarrhea, abdominal pain, hematemesis, melena, hematochezia, or any recent abnormal weight loss. GENITOURINARY SYMPTOMS: Dysuria, suprapubic pain, hematuria. MUSCULOSKELETAL: Denies acute joint pain, redness, or tenderness. SKIN: Not reported any symptoms of abnormal lesions or rash except some scattered bruising. The patient related to use of the steroids previously. There were no itching. MUSCULOSKELETAL: No acute joint pain, redness, or tenderness. CENTRAL NERVOUS SYSTEM: Denies dizziness, headache, diplopia, or syncopal episodes or seizures. Remaining systems were reviewed, they were noted all negative. PAST MEDICAL HISTORY: 1. Known with history of end-stage COPD with centrilobular emphysema. 2. Chronic severe hypercarbia related to the advanced chronic obstructive pulmonary disease. 3. Metabolic alkalosis secondary hypercarbia. 4. Frequent hospitalization for the exacerbation of chronic obstructive [place], [place] REPORT OF CONSULTATION NAME: NUBIA ROLLE UNIT #: [id number] ROOM: [facility] DOCTOR: ELIZABETH MCDONALD MD BIRTHDATE: [birth year] pulmonary disease. 5. History of recreational marijuana use. Denying any use of marijuana at the present time. 6. Recurrent hospitalization. 7. History of psoriasis of the skin. 8. Acute chronic hypoxic respiratory failure. 9. Chronic protein-calorie malnutrition and low BMI less than 18. 10. Past history of narcotic dependence. 11. Anxiety disorder. PAST SURGICAL HISTORY: 1. Tubal ligation. 2. Cholecystectomy. 3. Intubation and mechanical ventilation extubation. SOCIAL HISTORY: The patient is and lives at home. Denies any history of alcohol use, possible use of the new culture. The patient cannot be comfort patient intermittently done by the patient, but the patient herself denied any tobacco use at the present time. History of past marijuana use recreationally as well. FAMILY HISTORY: The patient's father of complications of a stroke. Mother complication of COPD and emphysema. MEDICATIONS: Administered the patient during this hospitalization were noted as use of Mucinex, calcium with vitamin D, thiamine, Paxil, Dulera, Lovenox DVT prophylaxis, Remeron, gabapentin, IV Solu-Medrol 60 mg b.i.d., DuoNeb q.4h., Zithromax, Rocephin, and Wellbutrin. Other p.r.n. medications also used for different symptoms. DRUG ALLERGY HISTORY: ALLERGY TO THE LEVAQUIN. PHYSICAL EXAMINATION: GENERAL: A 47-year-old female, currently resting comfortably, awake and alert this morning on her bed sitting using oxygen supplementation nasal cannula. Height of 5 feet 5 inches, weight of pounds. VITAL SIGNS: Normal temperature, respiratory rate 14-18, heart rate of 89-87, blood pressure of 107-55/90 to a 53. Pulse oxygen saturation for the patient on 45% oxygen with 45% oxygen was noted as 98% saturation. HEENT: Head is atraumatic. Eyes, nonicterus. NECK: Supple. CARDIOVASCULAR: S1, S2 is audible. LUNGS: The patient was noted with general reduction in the breath sounds bilaterally with decreased air exchange. Scattered wheezing, no crackles. ABDOMEN: Soft, nontender, flat. EXTREMITIES: The patient chronic loss of muscle mass. MUSCULOSKELETAL: Without any acute deformities. SKIN: Without any lesions or rashes. Scattered bruising of the skin related past use of steroids were noted. [place], [place] REPORT OF CONSULTATION NAME: NUBIA ROLLE UNIT #: [id number] ROOM: 406 DOCTOR: CHARLEEN WEST MD,[facility] BIRTHDATE: [birth year] LABORATORY AND DIAGNOSTIC DATA: Arterial blood gas for the patient 6 liters nasal cannula. In the Emergency Room, pH of 7.25, pCO2 of 96, pO2 77. The CMP of the patient on 12/18/2017, glucose 124, BUN and creatinine normal, CO2 of 40. Chest x-ray one view shows hyperinflation changes of COPD without any acute infiltration. Arterial blood gas 40%, 45% oxygen, BiPAP, pH of 7.29, pCO2 of 73, BUN 95.8, pO2 of rather 55.8. CBC this morning, hemoglobin 11.2, WBC count normal, platelet count were normal. CMP this morning, normal BUN and creatinine. CO2 of 37. CT scan of the head was done yesterday as well, which does not show any acute abnormalities. IMPRESSION: 1. The patient who has been currently admitted to the hospital noted recurrence of acute on chronic hypercapnic and hypoxic respiratory failure related to the acute exacerbation of COPD. Questionable acute bronchitis was also noted. 2. Metabolic alkalosis was also noted by the history. The patient was treated with Diamox longterm as well. PLAN OF MANAGEMENT: Use of previous setting of the BiPAP. The patient setting of IPAP with the settings of 06/09, will be ordered. Use of the BiPAP titrate oxygen, maintain saturation 90%. Continue current dose of steroids, antibiotic may be continued until the infection is excluded. The patient will be resumed on the Diamox. The patient 150 mg b.i.d. dosing. Arterial blood gas could be done for the patient as needed for the patient as well for further assessment. Usual care with additional treatment changes to be made for the patient based on progression of the illness. Order the sputum for Gram stain and culture the patient expectorates sputum. Thanks for allowing me to participate in care of this patient. ELIZABETH VILLASEÑOR MD CM:CONSTR:REPORT OF CONSULTATION 1252 12/19/17 2006 interface
--- NOTE | ~2017-12-18 | PR ---
[place], [place] PROGRESS NOTE [facility] [id number] UNIT #: [id number] ROOM: 406 DOCTOR: CHARLEEN WEST MD,ELIZABETH BIRTHDATE: [birth year] DOS: 12/20/2017 SUBJECTIVE: The patient independently seen and examined with xnwh-sw-dofz encounter, history was confirmed. Physical examination performed. The assessment and management for the patient personally completed, any changes in medical management of the patient was personally approved. Note done by the medical practice administrator was approved as well. Vital signs for the patient, which the patient reported symptoms of coughing without any sputum expectoration, [id number] that time. Denies symptoms of hemoptysis or chest pain. The wheezing of the patient has been noted, to be absent at rest, but shortness of breath was reported by the patient. She has been using the BiPAP, settings are previously ordered 06/09 for this patient at nighttime, p.r.n. during the day. Oxygen supplementation done other time. The remaining systems were reviewed, they were noted all negative except general weakness, fatigue reported. There were no symptoms of fever, chills, diplopia, headache, dizziness or any joint pains. OBJECTIVE: VITAL SIGNS: For the patient, which were done today shows normal temperature, respiratory rate 18, heart rate 77, blood pressure 110/71. Pulse oxygen saturation of the patient noted on 4 liters nasal cannula 98% saturation. BiPAP 98% saturation as well. HEENT: Examination shows head was atraumatic. Eyes nonicterus. NECK: Supple. CARDIOVASCULAR: S1, S2 is audible. LUNGS: Noted generally decreased breaths with partial improvement in air entry from previous exam. Expiratory wheezing was present today for this patient, which were not present previously. There were no crackles heard. ABDOMEN: Soft, nontender and flat. EXTREMITIES: Loss of muscle mass, chronic with no lesions or rashes, which were acute. MUSCULOSKELETAL: Without any acute deformities. CENTRAL NERVOUS SYSTEM: Cranial nerves 2-12 intact. LABORATORY DATA: Review of this morning for the patient's CBC: WBC count normal, hemoglobin 9.7 and hematocrit 33.0, platelet count was normal. BMP: Glucose 170, BUN and creatinine was normal. IMPRESSION: 1. Persistent cough. The patient with acute exacerbation of chronic obstructive pulmonary disease with ikrrp-mc-alscnib, acute hypercapnic and hypoxic respiratory failure. 2. Suspected mucus back to the major airways. The patient with acute bronchitis. There was no evidence of acute pneumonia. 3. Metabolic alkalosis secondary to chronic hypercarbia remains stable. PLAN OF TREATMENT: Continue the BiPAP, oxygen supplementation, bronchodilators, Mucinex and other treatment. If the patient continued to experience same symptom for the next 24 hours, I will consider doing a fiberoptic bronchoscopy on Monday. Otherwise, continue conservative treatment therapy, plan of [place], [place] PROGRESS NOTE NAME: NUBIA ROLLE [facility] #: [id number] UNIT #: [id number] ROOM: [facility] DOCTOR: ELIZABETH MCDONALD MD BIRTHDATE: [birth year] management and care and other therapies. Usual care. ELIZABETH VILLASEÑOR MD CM:PNTRANS [phone] ELIZABETH WEST MD 12/20/172058 interface
--- NOTE | ~2017-12-18 | EKG ---
[place], [place] ELECTROCARDIOGRAM REPORT NAME: NUBIA ROLLE UNIT #: [id number] ROOM: 406 DOCTOR: CHARLEEN WEST MD,ELIZABETH BIRTHDATE: [birth year] DOS: 12/18/2017 ELECTROCARDIOGRAM TIME: 2:49 p.m. Normal sinus rhythm noted, 87 beats per minute. There was no electrocardiogram abnormalities were noted. ELIZABETH VILLASEÑOR MD CM:EKGRPT:ELECTROCARDIOGRAM REPORT [id number] ELIZABETH WEST MD
--- NOTE | ~2017-12-18 | PR ---
[place], [place] PROGRESS NOTE [facility] [id number] UNIT #: [id number] ROOM: 404 DOCTOR: CHARLEEN WEST MD,ELIZABETH BIRTHDATE: [birth year] DOS: 12/22/2017 SUBJECTIVE: The patient was independently seen and examined, qyib-ea-tfnz encounter. History was confirmed. Physical examination was performed. All the labs of the patient available were reviewed. Any additional changes in the treatment, which was necessary for the patient was personally made for today's visit as well. The note done by the medical instrument cable fabricator, was approved. The patient had been currently sitting on the bed. The patient was noted chest congestion, coughing, nonproductive. N.p.o. past midnight for bronchoscopy. Bronchoscopy planned to be done today. Denies symptoms of chest pain or hemoptysis. Denies symptoms of nausea, vomiting. Her appetite was noted previously. Denies any headache or diplopia. General weakness and fatigue for the patient was noted, but it is improving gradually. Remaining review of systems was noted negative. OBJECTIVE: VITAL SIGNS: Normal temperature, respiratory rate 20, heart rate 71, blood pressure 126/70. Pulse oxygen saturation of the patient 4 liters 98% saturation. BiPAP was the same. HEENT: No new change. NECK: Supple. CARDIOVASCULAR: S1, S2 audible. LUNGS: Moderate expiratory wheezing remains bilateral decreased breath sounds, there were no crackles. ABDOMEN: Flat, soft, nontender. EXTREMITIES: Loss of muscle mass. There was no edema, clubbing or cyanosis. MUSCULOSKELETAL: Without any acute deformities. CENTRAL NERVOUS SYSTEM: Cranial nerves 2-12 intact. LABORATORY DATA: The sputum culture of the patient spontaneous ____ normal roberto. The Gram stain, moderate white blood cells with few epithelial cells, rare gram-positive cocci in clusters and yeast. IMPRESSION: 1. Acute exacerbation of chronic obstructive pulmonary disease for the patient with acute on chronic severe hypercapnic and hypoxic respiratory failure. 2. Severe cough of the patient wheezing remains persistent without any changes in the past couple of days, preop for bronchoscopy. PLAN OF TREATMENT: Proceed with bronchoscopy at this time to be extracted mucus impaction of major airways. No other change in the treatment this may be needed at the present time. Any modification treatment if necessary will be done after the bronchoscopy. [place], [place] PROGRESS NOTE NAME: NUBIA ROLLE UNIT #: [id number] ROOM: 404 DOCTOR: ELIZABETH MCDONALD MD BIRTHDATE: [birth year] ELIZABETH VILLASEÑOR MD CM:PNTRANS [phone] ELIZABETH WEST MD 12/23/17 0318 interface
--- NOTE | ~2017-12-18 | PR ---
[place], [place] PROGRESS NOTE NAME: NUBIA ROLLE [facility] #: [id number] UNIT #: [id number] ROOM: 406 DOCTOR: CHRIS DERAS DO BIRTHDATE: [birth year] DOS: 12/21/2017 SUBJECTIVE: The patient is seen and examined today with Dr. Villaseñor. She is sitting up in bed, states her breathing is a little better, but she is still having a coarse nonproductive cough. She has only been able to expectorate a small amount of sputum, which she has collected for sputum culture. She does not feel like she is able to completely relieve the congestion in her chest. She denies any chest pain, nausea, vomiting, fever, chills, lightheadedness or dizziness. OBJECTIVE: VITAL SIGNS: At time of exam, temperature 97.8, pulse 76, respiratory rate 20, blood pressure 109/70 and bedside pulse ox 99% on 4 liters per minute via nasal cannula. HEAD: Normocephalic, atraumatic. EYES: Nonicteric. No lesions. No scars. No masses. ENT: No masses. No lesions. No scars. Nares patent. Oropharynx clear. Oral mucosa moist. NECK: Supple, nontender, trachea midline. HEART: Regular rate and rhythm. No gallop. No murmur. No lower extremity edema. LUNGS: Still diminished lung sounds, but with good inspiratory effort, slightly improved since yesterday. No wheezes, rales or rhonchi noted at this time. No stridor. No pleural rub. ABDOMEN: Soft, nontender, nondistended, positive bowel sounds. No organomegaly noted. EXTREMITIES: No clubbing. No cyanosis. No erythema. No edema. LABORATORY AND DIAGNOSTIC DATA: CBC: White blood cell count 7, hemoglobin of 10.1, hematocrit 34.7, platelet count 140. BMP: Sodium 141, potassium 4.3, bicarbonate 31, BUN 13, creatinine 0.55, glucose 153, calcium 8.6. Sputum culture is still pending for result. Preliminary result shows few gram-positive cocci in clusters and rare budding yeast with moderate white blood cell. IMPRESSION: 1. Acute exacerbation of chronic obstructive pulmonary disease. 2. Acute on chronic hypercapnic and hypoxic respiratory failure. 3. Suspected mucus plugging with acute bronchitis. 4. Metabolic alkalosis secondary to chronic hypercarbia, stable. PLAN OF TREATMENT: Continue use of BiPAP intermittently at night with oxygen supplementation during the day, bronchodilators, Mucinex and other treatments. Continue Diamox 250 mg p.o. b.i.d. Continue Solu-Medrol 60 mg q. 12 hours and IV antibiotics of Rocephin and azithromycin. Due to the patient's nonproductive cough and inability to fully expectorate, we will prepare the patient for bronchoscopy tomorrow. She will be n.p.o. after midnight in preparation for bronchoscopy. [place], [place] PROGRESS NOTE NAME: NUBIA ROLLE UNIT #: [id number] ROOM: [facility] DOCTOR: CHRIS DERAS DO BIRTHDATE: [birth year] CHRIS DERAS DO ELIZABETH VILLASEÑOR MD CM:TOMAS [id number] CHRIS DERAS DO 12/21/17 1520 interface
[~2017-12-18 14:21] MED LIST changes: +NICOTROL10 MG INH
[2017-12-18 14:55] LABS: BASO % 0.2 % (0.0-1.0); EOS # 0.2 10*3/uL (0.0-0.4); EOS % 1.5 % (1.0-4.0); HEMATOCRIT 42.4 % (37.0-47.0); HEMOGLOBIN 12.2 g/dl (12.0-16.0); LYMPH # 1.1 10*3/uL (1.3-4.4); LYMPH % 10.3 % (27.0-41.0); MEAN CORPUSCULAR HGB CONC 28.8 g/dl (33.0-37.0); MEAN PLATELET VOLUME 11.4 fl (9.6-12.3); MONO # 0.4 10*3/uL (0.1-1.0); MONO % 3.9 % (3.0-9.0); NEUT # 9.3 10*3/uL (2.3-7.9); NEUT % 83.6 % (47.0-73.0); PLATELET COUNT AUTOMATED 157 10*3/uL (130-400); RED CELL DISTRI WIDTH 14.1 % (0-14.5); WHITE BLOOD COUNT 11.1 10*3/uL (4.8-10.8)
[2017-12-18 15:08] LABS: ABG BASE EXCESS 10.5 mmol/L (-2.0-2.0); ABG HCO3 40.7 mmol/l (22-26); ABG O2 SATURATION 94.3 % (95-97); ARTERIAL BLOOD GAS PH 7.251 (7.35-7.45)
[2017-12-18 15:10] LABS: ARTERIAL BLOOD GAS PCO2 96.5 mmHg (35-45)
[2017-12-18 15:17] LABS: ALBUMIN 3.6 gm/dl (3.1-4.5); ALKALINE PHOSPHATASE 56 U/L (45-117); BUN 11 mg/dl (7-24); CHLORIDE 99 mmol/L (98-107); CREATININE 0.62 mg/dL (0.55-1.02); POTASSIUM 4.2 mmol/L (3.5-5.1); SGOT/AST 13 IU/L (3-35); SGPT/ALT 17 U/L (12-78); SODIUM 140 mmol/L (136-145); TOTAL PROTEIN 7.4 gm/dL (6.4-8.2); TROPONIN I 0.023 ng/ml (<0.045)
[2017-12-18 15:22] LABS: BILIRUBIN NEGATIVE (NEGATIVE); BLOOD NEGATIVE (NEGATIVE); CLARITY CLEAR (CLEAR); COLOR YELLOW (YELLOW); GLUCOSE NEGATIVE (NEGATIVE); KETONE NEGATIVE (NEGATIVE); LEUKO ESTERASE NEGATIVE (NEGATIVE); NITRITE NEGATIVE (NEGATIVE); UROBILINOGEN 0.2 E.U./dl (0.2-1.0)
[2017-12-18 15:35] LABS: BACTERIA TRACE; WBC 0-2 wbc/hpf (0-5)
[2017-12-18 22:30] LABS: ABG BASE EXCESS 6.4 mmol/L (-2.0-2.0); ABG HCO3 35.3 mmol/l (22-26); ABG O2 SATURATION 91.2 % (95-97); ARTERIAL BLOOD GAS PH 7.292 (7.35-7.45); ARTERIAL BLOOD GAS PO2 55.8 mmHg (80-90)
[2017-12-18 22:36] LABS: ARTERIAL BLOOD GAS PCO2 73.9 mmHg (35-45)
[2017-12-19] VITALS: BP 107/55
[2017-12-19 05:58] LABS: HEMATOCRIT 38.1 % (37.0-47.0); HEMOGLOBIN 11.2 g/dl (12.0-16.0); LYMPH # 0.8 10*3/uL (1.3-4.4); LYMPH % 10.9 % (27.0-41.0); MEAN CELL VOLUME 98.2 fl (81.0-99.0); MEAN CORPUSCULAR HGB 28.9 pg (27.0-31.0); MEAN CORPUSCULAR HGB CONC 29.4 g/dl (33.0-37.0); MEAN PLATELET VOLUME 12.1 fl (9.6-12.3); MONO # 0.2 10*3/uL (0.1-1.0); MONO % 2.8 % (3.0-9.0); NEUT # 6.4 10*3/uL (2.3-7.9); NEUT % 85.9 % (47.0-73.0); PLATELET COUNT AUTOMATED 158 10*3/uL (130-400); RED BLOOD COUNT 3.88 10*6/uL (4.10-5.10); WHITE BLOOD COUNT 7.5 10*3/uL (4.8-10.8)
[2017-12-19 06:30] LABS: ALBUMIN 3.2 gm/dl (3.1-4.5); BUN 17 mg/dl (7-24); CHLORIDE 100 mmol/L (98-107); POTASSIUM 3.8 mmol/L (3.5-5.1); SODIUM 142 mmol/L (136-145)
[2017-12-19 06:40] LABS: ALKALINE PHOSPHATASE 57 U/L (45-117); CHOLESTEROL 204 mg/dL (<200); CREATININE 0.48 mg/dL (0.55-1.02); FREE T4 0.98 ng/dl (0.76-1.46); HDL CHOLESTEROL 66 mg/dl (40-60); LDL CHOLESTEROL 126 mg/dL (9-159); PHOSPHOROUS 2.5 mg/dL (2.5-4.9); SGOT/AST 17 IU/L (3-35); SGPT/ALT 18 U/L (12-78); THYROID STIM HORMONE (HS) 0.275 uIU/ml (0.358-4.75); TOTAL PROTEIN 6.8 gm/dL (6.4-8.2); TRIGLYCERIDES 60 mg/dl (<150); VLDL CHOLESTEROL 12 mg/dL (6-40)
[2017-12-19 08:00] VITALS: BP 92/53
[2017-12-19 12:00] VITALS: BP 101/61
[2017-12-19 16:00] VITALS: BP 100/66
[2017-12-19 20:00] VITALS: BP 123/66
[2017-12-20] VITALS: BP 98/60
[2017-12-20 06:50] LABS: BASO % 0.1 % (0.0-1.0); HEMOGLOBIN 9.7 g/dl (12.0-16.0); LYMPH # 0.8 10*3/uL (1.3-4.4); LYMPH % 9.7 % (27.0-41.0); MEAN CELL VOLUME 98.5 fl (81.0-99.0); MEAN CORPUSCULAR HGB CONC 29.4 g/dl (33.0-37.0); MEAN PLATELET VOLUME 12.8 fl (9.6-12.3); MONO # 0.2 10*3/uL (0.1-1.0); MONO % 2.1 % (3.0-9.0); NEUT # 7.2 10*3/uL (2.3-7.9); NEUT % 87.9 % (47.0-73.0); PLATELET COUNT AUTOMATED 142 10*3/uL (130-400); RED BLOOD COUNT 3.35 10*6/uL (4.10-5.10); RED CELL DISTRI WIDTH 14.1 % (0-14.5); WHITE BLOOD COUNT 8.2 10*3/uL (4.8-10.8)
[2017-12-20 07:08] LABS: CHLORIDE 101 mmol/L (98-107); POTASSIUM 3.9 mmol/L (3.5-5.1); SODIUM 138 mmol/L (136-145)
[2017-12-20 07:13] LABS: BUN 13 mg/dl (7-24)
[2017-12-20 08:00] VITALS: BP 110/71
[2017-12-20 12:00] VITALS: BP 135/82
[2017-12-20 16:00] VITALS: BP 107/61
[2017-12-20 20:00] VITALS: BP 112/69
[2017-12-21] VITALS: BP 103/57
[2017-12-21 07:07] LABS: BASO % 0.1 % (0.0-1.0); HEMATOCRIT 34.7 % (37.0-47.0); HEMOGLOBIN 10.1 g/dl (12.0-16.0); LYMPH # 0.6 10*3/uL (1.3-4.4); LYMPH % 8.9 % (27.0-41.0); MEAN CELL VOLUME 99.1 fl (81.0-99.0); MEAN CORPUSCULAR HGB 28.9 pg (27.0-31.0); MEAN CORPUSCULAR HGB CONC 29.1 g/dl (33.0-37.0); MEAN PLATELET VOLUME 12.7 fl (9.6-12.3); MONO # 0.2 10*3/uL (0.1-1.0); NEUT # 6.1 10*3/uL (2.3-7.9); NEUT % 87.7 % (47.0-73.0); PLATELET COUNT AUTOMATED 140 10*3/uL (130-400); RED CELL DISTRI WIDTH 14.4 % (0-14.5)
[2017-12-21 07:28] LABS: BUN 13 mg/dl (7-24); CHLORIDE 105 mmol/L (98-107); CREATININE 0.55 mg/dL (0.55-1.02); POTASSIUM 4.3 mmol/L (3.5-5.1); SODIUM 141 mmol/L (136-145)
[2017-12-21 08:00] VITALS: BP 109/70
[2017-12-21 12:00] VITALS: BP 121/80
[2017-12-21 16:00] VITALS: BP 111/69
[2017-12-21 20:00] VITALS: BP 108/63
[2017-12-22] VITALS (9 sets, daily range): BP systolic 103–130; BP diastolic 21–92
[2017-12-23] VITALS: BP 105/65
[2017-12-23 06:13] LABS: HEMATOCRIT 36.4 % (37.0-47.0); HEMOGLOBIN 10.4 g/dl (12.0-16.0); MEAN CELL VOLUME 99.7 fl (81.0-99.0); MEAN CORPUSCULAR HGB 28.5 pg (27.0-31.0); MEAN CORPUSCULAR HGB CONC 28.6 g/dl (33.0-37.0); MEAN PLATELET VOLUME 12.8 fl (9.6-12.3); PLATELET COUNT AUTOMATED 154 10*3/uL (130-400); RED BLOOD COUNT 3.65 10*6/uL (4.10-5.10); RED CELL DISTRI WIDTH 14.4 % (0-14.5); WHITE BLOOD COUNT 7.6 10*3/uL (4.8-10.8)
[2017-12-23 06:29] LABS: BUN 21 mg/dl (7-24); CHLORIDE 103 mmol/L (98-107); CREATININE 0.75 mg/dL (0.55-1.02); POTASSIUM 4.5 mmol/L (3.5-5.1); SODIUM 141 mmol/L (136-145)
[2017-12-23 06:39] LABS: PLATELET SUFFICIENCY NORMAL (NORMAL); TOTAL CELLS COUNTED 100 #CELLS
[2017-12-23 08:00] VITALS: BP 129/63
[2017-12-23 12:00] VITALS: BP 106/57
[2017-12-23] MEDS ORDERED: MUCINEX ER600 MG PO (12:45)
[2017-12-23] MEDS ORDERED: PREDNISONE10 MG PO (12:45)
[2017-12-23] MEDS ORDERED: DOXYCYCLINE100 M3 PO ×2 (12:45→12:50)
[2017-12-23 15:08] LABS: ACID FAST SPEC PROCESSING Concentration (.)
== END 2017-12-23 13:59 | disposition home or self-care (01) | DRG 871 ==
LOC: ED 14:21 → 4E 17:01 → EDHOLD 17:01 → 4E 17:33
PROVIDERS: Emergency Medicine; Internal Medicine; Internal Medicine Critical Care Medicine
PROC: 5A09357 Assistance with Respiratory Ventilation, Less than 24 Consecutive Hours, Continuous Positive Airway Pressure (ICD-10-PCS; 2017-12-18)
PROC: 5A09357 Assistance with Respiratory Ventilation, Less than 24 Consecutive Hours, Continuous Positive Airway Pressure (ICD-10-PCS; 2017-12-21)
PROC: 0BC98ZZ Extirpation of Matter from Lingula Bronchus, Via Natural or Artificial Opening Endoscopic (ICD-10-PCS; principal; 2017-12-22)
PROC: 0BC48ZZ Extirpation of Matter from Right Upper Lobe Bronchus, Via Natural or Artificial Opening Endoscopic (ICD-10-PCS; 2017-12-22)
PROC: 0BC88ZZ Extirpation of Matter from Left Upper Lobe Bronchus, Via Natural or Artificial Opening Endoscopic (ICD-10-PCS; 2017-12-22)
PROC: 0BC58ZZ Extirpation of Matter from Right Middle Lobe Bronchus, Via Natural or Artificial Opening Endoscopic (ICD-10-PCS; 2017-12-22)
PROC: 0BC38ZZ Extirpation of Matter from Right Main Bronchus, Via Natural or Artificial Opening Endoscopic (ICD-10-PCS; 2017-12-22)
PROC: 0BC78ZZ Extirpation of Matter from Left Main Bronchus, Via Natural or Artificial Opening Endoscopic (ICD-10-PCS; 2017-12-22)
PROC: 0BC68ZZ Extirpation of Matter from Right Lower Lobe Bronchus, Via Natural or Artificial Opening Endoscopic (ICD-10-PCS; 2017-12-22)
PROC: 0BCB8ZZ Extirpation of Matter from Left Lower Lobe Bronchus, Via Natural or Artificial Opening Endoscopic (ICD-10-PCS; 2017-12-22)
PROC: 0BC18ZZ Extirpation of Matter from Trachea, Via Natural or Artificial Opening Endoscopic (ICD-10-PCS; 2017-12-22)
DX: A41.9 Sepsis, unspecified organism (principal); J96.21 Acute and chronic respiratory failure with hypoxia; E43 Unspecified severe protein-calorie malnutrition; G93.41 Metabolic encephalopathy; T17.590A Other foreign object in bronchus causing asphyxiation, initial encounter; T17.490A Other foreign object in trachea causing asphyxiation, initial encounter; E87.3 Alkalosis; E87.2 Acidosis; J18.9 Pneumonia, unspecified organism; J96.22 Acute and chronic respiratory failure with hypercapnia; I50.22 Chronic systolic (congestive) heart failure; J44.1 Chronic obstructive pulmonary disease with (acute) exacerbation; F33.9 Major depressive disorder, recurrent, unspecified; J44.0 Chronic obstructive pulmonary disease with (acute) lower respiratory infection; Z68.1 Body mass index [BMI] 19.9 or less, adult; J84.10 Pulmonary fibrosis, unspecified; D64.9 Anemia, unspecified; R73.9 Hyperglycemia, unspecified; E83.41 Hypermagnesemia; E78.5 Hyperlipidemia, unspecified; L40.0 Psoriasis vulgaris; F41.9 Anxiety disorder, unspecified; J20.9 Acute bronchitis, unspecified; R65.20 Severe sepsis without septic shock; X58.XXXA Exposure to other specified factors, initial encounter; R62.7 Adult failure to thrive; Z91.81 History of falling; Z99.81 Dependence on supplemental oxygen; Z88.1 Allergy status to other antibiotic agents; Z79.899 Other long term (current) drug therapy; Z98.51 Tubal ligation status; Z90.49 Acquired absence of other specified parts of digestive tract; Z87.891 Personal history of nicotine dependence; Z82.3 Family history of stroke; Z82.5 Family history of asthma and other chronic lower respiratory diseases; Z83.49 Family history of other endocrine, nutritional and metabolic diseases; Y93.89 Activity, other specified; Y92.89 Other specified places as the place of occurrence of the external cause; Y99.8 Other external cause status

== ENCOUNTER → 2018-01-01 | Outpatient (CLI) | payer OTHER ==
[~2018-01-01] MED LIST changes: +MUCINEX ER600 MG PO
== END | disposition home or self-care (01) ==
LOC: RESCLI 00:41
DX: Z09 Encounter for follow-up examination after completed treatment for conditions other than malignant neoplasm (principal); J44.9 Chronic obstructive pulmonary disease, unspecified; E87.6 Hypokalemia; E51.9 Thiamine deficiency, unspecified; R11.0 Nausea; F41.8 Other specified anxiety disorders; L40.0 Psoriasis vulgaris; M79.2 Neuralgia and neuritis, unspecified; E55.9 Vitamin D deficiency, unspecified; R00.0 Tachycardia, unspecified; E87.3 Alkalosis; D53.9 Nutritional anemia, unspecified; Z99.81 Dependence on supplemental oxygen; Z87.898 Personal history of other specified conditions

== ENCOUNTER 2018-01-11 20:15 | Inpatient (IN) | payer OTHER ==
[~2018-01-11] VITALS: Ht 167.6 cm; Wt 48.1 kg
--- NOTE | ~2018-01-11 | EKG ---
[place], [place] ELECTROCARDIOGRAM REPORT NAME: NUBIA ROLLE UNIT #: [id number] ROOM: 504 DOCTOR: CHARLEEN WEST MD,ELIZABETH BIRTHDATE: [birth year] DOS: 01/11/2018 Electrocardiogram was done on 01/11/2018. Normal sinus rhythm noted. Heart rate 94 beats per minute. Possibility of LVH, could be considered based by the current voltage criteria. ELIZABETH VILLASEÑOR MD CM:EKGRPT:ELECTROCARDIOGRAM REPORT [id number] ELIZABETH WEST MD
--- NOTE | ~2018-01-11 | PR ---
[place], [place] PROGRESS NOTE NAME: NUBIA ROLLE UNIT #: [id number] ROOM: 504 DOCTOR: ALNO AGUILAR MD BIRTHDATE: [birth year] DOS: 01/14/2018 REASON FOR VISIT: Cardiac evaluation for reported bradycardia. SUBJECTIVE: The patient is feeling better, still some short of breath, but better than yesterday. Family is at bedside. Denies any chest pain, palpitation, no dizziness, no edema, no orthopnea, no PND, no fever and chills, still having some occasional cough. No nausea, vomiting, diarrhea. REVIEW OF SYSTEMS: Review of the 8 systems negative except as mentioned above. RHYTHM STRIPS: The patient in sinus rhythm. No sinus bradycardia. PHYSICAL EXAMINATION: VITAL SIGNS: Blood pressure 138/78, pulse 88, respiration rate was 18. GENERAL: Alert, comfortable, in no acute distress. NECK: Supple, no distended neck veins, no carotid bruit. CHEST: Symmetrical, nontender. LUNGS: Few scattered rhonchi, but fair air entry bilaterally. HEART: Regular rhythm, no S3. Grade 1/6 systolic murmur. ABDOMEN: Benign, nontender. Bowel sounds normal. EXTREMITIES: Showed no edema. Distal pulses palpable. SKIN: Warm and dry. No cyanosis, no clubbing. MEDICATIONS AND LABORATORY DATA: Reviewed. IMPRESSION: 1. Reported sinus bradycardia, no bradycardia found since admission. 2. Borderline sinus tachycardia due to underlying pulmonary condition. 3. Tobacco use. The patient counseled to quit smoking. 4. Mild mitral regurgitation. 5. Mild LV dysfunction, EF , no acute congestive heart failure. 6. Chronic obstructive pulmonary disease exacerbation with acute on chronic respiratory failure. RECOMMENDATIONS: 1. Continue current medications. 2. Continue to monitor heart rate and blood pressures. 3. Cardiology will see as needed. 4. I would recommend outpatient 7-14 days of event monitor after discharge. [place], [place] PROGRESS NOTE NAME: NUBIA ROLLE UNIT #: [id number] ROOM: 504 DOCTOR: ALON AGUILAR MD BIRTHDATE: [birth year] ALON AGUILAR MD CM:PNTRANS [phone] ALON AGUILAR MD 01/14/182358 interface
--- NOTE | ~2018-01-11 | CON ---
[place], [place] REPORT OF CONSULTATION NAME: NUBIA ROLLE UNIT #: [id number] ROOM: 504 DOCTOR: JEFF BILLY,SHIVLOLI BIRTHDATE: [birth year] DOS: 01/13/2018 CARDIOLOGY CONSULT REASON FOR CONSULTATION: Bradycardia, . HISTORY OF PRESENT ILLNESS: The patient is a 47-year-old patient with history of severe end-stage COPD, on home oxygen, who has presented to Emergency Room due to shortness of breath. She also uses BiPAP at home. As per the patient and chart, her noted that her heart rates are in 20s and 30s at home and this is another reason, she was brought to the Emergency Room for further evaluation. She was admitted to the hospital because of her shortness of breath and also with the cough. The patient has been cutting down her smoking for the past few days and she was in the hospital earlier part of December this year for COPD exacerbation. Chest x-ray showed some interstitial lung disease and Cardiology consult for "reported bradycardia at home." At the time of my examination, the patient is alert and oriented, denies any dizziness. Her breathing is much better. She thinks her heart rate is sometimes faster, but she never noticed that her pulse was low. She has no dizziness, no syncope. No PND, no orthopnea. No nausea, vomiting or diarrhea. No headaches, no blurred vision or double vision, no neurologic symptoms, no genitourinary symptoms. Her only complaint is mild headache, which is much better now. REVIEW OF SYSTEMS: Review of the 10 system negative except as mentioned above. PAST MEDICAL HISTORY: 1. Mild left ventricular dysfunction with ejection fraction 45%-50% by echo in September 2017. 2. Mild valvular heart disease with mild mitral regurgitation and mild tricuspid regurgitation. 3. End-stage chronic obstructive pulmonary disease. 4. Home oxygen. 5. Dyslipidemia. 6. Psoriasis. PAST SURGICAL HISTORY: History of tubal ligation, history of cholecystectomy. SOCIAL HISTORY: The patient does not drink or use illicit drugs, still smoking, try to cutting back, currently 1-2 cigarettes per day. FAMILY HISTORY: Father , had a history of multiple strokes. Mother had COPD and emphysema, . ALLERGIES: THE PATIENT IS ALLERGIC TO LEVOFLOXACIN. HOME MEDICATIONS: Reviewed. PHYSICAL EXAMINATION: VITAL SIGNS: Blood pressure 128/88, pulse 89, respiration rate is 20, weight 48 kilos, BMI 17. [place], [place] REPORT OF CONSULTATION NAME: NUBIA ROLLE UNIT #: [id number] ROOM: [facility] DOCTOR: ALON AGUILAR MD BIRTHDATE: [birth year] GENERAL: Alert, comfortable, in no acute distress. HEENT: Pupils are round and equal. No jaundice. NECK: Supple, no distended neck veins, no carotid bruit. CHEST: Symmetrical, nontender. LUNGS: Few scattered rhonchi. Good air entry bilaterally. HEART: With regular rhythm, no S3, grade 1/6 systolic murmur at the left sternal border. No palpable thrills. ABDOMEN: Benign, nontender. Bowel sounds normal. EXTREMITIES: Showed no edema. Distal pulses palpable. SKIN: Warm and dry. No cyanosis, no clubbing. RECTAL: Deferred. GENITOURINARY: Deferred. REVIEW OF THE DIAGNOSTIC TESTS: Rhythm strips and labs reviewed as well as imaging studies reviewed. Chest x-ray showed some chronic interstitial lung disease. Hemoglobin 9.3, platelets 120,000, BUN 14, creatinine 0.5. On 12/19/2017, TSH 0.275, T4 normal. A 2D echo in September 2017 reviewed, showed mild mitral regurgitation, trace of tricuspid regurgitation with EF 45%-50%. IMPRESSION: 1. Reported bradycardia at home, no evidence of bradycardia since her hospitalization. Her heart rates are between lowest was 74, highest was up to 200, the patient is symptomatic. 2. Mild left ventricular dysfunction with no acute congestive heart failure, ejection fracture 45%-50%. 3. Mild valvular heart disease with mild mitral regurgitation and mild tricuspid regurgitation by echo in September 2017.. 4. Anemia. 5. Thrombocytopenia. 6. End-stage chronic obstructive pulmonary disease. 7. Acute on chronic hypoxic respiratory failure. 8. Tobacco use. RECOMMENDATIONS: 1. Continue to watch her heart rate and blood pressure. 2. I would recommend 1-2 weeks of event monitor after discharge. 3. She denies any chest pain and currently, in no acute heart failure. 4. No further cardiac testing at this time. 5. Avoid any beta blockers at this time. 6. Continue to monitor hemoglobin and platelet count. 7. There is no family at bedside at the time of my examination. [place], [place] REPORT OF CONSULTATION NAME: NUBIA ROLLE UNIT #: [id number] ROOM: 504 DOCTOR: JEFF BILLY,ALON BIRTHDATE: [birth year] ALON AGUILAR MD CM:CONSTR:REPORT OF CONSULTATION 58 01/13/18 2346 interface
--- NOTE | ~2018-01-11 | PR ---
[place], [place] PROGRESS NOTE NAME: NUBIA ROLLE UNIT #: [id number] ROOM: 504 DOCTOR: CHARLEEN WEST MD,ELIZABETH BIRTHDATE: [birth year] DOS: 01/13/2018 SUBJECTIVE: She has been noted comfortable at this time, noted with shortness of breath at times. Continue oxygen supplementation, bronchodilators and the BiPAP. He has not been noted symptoms of chest pain or hemoptysis. OBJECTIVE: VITAL SIGNS: The patient with a normal temperature, respiratory rate 20 ____, blood pressure 120/89. The pulse oxygen saturation on 4 liters 94% saturation. HEENT: No acute change. NECK: Supple. CARDIOVASCULAR: S1, S2 heard. LUNGS: Noted moderate decreased breath sounds, expiratory wheezing, no crackles. ABDOMEN: Soft, nontender, flat. EXTREMITIES: Without acute edema. LABORATORY DATA: BMP done this morning, normal BUN, creatinine normal was 124, mildly elevated. CBC of the patient's hemoglobin 9.3, hematocrit 31, WBC count and platelet count normal. IMPRESSION: Acute on chronic hypercapnic and hypoxic respiratory failure. The patient exacerbation of chronic obstructive pulmonary disease with gradual improvement. Continue the respiratory status. PLAN OF TREATMENT: Continue the BiPAP with oxygen supplementation. Other therapy, plan and management previously. Usual care, other supportive plan of therapy and management, plan. ELIZABETH VILLASEÑOR MD CM:PNTRANS [phone] ELIZABETH WEST MD 01/14/18209 interface
--- NOTE | ~2018-01-11 | PR ---
[place], [place] PROGRESS NOTE NAME: NUBIA ROLLE UNIT #: [id number] ROOM: 504 DOCTOR: CHARLEEN WEST MD,ELIZABETH BIRTHDATE: [birth year] DOS: 01/15/2018 PULMONARY PROGRESS NOTE SUBJECTIVE: The patient was noted comfortable at this time with further reduction of the shortness of breath. Coughing has been noted minimal. There was no wheezing. Using the BiPAP as ordered. OBJECTIVE: VITAL SIGNS: This morning, normal temperature, respiratory rate 16, heart rate 77, blood pressure 120/74. Pulse ox saturation on 4 liters 97% saturation. HEENT: No acute change. NECK: Supple. CARDIOVASCULAR: S1, S2 audible. LUNGS: Without any crackles. Occasional wheezing. ABDOMEN: Soft, nontender. EXTREMITIES: Without acute edema. LABORATORY DATA: BMP was noted as normal today. CBC: Hemoglobin 10, otherwise normal CBC. IMPRESSION: The patient with progressive improvement and resolution noted, acute on chronic hypercapnic and hypoxic respiratory failure, exacerbation of chronic obstructive pulmonary disease with minimal cough noted at this time. Wheezing has improved with good air entry. PLAN OF MANAGEMENT: The patient could be considered for home discharge on tapering dose of prednisone, antibiotics, and advised to continue use of the BiPAP. Absolute abstinence of tobacco use was recommended. ELIZABETH VILLASEÑOR MD CM:PNTRANS [phone] ELIZABETH WEST MD 01/16/18 0247 interface
--- NOTE | ~2018-01-11 | PR ---
[place], [place] PROGRESS NOTE NAME: NUBIA ROLLE UNIT #: [id number] ROOM: 504 DOCTOR: ELIZABETH MCDONALD MD BIRTHDATE: [birth year] DOS: 01/14/2018 PULMONARY PROGRESS NOTE SUBJECTIVE: She has been noted comfortable at this time with reduction in shortness of breath symptoms noted in the past ____ the coughing has been noted decreased in intensity and frequency. There were no symptoms of chest pain. She has been placed on her own home BiPAP which was tolerated without any evidence of nocturnal oxygen desaturations. OBJECTIVE: VITAL SIGNS: Show normal temperature, respiratory rate 18, heart rate 88, blood pressure 130/74. Pulse oxygen saturation this morning noted at rest on 4 liters nasal cannula 95% saturation. HEENT: Examination shows no acute change. NECK: Supple. CARDIOVASCULAR: S1, S2 is audible. LUNGS: The patient noted without any wheezing or crackles at present time. Breaths are noted mildly decreased on today with improvement in air entry noted. There were no crackles. ABDOMEN: Soft, nontender. Bowel sounds present. EXTREMITIES: Without any acute edema. IMPRESSION: The patient with stable respiratory status, with resolving acute on chronic hypercapnic and hypoxic respiratory failure progressively. Culture of the sputum was pending. The Gram stain noted with moderate white blood cells, few epithelial cells, and few gram-positive bacilli. PLAN OF MANAGEMENT: Continue the BiPAP use for this patient as ordered with corticosteroids, bronchodilators, and other therapy, plan of management. Dose of Solu-Medrol will be decreased today to 40 mg b.i.d. with monitoring respiratory status with current change. Other supportive therapy, plan of management and care as in progress will be continued without changes. Usual care. [place], [place] PROGRESS NOTE NAME: NUBIA ROLLE UNIT #: [id number] ROOM: 504 DOCTOR: ELIZABETH MCDONALD MD BIRTHDATE: [birth year] ELIZABETH VILLASEÑOR MD CM:PNTRANS [id number] ELIZABETH WEST MD 01/14/18 1502 interface
--- NOTE | ~2018-01-11 | CON ---
[place], [place] REPORT OF CONSULTATION NAME: NUBIA ROLLE UNIT #: [id number] ROOM: 504 DOCTOR: ELIZABETH MCDONALD MD BIRTHDATE: [birth year] DOS: 01/12/2018 CONSULTATION REQUESTED BY: Hospitalist services. REASON FOR CONSULTATION: To assess the patient's recurrent acute on chronic respiratory failure with exacerbation of chronic obstructive pulmonary disease. HISTORY OF PRESENT ILLNESS: A 47-year-old white female patient who has been in the hospital frequently because of the recurrent episodes of [id number] hypercapnic hypoxic respiratory failure, currently using her respiratory medication at home as well as the BiPAP. She has been discharged from this hospital on the 12/23/2017 after management with acute exacerbation of chronic obstructive pulmonary disease, yaclo-[id number] hypercapnic hypoxic respiratory failure. She was noted doing very well at the time of the discharge, taking her medications. She was readmitted to the hospital under care of the hospitalist service on 01/11/2018. The patient reported symptoms of shortness of breath that was occurring at home. She was also noted with symptoms of headache intermittently with current symptoms. Chest tightness and wheezing was reported by the patient. REVIEW OF SYSTEMS: CONSTITUTIONAL: Generalized weakness and fatigue were reported, symptoms of fever or chills. EYES: Denies any burning, redness, or tenderness. EARS, NOSE AND THROAT: Denies sore throat, hoarseness, otalgia, postnasal drainage or epistaxis. CARDIOVASCULAR: The patient stated that she has been noted bradycardia at home for the patient low heart rate. Denies symptoms of anginal pain. GASTROINTESTINAL: No dysphagia, nausea, vomiting, diarrhea, abdominal pain, hematemesis or melena. GENITOURINARY: No dysuria, suprapubic pain, hematuria. MUSCULOSKELETAL: No joint pain for the patient, which was noted acute. SKIN: Denies abnormal lesions or rashes. CENTRAL NERVOUS SYSTEM: The patient denies symptoms of diplopia. Reported symptoms of headache intermittently. There were no symptoms of syncopal episodes. Remaining system for the patient, they were noted all negative. PAST MEDICAL HISTORY: Noted for patient recent hospitalization with discharged, 12/23/2017 and was managed with acute on chronic hypercapnic hypoxic respiratory failure. The patient with exacerbation of chronic obstructive pulmonary disease at that time and discharge the patient is in stable condition. PAST MEDICAL HISTORY: 1. The patient was known with history of end-stage COPD. 2. Frequent hospitalization. 3. Chronic metabolic alkalosis secondary to hypercarbia. 4. Chronic hypoxic respiratory failure. 5. Chronic hypercarbic respiratory failure. 6. Chronic nonadherence to the treatment of the patient and tobacco use for patient intermittent as well. [place], [place] REPORT OF CONSULTATION NAME: NUBIA ROLLE UNIT #: [id number] ROOM: [facility] [birth year] 7. History of skin psoriasis. 8. Protein calorie malnutrition. 9. General anxiety disorder. PAST SURGICAL HISTORY: 1. Tubal ligation. 2. Cholecystectomy. 3. Intubation and mechanical ventilation. 4. Therapeutic bronchoscopies. SOCIAL HISTORY: The patient is and lives at home. Denies history of alcohol use, illicit drug use. Does smoke few cigarettes daily. Denies any history of alcohol or any illicit drug use has been noted chronic dependency and abuse of narcotics medication, recreational use of marijuana. FAMILY HISTORY: The patient's father complication related to stroke. Mother with complication of emphysema. CURRENT MEDICATIONS: Per the patient, which was used. The patient noted use of: 1. Remeron. 2. Mucinex. 3. Calcium and vitamin D. 4. Gabapentin. 5. Diamox. 6. Lovenox. 7. Dulera. 8. IV Solu-Medrol 60 mg q. 8 hours. 9. Nicotine placement patches. 10. DuoNeb q. 4 hours. 11. Zithromax and Rocephin. 12. BuSpar. 13. Suboxone. DRUG ALLERGIES: NOTED ALLERGY TO THE LEVAQUIN. PHYSICAL EXAMINATION: GENERAL: This is a 47-year-old female currently noted to be awake. She does note signs of respiratory distress at time of the assessment. Using oxygen supplementation nasal cannula, was earlier given 100% nonrebreather mask. VITAL SIGNS: Height was noted 5 feet 6 inches, weight of 106 pounds. Pulse oxygen saturation recorded as 82% on 5 liters nasal cannula for the patient and then later on the BiPAP is 98%, with 100% nonrebreather mask 99% saturation. Currently on nasal cannula 4 liters noted 98% saturation of oxygen. Temperature noted as normal, respiratory rate 20, heart rate 81, blood pressure 112/60-141/89. HEENT: Examination shows head was atraumatic. Eyes nonicterus. NECK: Supple. CARDIOVASCULAR: S1, S2 is audible. LUNGS: Noted moderate decreased breath sounds noted in the lungs bilaterally. [place], [place] REPORT OF CONSULTATION NAME: NUBIA ROLLE UNIT #: [id number] ROOM: [facility] DOCTOR: CHARLEEN WEST MD,ELIZABETH BIRTHDATE: [birth year] ABDOMEN: Soft, nontender. Bowel sounds present. EXTREMITIES: Noted with chronic loss of muscle mass. There was no edema, clubbing or cyanosis. MUSCULOSKELETAL: Without any acute deformities. CENTRAL NERVOUS SYSTEM: Cranial nerves 2-12 intact. No focal neurologic deficit. LABORATORY DATA: CBC of the patient that was done on admission 01/11/2018, hemoglobin 11.6, otherwise normal. Lactic acid normal yesterday. CMP of the patient on 01/11/2018, glucose 141, BUN and creatinine was normal, CO2 of 38. Arterial blood gas pH of 7.20, pCO2 of 15, pO2 282. The patient is on 100% nonrebreather mask. The troponin of the patient 3 sets normal from yesterday and this morning. PT/PTT normal today. CBC: WBC count 11.5. CBC remains same. BMP noted with normal BUN and creatinine. CO2 of 39. One view chest x-ray of the patient was noted with chronic changes with changes of COPD. IMPRESSION: 1. The patient has been currently admitted to the hospital noted with acute on chronic hypoxic and hypercapnic respiratory failure. 2. Acute exacerbation of chronic obstructive pulmonary disease as well. 3. Chronic nonadherence to treatment with tobacco dependence as well. 4. Past history of narcotics medication dependency of the patient currently using Suboxone. 5. Chronic protein calorie malnutrition status of the patient and debility with end-stage chronic obstructive pulmonary disease. 6. Stable chronic metabolic alkalosis current medical management. PLAN OF MANAGEMENT: The patient will be continued on current therapy, plan of management of the patient as in progress with adherence to the BiPAP was started with the previous home pressures. The oxygen supplementation intermittent during the daytime to be used if the patient does note respiratory distress. The BiPAP was advised to be used continuous at nighttime. Other treatment, plan of management of the patient will be continued as in progress. Usual care. Supportive therapy and other plan of management as well, increasing nutritional support. Tobacco cessation of the patient counseling was done 3 minutes or greater as well. Thanks for allowing me to participate in care of this patient. [place], [place] REPORT OF CONSULTATION NAME: NUBIA ROLLE UNIT #: [id number] ROOM: [facility] DOCTOR: ELIZABETH MCDONALD MD BIRTHDATE: [birth year] ELIZABETH VILLASEÑOR MD CM:CONSTR:REPORT OF CONSULTATION 1640 01/13/18 0246 interface
[2018-01-11 20:23] VITALS: BP 140/91
[2018-01-11 20:46] LABS: BASO % 0.2 % (0.0-1.0); EOS # 0.1 10*3/uL (0.0-0.4); EOS % 1.1 % (1.0-4.0); HEMATOCRIT 40.8 % (37.0-47.0); HEMOGLOBIN 11.6 g/dl (12.0-16.0); LYMPH # 1.7 10*3/uL (1.3-4.4); LYMPH % 21.4 % (27.0-41.0); MEAN CELL VOLUME 101.2 fl (81.0-99.0); MEAN CORPUSCULAR HGB 28.8 pg (27.0-31.0); MEAN CORPUSCULAR HGB CONC 28.4 g/dl (33.0-37.0); MEAN PLATELET VOLUME 12.4 fl (9.6-12.3); MONO # 0.6 10*3/uL (0.1-1.0); MONO % 7.2 % (3.0-9.0); NEUT # 5.7 10*3/uL (2.3-7.9); NEUT % 69.9 % (47.0-73.0); PLATELET COUNT AUTOMATED 129 10*3/uL (130-400); RED BLOOD COUNT 4.03 10*6/uL (4.10-5.10); RED CELL DISTRI WIDTH 13.5 % (0-14.5); WHITE BLOOD COUNT 8.1 10*3/uL (4.8-10.8)
[2018-01-11 21:00] LABS: ABG BASE EXCESS 8.5 mmol/L (-2.0-2.0); ABG HCO3 39.5 mmol/l (22-26); ABG O2 SATURATION 99.4 % (95-97); ARTERIAL BLOOD GAS PH 7.201 (7.35-7.45)
[2018-01-11 21:02] LABS: ALBUMIN 3.6 gm/dl (3.1-4.5); ALKALINE PHOSPHATASE 62 U/L (45-117); B-hCG (QUALITATIVE) NEGATIVE (NEGATIVE); BUN 8 mg/dl (7-24); CHLORIDE 98 mmol/L (98-107); CREATININE 0.79 mg/dL (0.55-1.02); LIPASE 94 U/L (73-393); POTASSIUM 3.8 mmol/L (3.5-5.1); SGOT/AST 17 IU/L (3-35); SGPT/ALT 15 U/L (12-78); SODIUM 140 mmol/L (136-145); TOTAL PROTEIN 7.5 gm/dL (6.4-8.2); TROPONIN I 0.028 ng/ml (<0.045)
[2018-01-11 21:30] VITALS: BP 141/89
[2018-01-11 22:00] VITALS: BP 107/73
[2018-01-11 22:30] VITALS: BP 106/79
[2018-01-11 23:00] VITALS: BP 108/71
[2018-01-12] VITALS: BP 138/84
[2018-01-12] MEDS ORDERED: BUSPAR15 MG PO (00:29)
[2018-01-12 03:04] LABS: HEMATOCRIT 38.4 % (37.0-47.0); HEMOGLOBIN 11.2 g/dl (12.0-16.0); MEAN CELL VOLUME 100.5 fl (81.0-99.0); MEAN CORPUSCULAR HGB 29.3 pg (27.0-31.0); MEAN CORPUSCULAR HGB CONC 29.2 g/dl (33.0-37.0); PLATELET COUNT AUTOMATED 127 10*3/uL (130-400); RED BLOOD COUNT 3.82 10*6/uL (4.10-5.10); RED CELL DISTRI WIDTH 13.6 % (0-14.5); WHITE BLOOD COUNT 11.5 10*3/uL (4.8-10.8)
[2018-01-12 03:05] LABS: ABG BASE EXCESS 7.3 mmol/L (-2.0-2.0); ABG HCO3 36.7 mmol/l (22-26); ABG O2 SATURATION 77.1 % (95-97); ARTERIAL BLOOD GAS PH 7.241 (7.35-7.45); ARTERIAL BLOOD GAS PO2 40.9 mmHg (80-90)
[2018-01-12 03:07] LABS: ARTERIAL BLOOD GAS PCO2 88.5 mmHg (35-45)
[2018-01-12 03:14] LABS: ACT PARTIAL THROMBO TIME 25.1 SECONDS (20.8-31.5)
[2018-01-12 03:32] LABS: BUN 8 mg/dl (7-24); CHLORIDE 99 mmol/L (98-107); CREATININE 0.58 mg/dL (0.55-1.02); PHOSPHOROUS 2.9 mg/dL (2.5-4.9); SODIUM 142 mmol/L (136-145)
[2018-01-12 03:34] LABS: PLATELET SUFFICIENCY LOW (NORMAL); TOTAL CELLS COUNTED 100 #CELLS
[2018-01-12 08:00] VITALS: BP 123/70
[2018-01-12 12:00] VITALS: BP 136/70
[2018-01-12 16:00] VITALS: BP 112/60
[2018-01-12 16:34] LABS: BILIRUBIN NEGATIVE (NEGATIVE); BLOOD NEGATIVE (NEGATIVE); CLARITY CLEAR (CLEAR); COLOR YELLOW (YELLOW); GLUCOSE TRACE (NEGATIVE); KETONE NEGATIVE (NEGATIVE); LEUKO ESTERASE NEGATIVE (NEGATIVE); NITRITE NEGATIVE (NEGATIVE); PH 7.5 (5.0-9.0); UROBILINOGEN 0.2 E.U./dl (0.2-1.0)
[2018-01-12 16:44] LABS: BACTERIA TRACE; RBC 0-2 rbc/hpf (0-2)
[2018-01-12 20:00] VITALS: BP 109/57
[2018-01-13 00:08] VITALS: BP 98/51
[2018-01-13 06:22] LABS: BUN 14 mg/dl (7-24); CHLORIDE 103 mmol/L (98-107); CREATININE 0.51 mg/dL (0.55-1.02); POTASSIUM 3.9 mmol/L (3.5-5.1); SODIUM 142 mmol/L (136-145)
[2018-01-13 06:50] LABS: BASO % 0.2 % (0.0-1.0); HEMOGLOBIN 9.3 g/dl (12.0-16.0); LYMPH # 0.8 10*3/uL (1.3-4.4); LYMPH % 13.9 % (27.0-41.0); MEAN CELL VOLUME 97.5 fl (81.0-99.0); MEAN CORPUSCULAR HGB 29.2 pg (27.0-31.0); MEAN CORPUSCULAR HGB CONC 29.9 g/dl (33.0-37.0); MEAN PLATELET VOLUME 13.6 fl (9.6-12.3); MONO # 0.4 10*3/uL (0.1-1.0); MONO % 7.4 % (3.0-9.0); NEUT # 4.7 10*3/uL (2.3-7.9); PLATELET COUNT AUTOMATED 120 10*3/uL (130-400); RED BLOOD COUNT 3.19 10*6/uL (4.10-5.10); RED CELL DISTRI WIDTH 13.6 % (0-14.5)
[2018-01-13 06:54] LABS: HEMATOCRIT 31.1 % (37.0-47.0)
[2018-01-13 08:00] VITALS: BP 127/79
[2018-01-13 12:00] VITALS: BP 128/89
[2018-01-13 16:00] VITALS: BP 118/81
[2018-01-13 20:00] VITALS: BP 118/64
[2018-01-14] VITALS: BP 110/66
[2018-01-14 06:11] LABS: HEMATOCRIT 31.4 % (37.0-47.0); HEMOGLOBIN 9.4 g/dl (12.0-16.0); LYMPH # 0.8 10*3/uL (1.3-4.4); LYMPH % 12.1 % (27.0-41.0); MEAN CELL VOLUME 97.2 fl (81.0-99.0); MEAN CORPUSCULAR HGB 29.1 pg (27.0-31.0); MEAN CORPUSCULAR HGB CONC 29.9 g/dl (33.0-37.0); MEAN PLATELET VOLUME 13.6 fl (9.6-12.3); MONO # 0.2 10*3/uL (0.1-1.0); MONO % 3.7 % (3.0-9.0); NEUT # 5.3 10*3/uL (2.3-7.9); NEUT % 83.9 % (47.0-73.0); PLATELET COUNT AUTOMATED 129 10*3/uL (130-400); RED BLOOD COUNT 3.23 10*6/uL (4.10-5.10); RED CELL DISTRI WIDTH 13.6 % (0-14.5); WHITE BLOOD COUNT 6.3 10*3/uL (4.8-10.8)
[2018-01-14 06:45] LABS: BUN 13 mg/dl (7-24); CHLORIDE 104 mmol/L (98-107); POTASSIUM 3.6 mmol/L (3.5-5.1); SODIUM 141 mmol/L (136-145)
[2018-01-14 08:00] VITALS: BP 134/71
[2018-01-14 12:00] VITALS: BP 138/74
[2018-01-14 16:00] VITALS: BP 133/76
[2018-01-14 20:00] VITALS: BP 123/72
[2018-01-15] VITALS: BP 102/67
[2018-01-15 06:43] LABS: BASO % 0.1 % (0.0-1.0); EOS % 0.2 % (1.0-4.0); HEMOGLOBIN 10.2 g/dl (12.0-16.0); LYMPH % 24.5 % (27.0-41.0); MEAN CELL VOLUME 97.2 fl (81.0-99.0); MEAN CORPUSCULAR HGB 28.3 pg (27.0-31.0); MEAN CORPUSCULAR HGB CONC 29.1 g/dl (33.0-37.0); MEAN PLATELET VOLUME 13.4 fl (9.6-12.3); MONO # 0.7 10*3/uL (0.1-1.0); MONO % 7.9 % (3.0-9.0); NEUT # 5.5 10*3/uL (2.3-7.9); NEUT % 66.9 % (47.0-73.0); PLATELET COUNT AUTOMATED 156 10*3/uL (130-400); RED CELL DISTRI WIDTH 13.8 % (0-14.5); WHITE BLOOD COUNT 8.2 10*3/uL (4.8-10.8)
[2018-01-15 07:09] LABS: BUN 15 mg/dl (7-24); CHLORIDE 106 mmol/L (98-107); CREATININE 0.57 mg/dL (0.55-1.02); POTASSIUM 3.5 mmol/L (3.5-5.1); SODIUM 143 mmol/L (136-145)
[2018-01-15 08:00] VITALS: BP 123/74
[2018-01-15] MEDS ORDERED: PREDNISONE10 MG PO (10:07)
[2018-01-15] MEDS ORDERED: DOXYCYCLINE100 M3 PO (10:07)
[2018-01-15] MEDS ORDERED: MUCINEX ER600 MG PO (10:07)
== END 2018-01-15 11:54 | disposition home or self-care (01) | DRG 871 ==
LOC: ED 20:15 → 5E 22:46 → EDHOLD 22:46 → 5E 23:18
PROVIDERS: Emergency Medicine Emergency Medical Services; Family Medicine; Internal Medicine; Internal Medicine Nephrology
PROC: 5A09357 Assistance with Respiratory Ventilation, Less than 24 Consecutive Hours, Continuous Positive Airway Pressure (ICD-10-PCS; principal; 2018-01-11)
PROC: 5A09357 Assistance with Respiratory Ventilation, Less than 24 Consecutive Hours, Continuous Positive Airway Pressure (ICD-10-PCS; 2018-01-13)
PROC: 5A09357 Assistance with Respiratory Ventilation, Less than 24 Consecutive Hours, Continuous Positive Airway Pressure (ICD-10-PCS; 2018-01-15)
DX: A41.9 Sepsis, unspecified organism (principal); J18.9 Pneumonia, unspecified organism; J96.21 Acute and chronic respiratory failure with hypoxia; E87.3 Alkalosis; E46 Unspecified protein-calorie malnutrition; G93.41 Metabolic encephalopathy; J96.22 Acute and chronic respiratory failure with hypercapnia; I50.22 Chronic systolic (congestive) heart failure; J44.0 Chronic obstructive pulmonary disease with (acute) lower respiratory infection; J44.1 Chronic obstructive pulmonary disease with (acute) exacerbation; E51.9 Thiamine deficiency, unspecified; Z68.1 Body mass index [BMI] 19.9 or less, adult; D69.6 Thrombocytopenia, unspecified; R65.20 Severe sepsis without septic shock; R62.7 Adult failure to thrive; R00.0 Tachycardia, unspecified; D72.810 Lymphocytopenia; D53.9 Nutritional anemia, unspecified; R73.9 Hyperglycemia, unspecified; I34.0 Nonrheumatic mitral (valve) insufficiency; L40.0 Psoriasis vulgaris; F32.9 Major depressive disorder, single episode, unspecified; E78.5 Hyperlipidemia, unspecified; M79.2 Neuralgia and neuritis, unspecified; F41.9 Anxiety disorder, unspecified; Z88.1 Allergy status to other antibiotic agents; Z79.899 Other long term (current) drug therapy; Z90.49 Acquired absence of other specified parts of digestive tract; Z99.81 Dependence on supplemental oxygen; Z98.51 Tubal ligation status; Z82.3 Family history of stroke; Z83.6 Family history of other diseases of the respiratory system; Z80.8 Family history of malignant neoplasm of other organs or systems

== ENCOUNTER 2018-02-02 10:53 | Inpatient (IN) | payer OTHER ==
[~2018-02-02] VITALS: Ht 167.6 cm; Wt 47.2 kg
--- NOTE | ~2018-02-02 | CON ---
[place], [place] REPORT OF CONSULTATION NAME: NUBIA ROLLE UNIT #: [id number] ROOM: [facility] DOCTOR: CHARLEEN WEST MD,ELIZABETH BIRTHDATE: [birth year] DOS: 02/03/2018 REASON FOR CONSULTATION: Assess the patient for recurrence of acute respiratory failure. HISTORY OF PRESENT ILLNESS: A 47-year-old white female patient known to me, has been admitted to the hospital in 12/2017, discharge home for the patient has been seen in office followup visit as well. She has been doing very well and was noted with adherence of the treatment. The patient recommended for the medical management of the COPD as per patient at that time. She presented to the Emergency Room on 02/02/2018 for the patient's symptoms of increased shortness of breath, which was reported at home with increased confusion and generalized weakness. The patient has not been noted symptoms of chest pain with that. Denies symptoms of active wheezing. She has been noted with acute on chronic hypercapnic respiratory failure, has been ordered the BiPAP. The BiPAP had been use for the patient several hours at nighttime, this morning, using oxygen supplementation with the nasal cannula. REVIEW OF SYSTEMS: CONSTITUTIONAL: Fatigue and tiredness, not reported any symptoms of fever or chills. EYES: Denies any burning, redness, or tenderness. EARS, NOSE, AND THROAT SYMPTOMS: Denies sore throat, hoarseness, otalgia, postnasal drainage or epistaxis. CARDIOVASCULAR: Denies anginal pain, edema, pain of the lower extremities. GASTROINTESTINAL: Denies dysphagia, nausea, vomiting, diarrhea, abdominal pain, hematemesis, melena. GENITOURINARY: Hematochezia. SKIN: Denies abnormal lesions or rashes. MUSCULOSKELETAL: The patient reported without any acute deformities or knee pain. History of chronic pain, was noted, which has been treated with pain management. CENTRAL NERVOUS SYSTEM: No dizziness, headache, diplopia, syncopal episodes. Remaining systems were reviewed, they were noted all negative. Past medical history, social history, family history, and surgical history all reviewed with the patient again and remains unchanged since my consultation of 01/12/2018. Further details of the patient reported of that consultation available in the [facility]. CURRENT MEDICATIONS: The current medication administered noted use of potassium chloride, Paxil, Diamox, thiamine, Dulera, IV Solu-Medrol 40 mg every 8 hours, Neurontin, DuoNeb q. 4h., IV Rocephin, Zithromax, and other p.r.n. medications administered. DRUG ALLERGY HISTORY: NOTED ALLERGY TO LEVAQUIN. PHYSICAL EXAMINATION: GENERAL: This is a 47-year-old female patient who has been currently noted [place], [place] REPORT OF CONSULTATION NAME: NUBIA ROLLE UNIT #: [id number] ROOM: [facility] DOCTOR: CHARLEEN WEST MD,ELIZABETH BIRTHDATE: [birth year] awake and alert, sitting on the bed. Her height was recorded by the nursing staff. VITAL SIGNS: Height of 5 feet 6 inches, weight of 104 pounds. BMI of 16. The vital signs for the patient which were recorded shows the temperature noted as normal, respiratory rate 16, heart rate 96, blood pressure 94/50 this morning. The pulse oxygen saturation of the patient recorded as 92% on 4 liters nasal cannula. HEENT: Examination shows head was atraumatic. Eyes nonicterus. NECK: Supple. CARDIOVASCULAR: S1, S2 audible. LUNGS: Noted with general reduction in the breath sounds for the patient with moderate decreased breath sounds. Scattered occasional wheezing. There were no crackles. ABDOMEN: Soft, nontender. EXTREMITIES: Without acute edema. MUSCULOSKELETAL: Noted without any acute deformities. CENTRAL NERVOUS SYSTEM: The patient was noted without any confusion at the present time. Cranial nerves 2-12 intact. LABORATORY DATA: Arterial blood gas that was done yesterday, pH of 7.26, pCO2 97, pO2 108, 4 liter nasal cannula. CMP of the patient that was done 02/02/2018, normal BUN and creatinine. CO2 of 49. CBC of the patient on 02/03/2018, hemoglobin 11, WBC count normal, platelet count normal. PT/PTT normal. CMP this morning, BUN normal, creatinine was normal, CO2 of 42. IMPRESSION: The patient who has been currently noted with acute exacerbation of chronic obstructive pulmonary disease at the present time, which has been noted recurrent for the patient, possible nonadherence, BiPAP would be considered very likely cause. The patient stated that she has too much pressure but the low pressure was not noted effective, which has been known previously the BiPAP so the patient needs to use these current pressure to help improve the ventilatory status, lack of appropriate use, resulting in recurrent hospitalization. PLAN OF MANAGEMENT: Continue the BiPAP. The patient's current status for the patient which has been used at home as much as possible. Continue Solu-Medrol and bronchodilators. Antibiotics may need to be discontinued in the next 24 hours. If all the culture of the patient, which has been ordered come back negative. All other supportive plan of management therapy, monitoring the metabolic alkalosis, which is improving, current ventilatory improvement. She had an arterial blood gas will be done for the patient for reassessment of ventilatory status. The patient appeared to be improving clinically progressively. [place], [place] REPORT OF CONSULTATION NAME: NUBIA ROLLE UNIT #: [id number] ROOM: [facility] DOCTOR: ELIZABETH MCDONALD MD BIRTHDATE: [birth year] ELIZABETH VILLASEÑOR MD CM:CONSTR:REPORT OF CONSULTATION 1616 02/04/18 0125 interface
--- NOTE | ~2018-02-02 | PR ---
[place], [place] PROGRESS NOTE NAME: NUBIA ROLLE UNIT #: [id number] ROOM: 520 DOCTOR: CHARLEEN WEST MD,ELIZABETH BIRTHDATE: [birth year] DOS: 02/06/2018 SUBJECTIVE: She has been noted comfortable at this time, resting, using oxygen supplementation nasal cannula, reported reduction in symptoms of shortness of breath. There was no coughing or chest pain. Denies any abdominal pain. Use of BiPAP was only noted for 3 hours last night. OBJECTIVE: VITAL SIGNS: Normal temperature, respiratory rate 18, heart rate 100, blood pressure 140/80. Pulse oxygen saturation on 5 liters nasal cannula 97% saturation. HEENT: Head was atraumatic. Eyes nonicterus. NECK: Supple. CARDIOVASCULAR: S1, S2 audible. LUNGS: The patient was noted without any wheezing or crackles at the present time. ABDOMEN: Soft, nontender, bowel sounds present. EXTREMITIES: Without any acute edema. IMPRESSION: 1. The patient with resolving acute on chronic hypercapnic hypoxic respiratory failure with acute exacerbation of chronic obstructive pulmonary disease. 2. History of nonadherence to the treatment including tobacco use as well as nonadherence with the use of the BiPAP. PLAN OF MANAGEMENT: The patient could be discharged home on tapering dose of prednisone. She was encouraged about the use of the BiPAP for the patient about 6-8 hours every day including at night. Abstinence of tobacco use was recommended. ELIZABETH VILLASEÑOR MD CM:PNTRANS [phone] ELIZABETH WEST MD 02/07/18 1038 interface
--- NOTE | ~2018-02-02 | PR ---
[place], [place] PROGRESS NOTE NAME: NUBIA ROLLE UNIT #: [id number] ROOM: 520 DOCTOR: CHARLEEN WEST MD,ELIZABETH BIRTHDATE: [birth year] DOS: 02/04/2018 PULMONARY FOLLOWUP SUBJECTIVE: The patient has been noted comfortable at this time, resting on the bed without any acute distress. Denies symptoms of chest pain, nausea or vomiting. Denies abdominal pain. OBJECTIVE: VITAL SIGNS: Normal temperature, respiratory rate 16, heart rate 89, blood pressure 122/73, pulse oxygen saturation 5 liters nasal cannula 95% saturation. HEENT: No acute change. NECK: Supple. CARDIOVASCULAR: S1, S2 is audible. LUNGS: Generally decreased breath sounds without any wheezing or crackles. ABDOMEN: Soft, nontender. EXTREMITIES: Without any acute edema. IMPRESSION: Stable respiratory status, resolving acute on chronic hypercapnic hypoxic respiratory failure, exacerbation of chronic obstructive pulmonary disease, nonadherence with the treatment of the BiPAP as recommended was confirmed from the patient's as well. PLAN OF TREATMENT: No changes in the plan of care. Continuation of current medical management, plan of care. Regular use of the BiPAP as ordered at least 7-8 hours encouraged to the patient. In the meantime, all the supportive plan of therapy to be continued as previously. ELIZABETH VILLASEÑOR MD CM:PNTRANS [id number] ELIZABETH WEST MD 02/04/18 0687 interface
--- NOTE | ~2018-02-02 | EKG ---
[place], [place] ELECTROCARDIOGRAM REPORT NAME: NUBIA ROLLE UNIT #: [id number] ROOM: [facility] DOCTOR: CHARLEEN WEST MD,ELIZABETH BIRTHDATE: [birth year] DOS: 02/02/2018 TIME: 11:30 a.m. CONCLUSION: Normal sinus rhythm noted. Heart rate 94 beats per minute. PVCs was noted as well. ELIZABETH VILLASEÑOR MD CM:EKGRPT:ELECTROCARDIOGRAM REPORT 1412 22 ELIZABETH WEST MD
--- NOTE | ~2018-02-02 | PR ---
[place], [place] PROGRESS NOTE NAME: NUBIA ROLLE UNIT #: [id number] ROOM: 520 DOCTOR: CHARLEEN WEST MD,ELIZABETH BIRTHDATE: [birth year] DOS: 02/05/2018 PULMONARY PROGRESS NOTE SUBJECTIVE: She has been comfortably resting at this time, sitting on the bed. She used the BiPAP for about 4-5 hours last night. She has not been reporting of symptoms of chest pain, hemoptysis, or abdominal pain. Shortness of breath has been resolving. OBJECTIVE: VITAL SIGNS: Vital signs for the patient, which have been recorded showed normal temperature, respiratory recorded as 20, heart rate 96, blood pressure 122/88. HEENT: No acute change. NECK: Supple. CARDIOVASCULAR: S1, S2 audible. LUNGS: The patient was noted without any wheezing or crackles at this time. ABDOMEN: Soft, nontender. Bowel sounds are present. EXTREMITIES: Noted without any acute edema. IMPRESSION: 1. The patient has been noted currently stable with resolving aafdw-zb-jzgvhsv hypercapnic and hypoxic respiratory failure. 2. The patient with a chronic ____ treatment with the BiPAP and tobacco use as well with frequent hospitalizations. PLAN OF TREATMENT: No changes in the plan of care at this time. Continue current dose of corticosteroids, bronchodilators, and other treatment. Potential discharge consideration for the morning. ELIZABETH VILLASEÑOR MD CM:PNTRANS [id number] ELIZABETH WEST MD 02/06/18 0457 interface
[2018-02-02 10:53] VITALS: BP 123/76
[~2018-02-02 10:53] MED LIST changes: +BUSPAR15 MG PO
[2018-02-02 11:18] LABS: BASO % 0.2 % (0.0-1.0); EOS # 0.1 10*3/uL (0.0-0.4); EOS % 1.5 % (1.0-4.0); HEMATOCRIT 40.3 % (37.0-47.0); HEMOGLOBIN 11.3 g/dl (12.0-16.0); LYMPH # 1.7 10*3/uL (1.3-4.4); MEAN CELL VOLUME 101.5 fl (81.0-99.0); MEAN CORPUSCULAR HGB 28.5 pg (27.0-31.0); MEAN PLATELET VOLUME 11.5 fl (9.6-12.3); MONO # 0.7 10*3/uL (0.1-1.0); MONO % 7.2 % (3.0-9.0); NEUT % 72.9 % (47.0-73.0); PLATELET COUNT AUTOMATED 142 10*3/uL (130-400); RED BLOOD COUNT 3.97 10*6/uL (4.10-5.10); RED CELL DISTRI WIDTH 13.2 % (0-14.5); WHITE BLOOD COUNT 9.6 10*3/uL (4.8-10.8)
[2018-02-02] MEDS ORDERED: OXYGEN NAS (11:24)
[2018-02-02] MEDS ORDERED: GABAPENTIN400 MG PO (11:24)
[2018-02-02] MEDS ORDERED: PAROXETINE10 MG PO (11:24)
[2018-02-02] MEDS ORDERED: KLOR-CON SPRIN10 MEQ PO (11:24)
[2018-02-02] MEDS ORDERED: REMERON15 M2 PO (11:25)
[2018-02-02] MEDS ORDERED: SUBOXONE 8 MG-1 EACH SL (11:26)
[2018-02-02] MEDS ORDERED: NATURE'S BLEND100 M2 PO (11:26)
[2018-02-02] MEDS ORDERED: DULERA 200 MCG8.8 GM INH (11:26)
[2018-02-02] MEDS ORDERED: CALCIUM PO (11:27)
[2018-02-02] MEDS ORDERED: EUCERIN CALM I200 ML T (11:27)
[2018-02-02] MEDS ORDERED: ACETAZOLAMIDE250 MG PO (11:28)
[2018-02-02] MEDS ORDERED: DUONEB 3 MG/3 ML3 M1 INH (11:28)
[2018-02-02] MEDS ORDERED: BUSPAR15 MG PO (11:28)
[2018-02-02] MEDS ORDERED: GUAIFENESIN600 MG PO (11:28)
[2018-02-02 11:32] VITALS: BP 101/63
[2018-02-02 11:34] LABS: ALBUMIN 3.3 gm/dl (3.1-4.5); ALKALINE PHOSPHATASE 69 U/L (45-117); BUN 8 mg/dl (7-24); CHLORIDE 98 mmol/L (98-107); CREATININE 0.61 mg/dL (0.55-1.02); SGOT/AST 16 IU/L (3-35); SGPT/ALT 17 U/L (12-78); SODIUM 143 mmol/L (136-145); TOTAL PROTEIN 7.2 gm/dL (6.4-8.2)
[2018-02-02 11:49] LABS: ABG BASE EXCESS 12.7 mmol/L (-2.0-2.0); ABG HCO3 42.6 mmol/l (22-26); ABG O2 SATURATION 98.2 % (95-97); ARTERIAL BLOOD GAS PH 7.263 (7.35-7.45)
[2018-02-02 11:53] LABS: ARTERIAL BLOOD GAS PCO2 97.8 mmHg (35-45)
[2018-02-02 12:38] VITALS: BP 100/68
[2018-02-02 16:00] VITALS: BP 108/66
[2018-02-02 20:00] VITALS: BP 105/65
[2018-02-03] VITALS: BP 102/65
[2018-02-03 04:00] VITALS: BP 103/67
[2018-02-03 05:49] LABS: BASO % 0.2 % (0.0-1.0); HEMATOCRIT 38.1 % (37.0-47.0); HEMOGLOBIN 11.1 g/dl (12.0-16.0); LYMPH # 0.7 10*3/uL (1.3-4.4); LYMPH % 10.6 % (27.0-41.0); MEAN CORPUSCULAR HGB 28.5 pg (27.0-31.0); MEAN CORPUSCULAR HGB CONC 29.1 g/dl (33.0-37.0); MEAN PLATELET VOLUME 12.6 fl (9.6-12.3); MONO # 0.1 10*3/uL (0.1-1.0); MONO % 2.1 % (3.0-9.0); NEUT # 5.7 10*3/uL (2.3-7.9); NEUT % 86.6 % (47.0-73.0); PLATELET COUNT AUTOMATED 146 10*3/uL (130-400); RED CELL DISTRI WIDTH 13.2 % (0-14.5); WHITE BLOOD COUNT 6.6 10*3/uL (4.8-10.8)
[2018-02-03 06:03] LABS: BUN 15 mg/dl (7-24); CHLORIDE 96 mmol/L (98-107); CREATININE 0.44 mg/dL (0.55-1.02); PHOSPHOROUS 3.2 mg/dL (2.5-4.9); POTASSIUM 4.6 mmol/L (3.5-5.1); SODIUM 140 mmol/L (136-145)
[2018-02-03 06:10] LABS: MEAN CELL VOLUME 97.7 fl (81.0-99.0)
[2018-02-03 06:37] LABS: ACT PARTIAL THROMBO TIME 25.1 SECONDS (20.8-31.5)
[2018-02-03 07:51] LABS: VITAMIN D, 25-HYDROXY 35.8 ng/mL (30-100)
[2018-02-03 08:00] VITALS: BP 94/58
[2018-02-03 12:00] VITALS: BP 111/45
[2018-02-03 16:00] VITALS: BP 100/60
[2018-02-03 20:00] VITALS: BP 105/70
[2018-02-04] VITALS: BP 101/60
[2018-02-04 05:49] LABS: BASO % 0.1 % (0.0-1.0); HEMATOCRIT 32.7 % (37.0-47.0); HEMOGLOBIN 9.8 g/dl (12.0-16.0); LYMPH # 0.9 10*3/uL (1.3-4.4); LYMPH % 8.5 % (27.0-41.0); MEAN CELL VOLUME 95.6 fl (81.0-99.0); MEAN CORPUSCULAR HGB 28.7 pg (27.0-31.0); MEAN PLATELET VOLUME 13.1 fl (9.6-12.3); MONO # 0.3 10*3/uL (0.1-1.0); MONO % 3.2 % (3.0-9.0); NEUT # 8.9 10*3/uL (2.3-7.9); NEUT % 87.8 % (47.0-73.0); PLATELET COUNT AUTOMATED 136 10*3/uL (130-400); RED BLOOD COUNT 3.42 10*6/uL (4.10-5.10); RED CELL DISTRI WIDTH 13.2 % (0-14.5); WHITE BLOOD COUNT 10.2 10*3/uL (4.8-10.8)
[2018-02-04 06:03] LABS: BUN 19 mg/dl (7-24); CHLORIDE 98 mmol/L (98-107); POTASSIUM 4.1 mmol/L (3.5-5.1); SODIUM 140 mmol/L (136-145)
[2018-02-04 08:00] VITALS: BP 122/73
[2018-02-04 12:00] VITALS: BP 113/57
[2018-02-04 16:00] VITALS: BP 116/82
[2018-02-04 20:00] VITALS: BP 119/76
[2018-02-05] VITALS: BP 109/75
[2018-02-05 08:00] VITALS: BP 122/88
[2018-02-05 12:00] VITALS: BP 130/89
[2018-02-05 16:00] VITALS: BP 117/84
[2018-02-05 18:12] VITALS: BP 144/64
[2018-02-05 20:00] VITALS: BP 110/90
[2018-02-06] VITALS: BP 132/66
[2018-02-06 08:00] VITALS: BP 114/72
[2018-02-06] MEDS ORDERED: PREDNISONE10 MG PO (10:02)
[2018-02-06] MEDS ORDERED: ZITHROMAX500 MG PO (10:02)
[2018-02-06 12:00] VITALS: BP 140/80
== END 2018-02-06 12:46 | disposition home or self-care (01) | DRG 871 ==
LOC: ED 10:53 → 5E 12:25 → EDHOLD 12:25 → ICCU 12:28 → 5E 02-04 07:37
PROVIDERS: Emergency Medicine; Internal Medicine; Student in an Organized Health Care Education/Training Program
PROC: 5A09357 Assistance with Respiratory Ventilation, Less than 24 Consecutive Hours, Continuous Positive Airway Pressure (ICD-10-PCS; principal; 2018-02-04)
PROC: 5A09357 Assistance with Respiratory Ventilation, Less than 24 Consecutive Hours, Continuous Positive Airway Pressure (ICD-10-PCS; 2018-02-05)
DX: A41.9 Sepsis, unspecified organism (principal); J18.9 Pneumonia, unspecified organism; J96.21 Acute and chronic respiratory failure with hypoxia; I50.22 Chronic systolic (congestive) heart failure; J84.10 Pulmonary fibrosis, unspecified; Z99.81 Dependence on supplemental oxygen; J96.22 Acute and chronic respiratory failure with hypercapnia; J44.1 Chronic obstructive pulmonary disease with (acute) exacerbation; J44.0 Chronic obstructive pulmonary disease with (acute) lower respiratory infection; Z68.1 Body mass index [BMI] 19.9 or less, adult; E78.5 Hyperlipidemia, unspecified; F32.9 Major depressive disorder, single episode, unspecified; R65.20 Severe sepsis without septic shock; R62.7 Adult failure to thrive; F17.210 Nicotine dependence, cigarettes, uncomplicated; F41.9 Anxiety disorder, unspecified; R73.9 Hyperglycemia, unspecified; D53.1 Other megaloblastic anemias, not elsewhere classified; Z87.898 Personal history of other specified conditions; Z88.1 Allergy status to other antibiotic agents; Z79.899 Other long term (current) drug therapy; Z98.51 Tubal ligation status; Z87.01 Personal history of pneumonia (recurrent); Z90.49 Acquired absence of other specified parts of digestive tract; Z82.3 Family history of stroke; Z80.8 Family history of malignant neoplasm of other organs or systems; Z82.5 Family history of asthma and other chronic lower respiratory diseases

== ENCOUNTER 2018-02-22 08:32 | Inpatient (IN) | payer OTHER ==
[~2018-02-22] VITALS: Ht 163 cm; Wt 45.9 kg
[2018-02-22] VITALS (7 sets, daily range): BP systolic 107–138; BP diastolic 66–85
--- NOTE | ~2018-02-22 | PR ---
[place], [place] PROGRESS NOTE NAME: NUBIA ROLLE UNIT #: [id number] ROOM: 520 DOCTOR: CHARLEEN WEST MD,ELIZABETH BIRTHDATE: [birth year] DOS: 03/06/2018 SUBJECTIVE: The patient was noted comfortable at this time. Stated reduction in oxygen desaturation. Has not been reported any symptoms of chest pain, coughing or any sputum expectoration. OBJECTIVE: VITAL SIGNS: For the patient which were recorded shows the temperature noted as normal. The respiratory rate of the patient recorded as 20, heart rate 87-104, blood pressure 112/80-117/99. Pulse ox saturation on 4 liters nasal cannula 96% saturation. HEENT: Examination shows head was atraumatic. Eyes nonicterus. NECK: Supple. CARDIOVASCULAR: S1, S2 audible. LUNGS: Noted moderate decreased breath sounds bilaterally. There were no wheezing or crackles. ABDOMEN: Soft, nontender. Bowel sounds present. EXTREMITIES: Without any acute edema. IMPRESSION: The patient with slow, but gradual resolution of the acute on chronic severe hypercapnic hypoxic respiratory failure noted ____ debility as well. PLAN OF MANAGEMENT: No changes in the plan of therapy at this time. Continue current plan of care. Other supportive therapy, plan of management and treatments. ELIZABETH VILLASEÑOR MD CM:PNTRANS [id number] ELIZABETH WEST MD 03/06/18 1146 interface
--- NOTE | ~2018-02-22 | CON ---
[place], [place] REPORT OF CONSULTATION NAME: NUBIA ROLLE UNIT #: [id number] ROOM: [facility] DOCTOR: ELIZABETH MCDONALD MD BIRTHDATE: [birth year] DOS: 02/23/2018 CONSULTATION REQUESTED BY: Hospitalist services, which was completed on 02/23/2018. REASON FOR CONSULTATION: Assess the patient for recurrence of the acute respiratory failure with chronic respiratory failure. HISTORY OF PRESENT ILLNESS: A 47-year-old white female who has been admitted to the hospital several times for the medical management of acute on chronic recurrent respiratory failure. The patient has a BiPAP at home, which has not been used by the patient adequately. She has been admitted to the hospital on 02/22/2018. She was treated and discharged home on 02/06/2018 for similar reason. She came into the Emergency Room as she has been reported with increase in symptoms of shortness of breath. The patient with increased lethargy, change in mental status as well. The patient stated that she has developed symptoms of nausea and emesis and has not used the BiPAP for a couple of days. The patient would not use the BiPAP in the morning as well. She does not have any symptoms of chest pain. She does have a mild cough without any sputum expectoration. The patient was assessed in the Emergency Room. The patient with arterial blood gas, which were noted abnormal. She has been currently admitted to the hospital for recurrence of acute exacerbation of chronic obstructive pulmonary disease, kkkeg-gv-kxyerzy hypercapnic hypoxic respiratory failure. This morning, the patient was seen, she was sitting on the bed. Reported reduction in symptoms of shortness of breath. There were no symptoms of nausea, vomiting described. She does have mild cough without sputum expectoration. Denies any wheezing or chest pain. REVIEW OF SYSTEMS: CONSTITUTIONAL: Fatigue and tiredness noted without symptoms of fever or chills. EYES: Denies any burning, redness, or tenderness. EARS, NOSE, THROAT SYMPTOMS: Denies sore throat, hoarseness, otalgia, postnasal drainage or epistaxis. CARDIOVASCULAR: Denies angina pain, edema, pain of the lower extremities. GASTROINTESTINAL: No dysphagia, nausea, vomiting, diarrhea, abdominal pain, hematemesis, melena, or hematochezia. GENITOURINARY: No dysuria, suprapubic pain, hematuria. MUSCULOSKELETAL: The patient was noted without any joint pain or tenderness which is acute. CENTRAL NERVOUS SYSTEM: No dizziness, headache, diplopia, or syncopal episode. Remaining systems were reviewed and they were noted all negative. PAST MEDICAL HISTORY: 1. End-stage chronic obstructive pulmonary disease. 2. Multiple frequent hospitalizations and acute chronic metabolic alkalosis with hypercarbia and acute chronic hypoxic respiratory failure, use of oxygen up to 5 L. 3. Chronic hypercarbic respiratory failure. 4. Chronic nonadherence with the treatment. [place], [place] REPORT OF CONSULTATION NAME: NUBIA ROLLE UNIT #: [id number] ROOM: [facility] DOCTOR: ELIZABETH MCDONALD MD BIRTHDATE: [birth year] 5. History of nicotine abuse intermittently. 6. History of skin psoriasis. 7. Chronic malnutrition. 8. General anxiety disorder. PAST SURGICAL HISTORY: 1. Tubal ligation. 2. Cholecystectomy. 3. Intubation and mechanical ventilation. 4. Therapeutic bronchoscopy. SOCIAL HISTORY: She is , lives at home. Denies alcohol use or illicit drug use. Tobacco use was noted and admitted few cigarettes a day to a pack of cigarettes per day at time was reported in the past. History of recreational marijuana use was also known. FAMILY HISTORY: Father of complication of stroke. Mother from complication of emphysema. HOME MEDICATIONS: The current medications administered were noted as Solu-Medrol 40 mg b.i.d., Zofran p.r.n., Lovenox for DVT prophylaxis, Remeron, gabapentin, Dulera, thiamine, Paxil, Protonix, Diamox 250 mg daily, Zithromax, and other p.r.n. medication as well as use of Suboxone [facility]. DRUG ALLERGIES: The patient noted as ALLERGY TO LEVAQUIN. PHYSICAL EXAMINATION: GENERAL: The patient is a 47-year-old female who has been currently noted awake and alert without any distress. Height of 5 feet 4 inches, weight of 101 pounds. The BMI is 17.3. VITAL SIGNS: The patient normal temperature, respiratory rate 16-12, heart rate of 110-79, blood pressure of 89/71-119/79. The pulse oxygen saturation on 4 L cannula 91% saturation. BiPAP 95% saturation. HEENT: Head was atraumatic. Eyes nonicterus. NECK: Supple. CARDIOVASCULAR: S1, S2 is audible. LUNGS: The patient was noted without any wheezing or crackles. The breaths are noted severely diminished bilaterally. ABDOMEN: Soft, nontender and flat. EXTREMITIES: The patient noted without any acute edema. MUSCULOSKELETAL: The patient noted without any acute deformities. CENTRAL NERVOUS SYSTEM: Cranial nerves 2-12 intact. LABORATORY DATA: Arterial blood gas the patient 50% of oxygen, pH of 7.26, pCO2 of 90, pO2 of 55. The arterial blood gas that was done second for the patient yesterday afternoon, 50% oxygen, pH of 7.26, pCO2 91, pO2 88.9 with BiPAP settings of 20/10. Arterial blood gas this morning 4 L nasal cannula oxygen, pH of 7.25, pCO2 of 79, hematocrit 44 is venous gas. The CMP that was done yesterday on admission, glucose 129, BUN and creatinine was normal. CO2 44. Lactic acid, the patient noted normal gestation of troponin yesterday noted [place], [place] REPORT OF CONSULTATION NAME: NUBIA ROLLE UNIT #: [id number] ROOM: [facility] DOCTOR: CHARLEEN WEST MD,[facility] BIRTHDATE: [birth year] normal. CMP this morning, the patient normal BUN and creatinine. The CO2 level noted at 38. CBC this morning, hemoglobin 9.9, WBC count normal, platelet count was normal. CBC on admission yesterday, WBC count 11.9, remaining CBC was normal. One view chest x-ray of the patient that was done during this hospitalization, was noted with severe COPD changes without any acute pulmonary infiltration. IMPRESSION: 1. The patient was admitted to the hospital with recurrence of acute exacerbation of chronic obstructive pulmonary disease, rravq-lz-ybnamgq hypercarbic and hypoxic respiratory failure. 2. Intermittent use of nicotine reported as well. 3. ____ of treatment with the BiPAP as well. PLAN OF THERAPY: At this time, no changes in the treatment will be necessary with current outlined plan. The patient is responding to treatment. BiPAP could be used as previously ordered without any changes. Additional treatment changes will be recommended based on the progression of her illness. ELIZABETH VILLASEÑOR MD CM:CONSTR:REPORT OF CONSULTATION 1238 02/23/18 1458 interface
--- NOTE | ~2018-02-22 | PR ---
[place], [place] PROGRESS NOTE NAME: NUBIA ROLLE UNIT #: [id number] ROOM: 520 DOCTOR: CHARLEEN WEST MD,ELIZABETH BIRTHDATE: [birth year] DOS: 03/07/2018 PULMONARY PROGRESS NOTE SUBJECTIVE: The patient is noted comfortable at this time, resting in the bed. She continues to show gradual reduction and improvement in respiratory symptoms. She is receiving intravenous steroids and also getting nebulized bronchodilators. OBJECTIVE: VITAL SIGNS: Normal temperature, respiratory rate of 18, heart rate 79, blood pressure 118/68 to 106/70. Pulse oxygen saturation of the patient was noted as 96% saturation on 4 liters nasal cannula. HEENT: Shows head was atraumatic, eyes nonicterus. NECK: Supple. CARDIOVASCULAR: S1, S2 audible. LUNGS: Noted without any wheeze or crackle at the present time. ABDOMEN: Soft, nontender. Bowel sounds are present. EXTREMITIES: The patient was noted without any acute edema. LABORATORY DATA: Creatinine for the patient today was noted as normal. CBC of the patient noted with WBC count 12.7. IMPRESSION: Resolving acute on chronic hypercapnic hypoxic respiratory failure with exacerbation of chronic obstructive pulmonary disease, gradually with improvement in the hypoxia was also noted with activity. PLAN OF TREATMENT: Continue corticosteroids and bronchodilators. [facility]. Usual care, other supportive plan of management and care. ELIZABETH VILLASEÑOR MD CM:PNTRANS [phone] ELIZABETH WEST MD 03/07/18 1158 interface
--- NOTE | ~2018-02-22 | PR ---
[place], [place] PROGRESS NOTE NAME: NUBIA ROLLE UNIT #: [id number] ROOM: 520 DOCTOR: ELIZABETH MCDONALD MD BIRTHDATE: [birth year] DOS: 03/05/2018 PULMONARY PROGRESS NOTE SUBJECTIVE: The patient was noted comfortable at this time, still debating about assessment for the [facility] facility. Shortness of breath still noted with exertion and hypoxia. Denies symptoms of chest pain, wheezing or shortness of breath. Other symptoms have been slowly subsiding. She has been using the BiPAP at night time and oxygen supplementation during the day mostly. OBJECTIVE: VITAL SIGNS: Normal temperature, respiratory rate 20, heart rate 104, blood pressure 140/81. The pulse ox saturation on 4 liters nasal cannula 96% saturation. HEENT: Shows head was atraumatic. Eyes nonicterus. NECK: Supple. CARDIOVASCULAR: S1, S2 is audible. LUNGS: The patient was noted without any crackles. Scattered expiratory wheezing with improving air entry gradually noted. ABDOMEN: Soft, nontender. Bowel sounds present. EXTREMITIES: The patient noted without any acute edema. LABORATORY DATA: There were no labs done today. IMPRESSION: 1. The patient has slow, but gradual resolution of acute exacerbation of chronic obstructive pulmonary disease noted with history of end-stage chronic obstructive pulmonary disease. 2. Resolving acute on chronic hypercapnia hypoxic respiratory failure, very slowly. 3. Metabolic alkalosis was noted stable. PLAN OF CARE: No changes in the plan of management. The patient was encouraged for assessment and admission to [facility] facility because of recurrent frequent hospitalization for a more supervised care to be provided. In the meantime, continue the therapy, plan of management and care for the patient without changes. [place], [place] PROGRESS NOTE NAME: NUBIA ROLLE UNIT #: [id number] ROOM: 520 DOCTOR: ELIZABETH MCDONALD MD BIRTHDATE: [birth year] ELIZABETH VILLASEÑOR MD CM:PNTRANS 1121 ELIZABETH WEST MD 03/06/18 0006 interface
--- NOTE | ~2018-02-22 | PR ---
[place], [place] PROGRESS NOTE NAME: NUBIA ROLLE UNIT #: [id number] ROOM: 520 DOCTOR: CHARLEEN WEST MD,ELIZABETH BIRTHDATE: [birth year] DOS: 02/28/2018 SUBJECTIVE: The patient noted comfortable at this time, but still noted symptoms of shortness of breath, wheezing which are noted partially decreased from yesterday. There were no symptoms of coughing or chest pain. OBJECTIVE: VITAL SIGNS: Normal temperature, respiratory rate 20, heart rate 98, blood pressure 127/88. The pulse ox saturation on 4 liters nasal cannula 94% saturation. HEENT: Examination shows head was atraumatic. Eyes nonicterus. NECK: Supple. CARDIOVASCULAR: S1, S2 audible. LUNGS: The patient was noted with roof-yh-wjnfuzql expiratory wheezing, decreased from previous examination. There were no crackles. ABDOMEN: Flat, soft, nontender. EXTREMITIES: Without any acute edema. IMPRESSION: Gradual, but slow resolution with exacerbation of chronic obstructive pulmonary disease was noted at this time with ____ physical assessment today. PLAN OF MANAGEMENT: Continuation of the current dose of corticosteroids. No changes needs to be done. Continuation of all other supportive plan of therapy and care plan. Usual treatment, other supportive plan of management and therapies. ELIZABETH VILLASEÑOR MD CM:PNTRANS [id number] ELIZABETH WEST MD 02/28/18 1449 interface
--- NOTE | ~2018-02-22 | PR ---
[place], [place] PROGRESS NOTE NAME: NUBIA ROLLE UNIT #: [id number] ROOM: [facility] DOCTOR: CHARLEEN WEST MD,ELIZABETH BIRTHDATE: [birth year] DOS: 02/24/2018 PULMONARY PROGRESS NOTE SUBJECTIVE: She has been showing reduction of the respiratory symptoms. Mild cough was noted. Shortness of breath has been decreased. Wheezing has been noted intermittent and symptoms of nausea and vomiting. General weakness and fatigue persisted. She has used the BiPAP as ordered all the hours. She has been noted comfortable at this time, sitting on the bed this morning of assessment without any confusional status. Denies symptoms of headache. Denies any pain. She was noted with low grade fever at 4:00 a.m. about 100 degrees Fahrenheit. The patient denies any pain of the lower extremities. OBJECTIVE: VITAL SIGNS: Which have been recorded showed temperature 100 degrees Fahrenheit, normal temperature, respiratory rate 19-13, heart rate of 89, blood pressure 114/65 to 110/73. Pulse oxygen saturation of the patient on 4 liters nasal cannula was 97; with BiPAP, 94% saturation with 45% oxygen supplementation. HEENT: Shows head was atraumatic, eyes nonicterus. NECK: Supple. CARDIOVASCULAR: S1, S2 audible. LUNGS: Noted generally decreased air entry with partial improvement in the air entry. Wheezing was heard clearly today. ABDOMEN: Soft, nontender. Bowel sounds present. EXTREMITIES: Without any acute edema. MUSCULOSKELETAL: Without any acute deformities. LABORATORY DATA: Culture of the sputum for the patient is pending from yesterday. Gram-stain noted with moderate epithelial cells, a few budding yeast, a few gram-positive cocci in pairs. IMPRESSION: 1. The patient has been noted with gradual resolution of severe acute hypercapnic and hypoxic respiratory failure, result of acute exacerbation of chronic obstructive pulmonary disease, history of nonadherence with use of BiPAP at home as well as tobacco use intermittently. 2. Chronic metabolic alkalosis as well. PLAN OF MANAGEMENT: The patient could be transferred from intensive care unit to the medical floor. Continue strict use of the BiPAP as ordered, continue at nighttime intermittently and during the day and oxygen supplementation at the time. Continue current dose of Solu-Medrol as well. Repeat another arterial blood gas today for the patient to reassess improvement in the ventilatory status. Other supportive plan of management and care plan for the patient to be continued as in progress. The dose of steroids will remain the same for the patient at least for the next 24 hours prior to consideration of reduction. [place], [place] PROGRESS NOTE NAME: NUBIA ROLLE UNIT #: [id number] ROOM: [facility] DOCTOR: CHARLEEN WEST MD,ELIZABETH BIRTHDATE: [birth year] ELIZABETH VILLASEÑOR MD CM:PNTRANS [id number] ELIZABETH WEST MD 02/24/18 1033 interface
--- NOTE | ~2018-02-22 | EKG ---
[place], [place] ELECTROCARDIOGRAM REPORT NAME: NUBIA ROLLE UNIT #: [id number] ROOM: [facility] DOCTOR: CHARLEEN WEST MD,ELIZABETH BIRTHDATE: [birth year] DOS: 02/22/2018 TIME: 9:42 a.m. Sinus tachycardia noted, heart rate 107 beats per minute. The LVH criteria would be met for this patient in the chest leads as well. Right atrial enlargement was suspected. Nonspecific ST-T changes noted. ELIZABETH VILLASEÑOR MD CM:EKGRPT:ELECTROCARDIOGRAM REPORT 1205 1241 ELIZABETH WEST MD
--- NOTE | ~2018-02-22 | PR ---
[place], [place] PROGRESS NOTE NAME: NUBIA ROLLE UNIT #: [id number] ROOM: 520 DOCTOR: CHARLEEN WEST MD,ELIZABETH BIRTHDATE: [birth year] DOS: 03/01/2018 SUBJECTIVE: She has been noted with gradual reduction in symptoms of shortness of breath in the last 48 hours. Denies symptoms of chest pain ____. Coughing has been noted mild. OBJECTIVE: VITAL SIGNS: Normal temperature, respiratory rate 20, heart rate 93, blood pressure 132/88. Pulse oxygen saturation recorded on 4 liters nasal canula 96% saturation. HEENT: Examination shows head was atraumatic. Eyes, nonicterus. NECK: Supple. CARDIOVASCULAR: S1, S2 audible. LUNGS: Moderate reduction in breath sounds with yrbz-ya-hehfskba expiratory wheezing without any crackles. ABDOMEN: Soft, nontender, bowel sounds present. EXTREMITIES: Without any acute edema. IMPRESSION: The patient who has been currently noted with gradual resolution of acute on chronic severe hypoxic and hypercapnic respiratory failure and exacerbation of chronic obstructive pulmonary disease. Metabolic alkalosis was noted with increase of bicarbonate 41 on the chemistry. PLAN OF MANAGEMENT: Change the Diamox to 250 mg b.i.d. Reduce Solu-Medrol 40 mg p.o. b.i.d. Continue to monitor respiratory status. ELIZABETH VILLASEÑOR MD CM:PNTRANS 1136 1550 ELIZABETH WEST MD 03/01/18 1549 interface
--- NOTE | ~2018-02-22 | PR ---
[place], [place] PROGRESS NOTE NAME: NUBIA ROLLE UNIT #: [id number] ROOM: 520 DOCTOR: ELIZABETH MCDONALD MD BIRTHDATE: [birth year] DOS: 02/26/2018 SUBJECTIVE: She has been noted wheezing at this time with nonproductive cough, shortness breath. All the symptoms appear to be increased in the last 48 hours. Denies symptoms of chest pain or hemoptysis. Denies symptoms of nausea, vomiting, diarrhea, or abdominal pain. Denies symptoms of hematemesis or melena. Denies symptoms of nausea or vomiting. Denies symptoms of headache. She has been using the BiPAP for the patient intermittently for few hours at a time. The remaining systems were reviewed and they were noted all negative. OBJECTIVE: VITAL SIGNS: Normal temperature, respiratory rate of 16, heart rate of 93, and blood pressure is 135/76. Pulse oxygen saturation of the patient noted 4 liters nasal cannula 95% saturation. HEENT: Examination shows head was atraumatic. Eye nonicterus. NECK: Supple. CARDIOVASCULAR: S1, S2 audible. LUNGS: Noted with moderate decreased breath sounds with moderate expiratory wheezing. The patient's wheezing appear to be increased in previous examination. ABDOMEN: Soft, flat, nontender. EXTREMITIES: No acute edema. SKIN: No lesions or rashes. CENTRAL NERVOUS SYSTEM: Nonfocal. LABORATORY DATA: Culture sputum were noted normal roberto from 8th of this month. CBC yesterday, WBC count normal, hemoglobin 9.4, and hematocrit 33.6. Platelet count was normal. Creatinine of the patient noted as normal. IMPRESSION: 1. The patient with ongoing acute on chronic severe hypercapnic hypoxic respiratory failure and acute exacerbation of chronic obstructive pulmonary disease with increased wheezing noted on today's examination. 2. History of intermittent nicotine abuse and nonadherent to the use of BiPAP as well. PLAN OF MANAGEMENT: Increase Solu-Medrol dose to 40 mg 8 hour from b.i.d. dosing. Continuation of other supportive therapy, plan of management, and care plan. Additional treatment changes to be made for this patient based on progression of the illness. [place], [place] PROGRESS NOTE NAME: NUBIA ROLLE UNIT #: [id number] ROOM: 520 DOCTOR: ELIZABETH MCDONALD MD BIRTHDATE: [birth year] ELIZABETH VILLASEÑOR MD CM:PNTRANS 1733 ELIZABETH WEST MD 02/26/18 1731 interface
--- NOTE | ~2018-02-22 | PR ---
[place], [place] PROGRESS NOTE NAME: NUBIA ROLLE UNIT #: [id number] ROOM: 520 DOCTOR: CHARLEEN WEST MD,ELIZABETH BIRTHDATE: [birth year] DOS: 02/27/2018 SUBJECTIVE: The patient noted comfortable at this time without acute distress, resting on the bed. She was still noted symptoms of shortness of breath from yesterday, remains unchanged. The dose of the steroids was increased yesterday to 40 mg Solu-Medrol every 8 hours. The patient has not been noted any symptoms of chest pain. Denies symptoms of abdominal pain or chest pain. She has been using the BiPAP as advised. OBJECTIVE: VITAL SIGNS: Normal temperature, respiratory rate 20, heart rate 105, blood pressure 120/78. Pulse oxygen saturation noted on 4 liter nasal cannula 97% saturation on the BiPAP, 94% saturation as well. HEENT: Showed no new change. NECK: Supple. CARDIOVASCULAR: S1, S2 audible. LUNGS: Moderate decreased breath sound, diffuse expiratory wheezing. ABDOMEN: Soft, nontender. Bowel sounds present. EXTREMITIES: Without any acute edema. IMPRESSION: Slow resolution of cealj-qs-tqntwqs hypercapnic hypoxic respiratory failure, still noted with acute exacerbation of chronic obstructive pulmonary disease and active wheezing. Coughing has been improving. Shortness of breath still described. PLAN OF MANAGEMENT: Continue current dose of corticosteroids, bronchodilators, BiPAP and other treatment at this time. No change in treatment needs to be done. Await until the resolution of the wheezing. ELIZABETH VILLASEÑOR MD CM:PNTRANS [phone] ELIZABETH WEST MD 02/27/18 1645 interface
--- NOTE | ~2018-02-22 | PR ---
[place], [place] PROGRESS NOTE NAME: NUBIA ROLLE UNIT #: [id number] ROOM: 520 DOCTOR: CHARLEEN WEST MD,ELIZABETH BIRTHDATE: [birth year] DOS: 03/02/2018 PULMONARY PROGRESS NOTE SUBJECTIVE: The patient noted comfortable, status continued, now slow reduction and improvement in respiratory symptoms, shortness of breath, coughing. Denies symptoms of chest pain or hemoptysis. OBJECTIVE: VITAL SIGNS: Showed normal temperature, respiratory rate 19, heart rate of 53, blood pressure 134/54. Pulse ox saturation on 4 liters on nasal cannula is 100% saturation. HEENT: Head was atraumatic. Eyes nonicterus. NECK: Supple. CARDIOVASCULAR: S1, S2 audible. LUNGS: The patient was noted without any wheezing or crackles. ABDOMEN: Soft, nontender, bowel sounds present. EXTREMITIES: Without any acute edema. IMPRESSION: The patient was noted currently stable at the present time with resolving acute exacerbation of chronic obstructive pulmonary disease with improvement in wheezing was noted. Chest was noted quite clear today. PLAN OF MANAGEMENT: Continue steroids, bronchodilators, oxygen supplementation. Potential discharge maybe in the morning, depends on the further improvement in the respiratory status. ELIZABETH VILLASEÑOR MD CM:PNTRANS [phone] ELIZABETH WEST MD 03/02/18 2152 interface
--- NOTE | ~2018-02-22 | PR ---
[place], [place] PROGRESS NOTE NAME: NUBIA ROLLE UNIT #: [id number] ROOM: 520 DOCTOR: CHARLEEN WEST MD,ELIZABETH BIRTHDATE: [birth year] DOS: 03/04/2018 PULMONARY PROGRESS NOTE SUBJECTIVE: She is still noted with significant oxygen desaturation that has been occurring with minimal activity. Using the BiPAP as advised. Using oxygen supplementation other times. OBJECTIVE: VITAL SIGNS: Normal temperature, respiratory rate 20, heart rate 111-86, blood pressure 110/73. Pulse ox saturation on 4 liters nasal cannula 96% saturation at rest was noted. HEENT: Examination shows head was atraumatic. Eyes nonicterus. NECK: Supple. CARDIOVASCULAR: S1, S2 audible. LUNGS: Noted without any wheeze or crackles at the present time. Breaths are noted mildly decreased bilaterally. ABDOMEN: Soft, nontender. EXTREMITIES: Without any acute edema. IMPRESSION: The patient who has been noted currently stable at this time with ongoing acute exacerbation of chronic obstructive pulmonary disease. The patient is still noted with significant hypoxia with minimal exertion. PLAN OF MANAGEMENT: No changes in the plan of management at this time from the pulmonary standpoint. The patient is recommended possible placement in a snf facility for further care. Other medical management plan of care to be continued as well. ELIZABETH VILLASEÑOR MD CM:PNTRANS [id number] ELIZABETH WEST MD 03/04/18 1625 interface
--- NOTE | ~2018-02-22 | PR ---
[place], [place] PROGRESS NOTE NAME: NUBIA ROLLE UNIT #: [id number] ROOM: 520 DOCTOR: CHARLEEN WEST MD,ELIZABETH BIRTHDATE: [birth year] DOS: 03/03/2018 PULMONARY PROGRESS NOTE SUBJECTIVE: The patient remains in the hospital. The patient at this time resting on the bed. Denies symptoms of chest pain, shortness of breath and wheezing and the coughing has been resolving. Still noted with significant hypoxia with ambulation only few feet on a leveled surface on 4 liters of usual home oxygen. She has been using the BiPAP at this time for the medical management of current respiratory failure. OBJECTIVE: VITAL SIGNS: Normal temperature, respiratory rate 16, heart rate 92, blood pressure 126/68. The pulse oxygen saturation of the patient recorded on 4 liters nasal cannula 92% saturation. HEENT: Shows head was atraumatic. Eyes nonicterus. NECK: Supple. CARDIOVASCULAR: S1, S2 audible. LUNGS: Occasional wheezing. Mild to moderate decreased breath sounds bilaterally. ABDOMEN: Soft, nontender. EXTREMITIES: Without any acute edema. IMPRESSION: The patient who has been currently noted with gradual resolution, improvement in the respiratory status of the patient's acute on chronic hypercapnic and hypoxic respiratory failure, exacerbation of chronic obstructive pulmonary disease, exertional hypoxia still persisted. PLAN OF MANAGEMENT: Continue current dose of steroids, bronchodilators, oxygen supplementation. Advised the patient for possible discharge home in the morning depends on further improvement in clinical ongoing medical problem and exacerbation of chronic obstructive pulmonary disease. ELIZABETH VILLASEÑOR MD CM:PNTRANS [phone] ELIZABETH WEST MD 03/04/18 0037 interface
[~2018-02-22 08:32] MED LIST changes: +CALCIUM PO; +DUONEB 3 MG/3 ML3 M1 INH; +EUCERIN CALM I200 ML T; +GABAPENTIN400 MG PO; +GUAIFENESIN600 MG PO; +KLOR-CON SPRIN10 MEQ PO; +NATURE'S BLEND100 M2 PO; +PAROXETINE10 MG PO; +ZITHROMAX500 MG PO
[2018-02-22 08:52] LABS: BASO % 0.4 % (0.0-1.0); EOS # 0.1 10*3/uL (0.0-0.4); EOS % 1.3 % (1.0-4.0); HEMATOCRIT 42.8 % (37.0-47.0); HEMOGLOBIN 12.1 g/dl (12.0-16.0); LYMPH # 1.7 10*3/uL (1.3-4.4); LYMPH % 15.6 % (27.0-41.0); MEAN CELL VOLUME 99.8 fl (81.0-99.0); MEAN CORPUSCULAR HGB 28.2 pg (27.0-31.0); MEAN CORPUSCULAR HGB CONC 28.3 g/dl (33.0-37.0); MEAN PLATELET VOLUME 11.9 fl (9.6-12.3); MONO # 0.7 10*3/uL (0.1-1.0); MONO % 6.5 % (3.0-9.0); NEUT # 8.4 10*3/uL (2.3-7.9); NEUT % 75.9 % (47.0-73.0); PLATELET COUNT AUTOMATED 142 10*3/uL (130-400); RED BLOOD COUNT 4.29 10*6/uL (4.10-5.10); RED CELL DISTRI WIDTH 13.3 % (0-14.5)
[2018-02-22 08:52] LABS: ABG BASE EXCESS 10.5 mmol/L (-2.0-2.0); ABG HCO3 40.1 mmol/l (22-26); ABG O2 SATURATION 87.5 % (95-97); ARTERIAL BLOOD GAS PH 7.269 (7.35-7.45)
[2018-02-22 08:59] LABS: ARTERIAL BLOOD GAS PCO2 90.6 mmHg (35-45)
[2018-02-22 09:07] LABS: BILIRUBIN NEGATIVE (NEGATIVE); BLOOD NEGATIVE (NEGATIVE); CLARITY CLEAR (CLEAR); COLOR YELLOW (YELLOW); GLUCOSE NEGATIVE (NEGATIVE); KETONE NEGATIVE (NEGATIVE); LEUKO ESTERASE NEGATIVE (NEGATIVE); NITRITE NEGATIVE (NEGATIVE); UROBILINOGEN 0.2 E.U./dl (0.2-1.0)
[2018-02-22 09:11] LABS: ALBUMIN 3.6 gm/dl (3.1-4.5); ALKALINE PHOSPHATASE 77 U/L (45-117); BUN 12 mg/dl (7-24); CHLORIDE 96 mmol/L (98-107); CREATININE 0.64 mg/dL (0.55-1.02); SGPT/ALT 21 U/L (12-78); SODIUM 141 mmol/L (136-145); TOTAL PROTEIN 7.7 gm/dL (6.4-8.2)
[2018-02-22] MEDS ORDERED: KLOR-CON SPRIN10 MEQ PO (09:14)
[2018-02-22 09:21] LABS: SGOT/AST 17 IU/L (3-35)
[2018-02-22 09:23] LABS: BACTERIA TRACE; MUCOUS TRACE
[2018-02-22 15:21] LABS: ABG BASE EXCESS 10.3 mmol/L (-2.0-2.0); ABG O2 SATURATION 96.5 % (95-97); ARTERIAL BLOOD GAS PH 7.261 (7.35-7.45); ARTERIAL BLOOD GAS PO2 88.9 mmHg (80-90)
[2018-02-22 15:25] LABS: ARTERIAL BLOOD GAS PCO2 91.5 mmHg (35-45)
[2018-02-23] VITALS: BP 97/53
[2018-02-23 04:00] VITALS: BP 94/60
[2018-02-23 05:57] LABS: BASO % 0.2 % (0.0-1.0); EOS % 0.4 % (1.0-4.0); LYMPH # 1.4 10*3/uL (1.3-4.4); LYMPH % 15.2 % (27.0-41.0); MEAN CELL VOLUME 98.6 fl (81.0-99.0); MEAN CORPUSCULAR HGB 27.7 pg (27.0-31.0); MEAN CORPUSCULAR HGB CONC 28.1 g/dl (33.0-37.0); MEAN PLATELET VOLUME 12.5 fl (9.6-12.3); MONO # 0.7 10*3/uL (0.1-1.0); MONO % 7.8 % (3.0-9.0); NEUT % 76.1 % (47.0-73.0); PLATELET COUNT AUTOMATED 137 10*3/uL (130-400); RED BLOOD COUNT 3.57 10*6/uL (4.10-5.10); RED CELL DISTRI WIDTH 13.1 % (0-14.5); WHITE BLOOD COUNT 9.2 10*3/uL (4.8-10.8)
[2018-02-23 05:59] LABS: HEMATOCRIT 35.2 % (37.0-47.0); HEMOGLOBIN 9.9 g/dl (12.0-16.0)
[2018-02-23 06:05] LABS: ALBUMIN 2.9 gm/dl (3.1-4.5); BUN 14 mg/dl (7-24); CHLORIDE 103 mmol/L (98-107); CREATININE 0.53 mg/dL (0.55-1.02); PHOSPHOROUS 3.1 mg/dL (2.5-4.9); SGOT/AST 19 IU/L (3-35); SGPT/ALT 18 U/L (12-78); SODIUM 142 mmol/L (136-145); TOTAL PROTEIN 6.4 gm/dL (6.4-8.2)
[2018-02-23 06:06] LABS: ALKALINE PHOSPHATASE 67 U/L (45-117)
[2018-02-23 08:00] VITALS: BP 89/71
[2018-02-23 09:06] LABS: ABG BASE EXCESS 5.2 mmol/L (-2.0-2.0); ABG HCO3 33.6 mmol/l (22-26); ABG O2 SATURATION 78.9 % (95-97); ARTERIAL BLOOD GAS PH 7.251 (7.35-7.45); ARTERIAL BLOOD GAS PO2 44.1 mmHg (80-90)
[2018-02-23 09:09] LABS: ARTERIAL BLOOD GAS PCO2 79.1 mmHg (35-45)
[2018-02-23 12:00] VITALS: BP 104/57
[2018-02-23 16:00] VITALS: BP 108/57
[2018-02-23 20:00] VITALS: BP 114/66
[2018-02-24] VITALS (7 sets, daily range): BP systolic 104–131; BP diastolic 61–91
[2018-02-24 10:10] LABS: ABG BASE EXCESS 7.2 mmol/L (-2.0-2.0); ABG HCO3 34.5 mmol/l (22-26); ABG O2 SATURATION 94.3 % (95-97); ARTERIAL BLOOD GAS PCO2 68.4 mmHg (35-45); ARTERIAL BLOOD GAS PH 7.32 (7.35-7.45); ARTERIAL BLOOD GAS PO2 69.1 mmHg (80-90)
[2018-02-25] VITALS: BP 131/87
[2018-02-25 06:02] LABS: BASO % 0.2 % (0.0-1.0); HEMATOCRIT 33.6 % (37.0-47.0); HEMOGLOBIN 9.4 g/dl (12.0-16.0); LYMPH # 0.7 10*3/uL (1.3-4.4); LYMPH % 11.2 % (27.0-41.0); MEAN CELL VOLUME 98.5 fl (81.0-99.0); MEAN CORPUSCULAR HGB 27.6 pg (27.0-31.0); MEAN PLATELET VOLUME 12.5 fl (9.6-12.3); MONO # 0.2 10*3/uL (0.1-1.0); MONO % 2.4 % (3.0-9.0); NEUT # 5.4 10*3/uL (2.3-7.9); NEUT % 85.7 % (47.0-73.0); PLATELET COUNT AUTOMATED 135 10*3/uL (130-400); RED BLOOD COUNT 3.41 10*6/uL (4.10-5.10); RED CELL DISTRI WIDTH 13.2 % (0-14.5); WHITE BLOOD COUNT 6.3 10*3/uL (4.8-10.8)
[2018-02-25 08:00] VITALS: BP 114/74
[2018-02-25 12:00] VITALS: BP 128/85
[2018-02-25 16:00] VITALS: BP 128/89
[2018-02-25 20:00] VITALS: BP 110/57
[2018-02-26] VITALS: BP 134/72
[2018-02-26 07:02] LABS: CREATININE 0.57 mg/dL (0.55-1.02)
[2018-02-26 08:00] VITALS: BP 135/76
[2018-02-26 12:00] VITALS: BP 118/75
[2018-02-26 16:00] VITALS: BP 110/76
[2018-02-26 20:00] VITALS: BP 108/65
[2018-02-27] VITALS: BP 133/79
[2018-02-27 07:17] LABS: BASO % 0.1 % (0.0-1.0); HEMATOCRIT 33.5 % (37.0-47.0); HEMOGLOBIN 9.6 g/dl (12.0-16.0); LYMPH # 1.3 10*3/uL (1.3-4.4); LYMPH % 15.5 % (27.0-41.0); MEAN CELL VOLUME 96.5 fl (81.0-99.0); MEAN CORPUSCULAR HGB 27.7 pg (27.0-31.0); MEAN CORPUSCULAR HGB CONC 28.7 g/dl (33.0-37.0); MEAN PLATELET VOLUME 12.5 fl (9.6-12.3); MONO # 0.4 10*3/uL (0.1-1.0); MONO % 5.1 % (3.0-9.0); NEUT # 6.8 10*3/uL (2.3-7.9); NEUT % 78.7 % (47.0-73.0); PLATELET COUNT AUTOMATED 170 10*3/uL (130-400); RED BLOOD COUNT 3.47 10*6/uL (4.10-5.10); RED CELL DISTRI WIDTH 13.2 % (0-14.5); WHITE BLOOD COUNT 8.7 10*3/uL (4.8-10.8)
[2018-02-27 07:35] LABS: BUN 12 mg/dl (7-24); CHLORIDE 100 mmol/L (98-107); POTASSIUM 3.9 mmol/L (3.5-5.1); SODIUM 142 mmol/L (136-145)
[2018-02-27 08:00] VITALS: BP 112/78
[2018-02-27 12:00] VITALS: BP 105/66
[2018-02-27 16:00] VITALS: BP 116/80
[2018-02-27 20:00] VITALS: BP 120/71
[2018-02-28] VITALS: BP 108/57
[2018-02-28 07:01] LABS: BASO % 0.1 % (0.0-1.0); EOS % 0.1 % (1.0-4.0); HEMATOCRIT 34.4 % (37.0-47.0); LYMPH # 1.4 10*3/uL (1.3-4.4); LYMPH % 16.4 % (27.0-41.0); MEAN CELL VOLUME 95.8 fl (81.0-99.0); MEAN CORPUSCULAR HGB 27.9 pg (27.0-31.0); MEAN CORPUSCULAR HGB CONC 29.1 g/dl (33.0-37.0); MEAN PLATELET VOLUME 12.6 fl (9.6-12.3); MONO # 0.4 10*3/uL (0.1-1.0); MONO % 5.1 % (3.0-9.0); NEUT # 6.5 10*3/uL (2.3-7.9); NEUT % 77.5 % (47.0-73.0); PLATELET COUNT AUTOMATED 187 10*3/uL (130-400); RED BLOOD COUNT 3.59 10*6/uL (4.10-5.10); RED CELL DISTRI WIDTH 13.2 % (0-14.5); WHITE BLOOD COUNT 8.4 10*3/uL (4.8-10.8)
[2018-02-28 07:15] LABS: ALBUMIN 3.1 gm/dl (3.1-4.5); ALKALINE PHOSPHATASE 58 U/L (45-117); BUN 13 mg/dl (7-24); CHLORIDE 98 mmol/L (98-107); CREATININE 0.62 mg/dL (0.55-1.02); POTASSIUM 3.9 mmol/L (3.5-5.1); SGOT/AST 5 IU/L (3-35); SGPT/ALT 16 U/L (12-78); SODIUM 140 mmol/L (136-145); TOTAL PROTEIN 6.5 gm/dL (6.4-8.2)
[2018-02-28 08:00] VITALS: BP 127/88
[2018-02-28 12:00] VITALS: BP 136/88
[2018-02-28 16:00] VITALS: BP 140/79
[2018-02-28 20:00] VITALS: BP 130/75
[2018-03-01] VITALS: BP 107/59
[2018-03-01 06:47] LABS: BASO % 0.1 % (0.0-1.0); EOS % 0.1 % (1.0-4.0); HEMATOCRIT 33.9 % (37.0-47.0); HEMOGLOBIN 9.7 g/dl (12.0-16.0); LYMPH # 1.1 10*3/uL (1.3-4.4); LYMPH % 11.5 % (27.0-41.0); MEAN CELL VOLUME 95.8 fl (81.0-99.0); MEAN CORPUSCULAR HGB 27.4 pg (27.0-31.0); MEAN CORPUSCULAR HGB CONC 28.6 g/dl (33.0-37.0); MEAN PLATELET VOLUME 12.6 fl (9.6-12.3); MONO # 0.5 10*3/uL (0.1-1.0); MONO % 4.9 % (3.0-9.0); NEUT # 7.6 10*3/uL (2.3-7.9); NEUT % 82.7 % (47.0-73.0); PLATELET COUNT AUTOMATED 211 10*3/uL (130-400); RED BLOOD COUNT 3.54 10*6/uL (4.10-5.10); RED CELL DISTRI WIDTH 13.4 % (0-14.5); WHITE BLOOD COUNT 9.2 10*3/uL (4.8-10.8)
[2018-03-01 07:02] LABS: ALKALINE PHOSPHATASE 48 U/L (45-117); BUN 16 mg/dl (7-24); CHLORIDE 101 mmol/L (98-107); CREATININE 0.68 mg/dL (0.55-1.02); PHOSPHOROUS 3.5 mg/dL (2.5-4.9); SGOT/AST 10 IU/L (3-35); SGPT/ALT 16 U/L (12-78); SODIUM 142 mmol/L (136-145); TOTAL PROTEIN 5.9 gm/dL (6.4-8.2)
[2018-03-01 08:00] VITALS: BP 132/88
[2018-03-01 12:00] VITALS: BP 111/67
[2018-03-01 16:00] VITALS: BP 103/53
[2018-03-01 20:00] VITALS: BP 126/67
[2018-03-02] VITALS: BP 108/62
[2018-03-02 08:00] VITALS: BP 134/54
[2018-03-02 12:00] VITALS: BP 120/75
[2018-03-02 16:00] VITALS: BP 114/66
[2018-03-02 20:00] VITALS: BP 116/72
[2018-03-03] VITALS: BP 138/111
[2018-03-03 08:00] VITALS: BP 115/71
[2018-03-03 12:00] VITALS: BP 133/71
[2018-03-03 16:00] VITALS: BP 126/68; BP 149/121
[2018-03-03 19:45] VITALS: BP 113/74
[2018-03-04] VITALS: BP 108/58
[2018-03-04 06:25] LABS: BASO % 0.1 % (0.0-1.0); EOS # 0.1 10*3/uL (0.0-0.4); EOS % 0.8 % (1.0-4.0); HEMATOCRIT 34.2 % (37.0-47.0); HEMOGLOBIN 9.9 g/dl (12.0-16.0); LYMPH # 1.5 10*3/uL (1.3-4.4); LYMPH % 13.6 % (27.0-41.0); MEAN CELL VOLUME 96.9 fl (81.0-99.0); MEAN CORPUSCULAR HGB CONC 28.9 g/dl (33.0-37.0); MEAN PLATELET VOLUME 12.1 fl (9.6-12.3); MONO # 0.9 10*3/uL (0.1-1.0); MONO % 7.6 % (3.0-9.0); NEUT # 8.8 10*3/uL (2.3-7.9); PLATELET COUNT AUTOMATED 235 10*3/uL (130-400); RED BLOOD COUNT 3.53 10*6/uL (4.10-5.10); RED CELL DISTRI WIDTH 13.8 % (0-14.5); WHITE BLOOD COUNT 11.4 10*3/uL (4.8-10.8)
[2018-03-04 06:51] LABS: BUN 15 mg/dl (7-24); CHLORIDE 99 mmol/L (98-107); CREATININE 0.59 mg/dL (0.55-1.02); POTASSIUM 3.6 mmol/L (3.5-5.1); SODIUM 141 mmol/L (136-145)
[2018-03-04 08:00] VITALS: BP 110/73
[2018-03-04 12:00] VITALS: BP 119/55
[2018-03-04 16:00] VITALS: BP 134/75
[2018-03-04 20:00] VITALS: BP 117/61
[2018-03-05] VITALS: BP 119/53
[2018-03-05 08:00] VITALS: BP 140/81
[2018-03-05 12:00] VITALS: BP 119/67
[2018-03-05 16:00] VITALS: BP 115/70
[2018-03-05 20:00] VITALS: BP 113/53
[2018-03-06] VITALS: BP 112/80
[2018-03-06 08:00] VITALS: BP 117/99
[2018-03-06 12:00] VITALS: BP 126/68
[2018-03-06 16:00] VITALS: BP 123/78
[2018-03-06 20:00] VITALS: BP 121/64
[2018-03-07] VITALS: BP 106/70
[2018-03-07 06:49] LABS: BASO % 0.2 % (0.0-1.0); EOS # 0.1 10*3/uL (0.0-0.4); EOS % 0.6 % (1.0-4.0); HEMATOCRIT 36.2 % (37.0-47.0); HEMOGLOBIN 10.3 g/dl (12.0-16.0); LYMPH # 1.7 10*3/uL (1.3-4.4); LYMPH % 13.1 % (27.0-41.0); MEAN CELL VOLUME 97.3 fl (81.0-99.0); MEAN CORPUSCULAR HGB 27.7 pg (27.0-31.0); MEAN CORPUSCULAR HGB CONC 28.5 g/dl (33.0-37.0); MEAN PLATELET VOLUME 10.9 fl (9.6-12.3); MONO # 0.9 10*3/uL (0.1-1.0); MONO % 6.7 % (3.0-9.0); NEUT # 9.9 10*3/uL (2.3-7.9); NEUT % 77.9 % (47.0-73.0); PLATELET COUNT AUTOMATED 252 10*3/uL (130-400); RED BLOOD COUNT 3.72 10*6/uL (4.10-5.10); RED CELL DISTRI WIDTH 14.1 % (0-14.5); WHITE BLOOD COUNT 12.7 10*3/uL (4.8-10.8)
[2018-03-07 07:08] LABS: CREATININE 0.64 mg/dL (0.55-1.02)
[2018-03-07 08:00] VITALS: BP 116/68
[2018-03-07 12:00] VITALS: BP 118/63
[2018-03-07] MEDS ORDERED: AVPAK AZITHROM250 M1 PO (14:08)
[2018-03-07] MEDS ORDERED: PREDNISONE10 MG PO (14:08)
[2018-03-07 16:00] VITALS: BP 136/79
[2018-03-08] MEDS ORDERED: GUAIFENESIN600 MG PO (11:52)
[2018-03-08] MEDS ORDERED: MILK OF MA400 MG/5 M PO (11:54)
== END 2018-03-07 17:21 | disposition other institution (70) | DRG 871 ==
LOC: ED 08:32 → EDHOLD 09:30 → ICCU 09:30 → 5E 09:30 → ICCU 09:36 → 5E 02-24 13:48
PROVIDERS: Emergency Medicine; Internal Medicine; Internal Medicine Critical Care Medicine; Registered Nurse; Student in an Organized Health Care Education/Training Program
PROC: 5A09357 Assistance with Respiratory Ventilation, Less than 24 Consecutive Hours, Continuous Positive Airway Pressure (ICD-10-PCS; principal; 2018-02-22)
PROC: 5A09357 Assistance with Respiratory Ventilation, Less than 24 Consecutive Hours, Continuous Positive Airway Pressure (ICD-10-PCS; 2018-02-23)
PROC: 5A09357 Assistance with Respiratory Ventilation, Less than 24 Consecutive Hours, Continuous Positive Airway Pressure (ICD-10-PCS; 2018-02-24)
PROC: 5A09357 Assistance with Respiratory Ventilation, Less than 24 Consecutive Hours, Continuous Positive Airway Pressure (ICD-10-PCS; 2018-02-25)
PROC: 5A09357 Assistance with Respiratory Ventilation, Less than 24 Consecutive Hours, Continuous Positive Airway Pressure (ICD-10-PCS; 2018-02-26)
PROC: 5A09357 Assistance with Respiratory Ventilation, Less than 24 Consecutive Hours, Continuous Positive Airway Pressure (ICD-10-PCS; 2018-02-27)
PROC: 5A09357 Assistance with Respiratory Ventilation, Less than 24 Consecutive Hours, Continuous Positive Airway Pressure (ICD-10-PCS; 2018-03-04)
PROC: 5A09357 Assistance with Respiratory Ventilation, Less than 24 Consecutive Hours, Continuous Positive Airway Pressure (ICD-10-PCS; 2018-03-06)
PROC: 5A09357 Assistance with Respiratory Ventilation, Less than 24 Consecutive Hours, Continuous Positive Airway Pressure (ICD-10-PCS; 2018-03-07)
DX: A41.9 Sepsis, unspecified organism (principal); J96.21 Acute and chronic respiratory failure with hypoxia; E87.3 Alkalosis; R64 Cachexia; E44.0 Moderate protein-calorie malnutrition; J18.9 Pneumonia, unspecified organism; I50.22 Chronic systolic (congestive) heart failure; D53.1 Other megaloblastic anemias, not elsewhere classified; J96.22 Acute and chronic respiratory failure with hypercapnia; J44.1 Chronic obstructive pulmonary disease with (acute) exacerbation; J44.0 Chronic obstructive pulmonary disease with (acute) lower respiratory infection; Z68.1 Body mass index [BMI] 19.9 or less, adult; F17.210 Nicotine dependence, cigarettes, uncomplicated; F41.1 Generalized anxiety disorder; L40.9 Psoriasis, unspecified; M79.2 Neuralgia and neuritis, unspecified; J84.10 Pulmonary fibrosis, unspecified; E78.5 Hyperlipidemia, unspecified; R62.7 Adult failure to thrive; F32.9 Major depressive disorder, single episode, unspecified; Z88.1 Allergy status to other antibiotic agents; Z99.81 Dependence on supplemental oxygen; Z79.899 Other long term (current) drug therapy; Z87.01 Personal history of pneumonia (recurrent); Z98.51 Tubal ligation status; Z90.49 Acquired absence of other specified parts of digestive tract; Z82.3 Family history of stroke; Z80.8 Family history of malignant neoplasm of other organs or systems; Z83.6 Family history of other diseases of the respiratory system

== ENCOUNTER 2018-03-08 11:29 | Inpatient (IN) | payer OTHER ==
[~2018-03-08] VITALS: Ht 167.6 cm; Wt 56.0 kg
--- NOTE | ~2018-03-08 | PR ---
[place], [place] PROGRESS NOTE NAME: NUBIA ROLLE UNIT #: [id number] ROOM: 518 DOCTOR: CHARLEEN WEST MD,ELIZABETH BIRTHDATE: [birth year] DOS: 03/11/2018 PULMONARY PROGRESS NOTE SUBJECTIVE: The patient was noted comfortable at this time, resting, ambulating. Intermittently, the patient was still noted with hypoxia at times. With use of oxygen supplementation 4 liters nasal cannula, shortness of breath has been improving. There were no symptoms of coughing or wheezing reported today. OBJECTIVE: VITAL SIGNS: Normal temperature, respiratory rate 20, heart rate 70, blood pressure 138/74, pulse ox saturation on 3 liters nasal cannula 97% saturation. HEENT: No acute change. NECK: Supple. CARDIOVASCULAR: S1, S2 audible. LUNGS: Noted without any wheeze or crackles at the present time. ABDOMEN: Soft, nontender. Bowel sounds present. EXTREMITIES: Without any acute edema. IMPRESSION: Resolving acute exacerbation of chronic obstructive pulmonary disease, acute tracheobronchitis, and zvgfv-ln-ijbtvdo hypoxic and hypercapnic respiratory failure, resolving. PLAN OF TREATMENT: No changes in plan of therapy at this time would be recommended. Continue current dose of steroids, bronchodilators, ambulation. Await further improvement in respiratory status prior to final home discharge. The patient does not wish to go back to [facility] facility. ELIZABETH VILLASEÑOR MD CM:PNTRANS [id number] ELIZABETH WEST MD 03/11/18 1610 interface
--- NOTE | ~2018-03-08 | PR ---
[place], [place] PROGRESS NOTE NAME: NUBIA ROLLE UNIT #: [id number] ROOM: 518 DOCTOR: CHARLEEN WEST MD,ELIZABETH BIRTHDATE: [birth year] DOS: 03/19/2018 SUBJECTIVE: She has been noted comfortable at this time, sitting, stated reduction in the cough, the patient's shortness of breath ____ progress. Denies any symptoms of chest pain or any abdominal pain. Denies symptoms of nausea or vomiting. The patient has been using the BiPAP at nighttime and at daytime intermittently. She has been using oxygen supplementation 4 liters nasal cannula this morning. OBJECTIVE: VITAL SIGNS: Normal temperature, respiratory rate 20, heart rate 92, blood pressure 135/88. Pulse oxygen saturation of the patient on 4 liters nasal cannula 94% saturation. HEENT: Examination shows head was atraumatic. Eyes nonicterus. NECK: Supple. CARDIOVASCULAR SYSTEM: S1, S2 audible. LUNGS: The patient was noted with tqaz-mu-elcutsum decreased breath sounds, occasional wheezing, no crackles. ABDOMEN: Soft, nontender, bowel sounds present. EXTREMITIES: Without any acute edema. IMPRESSION: The patient with acute on chronic hypercapnic and hypoxic respiratory failure with acute exacerbation of chronic obstructive pulmonary disease, slow resolution. PLAN OF TREATMENT: Reduce Solu-Medrol to 40 mg daily dosing for the patient today. Monitor respiratory status until tomorrow. Possible consideration for home discharge might be considered for tomorrow morning on oral prednisone, which needs to be slowly tapered off. Continue other plan of therapy of the patient and care. Usual care, other supportive plan of management and therapies. The home BiPAP pressures might need to be decreased to improve the tolerance as the patient otherwise, not using the BiPAP at all. ELIZABETH VILLASEÑOR MD CM:PNTRANS [phone] ELIZABETH WEST MD 03/20/18 0142 interface
--- NOTE | ~2018-03-08 | PR ---
[place], [place] PROGRESS NOTE NAME: NUBIA ROLLE UNIT #: [id number] ROOM: 518 DOCTOR: CHARLEEN WEST MD,ELIZABETH BIRTHDATE: [birth year] DOS: 03/17/2018 PULMONARY PROGRESS NOTE SUBJECTIVE: The patient noted comfortable at this time, resting, sitting on the bed, used the BiPAP last night, using oxygen supplementation this morning, getting nebulizer breathing treatments. OBJECTIVE: VITAL SIGNS: Normal temperature, respiratory rate 20, heart rate of 76, blood pressure 129/85, pulse oxygen saturation 4 liters 97% saturation. HEENT: Examination shows head was atraumatic. Eyes: No icterus. NECK: Supple. CARDIOVASCULAR: S1, S2 audible. LUNGS: The patient noted without any wheezing or crackle. Breaths are noted mildly diminished bilaterally. ABDOMEN: Flat, soft, nontender. EXTREMITIES: Loss of muscle mass, but there were no other acute findings. IMPRESSION: The patient with slow resolution of acute on chronic hypercapnic hypoxic respiratory failure, exacerbation of chronic obstructive pulmonary disease. PLAN OF MANAGEMENT: No changes from the pulmonary standpoint for the patient at this time. Continue current plan of management as in progress, other supportive plan of therapy and care plan and other usual care. Supportive plan of management and therapies. ELIZABETH VILLASEÑOR MD CM:PNTRANS [phone] ELIZABETH WEST MD 03/18/18 0027 interface
--- NOTE | ~2018-03-08 | PR ---
[place], [place] PROGRESS NOTE NAME: NUBIA ROLLE UNIT #: [id number] ROOM: 518 DOCTOR: CHARLEEN WEST MD,ELIZABETH BIRTHDATE: [birth year] DOS: 03/10/2018 PULMONARY PROGRESS NOTE SUBJECTIVE: She was noted comfortable at this time, stating she has been ambulating. She has noted oxygen desaturation, ____ of oxygen. Denies symptoms of chest pain. Shortness breath was resolving. There was no coughing or wheezing. OBJECTIVE: VITAL SIGNS: Normal temperature, respiratory rate 18, heart rate 80, blood pressure 122/86. Pulse oxygen saturation noted as 98% saturation on 3 liters nasal cannula. HEENT: Examination shows head was atraumatic. Eyes nonicterus. NECK: Supple. CARDIOVASCULAR: S1, S2 is audible. LUNGS: The patient was noted with puds-qn-pkdarsws decreased breath sounds. There is no wheezing or crackles today. ABDOMEN: Soft, nontender. EXTREMITIES: Without any acute edema. IMPRESSION: The patient with resolving acute on chronic hypercapnic hypoxic respiratory failure and exacerbation of chronic obstructive pulmonary disease. PLAN OF TREATMENT: No changes in the plan will be be recommended at this time except gradual tapering of the corticosteroids. Continuation of oxygen supplementation and bronchodilators. Ambulation as tolerated. Usual care. ELIZABETH VILLASEÑOR MD CM:PNTRANS [phone] ELIZABETH WEST MD 03/10/18 2338 interface
--- NOTE | ~2018-03-08 | PR ---
[place], [place] PROGRESS NOTE NAME: NUBIA ROLLE [facility] #: [id number] UNIT #: [id number] ROOM: 518 DOCTOR: CHARLEEN WEST MD,ELIZABETH BIRTHDATE: [birth year] DOS: 03/15/2018 PULMONARY PROGRESS NOTE SUBJECTIVE: The patient was noted with decreased response at the present time, using the BiPAP at the setting of 16/10 since last night. She has not been noted arousable this morning. She has not been reported with symptoms of chest pain. She was noted with some cough yesterday. There is no progression of the cough reported. She has not been noted with symptoms of hematemesis or melena previously. She has been reported with constipation. The was present back to her bedside, with the patient. Review of systems could not be obtained. OBJECTIVE: VITAL SIGNS: Which were recorded showed the temperature noted as normal, respiratory rate 20, heart rate 83, blood pressure 120/70-118/68, pulse oxygen saturation noted on 4 liters nasal cannula 95% saturation. HEENT: Head was atraumatic. Eyes nonicterus. NECK: Supple. CARDIOVASCULAR: S1, S2 audible. LUNGS: Generally decreased breath sounds bilaterally. Scattered wheezing. There were no crackles. ABDOMEN: Soft, nontender. Bowel sounds present. EXTREMITIES: Without any acute edema. MUSCULOSKELETAL: Noted without any acute deformities. CENTRAL NERVOUS SYSTEM: Decreased wakefulness. VISIBLE SKIN: No lesions or rashes. LABORATORY DATA: Blood gas on 40% oxygen, venous gas, pH is 7.34, pCO2 of 62, pO2 of 50. Arterial blood gas was repeated later as ordered, shows a pH of 7.37, pCO2 of 57, pO2 of 120. BMP this morning: BUN 16, creatinine normal, CO2 of 35. IMPRESSION: 1. Worsening of respiratory status noted with mental status changes with ongoing acute exacerbation of chronic obstructive pulmonary disease. 2. Severe protein-calorie malnutrition status as well and debility, recurrent hospitalization. 3. Acute tracheobronchitis. There was no evidence of acute pneumonia known on this admission. PLAN OF MANAGEMENT: Continue the BiPAP at this time. Monitor mental status. Transfer the patient if the patient's mental status worsens. We made a change in the BiPAP in case further hypercarbia recurs. Continuation of the current dose of corticosteroids, bronchodilators, and other treatment plan and management. Aspiration precautions with change in mental status to be considered. [place], [place] PROGRESS NOTE NAME: NUBIA ROLLE UNIT #: [id number] ROOM: 518 DOCTOR: ELIZABETH MCDONALD MD BIRTHDATE: [birth year] ELIZABETH VILLASEÑOR MD CM:TOMAS [id number] ELIZABETH WEST MD 03/15/18 1351 interface
--- NOTE | ~2018-03-08 | PR ---
[place], [place] PROGRESS NOTE NAME: NUBIA ROLLE UNIT #: [id number] ROOM: 518 DOCTOR: CHARLEEN WEST MD,ELIZABETH BIRTHDATE: [birth year] DOS: 03/12/2018 SUBJECTIVE: The patient noted comfortable at this time without acute distress. She was noted with gradual reduction of the respiratory symptoms and shortness breath was the main symptom. She denies symptoms of nausea or vomiting. There were no symptoms of wheezing reported. OBJECTIVE: VITAL SIGNS: Normal temperature, respiratory rate 20, heart rate 106, blood pressure 150/90, pulse oxygen saturation on 3 liters nasal cannula 99% saturation. HEENT: No acute change. CARDIOVASCULAR: S1, S2 audible. LUNGS: Decreased breath sounds, generalized noted in the lungs bilaterally. There were no wheezing or crackles. ABDOMEN: Soft, nontender. EXTREMITIES: No acute edema. LABORATORY DATA: CBC: WBC count 12.3, hemoglobin 10.1, normal platelet count. CMP; normal BUN and creatinine. CO2 33. IMPRESSION: Stable respiratory status, with gradual, but progressive resolution of yhpga-xc-gpeqmtu hypercapnic-hypoxic respiratory failure with exacerbation of chronic obstructive pulmonary disease. PLAN OF TREATMENT: Continuation of the bronchodilators, oxygen supplementation, antibiotics, and corticosteroid. The corticosteroid dose will be decreased to 40 mg daily at the present time from 40 mg b.i.d. Close monitoring any changes in the symptoms after that. Other plan of management will be continued based on progress. ELIZABETH VILLASEÑOR MD CM:PNTRANS [phone] ELIZABETH WEST MD 03/13/18 0055 interface
--- NOTE | ~2018-03-08 | CON ---
[place], [place] REPORT OF CONSULTATION NAME: NUBIA ROLLE UNIT #: [id number] ROOM: 518 DOCTOR: ELIZABETH MCDONALD MD BIRTHDATE: [birth year] DOS: 03/09/2018 CONSULTATION REQUESTED BY: Hospitalist services. REASON FOR CONSULTATION: Recurrence of exacerbation of COPD, rehospitalization. HISTORY OF PRESENT ILLNESS: This is a 47-year-old white female patient remains in this hospital for several days from 02/22/2018 until 03/07/2018. ____ with severe acute hypercapnic and hypoxic respiratory failure, exacerbation of chronic obstructive pulmonary disease, [facility]. She returned back to the hospital the next day complaining of increased shortness of breath for this patient and not getting the care for the patient as needed. She was also noted symptoms of coughing, but it was noted only mild. There was no sputum expectoration, wheezing was noted with significant increase in anxiety, symptoms of chest pain or hemoptysis. REVIEW OF SYSTEMS: CONSTITUTIONAL: Symptoms of fatigue and tiredness noted, absent of fever or chills. EYES: Denies any burning, redness, or tenderness. EARS, NOSE, THROAT SYMPTOMS: Denies sore throat, hoarseness, otalgia, postnasal drainage. CARDIOVASCULAR: Denies anginal pain, edema, pain, lower extremities. GASTROINTESTINAL: Dysphagia, nausea, vomiting, diarrhea, abdominal pain, hematemesis, melena or hematochezia. GENITOURINARY: No dysuria, suprapubic pain, or hematuria. MUSCULOSKELETAL: The patient denies any acute joint pain, deformities, redness or tenderness in any major joints. CENTRAL NERVOUS SYSTEM: The patient denies any headache, diplopia, or syncopal episodes. SKIN: No lesions or rashes. Remaining systems reviewed. They were noted all negative. Past medical history, social history, family history for this was reviewed, since my consultation of 02/23/2018 and remains unchanged. The records of patient available in [employer] patient document for review as necessary. CURRENT MEDICATIONS: Use of DuoNeb, potassium chloride, Diamox 250 mg daily, Paxil, Lovenox, Protonix, Remeron, gabapentin, Dulera, Solu-Medrol 40 mg IV b.i.d., oral doxycycline, Suboxone and BuSpar. DRUG ALLERGIES: Noted as ALLERGY TO LEVAQUIN. PHYSICAL EXAMINATION: GENERAL: A 47-year-old female patient has been noted currently awake and alert without any acute distress, stating that she has been feeling better. She has not been noted any signs of respiratory distress with the BiPAP last night. VITAL SIGNS: Height was recorded by the nursing staff. On current admission with height of 5 feet 6 inches, weight of 50 kilograms with BMI of 18. [facility] [place], [place] REPORT OF CONSULTATION NAME: NUBIA ROLLE UNIT #: [id number] ROOM: 518 DOCTOR: CHARLEEN WEST MD,[facility] BIRTHDATE: [birth year] signs which were recorded shows the temperature noted as normal. The respiratory rate was noted as 20-18, heart rate 76. Blood pressure 126/78 to 129/74. The pulse oxygen saturation on 4 liters nasal cannula, 91% saturation. HEENT: Examination shows head was atraumatic. Eyes nonicterus. NECK: Supple. CARDIOVASCULAR: S1, S2 audible. LUNGS: The patient noted generally with decreased breath sounds, no mild expiratory wheezing, no crackles. ABDOMEN: Soft, nontender, bowel sounds present. EXTREMITIES: Without any acute edema. MUSCULOSKELETAL: Without any deformities. CENTRAL NERVOUS SYSTEM: Cranial nerves 2-12 intact. LABORATORY DATA: CMP, glucose 159, BUN 21, creatinine normal. CO2 34. CBC of the patient today, on admission WBC count 17,000, hemoglobin 10.9, platelet count normal. CBC this morning, WBC count 11.7, hemoglobin 9.6, hematocrit 32.4, platelet count was normal. CMP of the patient is normal. Normal BUN and creatinine, CO2 was 34. IMPRESSION: 1. The patient was admitted to the hospital with chronic obstructive pulmonary disease exacerbation, ____ continued. 2. Leukocytosis, most likely steroid induced. Rule out any superimposed infection. Chest x-ray does not show any acute pulmonary infiltration from yesterday. 3. History of nonadherence to the use of the BiPAP intermittently as well with history of nicotine use. PLAN OF MANAGEMENT: Continuation of bronchodilators, oxygen supplementation. Discontinue Zithromax. Continue the doxycycline. The only primary antibiotic. Monitor respiratory status closely. Use of the BiPAP 20/10 for this patient at nighttime p.r.n. during the day. Other supportive therapy, plan of management care plan. Additional treatment changes be done based on progression of illness. ELIZABETH VILLASEÑOR MD CM:CONSTR:REPORT OF CONSULTATION 1306 03/09/18 1431 interface
--- NOTE | ~2018-03-08 | PR ---
[place], [place] PROGRESS NOTE NAME: NUBIA ROLLE UNIT #: [id number] ROOM: 518 DOCTOR: CHARLEEN WEST MD,ELIZABETH BIRTHDATE: [birth year] DOS: 03/14/2018 SUBJECTIVE: She has been noted same without any change in respiratory status. Coughing has been noted mild this morning. Shortness of breath occurs with exertion, not at rest. Using the oxygen supplementation and use of BiPAP, the pressure was changed for the patient yesterday at 16/10 to improve the adherence. The patient was started a new mask. OBJECTIVE: VITAL SIGNS: Normal temperature, respiratory rate of 18, pulse 73, blood pressure is 111/72, pulse ox saturation on 4 liters nasal canula and 97% saturation at rest. HEENT: Head was atraumatic. Eyes nonicterus. NECK: Supple. CARDIOVASCULAR: S1, S2 is audible. LUNGS: Noted without any wheeze or crackles. ABDOMEN: Soft, nontender. Bowel sounds present. EXTREMITIES: Without any acute edema. IMPRESSION: Persistent acute exacerbation of chronic obstructive pulmonary disease, yckpl-wz-yjtzafj hypercapnic and hypoxic respiratory failure. PLAN OF MANAGEMENT: No changes in the plan of care for the patient at this time. Continue the patient's current therapy, plan of care and other medical management plan. Usual care. All other treatment changes if necessary be done for the patient with progressive illness. Monitor the patient's cough, which has been noted mild at this time. ELIZABETH VILLASEÑOR MD CM:PNTRANS [phone] ELIZABETH WEST MD 03/15/18 0143 interface
--- NOTE | ~2018-03-08 | PR ---
[place], [place] PROGRESS NOTE NAME: NUBIA ROLLE UNIT #: [id number] ROOM: 518 DOCTOR: ELIZABETH MCDONALD MD BIRTHDATE: [birth year] DOS: 03/20/2018 PULMONARY PROGRESS NOTE SUBJECTIVE: She is noted comfortable at this time, resting on the bed. She used the BiPAP last night. She continues to show gradual reduction in symptoms of shortness of breath. There were no symptoms of chest pain or hemoptysis. There was no coughing. OBJECTIVE: VITAL SIGNS: Normal temperature, respiratory rate 18, heart rate 101, blood pressure 108/75, pulse ox saturation on 4 liters nasal cannula 96% saturation at rest. HEENT: Head was atraumatic, eyes nonicterus. NECK: Supple. CARDIOVASCULAR: S1, S2 audible. LUNGS: Fddk-vp-[id number] decreased breath sounds, absence of wheezing today. There were no crackles. ABDOMEN: Soft, nontender, flat. EXTREMITIES: Without any acute edema. IMPRESSION: 1. The patient with gradual resolution of acute on chronic severe hypercapnic hypoxic respiratory failure. 2. History of nonadherence with treatment with recurrent frequent hospitalization. 3. History of nicotine dependence noted as well. PLAN OF MANAGEMENT: The patient could be considered for home discharge along with tapering dose of prednisone starting at 50 mg 5 days and then to be reduced by 10 mg every 6 days, to go to the tapering completion after the 10 mg use. The patient remains at risk of recurrent hospitalization because of history of nonadherence to treatment and the BiPAP as well as intermittent tobacco use. She is not noted a candidate for lung transplant in spite of the end-stage renal failure because of nicotine dependence and nonadherence with the treatments. The discharge planning was discussed with Dr. Han. The BiPAP pressures will be decreased at 16/10, the DME company will be contacted from office to make the adjustment. Hopefully, it will improve the adherence to the use of the BiPAP, as the patient is complaining of non-use of the BiPAP secondary to excessive pressures as well. [place], [place] PROGRESS NOTE NAME: NUBIA ROLLE UNIT #: [id number] ROOM: 518 DOCTOR: ELIZABETH MCDONALD MD BIRTHDATE: [birth year] ELIZABETH VILLASEÑOR MD CM:PNTRANS [id number] ELIZABETH WEST MD 03/20/18 1045 interface
--- NOTE | ~2018-03-08 | EKG ---
[place], [place] ELECTROCARDIOGRAM REPORT NAME: NUBIA ROLLE UNIT #: [id number] ROOM: 518 DOCTOR: CHARLEEN WEST MD,ELIZABETH BIRTHDATE: [birth year] DOS: 03/08/2018 TIME: 1155 AM CONCLUSION: Shows sinus tachycardia. Normal sinus rhythm. Heart rate 99 beats per minute. PVCs was noted. Otherwise, EKG were noted normal. ELIZABETH VILLASEÑOR MD CM:EKGRPT:ELECTROCARDIOGRAM REPORT [id number] ELIZABETH WEST MD
--- NOTE | ~2018-03-08 | PR ---
[place], [place] PROGRESS NOTE NAME: NUBIA ROLLE UNIT #: [id number] ROOM: 518 DOCTOR: CHARLEEN WEST MD,ELIZABETH BIRTHDATE: [birth year] DOS: 03/13/2018 SUBJECTIVE: She has not been using the BiPAP for the last 2 days with current mask not fitted as describe. She has been ambulating noted with high oxygen desaturation with ambulation. The patient was not noted any symptoms of chest pain or any hemoptysis. OBJECTIVE: VITAL SIGNS: Normal temperature, respiratory rate 20, heart rate 89, blood pressure 122/82, pulse ox saturation on 4 liters nasal cannula 94% saturation. HEENT: Head was atraumatic. Eyes nonicterus. NECK: Supple. CARDIOVASCULAR: S1, S2 audible. LUNGS: General reduction in the breath sounds bilaterally. ABDOMEN: Soft, nontender, bowel sounds present. IMPRESSION: The patient with stable respiratory status, acute exacerbation of chronic obstructive pulmonary disease, and acute tracheobronchitis. PLAN OF MANAGEMENT: Changes in mask to be fitted to use the BiPAP, which will be needed. Continue corticosteroids at current dose and bronchodilators. Other therapy and plan of management. ELIZABETH VILLASEÑOR MD CM:PNTRANS [phone] ELIZABETH WEST MD 03/13/18 1801 interface
--- NOTE | ~2018-03-08 | PR ---
[place], [place] PROGRESS NOTE NAME: NUBIA ROLLE UNIT #: [id number] ROOM: 518 DOCTOR: CHARLEEN WEST MD,ELIZABETH BIRTHDATE: [birth year] DOS: 03/18/2018 SUBJECTIVE: The patient noted comfortable at this time without any acute distress, sitting on the bed. Denies symptoms of chest pain, hemoptysis reported, reduction in shortness of breath from yesterday. Using the BiPAP and also continue other treatments. OBJECTIVE: VITAL SIGNS: Normal temperature, respiratory rate 20, heart rate 96, blood pressure 119/65. The pulse ox saturation on 4 liters 93-98% saturation noted at rest. HEENT: Head was atraumatic. Eyes nonicterus. NECK: Supple. CARDIOVASCULAR: S1, S2 audible. LUNGS: Noted moderate decreased breath sounds, [id number] expiratory wheezing bilaterally. There were no crackles. ABDOMEN: Soft, nontender. IMPRESSION: Severe xinpr-nx-mdebxys hypercapnic hypoxic respiratory failure with exacerbation of chronic obstructive pulmonary disease and acute bronchitis. PLAN OF TREATMENT: Continue the current plan of management. The patient seek 4 LT[facility] facility assessment for discharge. Continue in the meantime with the present therapeutic care ____ previously. Usual care. Supportive plan of management. ELIZABETH VILLASEÑOR MD CM:PNTRANS [id number] ELIZABETH WEST MD 03/18/18 0937 interface
--- NOTE | ~2018-03-08 | PR ---
[place], [place] PROGRESS NOTE NAME: NUBIA ROLLE UNIT #: [id number] ROOM: 518 DOCTOR: CHARLEEN WEST MD,ELIZABETH BIRTHDATE: [birth year] DOS: 03/16/2018 SUBJECTIVE: The patient has been noted comfortable at this time, used the BiPAP several hours in the last 24 hours. She is complaining of shortness of breath, mild chest congestion. Still noted significant hypoxia with mild exertion. OBJECTIVE: VITAL SIGNS: For the patient normal temperature, respiratory rate 20, heart rate 76, 128/60, pulse ox saturation on 4 liters nasal canula 97% saturation at rest and with a BiPAP 35% saturation 97%. HEENT: Examination shows head was atraumatic. Eyes nonicterus. NECK: Supple. CARDIOVASCULAR: S1, S2 is audible. LUNGS: The patient was noted without any wheeze or crackles at the present time. ABDOMEN: Soft, nontender. EXTREMITIES: Without any acute edema. IMPRESSION: 1. The patient with acute exacerbation of chronic obstructive pulmonary disease noted with exertional hypoxia, possibility of acute bronchitis. 2. Metabolic alkalosis. PLAN OF MANAGEMENT: Continuation of the current therapy, plan of management, except increase steroids to 40 mg b.i.d. dosing. Other supportive therapy, plan of management as previously will be continued without any changes. ELIZABETH VILLASEÑOR MD CM:PNTRANS [phone] ELIZABETH WEST MD 03/17/18 0124 interface
[2018-03-08 11:29] VITALS: BP 129/74
[~2018-03-08 11:29] MED LIST changes: +AVPAK AZITHROM250 M1 PO; -DUONEB 3 MG/3 ML3 M1 INH; +Ipratropium Brom3 ML INH
[2018-03-08] MEDS ORDERED: GUAIFENESIN600 MG PO (11:52)
[2018-03-08] MEDS ORDERED: MILK OF MA400 MG/5 M PO (11:54)
[2018-03-08 11:57] LABS: HEMATOCRIT 37.3 % (37.0-47.0); HEMOGLOBIN 10.9 g/dl (12.0-16.0); MEAN CELL VOLUME 94.9 fl (81.0-99.0); MEAN CORPUSCULAR HGB 27.7 pg (27.0-31.0); MEAN CORPUSCULAR HGB CONC 29.2 g/dl (33.0-37.0); MEAN PLATELET VOLUME 11.4 fl (9.6-12.3); PLATELET COUNT AUTOMATED 265 10*3/uL (130-400); RED BLOOD COUNT 3.93 10*6/uL (4.10-5.10); RED CELL DISTRI WIDTH 14.2 % (0-14.5)
[2018-03-08 12:11] LABS: ALBUMIN 3.5 gm/dl (3.1-4.5); ALKALINE PHOSPHATASE 58 U/L (45-117); BUN 21 mg/dl (7-24); CHLORIDE 103 mmol/L (98-107); CREATININE 0.63 mg/dL (0.55-1.02); POTASSIUM 4.2 mmol/L (3.5-5.1); SGOT/AST 8 IU/L (3-35); SGPT/ALT 23 U/L (12-78); SODIUM 142 mmol/L (136-145); TOTAL PROTEIN 7.2 gm/dL (6.4-8.2)
[2018-03-08 12:19] LABS: PLATELET SUFFICIENCY NORMAL (NORMAL); TOTAL CELLS COUNTED 100 #CELLS
[2018-03-08 13:17] VITALS: BP 127/94
[2018-03-08 14:33] VITALS: BP 140/85
[2018-03-08 16:00] VITALS: BP 119/68
[2018-03-08 16:47] LABS: BILIRUBIN NEGATIVE (NEGATIVE); BLOOD NEGATIVE (NEGATIVE); CLARITY SL CLOUDY (CLEAR); COLOR YELLOW (YELLOW); GLUCOSE NEGATIVE (NEGATIVE); KETONE NEGATIVE (NEGATIVE); LEUKO ESTERASE 1+ (NEGATIVE); NITRITE NEGATIVE (NEGATIVE); PH 7.5 (5.0-9.0); SPECIFIC GRAVITY 1.015 (1.005-1.030); UROBILINOGEN 0.2 E.U./dl (0.2-1.0)
[2018-03-08 16:52] LABS: BACTERIA 4+; RBC 0-2 rbc/hpf (0-2)
[2018-03-08 20:00] VITALS: BP 134/63
[2018-03-09] VITALS: BP 112/59
[2018-03-09 07:01] LABS: BASO % 0.1 % (0.0-1.0); EOS % 0.3 % (1.0-4.0); HEMATOCRIT 32.4 % (37.0-47.0); HEMOGLOBIN 9.6 g/dl (12.0-16.0); LYMPH # 1.4 10*3/uL (1.3-4.4); LYMPH % 11.6 % (27.0-41.0); MEAN CELL VOLUME 93.9 fl (81.0-99.0); MEAN CORPUSCULAR HGB 27.8 pg (27.0-31.0); MEAN CORPUSCULAR HGB CONC 29.6 g/dl (33.0-37.0); MEAN PLATELET VOLUME 11.2 fl (9.6-12.3); MONO % 8.9 % (3.0-9.0); NEUT # 9.1 10*3/uL (2.3-7.9); NEUT % 77.9 % (47.0-73.0); PLATELET COUNT AUTOMATED 239 10*3/uL (130-400); RED BLOOD COUNT 3.45 10*6/uL (4.10-5.10); RED CELL DISTRI WIDTH 14.3 % (0-14.5); WHITE BLOOD COUNT 11.7 10*3/uL (4.8-10.8)
[2018-03-09 07:42] LABS: ALBUMIN 3.1 gm/dl (3.1-4.5); BUN 14 mg/dl (7-24); CHLORIDE 105 mmol/L (98-107); POTASSIUM 3.6 mmol/L (3.5-5.1); SGOT/AST 7 IU/L (3-35); SGPT/ALT 19 U/L (12-78); SODIUM 144 mmol/L (136-145)
[2018-03-09 07:45] LABS: ALKALINE PHOSPHATASE 50 U/L (45-117); CREATININE 0.48 mg/dL (0.55-1.02); PHOSPHOROUS 2.9 mg/dL (2.5-4.9); TOTAL PROTEIN 6.5 gm/dL (6.4-8.2)
[2018-03-09 08:00] VITALS: BP 126/78
[2018-03-09 12:00] VITALS: BP 119/62
[2018-03-09 16:00] VITALS: BP 110/65
[2018-03-09 20:00] VITALS: BP 119/69
[2018-03-10] VITALS: BP 100/57
[2018-03-10 08:00] VITALS: BP 119/97
[2018-03-10 12:00] VITALS: BP 122/86
[2018-03-10 16:00] VITALS: BP 111/60
[2018-03-10 20:00] VITALS: BP 120/77
[2018-03-11] VITALS: BP 112/67
[2018-03-11 06:25] LABS: BASO % 0.2 % (0.0-1.0); EOS % 0.1 % (1.0-4.0); HEMATOCRIT 37.7 % (37.0-47.0); HEMOGLOBIN 10.9 g/dl (12.0-16.0); LYMPH # 1.2 10*3/uL (1.3-4.4); LYMPH % 9.8 % (27.0-41.0); MEAN CORPUSCULAR HGB 27.5 pg (27.0-31.0); MEAN CORPUSCULAR HGB CONC 28.9 g/dl (33.0-37.0); MEAN PLATELET VOLUME 11.6 fl (9.6-12.3); MONO # 0.8 10*3/uL (0.1-1.0); MONO % 6.6 % (3.0-9.0); NEUT # 10.4 10*3/uL (2.3-7.9); NEUT % 81.9 % (47.0-73.0); PLATELET COUNT AUTOMATED 259 10*3/uL (130-400); RED BLOOD COUNT 3.97 10*6/uL (4.10-5.10); RED CELL DISTRI WIDTH 14.3 % (0-14.5); WHITE BLOOD COUNT 12.7 10*3/uL (4.8-10.8)
[2018-03-11 08:00] VITALS: BP 138/84
[2018-03-11 12:00] VITALS: BP 135/78
[2018-03-11 16:00] VITALS: BP 119/64
[2018-03-11 20:00] VITALS: BP 127/87
[2018-03-12] VITALS: BP 131/85
[2018-03-12 06:44] LABS: BASO % 0.2 % (0.0-1.0); EOS % 0.2 % (1.0-4.0); HEMATOCRIT 34.6 % (37.0-47.0); HEMOGLOBIN 10.1 g/dl (12.0-16.0); LYMPH # 1.5 10*3/uL (1.3-4.4); LYMPH % 11.8 % (27.0-41.0); MEAN CELL VOLUME 93.8 fl (81.0-99.0); MEAN CORPUSCULAR HGB 27.4 pg (27.0-31.0); MEAN CORPUSCULAR HGB CONC 29.2 g/dl (33.0-37.0); MEAN PLATELET VOLUME 11.1 fl (9.6-12.3); MONO % 8.4 % (3.0-9.0); NEUT # 9.5 10*3/uL (2.3-7.9); NEUT % 77.6 % (47.0-73.0); PLATELET COUNT AUTOMATED 240 10*3/uL (130-400); RED BLOOD COUNT 3.69 10*6/uL (4.10-5.10); RED CELL DISTRI WIDTH 14.2 % (0-14.5); WHITE BLOOD COUNT 12.3 10*3/uL (4.8-10.8)
[2018-03-12 07:02] LABS: ALBUMIN 3.3 gm/dl (3.1-4.5); ALKALINE PHOSPHATASE 61 U/L (45-117); BUN 19 mg/dl (7-24); CHLORIDE 103 mmol/L (98-107); POTASSIUM 3.5 mmol/L (3.5-5.1); SGOT/AST 10 IU/L (3-35); SGPT/ALT 19 U/L (12-78); SODIUM 143 mmol/L (136-145); TOTAL PROTEIN 6.6 gm/dL (6.4-8.2)
[2018-03-12 08:00] VITALS: BP 152/90
[2018-03-12 12:00] VITALS: BP 124/72
[2018-03-12 16:00] VITALS: BP 126/64
[2018-03-12 20:00] VITALS: BP 127/73
[2018-03-13] VITALS: BP 107/57
[2018-03-13 06:45] LABS: HEMATOCRIT 36.1 % (37.0-47.0); HEMOGLOBIN 10.6 g/dl (12.0-16.0); MEAN CORPUSCULAR HGB 27.6 pg (27.0-31.0); MEAN CORPUSCULAR HGB CONC 29.4 g/dl (33.0-37.0); MEAN PLATELET VOLUME 11.9 fl (9.6-12.3); PLATELET COUNT AUTOMATED 257 10*3/uL (130-400); RED BLOOD COUNT 3.84 10*6/uL (4.10-5.10); RED CELL DISTRI WIDTH 14.5 % (0-14.5); WHITE BLOOD COUNT 15.5 10*3/uL (4.8-10.8)
[2018-03-13 07:08] LABS: ALBUMIN 3.4 gm/dl (3.1-4.5); ALKALINE PHOSPHATASE 71 U/L (45-117); BUN 22 mg/dl (7-24); CHLORIDE 101 mmol/L (98-107); CREATININE 0.74 mg/dL (0.55-1.02); POTASSIUM 3.7 mmol/L (3.5-5.1); SGOT/AST 11 IU/L (3-35); SGPT/ALT 22 U/L (12-78); SODIUM 140 mmol/L (136-145); TOTAL PROTEIN 6.9 gm/dL (6.4-8.2)
[2018-03-13 07:30] LABS: TOTAL CELLS COUNTED 100 #CELLS
[2018-03-13 07:32] LABS: PLATELET SUFFICIENCY NORMAL (NORMAL)
[2018-03-13 08:00] VITALS: BP 122/82
[2018-03-13 12:00] VITALS: BP 113/66
[2018-03-13 16:00] VITALS: BP 104/49
[2018-03-13 20:00] VITALS: BP 144/79
[2018-03-14] VITALS: BP 112/73
[2018-03-14 03:15] VITALS: BP 111/72
[2018-03-14 07:16] LABS: BUN 19 mg/dl (7-24); CHLORIDE 100 mmol/L (98-107); CREATININE 0.71 mg/dL (0.55-1.02); POTASSIUM 3.4 mmol/L (3.5-5.1); SODIUM 141 mmol/L (136-145)
[2018-03-14 08:00] VITALS: BP 122/70
[2018-03-14 12:00] VITALS: BP 140/84
[2018-03-14 16:00] VITALS: BP 101/56
[2018-03-14 20:00] VITALS: BP 114/78
[2018-03-15] VITALS: BP 120/70
[2018-03-15 07:29] LABS: BUN 16 mg/dl (7-24); CHLORIDE 103 mmol/L (98-107); POTASSIUM 3.7 mmol/L (3.5-5.1); SODIUM 143 mmol/L (136-145)
[2018-03-15 08:00] VITALS: BP 118/68
[2018-03-15 09:10] LABS: ABG BASE EXCESS 6.6 mmol/L (-2.0-2.0); ABG HCO3 33.4 mmol/l (22-26); ABG O2 SATURATION 84.6 % (95-97); ARTERIAL BLOOD GAS PCO2 62.6 mmHg (35-45); ARTERIAL BLOOD GAS PH 7.344 (7.35-7.45); ARTERIAL BLOOD GAS PO2 50.1 mmHg (80-90)
[2018-03-15 09:52] LABS: ABG HCO3 33.2 mmol/l (22-26); ABG O2 SATURATION 98.4 % (95-97); ARTERIAL BLOOD GAS PCO2 57.5 mmHg (35-45); ARTERIAL BLOOD GAS PH 7.378 (7.35-7.45)
[2018-03-15 12:00] VITALS: BP 130/87
[2018-03-15 16:00] VITALS: BP 121/70
[2018-03-15 20:00] VITALS: BP 147/81
[2018-03-16] VITALS: BP 92/67
[2018-03-16 06:42] LABS: BASO % 0.3 % (0.0-1.0); EOS # 0.1 10*3/uL (0.0-0.4); HEMATOCRIT 36.7 % (37.0-47.0); HEMOGLOBIN 10.4 g/dl (12.0-16.0); LYMPH # 1.6 10*3/uL (1.3-4.4); LYMPH % 13.7 % (27.0-41.0); MEAN CELL VOLUME 95.8 fl (81.0-99.0); MEAN CORPUSCULAR HGB 27.2 pg (27.0-31.0); MEAN CORPUSCULAR HGB CONC 28.3 g/dl (33.0-37.0); MEAN PLATELET VOLUME 11.5 fl (9.6-12.3); MONO # 0.8 10*3/uL (0.1-1.0); MONO % 6.9 % (3.0-9.0); NEUT % 76.2 % (47.0-73.0); PLATELET COUNT AUTOMATED 212 10*3/uL (130-400); RED BLOOD COUNT 3.83 10*6/uL (4.10-5.10); RED CELL DISTRI WIDTH 14.4 % (0-14.5); WHITE BLOOD COUNT 11.9 10*3/uL (4.8-10.8)
[2018-03-16 06:57] LABS: CHLORIDE 104 mmol/L (98-107); POTASSIUM 4.3 mmol/L (3.5-5.1); SODIUM 143 mmol/L (136-145)
[2018-03-16 07:05] LABS: BUN 15 mg/dl (7-24); CREATININE 0.69 mg/dL (0.55-1.02)
[2018-03-16 08:00] VITALS: BP 128/60
[2018-03-16 12:00] VITALS: BP 140/78
[2018-03-16 16:00] VITALS: BP 112/75
[2018-03-16 20:00] VITALS: BP 159/62
[2018-03-17] VITALS: BP 131/67
[2018-03-17 08:11] VITALS: BP 129/85
[2018-03-17 12:06] VITALS: BP 140/71
[2018-03-17 16:00] VITALS: BP 127/78
[2018-03-17 20:00] VITALS: BP 111/73
[2018-03-18] VITALS: BP 117/79
[2018-03-18 06:45] LABS: BUN 15 mg/dl (7-24); CHLORIDE 104 mmol/L (98-107); CREATININE 0.71 mg/dL (0.55-1.02); POTASSIUM 3.7 mmol/L (3.5-5.1); SODIUM 144 mmol/L (136-145)
[2018-03-18 07:38] VITALS: BP 125/86
[2018-03-18 11:48] VITALS: BP 119/65
[2018-03-18 15:54] VITALS: BP 135/93
[2018-03-18 20:00] VITALS: BP 111/74
[2018-03-19] VITALS: BP 129/82
[2018-03-19] MEDS ORDERED: TAB-A-VITE1 EACH PO (03:03)
[2018-03-19 06:57] LABS: HEMATOCRIT 36.7 % (37.0-47.0); HEMOGLOBIN 10.5 g/dl (12.0-16.0); MEAN CELL VOLUME 95.1 fl (81.0-99.0); MEAN CORPUSCULAR HGB 27.2 pg (27.0-31.0); MEAN CORPUSCULAR HGB CONC 28.6 g/dl (33.0-37.0); MEAN PLATELET VOLUME 11.5 fl (9.6-12.3); PLATELET COUNT AUTOMATED 209 10*3/uL (130-400); RED BLOOD COUNT 3.86 10*6/uL (4.10-5.10); RED CELL DISTRI WIDTH 14.6 % (0-14.5); WHITE BLOOD COUNT 14.3 10*3/uL (4.8-10.8)
[2018-03-19 07:15] LABS: TOTAL CELLS COUNTED 100 #CELLS
[2018-03-19 07:16] LABS: PLATELET SUFFICIENCY NORMAL (NORMAL); POLYCHROMASIA SLIGHT
[2018-03-19 08:00] VITALS: BP 135/88
[2018-03-19 12:00] VITALS: BP 133/72
[2018-03-19 16:00] VITALS: BP 110/64
[2018-03-19 20:00] VITALS: BP 125/87
[2018-03-20] VITALS: BP 120/72
[2018-03-20 08:00] VITALS: BP 108/75
[2018-03-20] MEDS ORDERED: MUCINEX ER600 MG PO (10:08)
[2018-03-20] MEDS ORDERED: PREDNISONE10 MG PO (10:08)
[2018-04-12] MEDS ORDERED: PREDNISONE10 MG PO ×2 (13:55→14:02)
[2018-04-14] MEDS ORDERED: ATIVAN0.5 MG PO (12:06)
[2018-04-14] MEDS ORDERED: DOXYCYCLINE100 M3 PO (12:06)
[2018-04-14] MEDS ORDERED: HYCODAN/HYDROMET5 ML PO (12:06)
[2018-04-27] MEDS ORDERED: ATIVAN1 MG PO (01:23)
[2018-04-29] MEDS ORDERED: RANITIDINE75 MG PO (15:10)
[2018-04-29] MEDS ORDERED: ALENDRONATE SOD70 M1 PO (15:13)
[2018-05-01] MEDS ORDERED: WHEELCHAIR DEVI (11:06)
[2018-05-03] MEDS ORDERED: ACETAZOLAMIDE250 MG PO (12:01)
[2018-05-03] MEDS ORDERED: PREDNISONE50 MG PO (12:01)
[2018-05-03] MEDS ORDERED: LOPRESSOR25 MG PO (12:01)
[2018-05-03] MEDS ORDERED: MUCINEX ER600 MG PO (12:01)
[2018-05-03] MEDS ORDERED: FUROSEMIDE40 MG PO (12:01)
[2018-05-03] MEDS ORDERED: PREDNISONE10 MG PO (12:01)
[2018-05-03] MEDS ORDERED: PANTOPRAZOLE SO40 MG PO (12:01)
== END 2018-03-20 11:22 | disposition home health service (06) | DRG 871 ==
LOC: ED 11:29 → EDHOLD 13:53 → 5E 13:53
PROVIDERS: Emergency Medicine; Family Medicine; Internal Medicine; Internal Medicine Critical Care Medicine; Nurse Practitioner; Registered Nurse
PROC: 5A09357 Assistance with Respiratory Ventilation, Less than 24 Consecutive Hours, Continuous Positive Airway Pressure (ICD-10-PCS; 2018-03-12)
PROC: 5A09357 Assistance with Respiratory Ventilation, Less than 24 Consecutive Hours, Continuous Positive Airway Pressure (ICD-10-PCS; 2018-03-14)
PROC: 5A09357 Assistance with Respiratory Ventilation, Less than 24 Consecutive Hours, Continuous Positive Airway Pressure (ICD-10-PCS; 2018-03-15)
PROC: 5A09357 Assistance with Respiratory Ventilation, Less than 24 Consecutive Hours, Continuous Positive Airway Pressure (ICD-10-PCS; 2018-03-16)
PROC: 5A09357 Assistance with Respiratory Ventilation, Less than 24 Consecutive Hours, Continuous Positive Airway Pressure (ICD-10-PCS; 2018-03-17)
PROC: 5A09357 Assistance with Respiratory Ventilation, Less than 24 Consecutive Hours, Continuous Positive Airway Pressure (ICD-10-PCS; 2018-03-18)
PROC: 5A09357 Assistance with Respiratory Ventilation, Less than 24 Consecutive Hours, Continuous Positive Airway Pressure (ICD-10-PCS; 2018-03-19)
PROC: 5A09357 Assistance with Respiratory Ventilation, Less than 24 Consecutive Hours, Continuous Positive Airway Pressure (ICD-10-PCS; principal; 2018-03-20)
DX: A41.9 Sepsis, unspecified organism (principal); J18.9 Pneumonia, unspecified organism; J96.21 Acute and chronic respiratory failure with hypoxia; E43 Unspecified severe protein-calorie malnutrition; I50.22 Chronic systolic (congestive) heart failure; E87.3 Alkalosis; J96.22 Acute and chronic respiratory failure with hypercapnia; N18.6 End stage renal disease; J44.1 Chronic obstructive pulmonary disease with (acute) exacerbation; J44.0 Chronic obstructive pulmonary disease with (acute) lower respiratory infection; Z68.1 Body mass index [BMI] 19.9 or less, adult; J84.10 Pulmonary fibrosis, unspecified; F17.210 Nicotine dependence, cigarettes, uncomplicated; F41.9 Anxiety disorder, unspecified; E78.5 Hyperlipidemia, unspecified; L40.8 Other psoriasis; R65.20 Severe sepsis without septic shock; D64.9 Anemia, unspecified; F32.9 Major depressive disorder, single episode, unspecified; Z88.8 Allergy status to other drugs, medicaments and biological substances; Z88.1 Allergy status to other antibiotic agents; Z79.899 Other long term (current) drug therapy; Z87.01 Personal history of pneumonia (recurrent); Z98.51 Tubal ligation status; Z99.81 Dependence on supplemental oxygen; Z90.49 Acquired absence of other specified parts of digestive tract; Z80.8 Family history of malignant neoplasm of other organs or systems; Z82.3 Family history of stroke; Z83.6 Family history of other diseases of the respiratory system; Z84.89 Family history of other specified conditions

== ENCOUNTER → 2018-04-25 | Outpatient (CLI) | payer OTHER ==
[~2018-04-25] MED LIST changes: +ALENDRONATE SOD70 M1 PO; +ATIVAN0.5 MG PO; +ATIVAN1 MG PO; +FUROSEMIDE40 MG PO; +HYCODAN/HYDROMET5 ML PO; +LOPRESSOR25 MG PO; +MILK OF MA400 MG/5 M PO; +PANTOPRAZOLE SO40 MG PO; +RANITIDINE75 MG PO; +TAB-A-VITE1 EACH PO; +WHEELCHAIR DEVI
== END | disposition home or self-care (01) ==
LOC: RESCLI 08:54
DX: Z09 Encounter for follow-up examination after completed treatment for conditions other than malignant neoplasm (principal); J44.9 Chronic obstructive pulmonary disease, unspecified; E87.6 Hypokalemia; E51.9 Thiamine deficiency, unspecified; F41.8 Other specified anxiety disorders; L40.0 Psoriasis vulgaris; M79.2 Neuralgia and neuritis, unspecified; E55.9 Vitamin D deficiency, unspecified; E44.0 Moderate protein-calorie malnutrition; D64.9 Anemia, unspecified; D72.829 Elevated white blood cell count, unspecified; R26.2 Difficulty in walking, not elsewhere classified; R12 Heartburn; R00.0 Tachycardia, unspecified; Z53.29 Procedure and treatment not carried out because of patient's decision for other reasons; Z99.81 Dependence on supplemental oxygen; Z87.898 Personal history of other specified conditions; Z53.20 Procedure and treatment not carried out because of patient's decision for unspecified reasons; Z90.49 Acquired absence of other specified parts of digestive tract

== ENCOUNTER 2018-09-05 13:05 | Inpatient (IN) | payer OTHER, MEDICAID ==
[~2018-09-05] VITALS: Ht 170.2 cm; Wt 56.9 kg
[2018-09-05 14:00] VITALS: BP 143/88
[2018-09-05] MEDS ORDERED: LOPRESSOR25 MG PO ×2 (15:02)
[2018-09-05] MEDS ORDERED: PREVACID30 M2 PO (15:10)
[2018-09-05] MEDS ORDERED: ZOFRAN4 MG PO (15:10)
[2018-09-05] MEDS ORDERED: GAS RELIEF 8080 MG PO (15:11)
[2018-09-05] MEDS ORDERED: IBU800 M1 PO (15:13)
[2018-09-05] MEDS ORDERED: CYCLOBENZAPRINE5 M3 PO (15:13)
[2018-09-05] MEDS ORDERED: AMBIEN10 M1 PO (15:15)
[2018-09-05] MEDS ORDERED: SENNA-S LAXATI1 EACH PO (15:17)
[2018-09-05] MEDS ORDERED: PREDNISONE20 M1 PO (15:18)
[2018-09-05] MEDS ORDERED: DILAUDID4 MG PO (15:19)
[2018-09-05] MEDS ORDERED: MELATONIN3 MG PO (15:21)
[2018-09-05] MEDS ORDERED: METHADONE HCL10 MG PO (15:23)
[2018-09-05] MEDS ORDERED: XANAX1 MG PO ×2 (15:27)
[2018-09-05] MEDS ORDERED: BIOFREEZE118 ML T (15:29)
[2018-09-05 16:00] VITALS: BP 124/73
[2018-09-06] VITALS: BP 109/66
[2018-09-06 08:23] VITALS: BP 125/74
[2018-09-06 16:00] VITALS: BP 128/81
[2018-09-07] VITALS: BP 120/81
[2018-09-07 08:00] VITALS: BP 123/74
[2018-09-07 12:00] VITALS: BP 109/76
[2018-09-07 16:00] VITALS: BP 96/70
[2018-09-07 20:00] VITALS: BP 115/59
[2018-09-08] VITALS: BP 115/64
[2018-09-08 16:00] VITALS: BP 117/80
[2018-09-09] VITALS: BP 95/62
[2018-09-09 08:00] VITALS: BP 98/60
[2018-09-09 16:00] VITALS: BP 104/59
[2018-09-09 20:00] VITALS: BP 95/59
[2018-09-10] VITALS: BP 86/60
[2018-09-10 08:00] VITALS: BP 92/57
[2018-09-10] MEDS ORDERED: METHADONE HCL10 MG PO (10:42)
[2018-09-10] MEDS ORDERED: DILAUDID4 MG PO (10:42)
== END 2018-09-10 14:01 | disposition hospice, home (50) | DRG 191 ==
LOC: 4E 13:05
PROC: 5A09357 Assistance with Respiratory Ventilation, Less than 24 Consecutive Hours, Continuous Positive Airway Pressure (ICD-10-PCS; principal; 2018-09-06)
PROC: 5A09357 Assistance with Respiratory Ventilation, Less than 24 Consecutive Hours, Continuous Positive Airway Pressure (ICD-10-PCS; 2018-09-09)
DX: J44.9 Chronic obstructive pulmonary disease, unspecified (principal); J96.11 Chronic respiratory failure with hypoxia; I50.22 Chronic systolic (congestive) heart failure; E51.9 Thiamine deficiency, unspecified; R64 Cachexia; Z68.1 Body mass index [BMI] 19.9 or less, adult; F41.1 Generalized anxiety disorder; L40.0 Psoriasis vulgaris; F32.9 Major depressive disorder, single episode, unspecified; J84.10 Pulmonary fibrosis, unspecified; F17.210 Nicotine dependence, cigarettes, uncomplicated; E78.5 Hyperlipidemia, unspecified; M79.2 Neuralgia and neuritis, unspecified; F41.9 Anxiety disorder, unspecified; Z51.5 Encounter for palliative care; R00.0 Tachycardia, unspecified; Z99.81 Dependence on supplemental oxygen; Z87.01 Personal history of pneumonia (recurrent); Z98.51 Tubal ligation status; Z90.49 Acquired absence of other specified parts of digestive tract; Z82.3 Family history of stroke; Z80.8 Family history of malignant neoplasm of other organs or systems; Z82.5 Family history of asthma and other chronic lower respiratory diseases; Z84.89 Family history of other specified conditions; Z88.1 Allergy status to other antibiotic agents; Z79.899 Other long term (current) drug therapy